=== PATIENT | female | born 1930 | race African-American/Black ===

== ENCOUNTER 2018-02-14 13:18 | Inpatient (IN) | payer MEDICARE, BC ==
[~2018-02-14] VITALS: Ht 165.1 cm; Wt 73.0 kg
[~2018-02-14 13:18] MED LIST: CALCIUM500 M3 PO; COLACE100 MG/10 ORAL; DOXYCYCLINE HY100 M7 PO; GLYCOLAX225 GM PO; Isovue-300 100ml vial INJ PRN; JANUVIA50 MG ORAL; LANTUS5 UNITS SUBQ; LEVEMIR100 UNIT/1 SUBQ; LIPITOR10 MG ORAL; MILK OF MA400 MG/51 ORAL; MIRALAX17 G2 ORAL; NOVOLOG100 UNIT/3 SUBQ; ONE DAILY1 EAC3 ORAL; OYSTER SHELL C1 EA11 PO; SILACE50 MG/5 ML PO; SIMVASTATIN20 MG ORAL; TYLENOL650 MG/20. ORAL; VANCOMYCIN1 GM/2502 IVPB; ZANTAC300 MG ORAL; [UNRECOGNIZED DRUG - CODE] PO; miralax
[2018-02-14 13:28] VITALS: BP 152/59
--- NOTE | 2018-02-14 13:32 | Emergency Room Report ---
History of Present Illness General Chief Complaint: Vomiting Source: Patient, EMS Present Illness HPI Patient is a 87-year-old female who presented after increased abdominal discomfort and vomiting. Patient had been noted to have prior history dementia. Patient was sent in from the facility. She was noted to have the multiple episodes of yellow-green vomiting. The patient was noted to have prior history dementia and history is markedly limited by patient's mental status. History is obtained from EMS. Allergies: Coded Allergies: ESTROGENS (Verified Allergy, Unknown, 11/27/14) Uncoded Allergies: "estrogen" (Allergy, Unknown, 02/20/14) Patient History Limited by: medical condition Past Medical History: see triage record Past Surgical History: unable to obtain Last Menstrual Period: NA Reviewed Nursing Documentation: PMH: Agreed; PSxH: Agreed Nursing Documentation-PMH Past Medical History: No History, Except For Hx Hypertension: Yes Hx Diabetes: Yes Hx Cancer: No Hx Gastrointestinal Problems: Yes - constipation, vomiting Hx Dementia: Yes Hx Alzheimer's Disease: Yes Review of Systems All Other Systems: limited - by mental status Physical Exam Vital Signs Date Time Temp Pulse Resp B/P (MAP) Pulse Ox O2 Delivery O2 Flow Rate FiO2 02/14/18 13:08 98.1 93 18 121/60 98 98.1 General Appearance: obese, Chronically Ill Head: normocephalic Eyes: bilateral eye PERRL ENT: dry mucus membranes Neck: limited range of motion Respiratory: chest non-tender, lungs clear, normal breath sounds, no rhonchi, no respiratory distress Cardiovascular #1: no edema, tachycardia Gastrointestinal: distended Genitourinary: no CVA tenderness Musculoskeletal: decreased range of motion - contracted upper extremity Neurologic: motor weakness, other - tremor, nonverbal Psychiatric: depressed affect Skin: normal inspection, normal color, no rash Medical Decision Making Diagnostic Impression: Primary Impression: Severe sepsis Additional Impressions: Lactic acid acidosis Urinary tract infection Ileus Hepatitis ER Course Patient presented for abdominal pain. Differential diagnoses included bowel obstruction, ischemic bowel, appendicitis, perforated viscus, abdominal aortic aneurysm, inferior myocardial infarction, viral gastroenteritis. Because of complexity of patient's case laboratory testing and imaging studies were ordered.Laboratory studies showed evidence of the patient's laboratory studies sepsis. The patient had evidence of urinary tract infection. Patient started on IV fluids.Dr. Cason was contacted for inpatient management due to complexity of medical condition. Labs Test 02/14/18 13:20 02/14/18 13:40 02/14/18 13:50 White Blood Count 12.8 K/UL (4.8-10.8) Red Blood Count 5.05 M/UL (4.20-5.40) Hemoglobin 12.8 G/DL (12.0-16.0) Hematocrit 42.0 % (37.0-47.0) Mean Corpuscular Volume 83 FL (80-99) Mean Corpuscular Hemoglobin 25.3 PG (27.0-31.0) Mean Corpuscular Hemoglobin Concent 30.4 G/DL (32.0-36.0) Red Cell Distribution Width 12.3 % (11.6-14.8) Platelet Count 220 K/UL (150-450) Mean Platelet Volume 9.1 FL (6.5-10.1) Neutrophils (%) (Auto) % (45.0-75.0) Lymphocytes (%) (Auto) % (20.0-45.0) Monocytes (%) (Auto) % (1.0-10.0) Eosinophils (%) (Auto) % (0.0-3.0) Basophils (%) (Auto) % (0.0-2.0) Differential Total Cells Counted 100 Neutrophils % (Manual) 94 % (45-75) Lymphocytes % (Manual) 3 % (20-45) Monocytes % (Manual) 2 % (1-10) Eosinophils % (Manual) 0 % (0-3) Basophils % (Manual) 0 % (0-2) Band Neutrophils 1 % (0-8) Platelet Estimate Adequate Platelet Morphology Normal Red Blood Cell Morphology Hypochromasia 1+ Prothrombin Time 10.7 SEC (9.30-11.50) Prothromb Time International Ratio 1.0 (0.9-1.1) Activated Partial Thromboplast Time 27 SEC (23-33) Sodium Level 141 MMOL/L (136-145) Potassium Level 3.9 MMOL/L (3.5-5.1) Chloride Level 102 MMOL/L (98-107) Carbon Dioxide Level 30 MMOL/L (21-32) Anion Gap 9 mmol/L (5-15) Blood Urea Nitrogen 21 mg/dL (7-18) Creatinine 1.4 MG/DL (0.55-1.30) Estimat Glomerular Filtration Rate mL/min (>60) Glucose Level 246 MG/DL (74-106) Calcium Level 11.2 MG/DL (8.5-10.1) Total Bilirubin 0.5 MG/DL (0.2-1.0) Aspartate Amino Transf (AST/SGOT) 144 U/L (15-37) Alanine Aminotransferase (ALT/SGPT) 124 U/L (12-78) Alkaline Phosphatase 142 U/L (46-116) Total Creatine Kinase 169 U/L (26-308) Creatine Kinase MB 2.1 NG/ML (0.0-3.6) Creatine Kinase MB Relative Index 1.2 Troponin I 0.001 ng/mL (0.000-0.056) Total Protein 8.2 G/DL (6.4-8.2) Albumin 3.3 G/DL (3.4-5.0) Globulin 4.9 g/dL Albumin/Globulin Ratio 0.7 (1.0-2.7) Lactic Acid Level 2.60 mmol/L (0.4-2.0) Urine Color Pale yellow Urine Appearance Slightly cloudy Urine pH 6 (4.5-8.0) Urine Specific [place] 1.020 (1.005-1.035) Urine Protein 2+ (NEGATIVE) Urine Glucose (UA) Negative (NEGATIVE) Urine Ketones Negative (NEGATIVE) Urine Occult Blood 4+ (NEGATIVE) Urine Nitrite Positive (NEGATIVE) Urine Bilirubin Negative (NEGATIVE) Urine Urobilinogen Normal MG/DL (0.0-1.0) Urine Leukocyte Esterase 3+ (NEGATIVE) Urine RBC 5-10 /HPF (0 - 2) Urine WBC 60-80 /HPF (0 - 2) Urine Squamous Epithelial Cells Occasional /LPF Urine Bacteria Many /HPF (NONE) EKG Diagnostic Results Rate: tachycardiac Rhythm: NSR - 105 ST Segments: no acute changes Chest X-Ray Diagnostic Results Chest X-Ray Diagnostic Results : Chest X-Ray Ordered: Yes # of Views/Limited/Complete: 1 View EP Interpretation: Yes Interpretation: no consolidation, no effusion, no pneumothorax Impression: Other - cardiomegaly Electronically Signed by: Electronically signed by Dr. Jayy Bolanos M.D. Last Vital Signs Date Time Temp Pulse Resp B/P (MAP) Pulse Ox O2 Delivery O2 Flow Rate FiO2 02/14/18 13:08 98.1 93 18 121/60 98 98.1 Status: unchanged Disposition: ADMITTED INPATIENT Condition: Serious Jayy Bolanos MD Feb 14, 2018 13:32
[2018-02-14 13:47] LABS: HEMOGLOBIN 12.8 G/DL (12.0-16.0); MEAN CORPUSCULAR VOLUME 83 FL (80-99); PLATELET COUNT 220 K/UL (150-450); RED BLOOD COUNT 5.05 M/UL (4.20-5.40); RED CELL DISTRIBUTION WIDTH 12.3 % (11.6-14.8); WHITE BLOOD COUNT 12.8 K/UL (4.8-10.8)
[2018-02-14 13:59] LABS: ANION GAP 9 mmol/L (5-15); BLOOD UREA NITROGEN 21 mg/dL (7-18); CALCIUM 11.2 MG/DL (8.5-10.1); CARBON DIOXIDE 30 MMOL/L (21-32); CHLORIDE 102 MMOL/L (98-107); CREATININE 1.4 MG/DL (0.55-1.30); POTASSIUM 3.9 MMOL/L (3.5-5.1); SODIUM 141 MMOL/L (136-145)
[2018-02-14 14:10] LABS: ALANINE AMINOTRANSFERASE 124 U/L (12-78); ALBUMIN 3.3 G/DL (3.4-5.0); ALBUMIN/GLOBULIN RATIO 0.7 (1.0-2.7); ALKALINE PHOSPHATASE 142 U/L (46-116); ASPARTATE AMINO TRANSFERASE 144 U/L (15-37); BILIRUBIN,TOTAL 0.5 MG/DL (0.2-1.0); CKMB 2.1 NG/ML (0.0-3.6); CREATINE KINASE 169 U/L (26-308)
[2018-02-14 14:17] LABS: APPEARANCE,URINE SLIGHTLY CLOUDY; BILIRUBIN, URINE NEGATIVE (NEGATIVE); COLOR,URINE PALE YELLOW; GLUCOSE, URINE (UA) NEGATIVE (NEGATIVE); KETONES,URINE NEGATIVE (NEGATIVE); LEUKOCYTE ESTERASE ,URINE 3+ (NEGATIVE); NITRITE,URINE POSITIVE (NEGATIVE); PH,URINE 6 (4.5-8.0); PROTEIN,URINE 2+ (NEGATIVE); UROBILINOGEN,URINE NORMAL MG/DL (0.0-1.0)
[2018-02-14] MEDS ORDERED: cefTRIAXone 1 GM in NS 55 ML IVPB ONE (14:45)
[2018-02-14 15:51] VITALS: BP 169/84
[2018-02-14] MEDS ORDERED: Acetaminophen 650 MG SUPP RECTAL ONE (16:00)
[2018-02-14 17:12] VITALS: BP 169/41
[2018-02-14] MEDS ORDERED: Nitroglycerin Subl 0.4mg tab SL PRN (17:45)
[2018-02-14] MEDS ORDERED: Albuterol/Ipratropium 3ml neb HHN PRN (17:45)
[2018-02-14] MEDS ORDERED: Miralax 17gm pkt ORAL PRN (17:45)
[2018-02-14 17:50] VITALS: BP 143/79
[2018-02-14] MEDS ORDERED: Vancomycin 1.5 GM/D5W 250ML IVPB ONE (20:00)
[2018-02-14] MEDS: NovoLOG Insulin Flexpen SUBQ SCH (21:16)
[2018-02-14] MEDS: Heparin 5000 units/ml inj SUBQ SCH (21:17)
[2018-02-14] MEDS: Cefepime HCl 2 GM in D5W 110 ML IV SCH (22:27)
[2018-02-15] MEDS ORDERED: Vancomycin 1 GM in D5W 275 ML IV SCH (00:30)
[2018-02-15] MEDS: NovoLOG Insulin Flexpen SUBQ SCH ×4 (05:43→20:44)
[2018-02-15 07:09] LABS: HEMATOCRIT 34.1 % (37.0-47.0); HEMOGLOBIN 10.6 G/DL (12.0-16.0); MEAN CORPUSCULAR VOLUME 82 FL (80-99); PLATELET COUNT 180 K/UL (150-450); RED BLOOD COUNT 4.17 M/UL (4.20-5.40); RED CELL DISTRIBUTION WIDTH 12.4 % (11.6-14.8); WHITE BLOOD COUNT 11.1 K/UL (4.8-10.8)
[2018-02-15 07:31] LABS: ALANINE AMINOTRANSFERASE 85 U/L (12-78); ALBUMIN 2.9 G/DL (3.4-5.0); ALBUMIN/GLOBULIN RATIO 0.7 (1.0-2.7); ALKALINE PHOSPHATASE 103 U/L (46-116); ANION GAP 7 mmol/L (5-15); ASPARTATE AMINO TRANSFERASE 98 U/L (15-37); BILIRUBIN,TOTAL 0.3 MG/DL (0.2-1.0); BLOOD UREA NITROGEN 22 mg/dL (7-18); CALCIUM 10.3 MG/DL (8.5-10.1); CARBON DIOXIDE 28 MMOL/L (21-32); CHLORIDE 104 MMOL/L (98-107); CREATININE 1.3 MG/DL (0.55-1.30); POTASSIUM 3.6 MMOL/L (3.5-5.1); SODIUM 139 MMOL/L (136-145)
[2018-02-15] MEDS: sitaGLIPtin 50mg tab ORAL SCH (08:35)
[2018-02-15] MEDS: Heparin 5000 units/ml inj SUBQ SCH ×2 (08:37→20:44)
--- NOTE | 2018-02-15 09:17 | Diagnostic Imaging Report ---
Clinical Indication: Pain Technique: No oral contrast utilized, per emergency room physician request IV administration nonionic contrast. Venous phase spiral acquisition obtained through the abdomen and pelvis. Multiplanar reconstructions were generated. Total dose length product 809.95 mGycm. CTDIvol(s) 15.91 mGy. Dose reduction achieved using automated exposure control Comparison: 06/06/2014 noncontrast study Findings: The appendix is not definitely identified, but no findings to suggest acute appendicitis are evident. There are a few scattered colonic diverticula. No evidence of diverticulitis. There are a few prominent gas and fluid-filled small bowel loops, but no definite transition point is demonstrated. No free or loculated intraperitoneal air or fluid is evident. There is a tiny fat-containing umbilical hernia. The distal esophagus, stomach, duodenum are unremarkable. The liver demonstrates a very subtle low-attenuation lesion within segment 8, which is also evident previously and has been described on earlier studies, unchanged. Other previously described liver lesions are not clearly evident. Gallbladder, bile ducts are all unremarkable. The pancreas is atrophic. The spleen, adrenals are unremarkable. The right kidney is unremarkable. Left kidney is somewhat lobulated, otherwise unremarkable. No retroperitoneal or mesenteric mass or adenopathy. The uterus is not demonstrated, presumably surgically absent. There is a Soria catheter within the bladder, which is empty. Infiltrate is seen at the right lung base. The bones demonstrate mild scoliotic deformity and degenerative spondylosis changes. There is edema of the bilateral flank subcutaneous fat Impression: Mildly prominent gas and fluid-filled small bowel loops without definite transition point. Most likely on the basis of ileus/enteritis. Early small bowel obstruction not completely excludable but deemed less likely Right basilar infiltrate, most likely pneumonia Mild anasarca Stable, presumably benign, right lobe liver lesion Soria catheter within nondistended bladder Mild scoliosis and degenerative spondylosis incidentally noted This agrees with the preliminary interpretation provided overnight by [facility] teleradiology service. The CT scanner at [facility] is accredited by the [employer] and the scans are performed using protocols designed to limit radiation exposure to as low as reasonably achievable to attain images of sufficient resolution adequate for diagnostic evaluation.
--- NOTE | 2018-02-15 09:23 | Diagnostic Imaging Report ---
Indication: Chest pain Technique: One view of the chest Comparison: 09/02/2015 Findings: Patient's chin obscures the upper mediastinum. There is mild interstitial congestion. Better inspiration currently. The heart size is normal. Impression: Mild interstitial edema
[2018-02-15 12:00] VITALS: BP_SYST 143; BP_SYST 151; BP_DIAS 66; BP_DIAS 79
--- NOTE | 2018-02-15 12:34 | History and Physical ---
History of Present Illness General Date patient seen: Feb 15, 2018 Reason for Hospitalization: Vomiting Present Illness HPI 87 year old female with hx of dementia, DM, residing in an assisted living BIBA with CC of abdominal pain and vomiting. Pt can't provide any history and all information is obtained from the chart. Pt was diagnosed to have UTI with sepsis and admitted to telemetry for further treatment. Currently, pt is somnolent, not responsive, but looks comfortable. Unknown baseline. Allergies: Coded Allergies: ESTROGENS (Verified Allergy, Unknown, 11/27/14) Uncoded Allergies: "estrogen" (Allergy, Unknown, 02/20/14) Medication History Scheduled Calcium Carbonate (Calcium), 500 MG PO BID, (Reported) Docusate Sodium (Silace), 100 MG PO BID, (Reported) Insulin Detemir (Levemir), 16 SUBQ BEDTIME, (Reported) Multivitamin (One Daily), 1 TAB ORAL DAILY, (Reported) Polyethylene Glycol 3350 (Glycolax), 17 GM PO DAILY, (Reported) Polyethylene Glycol 3350* (Miralax*), 17 GM ORAL DAILY, (Reported) Ranitidine Hcl (Zantac), 150 MG ORAL DAILY, (Reported) Sitagliptin (Januvia), 50 MG ORAL DAILY, (Reported) Vancomycin Hcl/D5w (Vancomycin-D5w 1 G/250 Ml), 1 GM IVPB Q24H Scheduled PRN Acetaminophen (Acetaminophen), 650 MG ORAL Q6H PRN for Prn Headache/Temp > 101, (Reported) Magnesium Hydroxide* (Milk Of Magnesia*), 30 ML ORAL DAILY PRN for Constipation, (Reported) Miscellaneous Medications Calcium Carbonate ([id number]), 500 MG PO, (Reported) Insulin Aspart* (Novolog*), 0 SUBQ, (Reported) [miralax], (Reported) Patient History Healthcare decision maker Resuscitation status Full Code Advanced Directive on File No Past Medical/Surgical History Past Medical/Surgical History: (1) Diabetes (2) Renal insufficiency Review of Systems All Other Systems: negative except mentioned in HPI Physical Exam General Appearance: cachetic Lines, tubes and drains: central line HEENT: normocephalic, atraumatic, PERRL Neck: normal alignment Respiratory/Chest: chest wall non-tender, normal breath sounds Cardiovascular/Chest: normal peripheral pulses, normal rate Abdomen: normal bowel sounds, non tender Genitourinary/Rectal: normal genital exam, normal rectal exam Extremities: non-pitting Last 24 Hour Vital Signs Date Time Temp Pulse Resp B/P (MAP) Pulse Ox O2 Delivery O2 Flow Rate FiO2 02/15/18 08:00 84 02/15/18 02:23 68 02/14/18 23:46 77 02/14/18 19:02 94 02/14/18 17:50 100.4 89 18 143/79 100 Room Air 100.4 02/14/18 17:40 100.9 96 21 169/41 100 Room Air 100.9 02/14/18 17:12 100.9 96 21 169/41 100 Room Air 100.9 02/14/18 17:12 100.9 02/14/18 16:31 101.7 02/14/18 15:51 101.7 110 21 169/84 100 Room Air 101.7 02/14/18 13:28 98 22 152/59 91 Room Air 02/14/18 13:08 98.1 93 18 121/60 98 98.1 Intake and Output 02/14/18 02/15/18 19:00 07:00 Intake Total 1055 ml 470 ml Output Total 200 ml Balance 1055 ml 270 ml Intake Oral 0 ml IV Total 1055 ml 470 ml Output Urine Total 200 ml Laboratory Tests Test 02/14/18 13:20 02/14/18 13:40 02/14/18 13:50 02/14/18 18:55 White Blood Count 12.8 K/UL (4.8-10.8) H Red Blood Count 5.05 M/UL (4.20-5.40) Hemoglobin 12.8 G/DL (12.0-16.0) Hematocrit 42.0 % (37.0-47.0) Mean Corpuscular Volume 83 FL (80-99) Mean Corpuscular Hemoglobin 25.3 PG (27.0-31.0) L Mean Corpuscular Hemoglobin Concent 30.4 G/DL (32.0-36.0) L Red Cell Distribution Width 12.3 % (11.6-14.8) Platelet Count 220 K/UL (150-450) Mean Platelet Volume 9.1 FL (6.5-10.1) Neutrophils (%) (Auto) % (45.0-75.0) Lymphocytes (%) (Auto) % (20.0-45.0) Monocytes (%) (Auto) % (1.0-10.0) Eosinophils (%) (Auto) % (0.0-3.0) Basophils (%) (Auto) % (0.0-2.0) Differential Total Cells Counted 100 Neutrophils % (Manual) 94 % (45-75) H Lymphocytes % (Manual) 3 % (20-45) L Monocytes % (Manual) 2 % (1-10) Eosinophils % (Manual) 0 % (0-3) Basophils % (Manual) 0 % (0-2) Band Neutrophils 1 % (0-8) Platelet Estimate Adequate Platelet Morphology Normal Red Blood Cell Morphology Hypochromasia 1+ Prothrombin Time 10.7 SEC (9.30-11.50) Prothromb Time International Ratio 1.0 (0.9-1.1) Activated Partial Thromboplast Time 27 SEC (23-33) Sodium Level 141 MMOL/L (136-145) Potassium Level 3.9 MMOL/L (3.5-5.1) Chloride Level 102 MMOL/L (98-107) Carbon Dioxide Level 30 MMOL/L (21-32) Anion Gap 9 mmol/L (5-15) Blood Urea Nitrogen 21 mg/dL (7-18) H Creatinine 1.4 MG/DL (0.55-1.30) H Estimat Glomerular Filtration Rate mL/min (>60) Glucose Level 246 MG/DL (74-106) H Calcium Level 11.2 MG/DL (8.5-10.1) H Total Bilirubin 0.5 MG/DL (0.2-1.0) Aspartate Amino Transf (AST/SGOT) 144 U/L (15-37) H Alanine Aminotransferase (ALT/SGPT) 124 U/L (12-78) H Alkaline Phosphatase 142 U/L (46-116) H Total Creatine Kinase 169 U/L (26-308) Creatine Kinase MB 2.1 NG/ML (0.0-3.6) Creatine Kinase MB Relative Index 1.2 Troponin I 0.001 ng/mL (0.000-0.056) Total Protein 8.2 G/DL (6.4-8.2) Albumin 3.3 G/DL (3.4-5.0) L Globulin 4.9 g/dL Albumin/Globulin Ratio 0.7 (1.0-2.7) L Lactic Acid Level 2.60 mmol/L (0.4-2.0) H 2.60 mmol/L (0.66-2.22) H Urine Color Pale yellow Urine Appearance Slightly cloudy Urine pH 6 (4.5-8.0) Urine Specific [place] 1.020 (1.005-1.035) Urine Protein 2+ (NEGATIVE) H Urine Glucose (UA) Negative (NEGATIVE) Urine Ketones Negative (NEGATIVE) Urine Occult Blood 4+ (NEGATIVE) H Urine Nitrite Positive (NEGATIVE) H Urine Bilirubin Negative (NEGATIVE) Urine Urobilinogen Normal MG/DL (0.0-1.0) Urine Leukocyte Esterase 3+ (NEGATIVE) H Urine RBC 5-10 /HPF (0 - 2) H Urine WBC 60-80 /HPF (0 - 2) H Urine Squamous Epithelial Cells Occasional /LPF Urine Bacteria Many /HPF (NONE) H Test 02/15/18 06:35 White Blood Count 11.1 K/UL (4.8-10.8) H Red Blood Count 4.17 M/UL (4.20-5.40) L Hemoglobin 10.6 G/DL (12.0-16.0) L Hematocrit 34.1 % (37.0-47.0) L Mean Corpuscular Volume 82 FL (80-99) Mean Corpuscular Hemoglobin 25.5 PG (27.0-31.0) L Mean Corpuscular Hemoglobin Concent 31.2 G/DL (32.0-36.0) L Red Cell Distribution Width 12.4 % (11.6-14.8) Platelet Count 180 K/UL (150-450) Mean Platelet Volume 9.3 FL (6.5-10.1) Neutrophils (%) (Auto) % (45.0-75.0) Lymphocytes (%) (Auto) % (20.0-45.0) Monocytes (%) (Auto) % (1.0-10.0) Eosinophils (%) (Auto) % (0.0-3.0) Basophils (%) (Auto) % (0.0-2.0) Differential Total Cells Counted 100 Neutrophils % (Manual) 84 % (45-75) H Lymphocytes % (Manual) 8 % (20-45) L Monocytes % (Manual) 8 % (1-10) Eosinophils % (Manual) 0 % (0-3) Basophils % (Manual) 0 % (0-2) Band Neutrophils 0 % (0-8) Platelet Estimate Adequate Platelet Morphology Normal Hypochromasia 1+ Sodium Level 139 MMOL/L (136-145) Potassium Level 3.6 MMOL/L (3.5-5.1) Chloride Level 104 MMOL/L (98-107) Carbon Dioxide Level 28 MMOL/L (21-32) Anion Gap 7 mmol/L (5-15) Blood Urea Nitrogen 22 mg/dL (7-18) H Creatinine 1.3 MG/DL (0.55-1.30) Estimat Glomerular Filtration Rate mL/min (>60) Glucose Level 195 MG/DL (74-106) H Calcium Level 10.3 MG/DL (8.5-10.1) H Total Bilirubin 0.3 MG/DL (0.2-1.0) Aspartate Amino Transf (AST/SGOT) 98 U/L (15-37) H Alanine Aminotransferase (ALT/SGPT) 85 U/L (12-78) H Alkaline Phosphatase 103 U/L (46-116) Total Protein 7.3 G/DL (6.4-8.2) Albumin 2.9 G/DL (3.4-5.0) L Globulin 4.4 g/dL Albumin/Globulin Ratio 0.7 (1.0-2.7) L Microbiology Date/Time Source Procedure Growth Status 02/14/18 13:50 Urine,Clean Catch Urine Culture - Preliminary NO GROWTH Resulted Height (Feet): 5 Height (Inches): 6.00 Weight (Pounds): 141 Medications Current Medications Medications (Trade) Dose Ordered Sig/Jus Route PRN Reason Start Time Stop Time Status Last Admin Dose Admin Acetaminophen (Tylenol) 650 mg Q4H PRN ORAL fever 02/14/18 20:30 03/16/18 20:29 Albuterol/ Ipratropium (Albuterol/ Ipratropium) 3 ml Q4H PRN HHN Shortness of Breath 02/14/18 17:45 02/19/18 17:44 Cefepime HCl 2 gm/ Dextrose 110 ml @ 220 mls/hr Q24H IV 02/14/18 22:00 02/21/18 21:59 02/14/18 22:27 Dextrose (Dextrose 50%) 25 ml STAT PRN IV Hypoglycemia 02/14/18 17:45 03/16/18 17:44 Dextrose (Dextrose 50%) 50 ml STAT PRN IV Hypoglycemia 02/14/18 18:15 03/16/18 18:14 Heparin Sodium (Porcine) (Heparin 5000 units/ml) 5,000 units EVERY 12 HOURS SUBQ 02/14/18 21:00 03/16/18 20:59 02/15/18 08:37 Insulin Aspart (NovoLOG) BEFORE MEALS AND HS SUBQ 02/14/18 21:00 03/16/18 20:59 02/15/18 11:08 Iopamidol (Isovue-300 100ml) 100 ml NOW PRN INJ Radiology Procedure 02/14/18 13:15 02/16/18 13:14 Nitroglycerin (Ntg) 0.4 mg Q5M PRN SL Prn Chest Pain 02/14/18 17:45 03/16/18 17:44 Ondansetron HCl (Zofran) 4 mg Q6H PRN IVP Nausea & Vomiting 02/14/18 17:45 03/16/18 17:44 02/15/18 11:09 Polyethylene Glycol (Miralax) 17 gm DAILYPRN PRN ORAL Constipation 02/14/18 17:45 03/16/18 17:44 Sitagliptin Phosphate (Januvia) 50 mg DAILY ORAL 02/15/18 09:00 03/17/18 08:59 02/15/18 08:35 Temazepam (Restoril) 15 mg HSPRN PRN ORAL Insomnia 02/14/18 17:45 02/21/18 17:44 Vancomycin HCl (Vanco rx to dose) 1 ea DAILY PRN MISC PER RX PROTOCOL 02/14/18 18:00 03/16/18 17:59 Vancomycin/Sodium Chloride 250 ml @ 166.667 mls/hr Q24H IVPB 02/15/18 20:00 02/20/18 19:59 Assessment/Plan Problem List: (1) Severe sepsis ICD Codes: A41.9 - Sepsis, unspecified organism; R65.20 - Severe sepsis without septic shock SNOMED: 48952487 (2) Intractable nausea and vomiting ICD Codes: R11.2 - Nausea with vomiting, unspecified SNOMED: 773830574 (3) Altered mental status ICD Codes: R41.82 - Altered mental status, unspecified SNOMED: 415374606 (4) end stage alzheimrers dementia (5) UTI (urinary tract infection) ICD Codes: N39.0 - Urinary tract infection, site not specified SNOMED: 45943540 (6) At high risk for aspiration ICD Codes: Z91.89 - At high risk for aspiration SNOMED: 851644637 (7) Diabetes ICD Codes: E11.9 - Diabetes SNOMED: 60895561 Assessment/Plan momin culture iv abx check electrolytes check urine cultures iv fluids swallow study dvt prophylaxis sliding scale dvt prophylaxis Tiago Cason MD Feb 15, 2018 12:34
--- NOTE | 2018-02-15 12:44 | Consultation ---
History of Present Illness General Date patient seen: Feb 15, 2018 Chief Complaint: Vomiting Present Illness HPI 87-year-old female who presented after increased abdominal discomfort and vomiting. the pt has been trowing up. the pt is nonverbal and confused. the pt has memory impairment and is anxious Allergies: Coded Allergies: ESTROGENS (Verified Allergy, Unknown, 11/27/14) Uncoded Allergies: "estrogen" (Allergy, Unknown, 02/20/14) Medication History Scheduled Calcium Carbonate (Calcium), 500 MG PO BID, (Reported) Docusate Sodium (Silace), 100 MG PO BID, (Reported) Insulin Detemir (Levemir), 16 SUBQ BEDTIME, (Reported) Multivitamin (One Daily), 1 TAB ORAL DAILY, (Reported) Polyethylene Glycol 3350 (Glycolax), 17 GM PO DAILY, (Reported) Polyethylene Glycol 3350* (Miralax*), 17 GM ORAL DAILY, (Reported) Ranitidine Hcl (Zantac), 150 MG ORAL DAILY, (Reported) Sitagliptin (Januvia), 50 MG ORAL DAILY, (Reported) Vancomycin Hcl/D5w (Vancomycin-D5w 1 G/250 Ml), 1 GM IVPB Q24H Scheduled PRN Acetaminophen (Acetaminophen), 650 MG ORAL Q6H PRN for Prn Headache/Temp > 101, (Reported) Magnesium Hydroxide* (Milk Of Magnesia*), 30 ML ORAL DAILY PRN for Constipation, (Reported) Miscellaneous Medications Calcium Carbonate ([id number]), 500 MG PO, (Reported) Insulin Aspart* (Novolog*), 0 SUBQ, (Reported) [miralax], (Reported) Patient History Limited by: medical condition History Provided By: Patient, Medical Record, PMD Healthcare decision maker Resuscitation status Full Code Advanced Directive on File No Past Medical/Surgical History Past Medical/Surgical History: (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 (3) Anemia (4) Lactic acidosis (5) Altered mental status (6) Vomiting (7) Acute bronchitis (8) Hyperlipidemia (9) Leukocytosis (10) Renal insufficiency (11) Sepsis (12) Anemia (13) Hypoxia (14) Vomiting (15) Acute bronchitis (16) Anemia (17) Renal insufficiency (18) Altered mental status (19) Pneumonia (20) Type 1 diabetes, controlled, with cellulitis of toe (21) Sepsis (22) Cellulitis of fifth toe, left (23) Type 2 diabetes, uncontrolled, with cellulitis of toe (24) Podiatry visit, routine (25) Urinary tract infection (26) Ileus (27) Lactic acid acidosis (28) Abdominal pain (29) Heart abnormality (30) Heart block (31) Diabetes (32) Renal insufficiency (33) UTI (urinary tract infection) (34) Altered mental status (35) Severe sepsis (36) At high risk for aspiration (37) end stage alzheimrers dementia (38) Intractable nausea and vomiting Review of Systems Psychiatric: Reports: prior hx, anxiety, depressed feelings, emotional problems Physical Exam General Appearance: no apparent distress, alert, confused Last 24 Hour Vital Signs Date Time Temp Pulse Resp B/P (MAP) Pulse Ox O2 Delivery O2 Flow Rate FiO2 02/15/18 08:00 84 02/15/18 02:23 68 02/14/18 23:46 77 02/14/18 19:02 94 02/14/18 17:50 100.4 89 18 143/79 100 Room Air 100.4 02/14/18 17:40 100.9 96 21 169/41 100 Room Air 100.9 02/14/18 17:12 100.9 96 21 169/41 100 Room Air 100.9 02/14/18 17:12 100.9 02/14/18 16:31 101.7 02/14/18 15:51 101.7 110 21 169/84 100 Room Air 101.7 02/14/18 13:28 98 22 152/59 91 Room Air 02/14/18 13:08 98.1 93 18 121/60 98 98.1 Intake and Output 02/14/18 02/15/18 19:00 07:00 Intake Total 1055 ml 470 ml Output Total 200 ml Balance 1055 ml 270 ml Intake Oral 0 ml IV Total 1055 ml 470 ml Output Urine Total 200 ml Laboratory Tests Test 02/14/18 13:20 02/14/18 13:40 02/14/18 13:50 02/14/18 18:55 White Blood Count 12.8 K/UL (4.8-10.8) H Red Blood Count 5.05 M/UL (4.20-5.40) Hemoglobin 12.8 G/DL (12.0-16.0) Hematocrit 42.0 % (37.0-47.0) Mean Corpuscular Volume 83 FL (80-99) Mean Corpuscular Hemoglobin 25.3 PG (27.0-31.0) L Mean Corpuscular Hemoglobin Concent 30.4 G/DL (32.0-36.0) L Red Cell Distribution Width 12.3 % (11.6-14.8) Platelet Count 220 K/UL (150-450) Mean Platelet Volume 9.1 FL (6.5-10.1) Neutrophils (%) (Auto) % (45.0-75.0) Lymphocytes (%) (Auto) % (20.0-45.0) Monocytes (%) (Auto) % (1.0-10.0) Eosinophils (%) (Auto) % (0.0-3.0) Basophils (%) (Auto) % (0.0-2.0) Differential Total Cells Counted 100 Neutrophils % (Manual) 94 % (45-75) H Lymphocytes % (Manual) 3 % (20-45) L Monocytes % (Manual) 2 % (1-10) Eosinophils % (Manual) 0 % (0-3) Basophils % (Manual) 0 % (0-2) Band Neutrophils 1 % (0-8) Platelet Estimate Adequate Platelet Morphology Normal Red Blood Cell Morphology Hypochromasia 1+ Prothrombin Time 10.7 SEC (9.30-11.50) Prothromb Time International Ratio 1.0 (0.9-1.1) Activated Partial Thromboplast Time 27 SEC (23-33) Sodium Level 141 MMOL/L (136-145) Potassium Level 3.9 MMOL/L (3.5-5.1) Chloride Level 102 MMOL/L (98-107) Carbon Dioxide Level 30 MMOL/L (21-32) Anion Gap 9 mmol/L (5-15) Blood Urea Nitrogen 21 mg/dL (7-18) H Creatinine 1.4 MG/DL (0.55-1.30) H Estimat Glomerular Filtration Rate mL/min (>60) Glucose Level 246 MG/DL (74-106) H Calcium Level 11.2 MG/DL (8.5-10.1) H Total Bilirubin 0.5 MG/DL (0.2-1.0) Aspartate Amino Transf (AST/SGOT) 144 U/L (15-37) H Alanine Aminotransferase (ALT/SGPT) 124 U/L (12-78) H Alkaline Phosphatase 142 U/L (46-116) H Total Creatine Kinase 169 U/L (26-308) Creatine Kinase MB 2.1 NG/ML (0.0-3.6) Creatine Kinase MB Relative Index 1.2 Troponin I 0.001 ng/mL (0.000-0.056) Total Protein 8.2 G/DL (6.4-8.2) Albumin 3.3 G/DL (3.4-5.0) L Globulin 4.9 g/dL Albumin/Globulin Ratio 0.7 (1.0-2.7) L Lactic Acid Level 2.60 mmol/L (0.4-2.0) H 2.60 mmol/L (0.66-2.22) H Urine Color Pale yellow Urine Appearance Slightly cloudy Urine pH 6 (4.5-8.0) Urine Specific [place] 1.020 (1.005-1.035) Urine Protein 2+ (NEGATIVE) H Urine Glucose (UA) Negative (NEGATIVE) Urine Ketones Negative (NEGATIVE) Urine Occult Blood 4+ (NEGATIVE) H Urine Nitrite Positive (NEGATIVE) H Urine Bilirubin Negative (NEGATIVE) Urine Urobilinogen Normal MG/DL (0.0-1.0) Urine Leukocyte Esterase 3+ (NEGATIVE) H Urine RBC 5-10 /HPF (0 - 2) H Urine WBC 60-80 /HPF (0 - 2) H Urine Squamous Epithelial Cells Occasional /LPF Urine Bacteria Many /HPF (NONE) H Test 02/15/18 06:35 White Blood Count 11.1 K/UL (4.8-10.8) H Red Blood Count 4.17 M/UL (4.20-5.40) L Hemoglobin 10.6 G/DL (12.0-16.0) L Hematocrit 34.1 % (37.0-47.0) L Mean Corpuscular Volume 82 FL (80-99) Mean Corpuscular Hemoglobin 25.5 PG (27.0-31.0) L Mean Corpuscular Hemoglobin Concent 31.2 G/DL (32.0-36.0) L Red Cell Distribution Width 12.4 % (11.6-14.8) Platelet Count 180 K/UL (150-450) Mean Platelet Volume 9.3 FL (6.5-10.1) Neutrophils (%) (Auto) % (45.0-75.0) Lymphocytes (%) (Auto) % (20.0-45.0) Monocytes (%) (Auto) % (1.0-10.0) Eosinophils (%) (Auto) % (0.0-3.0) Basophils (%) (Auto) % (0.0-2.0) Differential Total Cells Counted 100 Neutrophils % (Manual) 84 % (45-75) H Lymphocytes % (Manual) 8 % (20-45) L Monocytes % (Manual) 8 % (1-10) Eosinophils % (Manual) 0 % (0-3) Basophils % (Manual) 0 % (0-2) Band Neutrophils 0 % (0-8) Platelet Estimate Adequate Platelet Morphology Normal Hypochromasia 1+ Sodium Level 139 MMOL/L (136-145) Potassium Level 3.6 MMOL/L (3.5-5.1) Chloride Level 104 MMOL/L (98-107) Carbon Dioxide Level 28 MMOL/L (21-32) Anion Gap 7 mmol/L (5-15) Blood Urea Nitrogen 22 mg/dL (7-18) H Creatinine 1.3 MG/DL (0.55-1.30) Estimat Glomerular Filtration Rate mL/min (>60) Glucose Level 195 MG/DL (74-106) H Calcium Level 10.3 MG/DL (8.5-10.1) H Total Bilirubin 0.3 MG/DL (0.2-1.0) Aspartate Amino Transf (AST/SGOT) 98 U/L (15-37) H Alanine Aminotransferase (ALT/SGPT) 85 U/L (12-78) H Alkaline Phosphatase 103 U/L (46-116) Total Protein 7.3 G/DL (6.4-8.2) Albumin 2.9 G/DL (3.4-5.0) L Globulin 4.4 g/dL Albumin/Globulin Ratio 0.7 (1.0-2.7) L Microbiology Date/Time Source Procedure Growth Status 02/14/18 13:50 Urine,Clean Catch Urine Culture - Preliminary NO GROWTH Resulted Height (Feet): 5 Height (Inches): 6.00 Weight (Pounds): 141 Medications Current Medications Medications (Trade) Dose Ordered Sig/Jus Route PRN Reason Start Time Stop Time Status Last Admin Dose Admin Acetaminophen (Tylenol) 650 mg Q4H PRN ORAL fever 02/14/18 20:30 03/16/18 20:29 Albuterol/ Ipratropium (Albuterol/ Ipratropium) 3 ml Q4H PRN HHN Shortness of Breath 02/14/18 17:45 02/19/18 17:44 Cefepime HCl 2 gm/ Dextrose 110 ml @ 220 mls/hr Q24H IV 02/14/18 22:00 02/21/18 21:59 02/14/18 22:27 Dextrose (Dextrose 50%) 25 ml STAT PRN IV Hypoglycemia 02/14/18 17:45 03/16/18 17:44 Dextrose (Dextrose 50%) 50 ml STAT PRN IV Hypoglycemia 02/14/18 18:15 03/16/18 18:14 Heparin Sodium (Porcine) (Heparin 5000 units/ml) 5,000 units EVERY 12 HOURS SUBQ 02/14/18 21:00 03/16/18 20:59 02/15/18 08:37 Insulin Aspart (NovoLOG) BEFORE MEALS AND HS SUBQ 02/14/18 21:00 03/16/18 20:59 02/15/18 11:08 Iopamidol (Isovue-300 100ml) 100 ml NOW PRN INJ Radiology Procedure 02/14/18 13:15 02/16/18 13:14 Nitroglycerin (Ntg) 0.4 mg Q5M PRN SL Prn Chest Pain 02/14/18 17:45 03/16/18 17:44 Ondansetron HCl (Zofran) 4 mg Q6H PRN IVP Nausea & Vomiting 02/14/18 17:45 03/16/18 17:44 02/15/18 11:09 Polyethylene Glycol (Miralax) 17 gm DAILYPRN PRN ORAL Constipation 02/14/18 17:45 03/16/18 17:44 Sitagliptin Phosphate (Januvia) 50 mg DAILY ORAL 02/15/18 09:00 03/17/18 08:59 02/15/18 08:35 Temazepam (Restoril) 15 mg HSPRN PRN ORAL Insomnia 02/14/18 17:45 02/21/18 17:44 Vancomycin HCl (Vanco rx to dose) 1 ea DAILY PRN MISC PER RX PROTOCOL 02/14/18 18:00 03/16/18 17:59 Vancomycin/Sodium Chloride 250 ml @ 166.667 mls/hr Q24H IVPB 02/15/18 20:00 02/20/18 19:59 Assessment/Plan Assessment/Plan encephalopathy dementia -haldol 5mg q 6hr prn Josue Roy M.D. Feb 15, 2018 12:44
--- NOTE | 2018-02-15 14:19 | Consultation ---
History of Present Illness General Date patient seen: Feb 15, 2018 Chief Complaint: Vomiting Present Illness HPI 87 y/o F with hx of HTN, Dm2, constipation, Alzheimer's Disease, assisted living resident presents to ED on 02/14 with increasing abd discomfort and multiple episodes of yelow-green emesis. Febrile up to 101.7, Tm int he alst 24hrs 100.4 WBC up to 12, now downt o 11 LFTs increased Allergies: Coded Allergies: ESTROGENS (Verified Allergy, Unknown, 11/27/14) Uncoded Allergies: "estrogen" (Allergy, Unknown, 02/20/14) Medication History Scheduled Calcium Carbonate (Calcium), 500 MG PO BID, (Reported) Docusate Sodium (Silace), 100 MG PO BID, (Reported) Insulin Detemir (Levemir), 16 SUBQ BEDTIME, (Reported) Multivitamin (One Daily), 1 TAB ORAL DAILY, (Reported) Polyethylene Glycol 3350 (Glycolax), 17 GM PO DAILY, (Reported) Polyethylene Glycol 3350* (Miralax*), 17 GM ORAL DAILY, (Reported) Ranitidine Hcl (Zantac), 150 MG ORAL DAILY, (Reported) Sitagliptin (Januvia), 50 MG ORAL DAILY, (Reported) Vancomycin Hcl/D5w (Vancomycin-D5w 1 G/250 Ml), 1 GM IVPB Q24H Scheduled PRN Acetaminophen (Acetaminophen), 650 MG ORAL Q6H PRN for Prn Headache/Temp > 101, (Reported) Magnesium Hydroxide* (Milk Of Magnesia*), 30 ML ORAL DAILY PRN for Constipation, (Reported) Miscellaneous Medications Calcium Carbonate ([id number]), 500 MG PO, (Reported) Insulin Aspart* (Novolog*), 0 SUBQ, (Reported) [miralax], (Reported) Patient History Healthcare decision maker Resuscitation status Full Code Advanced Directive on File No Patient History Narrative Pmhx: as above Shx: reviewed Fmhx: non contributory Review of Systems ROS Narrative unable to obtain Physical Exam Physical Exam Narrative General Appearance: cachetic Lines, tubes and drains: central line HEENT: normocephalic, atraumatic, PERRL Neck: normal alignment Respiratory/Chest: chest wall non-tender, normal breath sounds Cardiovascular/Chest: normal peripheral pulses, normal rate Abdomen: normal bowel sounds, non tender Genitourinary/Rectal: normal genital exam, normal rectal exam Extremities: non-pitting Last 24 Hour Vital Signs Date Time Temp Pulse Resp B/P (MAP) Pulse Ox O2 Delivery O2 Flow Rate FiO2 02/15/18 08:00 84 02/15/18 02:23 68 02/14/18 23:46 77 02/14/18 19:02 94 02/14/18 17:50 100.4 89 18 143/79 100 Room Air 100.4 02/14/18 17:40 100.9 96 21 169/41 100 Room Air 100.9 02/14/18 17:12 100.9 96 21 169/41 100 Room Air 100.9 02/14/18 17:12 100.9 02/14/18 16:31 101.7 02/14/18 15:51 101.7 110 21 169/84 100 Room Air 101.7 Intake and Output 02/14/18 02/15/18 19:00 07:00 Intake Total 1055 ml 470 ml Output Total 200 ml Balance 1055 ml 270 ml Intake Oral 0 ml IV Total 1055 ml 470 ml Output Urine Total 200 ml Laboratory Tests Test 02/14/18 18:55 02/15/18 06:35 Lactic Acid Level 2.60 mmol/L (0.66-2.22) H White Blood Count 11.1 K/UL (4.8-10.8) H Red Blood Count 4.17 M/UL (4.20-5.40) L Hemoglobin 10.6 G/DL (12.0-16.0) L Hematocrit 34.1 % (37.0-47.0) L Mean Corpuscular Volume 82 FL (80-99) Mean Corpuscular Hemoglobin 25.5 PG (27.0-31.0) L Mean Corpuscular Hemoglobin Concent 31.2 G/DL (32.0-36.0) L Red Cell Distribution Width 12.4 % (11.6-14.8) Platelet Count 180 K/UL (150-450) Mean Platelet Volume 9.3 FL (6.5-10.1) Neutrophils (%) (Auto) % (45.0-75.0) Lymphocytes (%) (Auto) % (20.0-45.0) Monocytes (%) (Auto) % (1.0-10.0) Eosinophils (%) (Auto) % (0.0-3.0) Basophils (%) (Auto) % (0.0-2.0) Differential Total Cells Counted 100 Neutrophils % (Manual) 84 % (45-75) H Lymphocytes % (Manual) 8 % (20-45) L Monocytes % (Manual) 8 % (1-10) Eosinophils % (Manual) 0 % (0-3) Basophils % (Manual) 0 % (0-2) Band Neutrophils 0 % (0-8) Platelet Estimate Adequate Platelet Morphology Normal Hypochromasia 1+ Sodium Level 139 MMOL/L (136-145) Potassium Level 3.6 MMOL/L (3.5-5.1) Chloride Level 104 MMOL/L (98-107) Carbon Dioxide Level 28 MMOL/L (21-32) Anion Gap 7 mmol/L (5-15) Blood Urea Nitrogen 22 mg/dL (7-18) H Creatinine 1.3 MG/DL (0.55-1.30) Estimat Glomerular Filtration Rate mL/min (>60) Glucose Level 195 MG/DL (74-106) H Calcium Level 10.3 MG/DL (8.5-10.1) H Total Bilirubin 0.3 MG/DL (0.2-1.0) Aspartate Amino Transf (AST/SGOT) 98 U/L (15-37) H Alanine Aminotransferase (ALT/SGPT) 85 U/L (12-78) H Alkaline Phosphatase 103 U/L (46-116) Total Protein 7.3 G/DL (6.4-8.2) Albumin 2.9 G/DL (3.4-5.0) L Globulin 4.4 g/dL Albumin/Globulin Ratio 0.7 (1.0-2.7) L Height (Feet): 5 Height (Inches): 6.00 Weight (Pounds): 141 Medications Current Medications Medications (Trade) Dose Ordered Sig/Jus Route PRN Reason Start Time Stop Time Status Last Admin Dose Admin Acetaminophen (Tylenol) 650 mg Q4H PRN ORAL fever 02/14/18 20:30 03/16/18 20:29 Albuterol/ Ipratropium (Albuterol/ Ipratropium) 3 ml Q4H PRN HHN Shortness of Breath 02/14/18 17:45 02/19/18 17:44 Cefepime HCl 2 gm/ Dextrose 110 ml @ 220 mls/hr Q24H IV 02/14/18 22:00 02/21/18 21:59 02/14/18 22:27 Dextrose (Dextrose 50%) 25 ml STAT PRN IV Hypoglycemia 02/14/18 17:45 03/16/18 17:44 Dextrose (Dextrose 50%) 50 ml STAT PRN IV Hypoglycemia 02/14/18 18:15 03/16/18 18:14 Heparin Sodium (Porcine) (Heparin 5000 units/ml) 5,000 units EVERY 12 HOURS SUBQ 02/14/18 21:00 03/16/18 20:59 02/15/18 08:37 Insulin Aspart (NovoLOG) BEFORE MEALS AND HS SUBQ 02/14/18 21:00 03/16/18 20:59 02/15/18 11:08 Iopamidol (Isovue-300 100ml) 100 ml NOW PRN INJ Radiology Procedure 02/14/18 13:15 02/16/18 13:14 Nitroglycerin (Ntg) 0.4 mg Q5M PRN SL Prn Chest Pain 02/14/18 17:45 03/16/18 17:44 Ondansetron HCl (Zofran) 4 mg Q6H PRN IVP Nausea & Vomiting 02/14/18 17:45 03/16/18 17:44 02/15/18 11:09 Polyethylene Glycol (Miralax) 17 gm DAILYPRN PRN ORAL Constipation 02/14/18 17:45 03/16/18 17:44 Sitagliptin Phosphate (Januvia) 50 mg DAILY ORAL 02/15/18 09:00 03/17/18 08:59 02/15/18 08:35 Temazepam (Restoril) 15 mg HSPRN PRN ORAL Insomnia 02/14/18 17:45 02/21/18 17:44 Vancomycin HCl (Vanco rx to dose) 1 ea DAILY PRN MISC PER RX PROTOCOL 02/14/18 18:00 03/16/18 17:59 Vancomycin/Sodium Chloride 250 ml @ 166.667 mls/hr Q24H IVPB 02/15/18 20:00 02/20/18 19:59 Assessment/Plan Assessment/Plan Abx: IV Vanco 02/14- Cefepime 02/14- Assessment: Sepsis- r/o Gram negative bacteremia from Ileus/enteritis/?early SBO, possible aspiration pneumonia vs pneumonitis; r/o UTI -CT abd/p: Mildly prominent gas and fluid-filled small bowel loops without definite transition point. Most likely on the basis of ileus/enteritis. Early small bowel obstruction not completely excludable but deemed less likely. Right basilar infiltrate, most likely pneumonia. Mild anasarca. Stable, presumably benign, right lobe liver lesion. Soria catheter within nondistended bladder. Mild scoliosis and degenerative spondylosis incidentally noted. -CXR: Mild interstitial edema -u/a wbc 60-80, nit +, leuk +3; Ucx NTD -Bcx p -sp cx p Fever/Leukocytosis Lactic acidosis Elevated LFTs, improving FARIBA, improving HTN Dm2 constipation Alzheimer's Disease assisted living resident Plan: -Continue empiric Cefepime and IV Vancomycin #2 and add Flagyl for anaerobic coverage -low threshold to switch Cefepime to Meropenem if worsening fevers, leukocytosis and/or HD unstable -f/u cx -Influenza sc -CDiff if diarrhea -Monitor CBC/CMP, temperatures -Aspiration precautions Thank you for this consultation. Will continue to follow along with you. Discussed with Brianna Payne M.D. Feb 15, 2018 14:19
[2018-02-15] MEDS: metroNIDAZOLE 500mg tab ORAL SCH ×2 (14:34→22:22)
[2018-02-15 16:00] VITALS: BP 150/89
--- NOTE | 2018-02-15 18:14 | Consultation ---
History of Present Illness General Date patient seen: Feb 15, 2018 Time patient seen: 17:25 Chief Complaint: Vomiting Present Illness HPI 87 y/o F with hx of HTN, Dm2, constipation, Alzheimer's Disease, assisted living resident presents to ED on 02/14 with increasing abd discomfort and multiple episodes of yelow-green emesis. CT concerning for pnemonia and UTI and ileus early bowel obstruction. Currently no distress. NO chest pain. Allergies: Coded Allergies: ESTROGENS (Verified Allergy, Unknown, 11/27/14) Uncoded Allergies: "estrogen" (Allergy, Unknown, 02/20/14) Medication History Scheduled Calcium Carbonate (Calcium), 500 MG PO BID, (Reported) Docusate Sodium (Silace), 100 MG PO BID, (Reported) Insulin Detemir (Levemir), 16 SUBQ BEDTIME, (Reported) Multivitamin (One Daily), 1 TAB ORAL DAILY, (Reported) Polyethylene Glycol 3350 (Glycolax), 17 GM PO DAILY, (Reported) Polyethylene Glycol 3350* (Miralax*), 17 GM ORAL DAILY, (Reported) Ranitidine Hcl (Zantac), 150 MG ORAL DAILY, (Reported) Sitagliptin (Januvia), 50 MG ORAL DAILY, (Reported) Vancomycin Hcl/D5w (Vancomycin-D5w 1 G/250 Ml), 1 GM IVPB Q24H Scheduled PRN Acetaminophen (Acetaminophen), 650 MG ORAL Q6H PRN for Prn Headache/Temp > 101, (Reported) Magnesium Hydroxide* (Milk Of Magnesia*), 30 ML ORAL DAILY PRN for Constipation, (Reported) Miscellaneous Medications Calcium Carbonate ([id number]), 500 MG PO, (Reported) Insulin Aspart* (Novolog*), 0 SUBQ, (Reported) [miralax], (Reported) Patient History Healthcare decision maker Resuscitation status Full Code Advanced Directive on File No Review of Systems Constitutional: Reports: no symptoms Eye: Reports: no symptoms ENT: Reports: no symptoms Respiratory: Reports: no symptoms Cardiovascular: Reports: no symptoms Gastrointestinal: Reports: abdominal pain, nausea, vomiting Genitourinary: Reports: no symptoms Musculoskeletal: Reports: no symptoms Skin: Reports: no symptoms Psychiatric: Reports: no symptoms Neurological: Reports: no symptoms Hematologic/Lymphatic: Reports: no symptoms Physical Exam General Appearance: no apparent distress Lines, tubes and drains: peripheral HEENT: normocephalic Neck: non-tender Respiratory/Chest: chest wall non-tender, lungs clear Cardiovascular/Chest: normal peripheral pulses, normal rate Abdomen: normal bowel sounds Extremities: normal range of motion Skin Exam: normal pigmentation 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 Last 24 Hour Vital Signs Date Time Temp Pulse Resp B/P (MAP) Pulse Ox O2 Delivery O2 Flow Rate FiO2 02/15/18 16:00 99.1 86 150/89 94 Room Air 99.1 02/15/18 16:00 86 02/15/18 16:00 99.1 86 20 150/89 93 99.1 02/15/18 12:00 99.3 78 20 151/66 95 99.3 02/15/18 12:00 85 02/15/18 12:00 99.3 78 18 143/79 100 Room Air 99.3 02/15/18 08:00 84 02/15/18 02:23 68 02/14/18 23:46 77 02/14/18 19:02 94 Intake and Output 02/14/18 02/15/18 19:00 07:00 Intake Total 1055 ml 470 ml Output Total 200 ml Balance 1055 ml 270 ml Intake Oral 0 ml IV Total 1055 ml 470 ml Output Urine Total 200 ml Laboratory Tests Test 02/14/18 18:55 02/15/18 06:35 Lactic Acid Level 2.60 mmol/L (0.66-2.22) H White Blood Count 11.1 K/UL (4.8-10.8) H Red Blood Count 4.17 M/UL (4.20-5.40) L Hemoglobin 10.6 G/DL (12.0-16.0) L Hematocrit 34.1 % (37.0-47.0) L Mean Corpuscular Volume 82 FL (80-99) Mean Corpuscular Hemoglobin 25.5 PG (27.0-31.0) L Mean Corpuscular Hemoglobin Concent 31.2 G/DL (32.0-36.0) L Red Cell Distribution Width 12.4 % (11.6-14.8) Platelet Count 180 K/UL (150-450) Mean Platelet Volume 9.3 FL (6.5-10.1) Neutrophils (%) (Auto) % (45.0-75.0) Lymphocytes (%) (Auto) % (20.0-45.0) Monocytes (%) (Auto) % (1.0-10.0) Eosinophils (%) (Auto) % (0.0-3.0) Basophils (%) (Auto) % (0.0-2.0) Differential Total Cells Counted 100 Neutrophils % (Manual) 84 % (45-75) H Lymphocytes % (Manual) 8 % (20-45) L Monocytes % (Manual) 8 % (1-10) Eosinophils % (Manual) 0 % (0-3) Basophils % (Manual) 0 % (0-2) Band Neutrophils 0 % (0-8) Platelet Estimate Adequate Platelet Morphology Normal Hypochromasia 1+ Sodium Level 139 MMOL/L (136-145) Potassium Level 3.6 MMOL/L (3.5-5.1) Chloride Level 104 MMOL/L (98-107) Carbon Dioxide Level 28 MMOL/L (21-32) Anion Gap 7 mmol/L (5-15) Blood Urea Nitrogen 22 mg/dL (7-18) H Creatinine 1.3 MG/DL (0.55-1.30) Estimat Glomerular Filtration Rate mL/min (>60) Glucose Level 195 MG/DL (74-106) H Calcium Level 10.3 MG/DL (8.5-10.1) H Total Bilirubin 0.3 MG/DL (0.2-1.0) Aspartate Amino Transf (AST/SGOT) 98 U/L (15-37) H Alanine Aminotransferase (ALT/SGPT) 85 U/L (12-78) H Alkaline Phosphatase 103 U/L (46-116) Total Protein 7.3 G/DL (6.4-8.2) Albumin 2.9 G/DL (3.4-5.0) L Globulin 4.4 g/dL Albumin/Globulin Ratio 0.7 (1.0-2.7) L Microbiology Date/Time Source Procedure Growth Status 02/15/18 14:30 Nasopharynx Influenza Types A,B Antigen (SWATI) - Final Complete Height (Feet): 5 Height (Inches): 6.00 Weight (Pounds): 141 Medications Current Medications Medications (Trade) Dose Ordered Sig/Jus Route PRN Reason Start Time Stop Time Status Last Admin Dose Admin Acetaminophen (Tylenol) 650 mg Q4H PRN ORAL fever 02/14/18 20:30 03/16/18 20:29 Albuterol/ Ipratropium (Albuterol/ Ipratropium) 3 ml Q4H PRN HHN Shortness of Breath 02/14/18 17:45 02/19/18 17:44 Cefepime HCl 2 gm/ Dextrose 110 ml @ 220 mls/hr Q24H IV 02/14/18 22:00 02/21/18 21:59 02/14/18 22:27 Dextrose (Dextrose 50%) 25 ml STAT PRN IV Hypoglycemia 02/14/18 17:45 03/16/18 17:44 Dextrose (Dextrose 50%) 50 ml STAT PRN IV Hypoglycemia 02/14/18 18:15 03/16/18 18:14 Heparin Sodium (Porcine) (Heparin 5000 units/ml) 5,000 units EVERY 12 HOURS SUBQ 02/14/18 21:00 03/16/18 20:59 02/15/18 08:37 Insulin Aspart (NovoLOG) BEFORE MEALS AND HS SUBQ 02/14/18 21:00 03/16/18 20:59 02/15/18 16:07 Iopamidol (Isovue-300 100ml) 100 ml NOW PRN INJ Radiology Procedure 02/14/18 13:15 02/16/18 13:14 Metronidazole (Flagyl) 500 mg Q8HR ORAL 02/15/18 14:15 02/22/18 14:14 02/15/18 14:34 Nitroglycerin (Ntg) 0.4 mg Q5M PRN SL Prn Chest Pain 02/14/18 17:45 03/16/18 17:44 Ondansetron HCl (Zofran) 4 mg Q6H PRN IVP Nausea & Vomiting 02/14/18 17:45 03/16/18 17:44 02/15/18 11:09 Polyethylene Glycol (Miralax) 17 gm DAILYPRN PRN ORAL Constipation 02/14/18 17:45 03/16/18 17:44 Sitagliptin Phosphate (Januvia) 50 mg DAILY ORAL 02/15/18 09:00 03/17/18 08:59 02/15/18 08:35 Temazepam (Restoril) 15 mg HSPRN PRN ORAL Insomnia 02/14/18 17:45 02/21/18 17:44 Vancomycin HCl (Vanco rx to dose) 1 ea DAILY PRN MISC PER RX PROTOCOL 02/14/18 18:00 03/16/18 17:59 Vancomycin/Sodium Chloride 250 ml @ 166.667 mls/hr Q24H IVPB 02/15/18 20:00 02/20/18 19:59 Assessment/Plan Status: stable Assessment/Plan IV abx for UTI and PNA Physical therapy Aspirin Statin No indication for cath or ischemia evaluation at this time NPO for possible early ileus IV fluids Swallow evaluation Zofran prn N/V Ant Gu M.D. Feb 15, 2018 18:14
[2018-02-15 20:00] VITALS: BP 167/96
[2018-02-15] MEDS ORDERED: D5NS 1,000 ML IV ONE (20:00)
[2018-02-15] MEDS ORDERED: Vancomycin 750mg/NS 250ml IVPB SCH (20:00)
[2018-02-15] MEDS: Cefepime HCl 2 GM in D5W 110 ML IV SCH (22:22)
--- NOTE | 2018-02-15 23:54 | Consultation ---
History of Present Illness General Chief Complaint: Vomiting Present Illness Allergies: Coded Allergies: ESTROGENS (Verified Allergy, Unknown, 11/27/14) Uncoded Allergies: "estrogen" (Allergy, Unknown, 02/20/14) Medication History Scheduled Calcium Carbonate (Calcium), 500 MG PO BID, (Reported) Docusate Sodium (Silace), 100 MG PO BID, (Reported) Insulin Detemir (Levemir), 16 SUBQ BEDTIME, (Reported) Multivitamin (One Daily), 1 TAB ORAL DAILY, (Reported) Polyethylene Glycol 3350 (Glycolax), 17 GM PO DAILY, (Reported) Polyethylene Glycol 3350* (Miralax*), 17 GM ORAL DAILY, (Reported) Ranitidine Hcl (Zantac), 150 MG ORAL DAILY, (Reported) Sitagliptin (Januvia), 50 MG ORAL DAILY, (Reported) Vancomycin Hcl/D5w (Vancomycin-D5w 1 G/250 Ml), 1 GM IVPB Q24H Scheduled PRN Acetaminophen (Acetaminophen), 650 MG ORAL Q6H PRN for Prn Headache/Temp > 101, (Reported) Magnesium Hydroxide* (Milk Of Magnesia*), 30 ML ORAL DAILY PRN for Constipation, (Reported) Miscellaneous Medications Calcium Carbonate ([id number]), 500 MG PO, (Reported) Insulin Aspart* (Novolog*), 0 SUBQ, (Reported) [miralax], (Reported) Patient History Healthcare decision maker Resuscitation status Full Code Advanced Directive on File No Physical Exam Last 24 Hour Vital Signs Date Time Temp Pulse Resp B/P (MAP) Pulse Ox O2 Delivery O2 Flow Rate FiO2 02/15/18 19:54 86 02/15/18 16:00 99.1 86 150/89 94 Room Air 99.1 02/15/18 16:00 86 02/15/18 16:00 99.1 86 20 150/89 93 99.1 02/15/18 12:00 99.3 78 20 151/66 95 99.3 02/15/18 12:00 85 02/15/18 12:00 99.3 78 18 143/79 100 Room Air 99.3 02/15/18 08:00 84 02/15/18 02:23 68 Intake and Output 02/14/18 02/15/18 19:00 07:00 Intake Total 1055 ml 470 ml Output Total 200 ml Balance 1055 ml 270 ml Intake Oral 0 ml IV Total 1055 ml 470 ml Output Urine Total 200 ml Laboratory Tests Test 02/15/18 06:35 White Blood Count 11.1 K/UL (4.8-10.8) H Red Blood Count 4.17 M/UL (4.20-5.40) L Hemoglobin 10.6 G/DL (12.0-16.0) L Hematocrit 34.1 % (37.0-47.0) L Mean Corpuscular Volume 82 FL (80-99) Mean Corpuscular Hemoglobin 25.5 PG (27.0-31.0) L Mean Corpuscular Hemoglobin Concent 31.2 G/DL (32.0-36.0) L Red Cell Distribution Width 12.4 % (11.6-14.8) Platelet Count 180 K/UL (150-450) Mean Platelet Volume 9.3 FL (6.5-10.1) Neutrophils (%) (Auto) % (45.0-75.0) Lymphocytes (%) (Auto) % (20.0-45.0) Monocytes (%) (Auto) % (1.0-10.0) Eosinophils (%) (Auto) % (0.0-3.0) Basophils (%) (Auto) % (0.0-2.0) Differential Total Cells Counted 100 Neutrophils % (Manual) 84 % (45-75) H Lymphocytes % (Manual) 8 % (20-45) L Monocytes % (Manual) 8 % (1-10) Eosinophils % (Manual) 0 % (0-3) Basophils % (Manual) 0 % (0-2) Band Neutrophils 0 % (0-8) Platelet Estimate Adequate Platelet Morphology Normal Hypochromasia 1+ Sodium Level 139 MMOL/L (136-145) Potassium Level 3.6 MMOL/L (3.5-5.1) Chloride Level 104 MMOL/L (98-107) Carbon Dioxide Level 28 MMOL/L (21-32) Anion Gap 7 mmol/L (5-15) Blood Urea Nitrogen 22 mg/dL (7-18) H Creatinine 1.3 MG/DL (0.55-1.30) Estimat Glomerular Filtration Rate mL/min (>60) Glucose Level 195 MG/DL (74-106) H Calcium Level 10.3 MG/DL (8.5-10.1) H Total Bilirubin 0.3 MG/DL (0.2-1.0) Aspartate Amino Transf (AST/SGOT) 98 U/L (15-37) H Alanine Aminotransferase (ALT/SGPT) 85 U/L (12-78) H Alkaline Phosphatase 103 U/L (46-116) Total Protein 7.3 G/DL (6.4-8.2) Albumin 2.9 G/DL (3.4-5.0) L Globulin 4.4 g/dL Albumin/Globulin Ratio 0.7 (1.0-2.7) L Microbiology Date/Time Source Procedure Growth Status 02/15/18 14:30 Nasopharynx Influenza Types A,B Antigen (SWATI) - Final Complete Height (Feet): 5 Height (Inches): 6.00 Weight (Pounds): 141 Medications Current Medications Medications (Trade) Dose Ordered Sig/Jus Route PRN Reason Start Time Stop Time Status Last Admin Dose Admin Acetaminophen (Tylenol) 650 mg Q4H PRN ORAL fever 02/14/18 20:30 03/16/18 20:29 Albuterol/ Ipratropium (Albuterol/ Ipratropium) 3 ml Q4H PRN HHN Shortness of Breath 02/14/18 17:45 02/19/18 17:44 Cefepime HCl 2 gm/ Dextrose 110 ml @ 220 mls/hr Q24H IV 02/14/18 22:00 02/21/18 21:59 02/15/18 22:22 Dextrose (Dextrose 50%) 25 ml STAT PRN IV Hypoglycemia 02/14/18 17:45 03/16/18 17:44 Dextrose (Dextrose 50%) 50 ml STAT PRN IV Hypoglycemia 02/14/18 18:15 03/16/18 18:14 Dextrose/Sodium Chloride 1,000 ml @ 100 mls/hr Q10H ONCE IV 02/15/18 20:00 02/16/18 05:59 02/15/18 19:38 Heparin Sodium (Porcine) (Heparin 5000 units/ml) 5,000 units EVERY 12 HOURS SUBQ 02/14/18 21:00 03/16/18 20:59 02/15/18 20:44 Insulin Aspart (NovoLOG) BEFORE MEALS AND HS SUBQ 02/14/18 21:00 03/16/18 20:59 02/15/18 20:44 Iopamidol (Isovue-300 100ml) 100 ml NOW PRN INJ Radiology Procedure 02/14/18 13:15 02/16/18 13:14 Metronidazole (Flagyl) 500 mg Q8HR ORAL 02/15/18 14:15 02/22/18 14:14 02/15/18 22:22 Nitroglycerin (Ntg) 0.4 mg Q5M PRN SL Prn Chest Pain 02/14/18 17:45 03/16/18 17:44 Ondansetron HCl (Zofran) 4 mg Q6H PRN IVP Nausea & Vomiting 02/14/18 17:45 03/16/18 17:44 02/15/18 11:09 Polyethylene Glycol (Miralax) 17 gm DAILYPRN PRN ORAL Constipation 02/14/18 17:45 03/16/18 17:44 Sitagliptin Phosphate (Januvia) 50 mg DAILY ORAL 02/15/18 09:00 03/17/18 08:59 02/15/18 08:35 Temazepam (Restoril) 15 mg HSPRN PRN ORAL Insomnia 02/14/18 17:45 02/21/18 17:44 Vancomycin HCl (Vanco rx to dose) 1 ea DAILY PRN MISC PER RX PROTOCOL 02/14/18 18:00 03/16/18 17:59 Vancomycin/Sodium Chloride 250 ml @ 166.667 mls/hr Q24H IVPB 02/15/18 20:00 02/20/18 19:59 02/15/18 19:37 Josue Roy M.D. Feb 15, 2018 23:54
[2018-02-16] VITALS: BP 153/63
[2018-02-16] MEDS ORDERED: Haloperidol Lactate 5 MG in D5W 55 ML IVPB PRN (00:15)
[2018-02-16 04:00] VITALS: BP 135/83
[2018-02-16] MEDS: metroNIDAZOLE 500mg tab ORAL SCH ×3 (05:53→21:53)
[2018-02-16] MEDS: NovoLOG Insulin Flexpen SUBQ SCH ×4 (06:00→21:54)
[2018-02-16 07:39] LABS: AMYLASE 28 U/L (25-115)
[2018-02-16 08:00] VITALS: BP 130/56
[2018-02-16] MEDS: sitaGLIPtin 50mg tab ORAL SCH (09:09)
[2018-02-16] MEDS: Heparin 5000 units/ml inj SUBQ SCH (09:13)
--- NOTE | 2018-02-16 11:59 | Infectious Diseases Prog Note ---
Assessment/Plan Assessment/Plan Abx: IV Vanco 02/14- Cefepime 02/14- Assessment: Sepsis- r/o Gram negative bacteremia from Ileus/enteritis/?early SBO, possible aspiration pneumonia vs pneumonitis; r/o UTI -CT abd/p: Mildly prominent gas and fluid-filled small bowel loops without definite transition point. Most likely on the basis of ileus/enteritis. Early small bowel obstruction not completely excludable but deemed less likely. Right basilar infiltrate, most likely pneumonia. Mild anasarca. Stable, presumably benign, right lobe liver lesion. Soria catheter within nondistended bladder. Mild scoliosis and degenerative spondylosis incidentally noted. -CXR: Mild interstitial edema -02/14 u/a wbc 60-80, nit +, leuk +3; Ucx NTD; repeat 02/15 UCx NTD -02/14 Bcx NTD -sp cx GNR -amylase, lipase normal -influenza sc neg Fever/Leukocytosis; improving Lactic acidosis Elevated LFTs, improving FARIBA, improving HTN Dm2 constipation Alzheimer's Disease assisted living resident Plan: -D/c empiric IV Vancomycin #3 as no MRSA isolation -Continue empiric Cefepime #3 and Flagyl #2 pending cultures -low threshold to switch Cefepime and flagyl to Meropenem if worsening fevers , leukocytosis and/or HD unstable -f/u cx -CDiff if diarrhea -Monitor CBC/CMP, temperatures -Aspiration precautions Thank you for this consultation. Will continue to follow along with you. Discussed with RN. Subjective Allergies: Coded Allergies: ESTROGENS (Verified Allergy, Unknown, 11/27/14) Uncoded Allergies: "estrogen" (Allergy, Unknown, 02/20/14) Subjective afebriel in 24hrs no labs today\\ Bcx NTD at Objective Vital Signs Last 24 Hour Vital Signs Date Time Temp Pulse Resp B/P (MAP) Pulse Ox O2 Delivery O2 Flow Rate FiO2 02/16/18 08:00 88 02/16/18 08:00 98.1 95 18 130/56 95 98.1 02/16/18 07:35 92 18 Room Air 21 02/16/18 04:00 97.9 94 18 135/83 98 97.9 02/16/18 03:34 94 02/16/18 00:00 98.1 94 18 153/63 99 98.1 02/15/18 23:34 93 02/15/18 20:00 98.1 90 19 167/96 94 98.1 02/15/18 19:54 86 02/15/18 16:00 99.1 86 150/89 94 Room Air 99.1 02/15/18 16:00 86 02/15/18 16:00 99.1 86 20 150/89 93 99.1 02/15/18 12:00 99.3 78 20 151/66 95 99.3 02/15/18 12:00 85 02/15/18 12:00 99.3 78 18 143/79 100 Room Air 99.3 Height (Feet): 5 Height (Inches): 6.00 Weight (Pounds): 141 Objective General Appearance: cachetic Lines, tubes and drains: central line HEENT: normocephalic, atraumatic, PERRL Neck: normal alignment Respiratory/Chest: chest wall non-tender, normal breath sounds Cardiovascular/Chest: normal peripheral pulses, normal rate Abdomen: normal bowel sounds, non tender Genitourinary/Rectal: normal genital exam, normal rectal exam Extremities: non-pitting Microbiology Date/Time Source Procedure Growth Status 02/14/18 13:40 Blood Blood Culture - Preliminary NO GROWTH AFTER 24 HOURS Resulted 02/14/18 13:30 Blood Blood Culture - Preliminary NO GROWTH AFTER 24 HOURS Resulted 02/15/18 14:30 Nasopharynx Influenza Types A,B Antigen (SWATI) - Final Complete 02/15/18 04:00 Sputum Induced Gram Stain - Final Resulted 02/15/18 04:00 Sputum Culture - Preliminary Gram Negative Bacillus 1 Usual Respiratory Jemima Resulted 02/14/18 14:00 Nasal Nares Left MRSA Culture - Final Staphylococcus Aureus - Mrsa Complete 02/15/18 14:30 Indwelling Cath Urine Culture - Preliminary NO GROWTH Resulted 02/14/18 13:50 Urine,Clean Catch Urine Culture - Preliminary NO GROWTH AFTER 24 HOURS Resulted 02/14/18 14:00 Rectum VRE Culture - Final NO VANCOMYCIN RESISTANT ENTEROCOCCUS ... Complete Laboratory Tests Test 02/16/18 06:15 Amylase Level 28 U/L (25-115) Lipase 46 U/L (73-393) L Hepatitis A IgM Antibody Pending Hepatitis B Surface Antigen Pending Hepatitis B Core IgM Antibody Pending Hepatitis C Antibody Pending Current Medications Medications (Trade) Dose Ordered Sig/Jus Route PRN Reason Start Time Stop Time Status Last Admin Dose Admin Acetaminophen (Tylenol) 650 mg Q4H PRN ORAL fever 02/14/18 20:30 03/16/18 20:29 Albuterol/ Ipratropium (Albuterol/ Ipratropium) 3 ml Q4H PRN HHN Shortness of Breath 02/14/18 17:45 02/19/18 17:44 Cefepime HCl 2 gm/ Dextrose 110 ml @ 220 mls/hr Q24H IV 02/14/18 22:00 02/21/18 21:59 02/15/18 22:22 Dextrose (Dextrose 50%) 25 ml STAT PRN IV Hypoglycemia 02/14/18 17:45 03/16/18 17:44 Dextrose (Dextrose 50%) 50 ml STAT PRN IV Hypoglycemia 02/14/18 18:15 03/16/18 18:14 Haloperidol Lactate 5 mg/ Dextrose 56 ml @ 224 mls/hr EVERY 6 HOURS PRN IVPB agitation 02/16/18 00:15 03/18/18 00:14 Insulin Aspart (NovoLOG) BEFORE MEALS AND HS SUBQ 02/14/18 21:00 03/16/18 20:59 02/16/18 06:00 Iopamidol (Isovue-300 100ml) 100 ml NOW PRN INJ Radiology Procedure 02/14/18 13:15 02/16/18 13:14 Metronidazole (Flagyl) 500 mg Q8HR ORAL 02/15/18 14:15 02/22/18 14:14 02/16/18 05:53 Nitroglycerin (Ntg) 0.4 mg Q5M PRN SL Prn Chest Pain 02/14/18 17:45 03/16/18 17:44 Ondansetron HCl (Zofran) 4 mg Q6H PRN IVP Nausea & Vomiting 02/14/18 17:45 03/16/18 17:44 02/15/18 11:09 Polyethylene Glycol (Miralax) 17 gm DAILYPRN PRN ORAL Constipation 02/14/18 17:45 03/16/18 17:44 Sitagliptin Phosphate (Januvia) 50 mg DAILY ORAL 02/15/18 09:00 03/17/18 08:59 02/16/18 09:09 Temazepam (Restoril) 15 mg HSPRN PRN ORAL Insomnia 02/14/18 17:45 02/21/18 17:44 Vancomycin HCl (Vanco rx to dose) 1 ea DAILY PRN MISC PER RX PROTOCOL 02/14/18 18:00 03/16/18 17:59 Vancomycin/Sodium Chloride 250 ml @ 166.667 mls/hr Q24H IVPB 02/15/18 20:00 02/20/18 19:59 02/15/18 19:37 Brianna Root M.D. Feb 16, 2018 11:59
[2018-02-16 12:00] VITALS: BP 148/61
--- NOTE | 2018-02-16 12:47 | Pulmonology Progress Note ---
Assessment/Plan Problems: (1) Hematemesis (2) Severe sepsis (3) Intractable nausea and vomiting (4) Altered mental status (5) end stage alzheimrers dementia (6) UTI (urinary tract infection) (7) At high risk for aspiration (8) Diabetes Assessment/Plan npo GI evaluation hold heparin check h/h continue abx check cultures Subjective ROS Limited/Unobtainable: Yes Interval Events: one episode of vomiting blood last night Allergies: Coded Allergies: ESTROGENS (Verified Allergy, Unknown, 11/27/14) Uncoded Allergies: "estrogen" (Allergy, Unknown, 02/20/14) Objective Last 24 Hour Vital Signs Date Time Temp Pulse Resp B/P (MAP) Pulse Ox O2 Delivery O2 Flow Rate FiO2 02/16/18 08:00 88 02/16/18 08:00 98.1 95 18 130/56 95 98.1 02/16/18 07:35 92 18 Room Air 21 02/16/18 04:00 97.9 94 18 135/83 98 97.9 02/16/18 03:34 94 02/16/18 00:00 98.1 94 18 153/63 99 98.1 02/15/18 23:34 93 02/15/18 20:00 98.1 90 19 167/96 94 98.1 02/15/18 19:54 86 02/15/18 16:00 99.1 86 150/89 94 Room Air 99.1 02/15/18 16:00 86 02/15/18 16:00 99.1 86 20 150/89 93 99.1 Intake and Output 02/15/18 02/16/18 19:00 07:00 Intake Total 300 ml 953.894 ml Output Total 500 ml 600 ml Balance -200 ml 353.894 ml Intake Oral 300 ml IV Total 953.894 ml Output Urine Total 500 ml 600 ml General Appearance: WD/WN, cachetic HEENT: normocephalic, atraumatic Respiratory/Chest: chest wall non-tender, lungs clear, normal breath sounds Breasts: no masses Cardiovascular: normal rate Abdomen: normal bowel sounds, soft, non tender Skin: no rash Microbiology Date/Time Source Procedure Growth Status 02/14/18 13:40 Blood Blood Culture - Preliminary NO GROWTH AFTER 24 HOURS Resulted 02/14/18 13:30 Blood Blood Culture - Preliminary NO GROWTH AFTER 24 HOURS Resulted 02/15/18 14:30 Nasopharynx Influenza Types A,B Antigen (SWATI) - Final Complete 02/15/18 04:00 Sputum Induced Gram Stain - Final Resulted 02/15/18 04:00 Sputum Culture - Preliminary Gram Negative Bacillus 1 Usual Respiratory Jemima Resulted 02/14/18 14:00 Nasal Nares Left MRSA Culture - Final Staphylococcus Aureus - Mrsa Complete 02/15/18 14:30 Indwelling Cath Urine Culture - Preliminary NO GROWTH Resulted 02/14/18 13:50 Urine,Clean Catch Urine Culture - Preliminary NO GROWTH AFTER 24 HOURS Resulted 02/14/18 14:00 Rectum VRE Culture - Final NO VANCOMYCIN RESISTANT ENTEROCOCCUS ... Complete Laboratory Tests 02/16/18 06:15: Amylase Level 28, Lipase 46L, Hepatitis A IgM Antibody [Pending], Hepatitis B Surface Antigen [Pending], Hepatitis B Core IgM Antibody [Pending], Hepatitis C Antibody [Pending] Current Medications Medications (Trade) Dose Ordered Sig/Jus Route PRN Reason Start Time Stop Time Status Last Admin Dose Admin Acetaminophen (Tylenol) 650 mg Q4H PRN ORAL fever 02/14/18 20:30 03/16/18 20:29 Albuterol/ Ipratropium (Albuterol/ Ipratropium) 3 ml Q4H PRN HHN Shortness of Breath 02/14/18 17:45 02/19/18 17:44 Cefepime HCl 2 gm/ Dextrose 110 ml @ 220 mls/hr Q24H IV 02/14/18 22:00 02/21/18 21:59 02/15/18 22:22 Dextrose (Dextrose 50%) 25 ml STAT PRN IV Hypoglycemia 02/14/18 17:45 03/16/18 17:44 Dextrose (Dextrose 50%) 50 ml STAT PRN IV Hypoglycemia 02/14/18 18:15 03/16/18 18:14 Haloperidol Lactate 5 mg/ Dextrose 56 ml @ 224 mls/hr EVERY 6 HOURS PRN IVPB agitation 02/16/18 00:15 03/18/18 00:14 Insulin Aspart (NovoLOG) BEFORE MEALS AND HS SUBQ 02/14/18 21:00 03/16/18 20:59 02/16/18 12:16 Iopamidol (Isovue-300 100ml) 100 ml NOW PRN INJ Radiology Procedure 02/14/18 13:15 02/16/18 13:14 Metronidazole (Flagyl) 500 mg Q8HR ORAL 02/15/18 14:15 02/22/18 14:14 02/16/18 05:53 Nitroglycerin (Ntg) 0.4 mg Q5M PRN SL Prn Chest Pain 02/14/18 17:45 03/16/18 17:44 Ondansetron HCl (Zofran) 4 mg Q6H PRN IVP Nausea & Vomiting 02/14/18 17:45 03/16/18 17:44 02/15/18 11:09 Polyethylene Glycol (Miralax) 17 gm DAILYPRN PRN ORAL Constipation 02/14/18 17:45 03/16/18 17:44 Sitagliptin Phosphate (Januvia) 50 mg DAILY ORAL 02/15/18 09:00 03/17/18 08:59 02/16/18 09:09 Temazepam (Restoril) 15 mg HSPRN PRN ORAL Insomnia 02/14/18 17:45 02/21/18 17:44 Tiago Cason MD Feb 16, 2018 12:47
--- NOTE | 2018-02-16 13:11 | GI Initial Consult Note ---
History of Present Illness General Date patient seen: Feb 16, 2018 Time patient seen: 16:43 Reason for Hospitalization: Vomiting Referring physician: DONOVAN KYLE Reason for Consultation: VOMITING Present Illness HPI Patient is a 87-year-old female who presented after increased abdominal discomfort and vomiting. Patient had been noted to have prior history dementia. Patient was sent in from the facility. She was noted to have the multiple episodes of yellow-green vomiting. The patient was noted to have prior history dementia and history is markedly limited by patient's mental status. History is obtained from EMS. GI consulted for coffee ground emesis. ROS limited, hx of dementia. Pt seen, awake with no noted active s/sx of N/V/D. Per RN report, the patient had an episode of coffee ground emesis. After reviewing the imaging studies, CT showed there were mildly prominent gas and fluid-filled small bowel loops without definite transition point. Most likely on the basis of ileus/enteritis with possible early SBO. A card puncher image was ordered to show no previous change after 2 days. She presents today anemia and transaminitis. There are no recorded documentation of BM since admission. Unknown history of endoscopy / colonoscopy. Home Meds Active Scripts Vancomycin Hcl/D5w (VANCOMYCIN-D5W 1 G/250 ML) 1 Gm/250 Ml Plast..bag, 1 GM IVPB Q24H, #9 BAG Prov:Tonja Gonzales D[employer] 10/15/15 Reported Medications Calcium Carbonate ([id number]) 500 Mg Tablet, 500 MG PO, TAB 11/27/14 Insulin Detemir (LEVEMIR) 100 Unit/1 Ml Vial, 16 SUBQ BEDTIME, VIAL 05/04/14 Polyethylene Glycol 3350* (MIRALAX*) 17 Gm Powd.pack, 17 GM ORAL DAILY, PACKET 05/04/14 [miralax] No Conflict Check 02/20/14 Calcium Carbonate (CALCIUM) 500 Mg Tab.chew, 500 MG PO BID, TAB 12/27/13 Docusate Sodium (SILACE) 50 Mg/5 Ml Liquid, 100 MG PO BID, ML 12/27/13 Ranitidine Hcl (ZANTAC) 300 Mg Tablet, 150 MG ORAL DAILY, TAB 0 Refills 12/27/13 Polyethylene Glycol 3350 (Glycolax) 225 Gm Powder, 17 GM PO DAILY, GM 12/27/13 Multivitamin (ONE DAILY) 1 Each Tablet, 1 TAB ORAL DAILY, #30 TAB 0 Refills 12/27/13 Magnesium Hydroxide* (MILK OF MAGNESIA*) 400 Mg/5 Ml Oral.susp, 30 ML ORAL DAILY PRN for Constipation, ML 12/27/13 Acetaminophen (Acetaminophen) 650 Mg/20.3 Ml Soln, 650 MG ORAL Q6H PRN for Prn Headache/Temp > 101, ML 0 Refills 12/27/13 Insulin Aspart* (NOVOLOG*) 100 Unit/1 Ml Insuln.pen, 0 SUBQ, #1 EA 0 Refills 12/16/13 Sitagliptin (Januvia) 50 Mg Tab, 50 MG ORAL DAILY, TAB 12/16/13 Med list reviewed/reconciled: Yes Allergies: Coded Allergies: ESTROGENS (Verified Allergy, Unknown, 11/27/14) Uncoded Allergies: "estrogen" (Allergy, Unknown, 02/20/14) Patient History Limited by: medical condition History Provided By: Medical Record PMH Narrative Limited by: medical condition Past Medical History: see triage record Past Surgical History: unable to obtain Last Menstrual Period: NA Reviewed Nursing Documentation: PMH: Agreed; PSxH: Agreed Nursing Documentation-PMH Past Medical History: No History, Except For Hx Hypertension: Yes Hx Diabetes: Yes Hx Cancer: No Hx Gastrointestinal Problems: Yes - constipation, vomiting Hx Dementia: Yes Hx Alzheimer's Disease: Yes Review of Systems All Other Systems: limited Physical Exam Vital Signs Date Time Temp Pulse Resp B/P (MAP) Pulse Ox O2 Delivery O2 Flow Rate FiO2 02/14/18 13:08 98.1 93 18 121/60 98 98.1 02/14/18 13:28 Room Air 02/16/18 07:35 21 Sp02 EP Interpretation: reviewed, normal Labs Laboratory Tests Test 02/16/18 06:15 Amylase Level 28 U/L (25-115) Lipase 46 U/L (73-393) L Hepatitis A IgM Antibody Pending Hepatitis B Surface Antigen Pending Hepatitis B Core IgM Antibody Pending Hepatitis C Antibody Pending General Appearance: no apparent distress, alert Head: normocephalic EENT: PERRL/EOMI, normal ENT inspection Neck: supple Respiratory: normal breath sounds, no respiratory distress Cardiovascular: normal rate Gastrointestinal: normal inspection, non tender, soft, normal bowel sounds, non -distended Rectal: deferred Genitourinary: no CVA tenderness Musculoskeletal: normal inspection, back normal Neurologic: alert Skin: normal inspection, normal color, no rash, warm/dry, palpation normal, well hydrated Lymphatic: normal inspection, no adenopathy Current Medications Current Medications Medications (Trade) Dose Ordered Sig/Jus Route PRN Reason Start Time Stop Time Status Last Admin Dose Admin Acetaminophen (Tylenol) 650 mg Q4H PRN ORAL fever 02/14/18 20:30 03/16/18 20:29 Albuterol/ Ipratropium (Albuterol/ Ipratropium) 3 ml Q4H PRN HHN Shortness of Breath 02/14/18 17:45 02/19/18 17:44 Cefepime HCl 2 gm/ Dextrose 110 ml @ 220 mls/hr Q24H IV 02/14/18 22:00 02/21/18 21:59 02/15/18 22:22 Dextrose (Dextrose 50%) 25 ml STAT PRN IV Hypoglycemia 02/14/18 17:45 03/16/18 17:44 Dextrose (Dextrose 50%) 50 ml STAT PRN IV Hypoglycemia 02/14/18 18:15 03/16/18 18:14 Haloperidol Lactate 5 mg/ Dextrose 56 ml @ 224 mls/hr EVERY 6 HOURS PRN IVPB agitation 02/16/18 00:15 03/18/18 00:14 Insulin Aspart (NovoLOG) BEFORE MEALS AND HS SUBQ 02/14/18 21:00 03/16/18 20:59 02/16/18 12:16 Iopamidol (Isovue-300 100ml) 100 ml NOW PRN INJ Radiology Procedure 02/14/18 13:15 02/16/18 13:14 Metronidazole (Flagyl) 500 mg Q8HR ORAL 02/15/18 14:15 02/22/18 14:14 02/16/18 05:53 Nitroglycerin (Ntg) 0.4 mg Q5M PRN SL Prn Chest Pain 02/14/18 17:45 03/16/18 17:44 Ondansetron HCl (Zofran) 4 mg Q6H PRN IVP Nausea & Vomiting 02/14/18 17:45 03/16/18 17:44 02/15/18 11:09 Polyethylene Glycol (Miralax) 17 gm DAILYPRN PRN ORAL Constipation 02/14/18 17:45 7/3/18 17:44 Sitagliptin Phosphate (Januvia) 50 mg DAILY ORAL 02/15/18 09:00 03/17/18 08:59 02/16/18 09:09 Temazepam (Restoril) 15 mg HSPRN PRN ORAL Insomnia 02/14/18 17:45 02/21/18 17:44 GI: Plan Problems: (1) Coffee ground emesis (2) SBO (small bowel obstruction) (3) Ileus (4) Anemia (5) Altered mental status (6) Vomiting Plan CT reviewed possible ileus vs SBO FTT reports of coffee grounds no BM since admission card puncher image reviewed >> no change in dilated small bowel loops since previous CT 2 days ago. EGD scheduled for tomorrow. - maintain NPO + IVFs - hold all blood thinners tonight ordered small bowel follow through r/o SBO hold video swallow serial imaging prn anemia work up OB stool r/o GI bleed monitor H&H, prn transfusions bowel regime ppi BID fu labs Discussed with Dr. Montoya. Thank you for this patient referral, we will follow. The patient was seen and examined at bedside and all new and available data was reviewed in the patients chart. I agree with the above findings, impression and plan. (Patient seen earlier today. Signature stamp does not reflect patient encounter time.). - MD Gudelia Souza,[facility] Feb 16, 2018 13:11
--- NOTE | 2018-02-16 14:24 | General Progress Note ---
Assessment/Plan Assessment/Plan Dementia with behavioral disturbance The pt lacks capacity The pt is non compliance The pt public guardian should be contacted Subjective Date patient seen: Feb 16, 2018 Neurologic/Psychiatric: Reports: anxiety, depressed, emotional problems Allergies: Coded Allergies: ESTROGENS (Verified Allergy, Unknown, 11/27/14) Uncoded Allergies: "estrogen" (Allergy, Unknown, 02/20/14) Objective Last 24 Hour Vital Signs Date Time Temp Pulse Resp B/P (MAP) Pulse Ox O2 Delivery O2 Flow Rate FiO2 02/16/18 12:00 90 02/16/18 12:00 98.9 91 18 148/61 100 Room Air 98.9 02/16/18 08:00 88 02/16/18 08:00 98.1 95 18 130/56 95 98.1 02/16/18 07:35 92 18 Room Air 21 02/16/18 04:00 97.9 94 18 135/83 98 97.9 02/16/18 03:34 94 02/16/18 00:00 98.1 94 18 153/63 99 98.1 02/15/18 23:34 93 02/15/18 20:00 98.1 90 19 167/96 94 98.1 02/15/18 19:54 86 02/15/18 16:00 99.1 86 150/89 94 Room Air 99.1 02/15/18 16:00 86 02/15/18 16:00 99.1 86 20 150/89 93 99.1 Intake and Output 02/15/18 02/16/18 19:00 07:00 Intake Total 300 ml 953.894 ml Output Total 500 ml 600 ml Balance -200 ml 353.894 ml Intake Oral 300 ml IV Total 953.894 ml Output Urine Total 500 ml 600 ml Laboratory Tests 02/16/18 06:15: Amylase Level 28, Lipase 46L, Hepatitis A IgM Antibody [Pending], Hepatitis B Surface Antigen [Pending], Hepatitis B Core IgM Antibody [Pending], Hepatitis C Antibody [Pending] Height (Feet): 5 Height (Inches): 6.00 Weight (Pounds): 141 General Appearance: WD/WN, no apparent distress, alert, confused Josue Roy M.D. Feb 16, 2018 14:24
[2018-02-16] MEDS ORDERED: NS 500ML ONE (14:48)
--- NOTE | 2018-02-16 14:55 | Diagnostic Imaging Report ---
Indication: Abdominal pain Technique: Supine view of the abdomen Comparison: Cash Controller image from CT scan dated 02/14/2018 Findings: Dilated mid abdominal small bowel loops are again demonstrated, degree of distention grossly similar to that seen on the previous study. No unusual masses or calcifications. A Soria catheter is noted. There are degenerative changes of the lumbosacral spine Impression: Distended midabdominal small bowel loops, appearing similar to the study of 02/14/2018. As discussed on that exam, findings could represent ileus/enteritis or distal small bowel obstruction. Consider follow-up radiographs and/or small bowel contrast study for further evaluation as clinically indicated
[2018-02-16 16:00] VITALS: BP 150/72
--- NOTE | 2018-02-16 17:43 | Cardiology Progress Note ---
Assessment/Plan Assessment/Plan IV abx for UTI and PNA Physical therapy Aspirin Statin No indication for cath or ischemia evaluation at this time NPO for possible early ileus IV fluids Swallow evaluation Zofran prn N/V EGD tomorrow IV fluids Subjective Cardiovascular: Reports: no symptoms Respiratory: Reports: no symptoms Genitourinary: Reports: no symptoms Subjective No acute events Plan for EGD in AM Poor PO intake Objective Last 24 Hour Vital Signs Date Time Temp Pulse Resp B/P (MAP) Pulse Ox O2 Delivery O2 Flow Rate FiO2 02/16/18 16:00 98.3 85 18 150/72 100 Room Air 98.3 02/16/18 12:00 90 02/16/18 12:00 98.9 91 18 148/61 100 Room Air 98.9 02/16/18 08:00 88 02/16/18 08:00 98.1 95 18 130/56 95 98.1 02/16/18 07:35 92 18 Room Air 21 02/16/18 04:00 97.9 94 18 135/83 98 97.9 02/16/18 03:34 94 02/16/18 00:00 98.1 94 18 153/63 99 98.1 02/15/18 23:34 93 02/15/18 20:00 98.1 90 19 167/96 94 98.1 02/15/18 19:54 86 General Appearance: no apparent distress EENT: PERRL/EOMI Neck: non-tender Rhythm: NSR Cardiovascular: normal peripheral pulses Respiratory/Chest: lungs clear Abdomen: hypoactive bowel sounds, tender Extremities: normal range of motion 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 normal Intake and Output 02/15/18 02/16/18 19:00 07:00 Intake Total 300 ml 953.894 ml Output Total 500 ml 600 ml Balance -200 ml 353.894 ml Intake Oral 300 ml IV Total 953.894 ml Output Urine Total 500 ml 600 ml Laboratory Tests Test 02/16/18 06:15 Amylase Level 28 U/L (25-115) Lipase 46 U/L (73-393) L Hepatitis A IgM Antibody Pending Hepatitis B Surface Antigen Pending Hepatitis B Core IgM Antibody Pending Hepatitis C Antibody Pending Microbiology Date/Time Source Procedure Growth Status 02/14/18 13:40 Blood Blood Culture - Preliminary NO GROWTH AFTER 24 HOURS Resulted 02/14/18 13:30 Blood Blood Culture - Preliminary NO GROWTH AFTER 24 HOURS Resulted 02/15/18 14:30 Nasopharynx Influenza Types A,B Antigen (SWATI) - Final Complete 02/15/18 04:00 Sputum Induced Gram Stain - Final Resulted 02/15/18 04:00 Sputum Culture - Preliminary Gram Negative Bacillus 1 Usual Respiratory Jemima Resulted 02/14/18 14:00 Nasal Nares Left MRSA Culture - Final Staphylococcus Aureus - Mrsa Complete 02/15/18 14:30 Indwelling Cath Urine Culture - Preliminary NO GROWTH Resulted 02/14/18 13:50 Urine,Clean Catch Urine Culture - Preliminary NO GROWTH AFTER 24 HOURS Resulted 02/14/18 14:00 Rectum VRE Culture - Final NO VANCOMYCIN RESISTANT ENTEROCOCCUS ... Complete Ant Gu M.D. Feb 16, 2018 17:43
[2018-02-16] MEDS: Metoprolol Tartrate 10 MG in D5W 55 ML IVPB SCH (18:45)
[2018-02-16 20:00] VITALS: BP 128/83
[2018-02-16] MEDS: Cefepime HCl 2 GM in D5W 110 ML IV SCH (21:46)
[2018-02-17] VITALS: BP 118/70
[2018-02-17] MEDS: Metoprolol Tartrate 10 MG in D5W 55 ML IVPB SCH ×5 (00:04→23:57)
[2018-02-17 04:00] VITALS: BP 182/78
[2018-02-17] MEDS: NovoLOG Insulin Flexpen SUBQ SCH ×4 (05:37→20:41)
[2018-02-17] MEDS: metroNIDAZOLE 500mg tab ORAL SCH ×3 (05:37→21:26)
--- NOTE | 2018-02-17 06:55 | Anethesia Preoperative Eval ---
Anesthesia Pre-op PMH/ROS General Date of Evaluation: Feb 17, 2018 Time of Evaluation: 06:52 Anesthesiologist: corry ASA Score: ASA 4 Mallampati Score Class I : Soft palate, uvula, fauces, pillars visible Class II: Soft palate, uvula, fauces visible Class III: Soft palate, base of uvula visible Class IV: Only hard plate visible Mallampati Classification: Class II Surgeon: ankush Diagnosis: anemia Surgical Procedure: egd Family History: no anesthesia problems Allergies: Coded Allergies: ESTROGENS (Verified Allergy, Unknown, 11/27/14) Uncoded Allergies: "estrogen" (Allergy, Unknown, 02/20/14) Medications: see eMAR Past Medical History Cardiovascular: Reports: HTN, arrhythmia - possibly irritable foci. short run of V-Tach reported by nursing staff Pulmonary: Reports: other - bronchitis Gastrointestinal/Genitourinary: Reports: GERD, other - renal insufficiency, abdominal pain, sbo, hepatitis Neurologic/Psychiatric: Reports: dementia, other - alzheimer's disease Endocrine: Reports: DM Hematology/Immune: Reports: anemia, other - sepsis Anesthesia Pre-op Phys. Exam Physician Exam Last Vital Signs Date Time Temp Pulse Resp B/P (MAP) Pulse Ox O2 Delivery O2 Flow Rate FiO2 02/17/18 05:36 74 132/72 02/17/18 04:00 97.7 20 99 Room Air 97.7 02/16/18 19:50 21 Airway Exam Mallampati Score: Class II Anesthesia Pre-op A/P Risk Assessment & Plan Assessment: asa4 Plan: optimize patient's clinical status prior to proceeding with monitored anesthesia care Status Change Before Surgery: Yes - nursing staff reports short (5 secs) run of V-Tach. potassium drawn today@08:28 reveals a level of 2.5mmol/L. Hgb/Hct may reflect hemoconcentration. overnight vomiting. Pre-Antibiotics Drug: Albina Ojeda MD Feb 17, 2018 06:55
[2018-02-17 08:00] VITALS: BP 159/75
[2018-02-17 08:43] LABS: HEMATOCRIT 41.4 % (37.0-47.0); HEMOGLOBIN 12.7 G/DL (12.0-16.0); MEAN CORPUSCULAR VOLUME 81 FL (80-99); PLATELET COUNT 232 K/UL (150-450); RED BLOOD COUNT 5.09 M/UL (4.20-5.40); RED CELL DISTRIBUTION WIDTH 12.2 % (11.6-14.8); WHITE BLOOD COUNT 12.9 K/UL (4.8-10.8)
[2018-02-17 08:51] LABS: INR 0.9 (0.9-1.1)
[2018-02-17] MEDS: sitaGLIPtin 50mg tab ORAL SCH (09:00)
[2018-02-17 09:02] LABS: % IRON SATURATION 22 % (15-50); IRON 46 ug/dL (50-175); TOTAL IRON BINDING CAPACITY 209 ug/dL (250-450)
[2018-02-17 09:06] LABS: ALANINE AMINOTRANSFERASE 62 U/L (12-78); ALBUMIN 3.2 G/DL (3.4-5.0); ALBUMIN/GLOBULIN RATIO 0.6 (1.0-2.7); ALKALINE PHOSPHATASE 106 U/L (46-116); ANION GAP 9 mmol/L (5-15); ASPARTATE AMINO TRANSFERASE 64 U/L (15-37); BILIRUBIN,TOTAL 0.3 MG/DL (0.2-1.0); BLOOD UREA NITROGEN 13 mg/dL (7-18); CALCIUM 10.3 MG/DL (8.5-10.1); CARBON DIOXIDE 30 MMOL/L (21-32); CHLORIDE 101 MMOL/L (98-107); SODIUM 140 MMOL/L (136-145)
[2018-02-17 09:16] LABS: POTASSIUM 2.5 MMOL/L (3.5-5.1)
[2018-02-17 09:18] LABS: PHOSPHORUS 1.9 MG/DL (2.5-4.9)
--- NOTE | 2018-02-17 10:22 | GI Progress Note ---
Assessment/Plan Problems: (1) Altered mental status ICD Codes: R41.82 - Altered mental status, unspecified SNOMED: 957016550 (2) At high risk for aspiration ICD Codes: Z91.89 - At high risk for aspiration SNOMED: 524003214 (3) Anemia ICD Codes: D64.9 - Anemia SNOMED: 107626971 (4) Ileus ICD Codes: K56.7 - Ileus, unspecified SNOMED: 180580439 (5) SBO (small bowel obstruction) ICD Codes: K56.609 - Unspecified intestinal obstruction, unspecified as to partial versus complete obstruction SNOMED: 821526923 (6) Coffee ground emesis ICD Codes: K92.0 - Hematemesis SNOMED: 94010225, 529671696 Status: unchanged Status Narrative Discussed with Dr. Montoya. 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 hep panel negative EGD cancelled given hypokalemia, may need PEG. insert NGT for small bowel follow through r/o SBO hold video swallow, RD consult for NGTFs after SBFT serial imaging prn electrolyte correction OB stool r/o GI bleed monitor H&H, prn transfusions bowel regime ppi BID fu labs The patient was seen and examined at bedside and all new and available data was reviewed in the patients chart. I agree with the above findings, impression and plan. (Patient seen earlier today. Signature stamp does not reflect patient encounter time.). - Jesse Montoya MD Subjective Subjective limited Objective Last 24 Hour Vital Signs Date Time Temp Pulse Resp B/P (MAP) Pulse Ox O2 Delivery O2 Flow Rate FiO2 02/17/18 08:11 79 20 Room Air 21 02/17/18 08:00 97.8 64 18 159/75 98 Room Air 97.8 02/17/18 08:00 68 02/17/18 05:36 74 132/72 02/17/18 04:00 97.7 66 20 182/78 99 Room Air 97.7 02/17/18 03:46 68 02/17/18 00:04 65 118/70 02/17/18 00:00 97.9 65 20 118/70 97 Room Air 97.9 02/16/18 23:45 70 02/16/18 20:00 98.4 78 20 128/83 100 Room Air 98.4 02/16/18 20:00 63 02/16/18 19:50 83 20 Room Air 21 02/16/18 18:45 91 148/61 02/16/18 16:00 98.3 85 18 150/72 100 Room Air 98.3 02/16/18 16:00 75 02/16/18 12:00 90 02/16/18 12:00 98.9 91 18 148/61 100 Room Air 98.9 Intake and Output 02/16/18 02/17/18 19:00 07:00 Intake Total 480 ml Output Total 600 ml 1500 ml Balance -600 ml -1020 ml IV Total 480 ml Output Urine Total 600 ml 1500 ml Laboratory Tests Test 02/17/18 08:28 White Blood Count 12.9 K/UL (4.8-10.8) H Red Blood Count 5.09 M/UL (4.20-5.40) Hemoglobin 12.7 G/DL (12.0-16.0) Hematocrit 41.4 % (37.0-47.0) Mean Corpuscular Volume 81 FL (80-99) Mean Corpuscular Hemoglobin 24.9 PG (27.0-31.0) L Mean Corpuscular Hemoglobin Concent 30.6 G/DL (32.0-36.0) L Red Cell Distribution Width 12.2 % (11.6-14.8) Platelet Count 232 K/UL (150-450) Mean Platelet Volume 8.7 FL (6.5-10.1) Neutrophils (%) (Auto) % (45.0-75.0) Lymphocytes (%) (Auto) % (20.0-45.0) Monocytes (%) (Auto) % (1.0-10.0) Eosinophils (%) (Auto) % (0.0-3.0) Basophils (%) (Auto) % (0.0-2.0) Differential Total Cells Counted 100 Neutrophils % (Manual) 89 % (45-75) H Lymphocytes % (Manual) 7 % (20-45) L Monocytes % (Manual) 1 % (1-10) Eosinophils % (Manual) 0 % (0-3) Basophils % (Manual) 0 % (0-2) Band Neutrophils 3 % (0-8) Platelet Estimate Adequate Platelet Morphology Normal Red Blood Cell Morphology Normal Reticulocyte Count Pending Prothrombin Time 9.9 SEC (9.30-11.50) Prothromb Time International Ratio 0.9 (0.9-1.1) Activated Partial Thromboplast Time 21 SEC (23-33) L Sodium Level 140 MMOL/L (136-145) Potassium Level 2.5 MMOL/L (3.5-5.1) *L Chloride Level 101 MMOL/L (98-107) Carbon Dioxide Level 30 MMOL/L (21-32) Anion Gap 9 mmol/L (5-15) Blood Urea Nitrogen 13 mg/dL (7-18) Creatinine 1.0 MG/DL (0.55-1.30) Estimat Glomerular Filtration Rate mL/min (>60) Glucose Level 263 MG/DL (74-106) H Lactic Acid Level 1.40 mmol/L (0.4-2.0) Calcium Level 10.3 MG/DL (8.5-10.1) H Phosphorus Level 1.9 MG/DL (2.5-4.9) L Magnesium Level 1.9 MG/DL (1.8-2.4) Iron Level 46 ug/dL (50-175) L Total Iron Binding Capacity 209 ug/dL (250-450) L Percent Iron Saturation 22 % (15-50) Unsaturated Iron Binding 163 ug/dL (112-346) Ferritin 248 NG/ML (8-388) Total Bilirubin 0.3 MG/DL (0.2-1.0) Aspartate Amino Transf (AST/SGOT) 64 U/L (15-37) H Alanine Aminotransferase (ALT/SGPT) 62 U/L (12-78) Alkaline Phosphatase 106 U/L (46-116) Total Protein 8.3 G/DL (6.4-8.2) H Albumin 3.2 G/DL (3.4-5.0) L Globulin 5.1 g/dL Albumin/Globulin Ratio 0.6 (1.0-2.7) L Vitamin B12 Level 713 PG/ML (193-986) Folate 47.4 NG/ML (8.6-58.9) Thyroid Stimulating Hormone (TSH) 0.642 uiU/mL (0.358-3.740) Free Thyroxine 1.43 NG/DL (0.76-1.46) Height (Feet): 5 Height (Inches): 5.00 Weight (Pounds): 164 General Appearance: WD/WN, no apparent distress, alert Cardiovascular: normal rate Respiratory/Chest: normal breath sounds, no respiratory distress Abdominal Exam: normal bowel sounds, non tender, soft Extremities: non-tender Mi Galeas NP Feb 17, 2018 10:22
[2018-02-17] MEDS: D5 1/2NS w/KCl 20mEq 1,000 ML IV SCH ×2 (10:57→23:56)
--- NOTE | 2018-02-17 11:51 | Pulmonology Progress Note ---
Assessment/Plan Problems: (1) Hematemesis (2) Severe sepsis (3) Intractable nausea and vomiting (4) Altered mental status (5) end stage alzheimrers dementia (6) UTI (urinary tract infection) (7) At high risk for aspiration (8) Diabetes Assessment/Plan npo GI evaluation NGtube hold heparin check h/h continue abx check cultures Subjective ROS Limited/Unobtainable: Yes Allergies: Coded Allergies: ESTROGENS (Verified Allergy, Unknown, 11/27/14) Uncoded Allergies: "estrogen" (Allergy, Unknown, 02/20/14) Objective Last 24 Hour Vital Signs Date Time Temp Pulse Resp B/P (MAP) Pulse Ox O2 Delivery O2 Flow Rate FiO2 02/17/18 08:11 79 20 Room Air 21 02/17/18 08:00 97.8 64 18 159/75 98 Room Air 97.8 02/17/18 08:00 68 02/17/18 05:36 74 132/72 02/17/18 04:00 97.7 66 20 182/78 99 Room Air 97.7 02/17/18 03:46 68 02/17/18 00:04 65 118/70 02/17/18 00:00 97.9 65 20 118/70 97 Room Air 97.9 02/16/18 23:45 70 02/16/18 20:00 98.4 78 20 128/83 100 Room Air 98.4 02/16/18 20:00 63 02/16/18 19:50 83 20 Room Air 21 02/16/18 18:45 91 148/61 02/16/18 16:00 98.3 85 18 150/72 100 Room Air 98.3 02/16/18 16:00 75 02/16/18 12:00 90 02/16/18 12:00 98.9 91 18 148/61 100 Room Air 98.9 Intake and Output 02/16/18 02/17/18 19:00 07:00 Intake Total 480 ml Output Total 600 ml 1500 ml Balance -600 ml -1020 ml IV Total 480 ml Output Urine Total 600 ml 1500 ml General Appearance: WD/WN HEENT: normocephalic Respiratory/Chest: chest wall non-tender, lungs clear Breasts: no masses Cardiovascular: normal peripheral pulses Abdomen: normal bowel sounds, soft, non tender Skin: no rash Microbiology Date/Time Source Procedure Growth Status 02/14/18 13:40 Blood Blood Culture - Preliminary NO GROWTH AFTER 48 HOURS Resulted 02/14/18 13:30 Blood Blood Culture - Preliminary NO GROWTH AFTER 48 HOURS Resulted 02/15/18 14:30 Nasopharynx Influenza Types A,B Antigen (SWATI) - Final Complete 02/15/18 04:00 Sputum Induced Gram Stain - Final Complete 02/15/18 04:00 Sputum Culture - Final Klebsiella Pneumoniae Usual Respiratory Jemima Complete 02/14/18 14:00 Nasal Nares Left MRSA Culture - Final Staphylococcus Aureus - Mrsa Complete 02/15/18 14:30 Indwelling Cath Urine Culture - Preliminary NO GROWTH AFTER 24 HOURS Resulted 02/14/18 13:50 Urine,Clean Catch Urine Culture - Final NO GROWTH AFTER 48 HOURS Complete 02/14/18 14:00 Rectum VRE Culture - Final NO VANCOMYCIN RESISTANT ENTEROCOCCUS ... Complete Laboratory Tests 02/17/18 08:28: White Blood Count 12.9H, Red Blood Count 5.09, Hemoglobin 12.7, Hematocrit 41.4 , Mean Corpuscular Volume 81, Mean Corpuscular Hemoglobin 24.9L, Mean Corpuscular Hemoglobin Concent 30.6L, Red Cell Distribution Width 12.2, Platelet Count 232, Mean Platelet Volume 8.7, Neutrophils (%) (Auto) , Lymphocytes (%) (Auto) , Monocytes (%) (Auto) , Eosinophils (%) (Auto) , Basophils (%) (Auto) , Differential Total Cells Counted 100, Neutrophils % ( Manual) 89H, Lymphocytes % (Manual) 7L, Monocytes % (Manual) 1, Eosinophils % ( Manual) 0, Basophils % (Manual) 0, Band Neutrophils 3, Platelet Estimate Adequate, Platelet Morphology Normal, Red Blood Cell Morphology Normal, Reticulocyte Count 1.7, Prothrombin Time 9.9, Prothromb Time International Ratio 0.9, Activated Partial Thromboplast Time 21L, Sodium Level 140, Potassium Level 2.5*L, Chloride Level 101, Carbon Dioxide Level 30, Anion Gap 9, Blood Urea Nitrogen 13, Creatinine 1.0, Estimat Glomerular Filtration Rate , Glucose Level 263H, Lactic Acid Level 1.40, Calcium Level 10.3H, Phosphorus Level 1.9L, Magnesium Level 1.9, Iron Level 46L, Total Iron Binding Capacity 209L, Percent Iron Saturation 22, Unsaturated Iron Binding 163, Ferritin 248, Total Bilirubin 0.3, Aspartate Amino Transf (AST/SGOT) 64H, Alanine Aminotransferase (ALT/SGPT) 62, Alkaline Phosphatase 106, Total Protein 8.3H, Albumin 3.2L, Globulin 5.1, Albumin/Globulin Ratio 0.6L, Vitamin B12 Level 713, Folate 47.4, Thyroid Stimulating Hormone (TSH) 0.642, Free Thyroxine 1.43 Current Medications Medications (Trade) Dose Ordered Sig/Jus Route PRN Reason Start Time Stop Time Status Last Admin Dose Admin Acetaminophen (Tylenol) 650 mg Q4H PRN ORAL fever 02/14/18 20:30 03/16/18 20:29 Albuterol/ Ipratropium (Albuterol/ Ipratropium) 3 ml Q4H PRN HHN Shortness of Breath 02/14/18 17:45 02/19/18 17:44 Cefepime HCl 2 gm/ Dextrose 110 ml @ 220 mls/hr Q24H IV 02/14/18 22:00 02/21/18 21:59 02/16/18 21:46 Dextrose (Dextrose 50%) 25 ml STAT PRN IV Hypoglycemia 02/14/18 17:45 03/16/18 17:44 Dextrose (Dextrose 50%) 50 ml STAT PRN IV Hypoglycemia 02/14/18 18:15 03/16/18 18:14 Dextrose/ Electrolytes 1,000 ml @ 75 mls/hr [id number] IV 02/17/18 11:30 03/19/18 11:29 02/17/18 10:57 Haloperidol Lactate 5 mg/ Dextrose 56 ml @ 224 mls/hr EVERY 6 HOURS PRN IVPB agitation 02/16/18 00:15 03/18/18 00:14 Insulin Aspart (NovoLOG) BEFORE MEALS AND HS SUBQ 02/14/18 21:00 03/16/18 20:59 02/17/18 05:37 Metoprolol Tartrate 10 mg/ Dextrose 65 ml @ 130 mls/hr Q6HR IVPB 02/16/18 18:00 03/18/18 17:59 02/17/18 05:36 Metronidazole (Flagyl) 500 mg Q8HR ORAL 02/15/18 14:15 02/22/18 14:14 02/16/18 21:53 Nitroglycerin (Ntg) 0.4 mg Q5M PRN SL Prn Chest Pain 02/14/18 17:45 03/16/18 17:44 Ondansetron HCl (Zofran) 4 mg Q6H PRN IVP Nausea & Vomiting 02/14/18 17:45 03/16/18 17:44 02/15/18 11:09 Polyethylene Glycol (Miralax) 17 gm DAILYPRN PRN ORAL Constipation 02/14/18 17:45 03/16/18 17:44 Sitagliptin Phosphate (Januvia) 50 mg DAILY ORAL 02/15/18 09:00 03/17/18 08:59 02/16/18 09:09 Temazepam (Restoril) 15 mg HSPRN PRN ORAL Insomnia 02/14/18 17:45 02/21/18 17:44 Tiago Cason MD Feb 17, 2018 11:51
[2018-02-17 12:00] VITALS: BP 144/76
--- NOTE | 2018-02-17 12:21 | Infectious Diseases Prog Note ---
Assessment/Plan Assessment/Plan Assessment: Sepsis, improving- r/o Gram negative bacteremia from Ileus/enteritis/?early SBO , possible aspiration pneumonia vs pneumonitis -CT abd/p: Mildly prominent gas and fluid-filled small bowel loops without definite transition point. Most likely on the basis of ileus/enteritis. Early small bowel obstruction not completely excludable but deemed less likely. Right basilar infiltrate, most likely pneumonia. Mild anasarca. Stable, presumably benign, right lobe liver lesion. Soria catheter within nondistended bladder. Mild scoliosis and degenerative spondylosis incidentally noted. -CXR: Mild interstitial edema -02/14 u/a wbc 60-80, nit +, leuk +3; Ucx Neg; repeat 02/15 UCx NTD -02/14 Bcx NTD -sp cx K. pna (I Zosyn, R amp, otherwise S) -amylase, lipase normal -influenza sc neg Fever/Leukocytosis; improving Lactic acidosis Elevated LFTs, resolving FARIBA, improving HTN Dm2 constipation Alzheimer's Disease assisted living resident Plan: -Continue empiric Cefepime #4 and Flagyl #3 pending cultures -low threshold to switch Cefepime and flagyl to Meropenem if worsening fevers , leukocytosis and/or HD unstable -02/16 SP IV Vancomycin #3 -f/u cx -CDiff if diarrhea -Monitor CBC/CMP, temperatures -Aspiration precautions -Small bowel follow through per GI -GI f/u Thank you for this consultation. Will continue to follow along with you. Discussed with RN. Subjective Allergies: Coded Allergies: ESTROGENS (Verified Allergy, Unknown, 11/27/14) Uncoded Allergies: "estrogen" (Allergy, Unknown, 02/20/14) Subjective afebriel in 48hrs WBC ~12 Bcx NTD at RA Objective Vital Signs Last 24 Hour Vital Signs Date Time Temp Pulse Resp B/P (MAP) Pulse Ox O2 Delivery O2 Flow Rate FiO2 02/17/18 12:06 67 148/78 02/17/18 08:11 79 20 Room Air 21 02/17/18 08:00 97.8 64 18 159/75 98 Room Air 97.8 02/17/18 08:00 68 02/17/18 05:36 74 132/72 02/17/18 04:00 97.7 66 20 182/78 99 Room Air 97.7 02/17/18 03:46 68 6/6/18 00:04 65 118/70 02/17/18 00:00 97.9 65 20 118/70 97 Room Air 97.9 02/16/18 23:45 70 02/16/18 20:00 98.4 78 20 128/83 100 Room Air 98.4 02/16/18 20:00 63 02/16/18 19:50 83 20 Room Air 21 02/16/18 18:45 91 148/61 02/16/18 16:00 98.3 85 18 150/72 100 Room Air 98.3 02/16/18 16:00 75 Height (Feet): 5 Height (Inches): 5.00 Weight (Pounds): 164 Objective General Appearance: cachetic Lines, tubes and drains: central line HEENT: normocephalic, atraumatic, PERRL Neck: normal alignment Respiratory/Chest: chest wall non-tender, normal breath sounds Cardiovascular/Chest: normal peripheral pulses, normal rate Abdomen: normal bowel sounds, non tender Genitourinary/Rectal: normal genital exam, normal rectal exam Extremities: non-pitting Microbiology Date/Time Source Procedure Growth Status 02/14/18 13:40 Blood Blood Culture - Preliminary NO GROWTH AFTER 48 HOURS Resulted 02/14/18 13:30 Blood Blood Culture - Preliminary NO GROWTH AFTER 48 HOURS Resulted 02/15/18 14:30 Nasopharynx Influenza Types A,B Antigen (SWATI) - Final Complete 02/15/18 04:00 Sputum Induced Gram Stain - Final Complete 02/15/18 04:00 Sputum Culture - Final Klebsiella Pneumoniae Usual Respiratory Jemima Complete 02/14/18 14:00 Nasal Nares Left MRSA Culture - Final Staphylococcus Aureus - Mrsa Complete 02/15/18 14:30 Indwelling Cath Urine Culture - Preliminary NO GROWTH AFTER 24 HOURS Resulted 02/14/18 13:50 Urine,Clean Catch Urine Culture - Final NO GROWTH AFTER 48 HOURS Complete 02/14/18 14:00 Rectum VRE Culture - Final NO VANCOMYCIN RESISTANT ENTEROCOCCUS ... Complete Laboratory Tests Test 02/17/18 08:28 White Blood Count 12.9 K/UL (4.8-10.8) H Red Blood Count 5.09 M/UL (4.20-5.40) Hemoglobin 12.7 G/DL (12.0-16.0) Hematocrit 41.4 % (37.0-47.0) Mean Corpuscular Volume 81 FL (80-99) Mean Corpuscular Hemoglobin 24.9 PG (27.0-31.0) L Mean Corpuscular Hemoglobin Concent 30.6 G/DL (32.0-36.0) L Red Cell Distribution Width 12.2 % (11.6-14.8) Platelet Count 232 K/UL (150-450) Mean Platelet Volume 8.7 FL (6.5-10.1) Neutrophils (%) (Auto) % (45.0-75.0) Lymphocytes (%) (Auto) % (20.0-45.0) Monocytes (%) (Auto) % (1.0-10.0) Eosinophils (%) (Auto) % (0.0-3.0) Basophils (%) (Auto) % (0.0-2.0) Differential Total Cells Counted 100 Neutrophils % (Manual) 89 % (45-75) H Lymphocytes % (Manual) 7 % (20-45) L Monocytes % (Manual) 1 % (1-10) Eosinophils % (Manual) 0 % (0-3) Basophils % (Manual) 0 % (0-2) Band Neutrophils 3 % (0-8) Platelet Estimate Adequate Platelet Morphology Normal Red Blood Cell Morphology Normal Reticulocyte Count 1.7 % (0.0-2.0) Prothrombin Time 9.9 SEC (9.30-11.50) Prothromb Time International Ratio 0.9 (0.9-1.1) Activated Partial Thromboplast Time 21 SEC (23-33) L Sodium Level 140 MMOL/L (136-145) Potassium Level 2.5 MMOL/L (3.5-5.1) *L Chloride Level 101 MMOL/L (98-107) Carbon Dioxide Level 30 MMOL/L (21-32) Anion Gap 9 mmol/L (5-15) Blood Urea Nitrogen 13 mg/dL (7-18) Creatinine 1.0 MG/DL (0.55-1.30) Estimat Glomerular Filtration Rate mL/min (>60) Glucose Level 263 MG/DL (74-106) H Lactic Acid Level 1.40 mmol/L (0.4-2.0) Calcium Level 10.3 MG/DL (8.5-10.1) H Phosphorus Level 1.9 MG/DL (2.5-4.9) L Magnesium Level 1.9 MG/DL (1.8-2.4) Iron Level 46 ug/dL (50-175) L Total Iron Binding Capacity 209 ug/dL (250-450) L Percent Iron Saturation 22 % (15-50) Unsaturated Iron Binding 163 ug/dL (112-346) Ferritin 248 NG/ML (8-388) Total Bilirubin 0.3 MG/DL (0.2-1.0) Aspartate Amino Transf (AST/SGOT) 64 U/L (15-37) H Alanine Aminotransferase (ALT/SGPT) 62 U/L (12-78) Alkaline Phosphatase 106 U/L (46-116) Total Protein 8.3 G/DL (6.4-8.2) H Albumin 3.2 G/DL (3.4-5.0) L Globulin 5.1 g/dL Albumin/Globulin Ratio 0.6 (1.0-2.7) L Vitamin B12 Level 713 PG/ML (193-986) Folate 47.4 NG/ML (8.6-58.9) Thyroid Stimulating Hormone (TSH) 0.642 uiU/mL (0.358-3.740) Free Thyroxine 1.43 NG/DL (0.76-1.46) Current Medications Medications (Trade) Dose Ordered Sig/Jus Route PRN Reason Start Time Stop Time Status Last Admin Dose Admin Acetaminophen (Tylenol) 650 mg Q4H PRN ORAL fever 02/14/18 20:30 03/16/18 20:29 Albuterol/ Ipratropium (Albuterol/ Ipratropium) 3 ml Q4H PRN HHN Shortness of Breath 02/14/18 17:45 02/19/18 17:44 Cefepime HCl 2 gm/ Dextrose 110 ml @ 220 mls/hr Q24H IV 02/14/18 22:00 02/21/18 21:59 02/16/18 21:46 Dextrose (Dextrose 50%) 25 ml STAT PRN IV Hypoglycemia 02/14/18 17:45 03/16/18 17:44 Dextrose (Dextrose 50%) 50 ml STAT PRN IV Hypoglycemia 02/14/18 18:15 03/16/18 18:14 Dextrose/ Electrolytes 1,000 ml @ 75 mls/hr [id number] IV 02/17/18 11:30 03/19/18 11:29 02/17/18 10:57 Haloperidol Lactate 5 mg/ Dextrose 56 ml @ 224 mls/hr EVERY 6 HOURS PRN IVPB agitation 02/16/18 00:15 03/18/18 00:14 Insulin Aspart (NovoLOG) BEFORE MEALS AND HS SUBQ 02/14/18 21:00 03/16/18 20:59 02/17/18 12:07 Metoprolol Tartrate 10 mg/ Dextrose 65 ml @ 130 mls/hr Q6HR IVPB 02/16/18 18:00 03/18/18 17:59 02/17/18 12:06 Metronidazole (Flagyl) 500 mg Q8HR ORAL 02/15/18 14:15 02/22/18 14:14 02/16/18 21:53 Nitroglycerin (Ntg) 0.4 mg Q5M PRN SL Prn Chest Pain 02/14/18 17:45 03/16/18 17:44 Ondansetron HCl (Zofran) 4 mg Q6H PRN IVP Nausea & Vomiting 02/14/18 17:45 03/16/18 17:44 02/15/18 11:09 Polyethylene Glycol (Miralax) 17 gm DAILYPRN PRN ORAL Constipation 02/14/18 17:45 03/16/18 17:44 Sitagliptin Phosphate (Januvia) 50 mg DAILY ORAL 02/15/18 09:00 03/17/18 08:59 02/16/18 09:09 Temazepam (Restoril) 15 mg HSPRN PRN ORAL Insomnia 02/14/18 17:45 02/21/18 17:44 Brianna Root M.D. Feb 17, 2018 12:21
--- NOTE | 2018-02-17 12:39 | Cardiology Progress Note ---
Assessment/Plan Status: stable Assessment/Plan IV abx for UTI and PNA Physical therapy Aspirin Statin No indication for cath or ischemia evaluation at this time NPO for possible early ileus IV fluids Swallow evaluation Zofran prn N/V IV fluids PEG tube EGD cancelled given hypokalemia Subjective Cardiovascular: Reports: no symptoms Respiratory: Reports: no symptoms Gastrointestinal/Abdominal: Reports: no symptoms Genitourinary: Reports: no symptoms Subjective No acute events Poor PO intake Plan for PEG tube Objective Last 24 Hour Vital Signs Date Time Temp Pulse Resp B/P (MAP) Pulse Ox O2 Delivery O2 Flow Rate FiO2 02/17/18 12:06 67 148/78 02/17/18 08:11 79 20 Room Air 21 02/17/18 08:00 97.8 64 18 159/75 98 Room Air 97.8 02/17/18 08:00 68 02/17/18 05:36 74 132/72 02/17/18 04:00 97.7 66 20 182/78 99 Room Air 97.7 02/17/18 03:46 68 02/17/18 00:04 65 118/70 02/17/18 00:00 97.9 65 20 118/70 97 Room Air 97.9 02/16/18 23:45 70 02/16/18 20:00 98.4 78 20 128/83 100 Room Air 98.4 02/16/18 20:00 63 02/16/18 19:50 83 20 Room Air 21 02/16/18 18:45 91 148/61 02/16/18 16:00 98.3 85 18 150/72 100 Room Air 98.3 02/16/18 16:00 75 General Appearance: no apparent distress EENT: PERRL/EOMI Neck: non-tender Rhythm: NSR Cardiovascular: normal peripheral pulses Respiratory/Chest: chest wall non-tender Abdomen: normal bowel sounds Extremities: normal range of motion 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 Intake and Output 02/16/18 02/17/18 19:00 07:00 Intake Total 480 ml Output Total 600 ml 1500 ml Balance -600 ml -1020 ml IV Total 480 ml Output Urine Total 600 ml 1500 ml Laboratory Tests Test 02/17/18 08:28 White Blood Count 12.9 K/UL (4.8-10.8) H Red Blood Count 5.09 M/UL (4.20-5.40) Hemoglobin 12.7 G/DL (12.0-16.0) Hematocrit 41.4 % (37.0-47.0) Mean Corpuscular Volume 81 FL (80-99) Mean Corpuscular Hemoglobin 24.9 PG (27.0-31.0) L Mean Corpuscular Hemoglobin Concent 30.6 G/DL (32.0-36.0) L Red Cell Distribution Width 12.2 % (11.6-14.8) Platelet Count 232 K/UL (150-450) Mean Platelet Volume 8.7 FL (6.5-10.1) Neutrophils (%) (Auto) % (45.0-75.0) Lymphocytes (%) (Auto) % (20.0-45.0) Monocytes (%) (Auto) % (1.0-10.0) Eosinophils (%) (Auto) % (0.0-3.0) Basophils (%) (Auto) % (0.0-2.0) Differential Total Cells Counted 100 Neutrophils % (Manual) 89 % (45-75) H Lymphocytes % (Manual) 7 % (20-45) L Monocytes % (Manual) 1 % (1-10) Eosinophils % (Manual) 0 % (0-3) Basophils % (Manual) 0 % (0-2) Band Neutrophils 3 % (0-8) Platelet Estimate Adequate Platelet Morphology Normal Red Blood Cell Morphology Normal Reticulocyte Count 1.7 % (0.0-2.0) Prothrombin Time 9.9 SEC (9.30-11.50) Prothromb Time International Ratio 0.9 (0.9-1.1) Activated Partial Thromboplast Time 21 SEC (23-33) L Sodium Level 140 MMOL/L (136-145) Potassium Level 2.5 MMOL/L (3.5-5.1) *L Chloride Level 101 MMOL/L (98-107) Carbon Dioxide Level 30 MMOL/L (21-32) Anion Gap 9 mmol/L (5-15) Blood Urea Nitrogen 13 mg/dL (7-18) Creatinine 1.0 MG/DL (0.55-1.30) Estimat Glomerular Filtration Rate mL/min (>60) Glucose Level 263 MG/DL (74-106) H Lactic Acid Level 1.40 mmol/L (0.4-2.0) Calcium Level 10.3 MG/DL (8.5-10.1) H Phosphorus Level 1.9 MG/DL (2.5-4.9) L Magnesium Level 1.9 MG/DL (1.8-2.4) Iron Level 46 ug/dL (50-175) L Total Iron Binding Capacity 209 ug/dL (250-450) L Percent Iron Saturation 22 % (15-50) Unsaturated Iron Binding 163 ug/dL (112-346) Ferritin 248 NG/ML (8-388) Total Bilirubin 0.3 MG/DL (0.2-1.0) Aspartate Amino Transf (AST/SGOT) 64 U/L (15-37) H Alanine Aminotransferase (ALT/SGPT) 62 U/L (12-78) Alkaline Phosphatase 106 U/L (46-116) Total Protein 8.3 G/DL (6.4-8.2) H Albumin 3.2 G/DL (3.4-5.0) L Globulin 5.1 g/dL Albumin/Globulin Ratio 0.6 (1.0-2.7) L Vitamin B12 Level 713 PG/ML (193-986) Folate 47.4 NG/ML (8.6-58.9) Thyroid Stimulating Hormone (TSH) 0.642 uiU/mL (0.358-3.740) Free Thyroxine 1.43 NG/DL (0.76-1.46) Microbiology Date/Time Source Procedure Growth Status 02/14/18 13:40 Blood Blood Culture - Preliminary NO GROWTH AFTER 48 HOURS Resulted 02/14/18 13:30 Blood Blood Culture - Preliminary NO GROWTH AFTER 48 HOURS Resulted 02/15/18 14:30 Nasopharynx Influenza Types A,B Antigen (SWATI) - Final Complete 02/15/18 04:00 Sputum Induced Gram Stain - Final Complete 02/15/18 04:00 Sputum Culture - Final Klebsiella Pneumoniae Usual Respiratory Jemima Complete 02/14/18 14:00 Nasal Nares Left MRSA Culture - Final Staphylococcus Aureus - Mrsa Complete 02/15/18 14:30 Indwelling Cath Urine Culture - Preliminary NO GROWTH AFTER 24 HOURS Resulted 02/14/18 13:50 Urine,Clean Catch Urine Culture - Final NO GROWTH AFTER 48 HOURS Complete 02/14/18 14:00 Rectum VRE Culture - Final NO VANCOMYCIN RESISTANT ENTEROCOCCUS ... Complete Ant Gu M.D. Feb 17, 2018 12:39
--- NOTE | 2018-02-17 12:43 | General Progress Note ---
Assessment/Plan Assessment/Plan Dementia with behavioral disturbance The pt lacks capacity The pt is non compliance The pt public guardian should be contacted the pts pg needs to be contacted prior to gt Subjective Date patient seen: Feb 17, 2018 Neurologic/Psychiatric: Reports: anxiety, emotional problems Allergies: Coded Allergies: ESTROGENS (Verified Allergy, Unknown, 11/27/14) Uncoded Allergies: "estrogen" (Allergy, Unknown, 02/20/14) Subjective the pt is confuse and unable to answer any questions. Objective Last 24 Hour Vital Signs Date Time Temp Pulse Resp B/P (MAP) Pulse Ox O2 Delivery O2 Flow Rate FiO2 02/17/18 12:06 67 148/78 02/17/18 08:11 79 20 Room Air 21 02/17/18 08:00 97.8 64 18 159/75 98 Room Air 97.8 02/17/18 08:00 68 02/17/18 05:36 74 132/72 02/17/18 04:00 97.7 66 20 182/78 99 Room Air 97.7 02/17/18 03:46 68 02/17/18 00:04 65 118/70 02/17/18 00:00 97.9 65 20 118/70 97 Room Air 97.9 02/16/18 23:45 70 02/16/18 20:00 98.4 78 20 128/83 100 Room Air 98.4 02/16/18 20:00 63 02/16/18 19:50 83 20 Room Air 21 02/16/18 18:45 91 148/61 02/16/18 16:00 98.3 85 18 150/72 100 Room Air 98.3 02/16/18 16:00 75 Intake and Output 02/16/18 02/17/18 19:00 07:00 Intake Total 480 ml Output Total 600 ml 1500 ml Balance -600 ml -1020 ml IV Total 480 ml Output Urine Total 600 ml 1500 ml Laboratory Tests 02/17/18 08:28: White Blood Count 12.9H, Red Blood Count 5.09, Hemoglobin 12.7, Hematocrit 41.4 , Mean Corpuscular Volume 81, Mean Corpuscular Hemoglobin 24.9L, Mean Corpuscular Hemoglobin Concent 30.6L, Red Cell Distribution Width 12.2, Platelet Count 232, Mean Platelet Volume 8.7, Neutrophils (%) (Auto) , Lymphocytes (%) (Auto) , Monocytes (%) (Auto) , Eosinophils (%) (Auto) , Basophils (%) (Auto) , Differential Total Cells Counted 100, Neutrophils % ( Manual) 89H, Lymphocytes % (Manual) 7L, Monocytes % (Manual) 1, Eosinophils % ( Manual) 0, Basophils % (Manual) 0, Band Neutrophils 3, Platelet Estimate Adequate, Platelet Morphology Normal, Red Blood Cell Morphology Normal, Reticulocyte Count 1.7, Prothrombin Time 9.9, Prothromb Time International Ratio 0.9, Activated Partial Thromboplast Time 21L, Sodium Level 140, Potassium Level 2.5*L, Chloride Level 101, Carbon Dioxide Level 30, Anion Gap 9, Blood Urea Nitrogen 13, Creatinine 1.0, Estimat Glomerular Filtration Rate , Glucose Level 263H, Lactic Acid Level 1.40, Calcium Level 10.3H, Phosphorus Level 1.9L, Magnesium Level 1.9, Iron Level 46L, Total Iron Binding Capacity 209L, Percent Iron Saturation 22, Unsaturated Iron Binding 163, Ferritin 248, Total Bilirubin 0.3, Aspartate Amino Transf (AST/SGOT) 64H, Alanine Aminotransferase (ALT/SGPT) 62, Alkaline Phosphatase 106, Total Protein 8.3H, Albumin 3.2L, Globulin 5.1, Albumin/Globulin Ratio 0.6L, Vitamin B12 Level 713, Folate 47.4, Thyroid Stimulating Hormone (TSH) 0.642, Free Thyroxine 1.43 Height (Feet): 5 Height (Inches): 5.00 Weight (Pounds): 164 General Appearance: no apparent distress, lethargic, confused Josue Roy M.D. Feb 17, 2018 12:43
--- NOTE | 2018-02-17 14:10 | Diagnostic Imaging Report ---
Indication: Post nasogastric tube placement fluid Technique: Supine view of the upper abdomen Comparison: 02/16/2018 Findings: Initial image demonstrates nasogastric tube making a hairpin loop in the distal esophagus. A subsequent image was obtained, however, and it shows the nasogastric tube coiled in the gastric fundus in good position. Again demonstrated is gaseous distention of left upper quadrant and right upper quadrant small bowel loops Impression: Satisfactory position, on final image, nasogastric tube. Other stable findings as described Findings discussed by phone with patient's nurse at the time of interpretation
[2018-02-17 14:30] LABS: ANION GAP 11 mmol/L (5-15); BLOOD UREA NITROGEN 14 mg/dL (7-18); CALCIUM 10.1 MG/DL (8.5-10.1); CARBON DIOXIDE 28 MMOL/L (21-32); CHLORIDE 100 MMOL/L (98-107); CREATININE 1.1 MG/DL (0.55-1.30); SODIUM 139 MMOL/L (136-145)
[2018-02-17 14:39] LABS: POTASSIUM 2.6 MMOL/L (3.5-5.1)
[2018-02-17] MEDS ORDERED: Gastrograffin 30ml ORAL ONE (15:00)
[2018-02-17 16:00] VITALS: BP 110/86
[2018-02-17 20:00] VITALS: BP 188/70
[2018-02-17] MEDS: Cefepime HCl 2 GM in D5W 110 ML IV SCH (21:28)
[2018-02-18] VITALS: BP 177/76
[2018-02-18 04:00] VITALS: BP 183/88
[2018-02-18] MEDS: metroNIDAZOLE 500mg tab ORAL SCH (05:36)
[2018-02-18] MEDS: Metoprolol Tartrate 10 MG in D5W 55 ML IVPB SCH (05:36)
[2018-02-18] MEDS: NovoLOG Insulin Flexpen SUBQ SCH ×4 (06:29→22:58)
[2018-02-18 07:00] LABS: BASOPHILS % (AUTO) 0.6 % (0.0-2.0); EOSINOPHILS % (AUTO) 0.2 % (0.0-3.0); HEMATOCRIT 41.2 % (37.0-47.0); HEMOGLOBIN 13.7 G/DL (12.0-16.0); LYMPHOCYTES % (AUTO) 10.3 % (20.0-45.0); MEAN CORPUSCULAR VOLUME 81 FL (80-99); MONOCYTES % (AUTO) 6.5 % (1.0-10.0); NEUTROPHILS % (AUTO) 82.6 % (45.0-75.0); PLATELET COUNT 235 K/UL (150-450); RED BLOOD COUNT 5.09 M/UL (4.20-5.40); WHITE BLOOD COUNT 13.2 K/UL (4.8-10.8)
[2018-02-18 07:03] LABS: ANION GAP 8 mmol/L (5-15); BLOOD UREA NITROGEN 14 mg/dL (7-18); CALCIUM 9.8 MG/DL (8.5-10.1); CARBON DIOXIDE 29 MMOL/L (21-32); CHLORIDE 99 MMOL/L (98-107); POTASSIUM 3.3 MMOL/L (3.5-5.1); SODIUM 136 MMOL/L (136-145)
[2018-02-18 08:00] VITALS: BP 158/86
[2018-02-18] MEDS: sitaGLIPtin 50mg tab ORAL SCH (08:08)
[2018-02-18] MEDS ORDERED: Fleet's Enema 133ml RECTAL ONE (09:15)
--- NOTE | 2018-02-18 10:34 | Cardiology Progress Note ---
Assessment/Plan Status: stable Assessment/Plan IV abx for UTI and PNA Physical therapy Aspirin Statin No indication for cath or ischemia evaluation at this time IV fluids PEG tube - will need consent from guardian Replace potassium Control blood pressure through NGT Subjective Cardiovascular: Reports: no symptoms Respiratory: Reports: no symptoms Gastrointestinal/Abdominal: Reports: no symptoms Genitourinary: Reports: no symptoms Subjective No acute events Poor PO intake, NGT in place, K low for two days Objective Last 24 Hour Vital Signs Date Time Temp Pulse Resp B/P (MAP) Pulse Ox O2 Delivery O2 Flow Rate FiO2 02/18/18 08:00 61 02/18/18 08:00 97.1 73 20 158/86 98 Room Air 97.1 02/18/18 05:36 65 183/88 02/18/18 04:00 65 02/18/18 04:00 97.5 70 20 183/88 99 Room Air 97.5 02/18/18 00:00 97.2 65 20 177/76 100 Room Air 97.2 02/18/18 00:00 68 02/17/18 23:57 70 188/70 02/17/18 22:03 70 16 Room Air 21 02/17/18 20:00 59 02/17/18 20:00 98.0 61 18 188/70 98 Room Air 98.0 02/17/18 17:21 65 110/72 02/17/18 16:00 63 02/17/18 16:00 98.0 64 18 110/86 98 Room Air 98.0 02/17/18 12:06 67 148/78 02/17/18 12:00 64 02/17/18 12:00 97.5 65 18 144/76 97 Room Air 97.5 General Appearance: no apparent distress EENT: PERRL/EOMI Neck: non-tender Rhythm: NSR Cardiovascular: normal peripheral pulses Respiratory/Chest: chest wall non-tender Abdomen: normal bowel sounds Extremities: normal range of motion 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 Intake and Output 02/17/18 02/18/18 19:00 07:00 Intake Total 260 ml 690 ml Output Total 500 ml 650 ml Balance -240 ml 40 ml IV Total 260 ml 690 ml Output Urine Total 500 ml 650 ml Laboratory Tests Test 02/17/18 14:02 02/18/18 05:30 Sodium Level 139 MMOL/L (136-145) 136 MMOL/L (136-145) Potassium Level 2.6 MMOL/L (3.5-5.1) *L 3.3 MMOL/L (3.5-5.1) L Chloride Level 100 MMOL/L (98-107) 99 MMOL/L (98-107) Carbon Dioxide Level 28 MMOL/L (21-32) 29 MMOL/L (21-32) Anion Gap 11 mmol/L (5-15) 8 mmol/L (5-15) Blood Urea Nitrogen 14 mg/dL (7-18) 14 mg/dL (7-18) Creatinine 1.1 MG/DL (0.55-1.30) 1.0 MG/DL (0.55-1.30) Estimat Glomerular Filtration Rate mL/min (>60) mL/min (>60) Glucose Level 292 MG/DL (74-106) H 306 MG/DL (74-106) H Calcium Level 10.1 MG/DL (8.5-10.1) 9.8 MG/DL (8.5-10.1) White Blood Count 13.2 K/UL (4.8-10.8) H Red Blood Count 5.09 M/UL (4.20-5.40) Hemoglobin 13.7 G/DL (12.0-16.0) Hematocrit 41.2 % (37.0-47.0) Mean Corpuscular Volume 81 FL (80-99) Mean Corpuscular Hemoglobin 27.0 PG (27.0-31.0) Mean Corpuscular Hemoglobin Concent 33.4 G/DL (32.0-36.0) Red Cell Distribution Width 12.0 % (11.6-14.8) Platelet Count 235 K/UL (150-450) Mean Platelet Volume 9.0 FL (6.5-10.1) Neutrophils (%) (Auto) 82.6 % (45.0-75.0) H Lymphocytes (%) (Auto) 10.3 % (20.0-45.0) L Monocytes (%) (Auto) 6.5 % (1.0-10.0) Eosinophils (%) (Auto) 0.2 % (0.0-3.0) Basophils (%) (Auto) 0.6 % (0.0-2.0) Microbiology Date/Time Source Procedure Growth Status 02/15/18 14:30 Nasopharynx Influenza Types A,B Antigen (SWATI) - Final Complete 02/15/18 14:30 Indwelling Cath Urine Culture - Final NO GROWTH AFTER 48 HOURS Complete Ant Gu M.D. Feb 18, 2018 10:34
--- NOTE | 2018-02-18 10:50 | Diagnostic Imaging Report ---
Indication: Cough Technique: One view of the chest Comparison: 02/14/2018 Findings: Interim placement of nasogastric tube, coiled in gastric fundus. The lungs and pleural spaces are clear. The heart size is normal. Previously demonstrated interstitial congestive changes are no longer evident Impression: No acute process Satisfactory nasogastric intubation
--- NOTE | 2018-02-18 11:14 | Pulmonology Progress Note ---
Assessment/Plan Problems: (1) Hematemesis (2) Severe sepsis (3) Intractable nausea and vomiting (4) Altered mental status (5) end stage alzheimrers dementia (6) UTI (urinary tract infection) (7) At high risk for aspiration (8) Diabetes Assessment/Plan still npo GI evaluation, possibly will need a PEG NGtube hold heparin check h/h continue abx check cultures Subjective ROS Limited/Unobtainable: No Constitutional: Reports: no symptoms HEENT: Repors: no symptoms Respiratory: Reports: no symptoms Allergies: Coded Allergies: ESTROGENS (Verified Allergy, Unknown, 11/27/14) Uncoded Allergies: "estrogen" (Allergy, Unknown, 02/20/14) Objective Last 24 Hour Vital Signs Date Time Temp Pulse Resp B/P (MAP) Pulse Ox O2 Delivery O2 Flow Rate FiO2 02/18/18 08:00 61 02/18/18 08:00 97.1 73 20 158/86 98 Room Air 97.1 02/18/18 05:36 65 183/88 02/18/18 04:00 65 02/18/18 04:00 97.5 70 20 183/88 99 Room Air 97.5 02/18/18 00:00 97.2 65 20 177/76 100 Room Air 97.2 02/18/18 00:00 68 02/17/18 23:57 70 188/70 02/17/18 22:03 70 16 Room Air 21 02/17/18 20:00 59 02/17/18 20:00 98.0 61 18 188/70 98 Room Air 98.0 02/17/18 17:21 65 110/72 02/17/18 16:00 63 02/17/18 16:00 98.0 64 18 110/86 98 Room Air 98.0 02/17/18 12:06 67 148/78 02/17/18 12:00 64 02/17/18 12:00 97.5 65 18 144/76 97 Room Air 97.5 Intake and Output 02/17/18 02/18/18 19:00 07:00 Intake Total 260 ml 690 ml Output Total 500 ml 650 ml Balance -240 ml 40 ml IV Total 260 ml 690 ml Output Urine Total 500 ml 650 ml General Appearance: WD/WN HEENT: normocephalic, atraumatic Abdomen: normal bowel sounds, soft, non tender Genitourinary: normal external genitalia Extremities: no cyanosis 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 Lymphatic: no neck adenopathy Microbiology Date/Time Source Procedure Growth Status 02/15/18 14:30 Nasopharynx Influenza Types A,B Antigen (SWATI) - Final Complete 02/15/18 14:30 Indwelling Cath Urine Culture - Final NO GROWTH AFTER 48 HOURS Complete Laboratory Tests 02/17/18 14:02: Sodium Level 139, Potassium Level 2.6*L, Chloride Level 100, Carbon Dioxide Level 28, Anion Gap 11, Blood Urea Nitrogen 14, Creatinine 1.1, Estimat Glomerular Filtration Rate , Glucose Level 292H, Calcium Level 10.1 02/18/18 05:30: Sodium Level 136, Potassium Level 3.3L, Chloride Level 99, Carbon Dioxide Level 29, Anion Gap 8, Blood Urea Nitrogen 14, Creatinine 1.0, Estimat Glomerular Filtration Rate , Glucose Level 306H, Calcium Level 9.8, White Blood Count 13.2H , Red Blood Count 5.09, Hemoglobin 13.7, Hematocrit 41.2, Mean Corpuscular Volume 81, Mean Corpuscular Hemoglobin 27.0, Mean Corpuscular Hemoglobin Concent 33.4, Red Cell Distribution Width 12.0, Platelet Count 235, Mean Platelet Volume 9.0, Neutrophils (%) (Auto) 82.6H, Lymphocytes (%) (Auto) 10.3L , Monocytes (%) (Auto) 6.5, Eosinophils (%) (Auto) 0.2, Basophils (%) (Auto) 0.6 Current Medications Medications (Trade) Dose Ordered Sig/Jus Route PRN Reason Start Time Stop Time Status Last Admin Dose Admin Acetaminophen (Tylenol) 650 mg Q4H PRN ORAL fever 02/14/18 20:30 03/16/18 20:29 Albuterol/ Ipratropium (Albuterol/ Ipratropium) 3 ml Q4H PRN HHN Shortness of Breath 02/14/18 17:45 02/19/18 17:44 Cefepime HCl 2 gm/ Dextrose 110 ml @ 220 mls/hr Q24H IV 02/14/18 22:00 02/21/18 21:59 02/17/18 21:28 Dextrose (Dextrose 50%) 25 ml STAT PRN IV Hypoglycemia 02/14/18 17:45 03/16/18 17:44 Dextrose (Dextrose 50%) 50 ml STAT PRN IV Hypoglycemia 02/14/18 18:15 03/16/18 18:14 Dextrose/ Electrolytes 1,000 ml @ 75 mls/hr [id number] IV 02/17/18 11:30 03/19/18 11:29 02/17/18 23:56 Haloperidol Lactate 5 mg/ Dextrose 56 ml @ 224 mls/hr EVERY 6 HOURS PRN IVPB agitation 02/16/18 00:15 03/18/18 00:14 Hydralazine HCl (Apresoline) 10 mg Q8H IV 02/18/18 10:45 03/20/18 10:44 Insulin Aspart (NovoLOG) BEFORE MEALS AND HS SUBQ 02/14/18 21:00 03/16/18 20:59 02/18/18 06:29 Metoprolol Tartrate 10 mg/ Dextrose 120 ml @ 240 mls/hr Q6HR IVPB 02/18/18 18:00 03/18/18 17:59 Metronidazole (Flagyl) 500 mg Q8HR ORAL 02/15/18 14:15 02/22/18 14:14 02/18/18 05:36 Nitroglycerin (Ntg) 0.4 mg Q5M PRN SL Prn Chest Pain 02/14/18 17:45 03/16/18 17:44 Ondansetron HCl (Zofran) 4 mg Q6H PRN IVP Nausea & Vomiting 02/14/18 17:45 03/16/18 17:44 02/15/18 11:09 Polyethylene Glycol (Miralax) 17 gm DAILYPRN PRN ORAL Constipation 02/14/18 17:45 03/16/18 17:44 Sitagliptin Phosphate (Januvia) 50 mg DAILY ORAL 02/15/18 09:00 03/17/18 08:59 02/18/18 08:08 Temazepam (Restoril) 15 mg HSPRN PRN ORAL Insomnia 02/14/18 17:45 02/21/18 17:44 Tiago Cason MD Feb 18, 2018 11:14
--- NOTE | 2018-02-18 11:24 | General Progress Note ---
Assessment/Plan Assessment/Plan Dementia with behavioral disturbance The pt lacks capacity The pt is non compliance The pt public guardian should be contacted the pts pg needs to be contacted prior to gt Subjective Date patient seen: Feb 18, 2018 Neurologic/Psychiatric: Reports: anxiety, depressed, emotional problems Allergies: Coded Allergies: ESTROGENS (Verified Allergy, Unknown, 11/27/14) Uncoded Allergies: "estrogen" (Allergy, Unknown, 02/20/14) Subjective the pt is confuse and unable to answer any questions. Objective Last 24 Hour Vital Signs Date Time Temp Pulse Resp B/P (MAP) Pulse Ox O2 Delivery O2 Flow Rate FiO2 02/18/18 08:00 61 02/18/18 08:00 97.1 73 20 158/86 98 Room Air 97.1 02/18/18 05:36 65 183/88 02/18/18 04:00 65 02/18/18 04:00 97.5 70 20 183/88 99 Room Air 97.5 02/18/18 00:00 97.2 65 20 177/76 100 Room Air 97.2 02/18/18 00:00 68 02/17/18 23:57 70 188/70 02/17/18 22:03 70 16 Room Air 21 02/17/18 20:00 59 02/17/18 20:00 98.0 61 18 188/70 98 Room Air 98.0 02/17/18 17:21 65 110/72 02/17/18 16:00 63 02/17/18 16:00 98.0 64 18 110/86 98 Room Air 98.0 02/17/18 12:06 67 148/78 02/17/18 12:00 64 02/17/18 12:00 97.5 65 18 144/76 97 Room Air 97.5 Intake and Output 02/17/18 02/18/18 19:00 07:00 Intake Total 260 ml 690 ml Output Total 500 ml 650 ml Balance -240 ml 40 ml IV Total 260 ml 690 ml Output Urine Total 500 ml 650 ml Laboratory Tests 02/17/18 14:02: Sodium Level 139, Potassium Level 2.6*L, Chloride Level 100, Carbon Dioxide Level 28, Anion Gap 11, Blood Urea Nitrogen 14, Creatinine 1.1, Estimat Glomerular Filtration Rate , Glucose Level 292H, Calcium Level 10.1 02/18/18 05:30: Sodium Level 136, Potassium Level 3.3L, Chloride Level 99, Carbon Dioxide Level 29, Anion Gap 8, Blood Urea Nitrogen 14, Creatinine 1.0, Estimat Glomerular Filtration Rate , Glucose Level 306H, Calcium Level 9.8, White Blood Count 13.2H , Red Blood Count 5.09, Hemoglobin 13.7, Hematocrit 41.2, Mean Corpuscular Volume 81, Mean Corpuscular Hemoglobin 27.0, Mean Corpuscular Hemoglobin Concent 33.4, Red Cell Distribution Width 12.0, Platelet Count 235, Mean Platelet Volume 9.0, Neutrophils (%) (Auto) 82.6H, Lymphocytes (%) (Auto) 10.3L , Monocytes (%) (Auto) 6.5, Eosinophils (%) (Auto) 0.2, Basophils (%) (Auto) 0.6 Height (Feet): 5 Height (Inches): 5.00 Weight (Pounds): 164 Josue Roy M.D. Feb 18, 2018 11:24
--- NOTE | 2018-02-18 11:25 | GI Progress Note ---
Assessment/Plan Problems: (1) Altered mental status ICD Codes: R41.82 - Altered mental status, unspecified SNOMED: 981964861 (2) At high risk for aspiration ICD Codes: Z91.89 - At high risk for aspiration SNOMED: 195953143 (3) Anemia ICD Codes: D64.9 - Anemia SNOMED: 089441572 (4) Ileus ICD Codes: K56.7 - Ileus, unspecified SNOMED: 494437474 (5) SBO (small bowel obstruction) ICD Codes: K56.609 - Unspecified intestinal obstruction, unspecified as to partial versus complete obstruction SNOMED: 369439153 (6) Coffee ground emesis ICD Codes: K92.0 - Hematemesis SNOMED: 97471359, 664929717 Status: unchanged Status Narrative Discussed with Dr. Montoya. 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 hep panel negative EGD cancelled given hypokalemia, may need PEG given FTT. NGT for small bowel follow through r/o SBO >> being done today hold video swallow, RD consult for NGTFs after SBFT serial imaging prn electrolyte correction OB stool r/o GI bleed >> no BM since admission monitor H&H, prn transfusions bowel regime ppi BID fu labs The patient was seen and examined at bedside and all new and available data was reviewed in the patients chart. I agree with the above findings, impression and plan. (Patient seen earlier today. Signature stamp does not reflect patient encounter time.). - Jesse Montoya MD Subjective Subjective limited Objective Last 24 Hour Vital Signs Date Time Temp Pulse Resp B/P (MAP) Pulse Ox O2 Delivery O2 Flow Rate FiO2 02/18/18 08:00 61 02/18/18 08:00 97.1 73 20 158/86 98 Room Air 97.1 02/18/18 05:36 65 183/88 02/18/18 04:00 65 02/18/18 04:00 97.5 70 20 183/88 99 Room Air 97.5 02/18/18 00:00 97.2 65 20 177/76 100 Room Air 97.2 02/18/18 00:00 68 02/17/18 23:57 70 188/70 02/17/18 22:03 70 16 Room Air 21 02/17/18 20:00 59 02/17/18 20:00 98.0 61 18 188/70 98 Room Air 98.0 02/17/18 17:21 65 110/72 02/17/18 16:00 63 02/17/18 16:00 98.0 64 18 110/86 98 Room Air 98.0 02/17/18 12:06 67 148/78 02/17/18 12:00 64 02/17/18 12:00 97.5 65 18 144/76 97 Room Air 97.5 Intake and Output 02/17/18 02/18/18 19:00 07:00 Intake Total 260 ml 690 ml Output Total 500 ml 650 ml Balance -240 ml 40 ml IV Total 260 ml 690 ml Output Urine Total 500 ml 650 ml Laboratory Tests Test 02/17/18 14:02 02/18/18 05:30 Sodium Level 139 MMOL/L (136-145) 136 MMOL/L (136-145) Potassium Level 2.6 MMOL/L (3.5-5.1) *L 3.3 MMOL/L (3.5-5.1) L Chloride Level 100 MMOL/L (98-107) 99 MMOL/L (98-107) Carbon Dioxide Level 28 MMOL/L (21-32) 29 MMOL/L (21-32) Anion Gap 11 mmol/L (5-15) 8 mmol/L (5-15) Blood Urea Nitrogen 14 mg/dL (7-18) 14 mg/dL (7-18) Creatinine 1.1 MG/DL (0.55-1.30) 1.0 MG/DL (0.55-1.30) Estimat Glomerular Filtration Rate mL/min (>60) mL/min (>60) Glucose Level 292 MG/DL (74-106) H 306 MG/DL (74-106) H Calcium Level 10.1 MG/DL (8.5-10.1) 9.8 MG/DL (8.5-10.1) White Blood Count 13.2 K/UL (4.8-10.8) H Red Blood Count 5.09 M/UL (4.20-5.40) Hemoglobin 13.7 G/DL (12.0-16.0) Hematocrit 41.2 % (37.0-47.0) Mean Corpuscular Volume 81 FL (80-99) Mean Corpuscular Hemoglobin 27.0 PG (27.0-31.0) Mean Corpuscular Hemoglobin Concent 33.4 G/DL (32.0-36.0) Red Cell Distribution Width 12.0 % (11.6-14.8) Platelet Count 235 K/UL (150-450) Mean Platelet Volume 9.0 FL (6.5-10.1) Neutrophils (%) (Auto) 82.6 % (45.0-75.0) H Lymphocytes (%) (Auto) 10.3 % (20.0-45.0) L Monocytes (%) (Auto) 6.5 % (1.0-10.0) Eosinophils (%) (Auto) 0.2 % (0.0-3.0) Basophils (%) (Auto) 0.6 % (0.0-2.0) Height (Feet): 5 Height (Inches): 5.00 Weight (Pounds): 164 General Appearance: WD/WN, no apparent distress, alert Cardiovascular: normal rate Respiratory/Chest: normal breath sounds, no respiratory distress Abdominal Exam: normal bowel sounds, non tender, soft Extremities: non-tender iM Galeas NP Feb 18, 2018 11:25
--- NOTE | 2018-02-18 12:17 | Infectious Diseases Prog Note ---
Assessment/Plan Assessment/Plan Assessment: Sepsis, improving- r/o Gram negative bacteremia from Ileus/enteritis/?early SBO , possible aspiration pneumonitis ( no infiltrates on CXR) -CT abd/p: Mildly prominent gas and fluid-filled small bowel loops without definite transition point. Most likely on the basis of ileus/enteritis. Early small bowel obstruction not completely excludable but deemed less likely. Right basilar infiltrate, most likely pneumonia. Mild anasarca. Stable, presumably benign, right lobe liver lesion. Soria catheter within nondistended bladder. Mild scoliosis and degenerative spondylosis incidentally noted. -CXR: Mild interstitial edema; Repeat CXR 02/18: no acute findings -02/14 u/a wbc 60-80, nit +, leuk +3; Ucx Neg; repeat 02/15 UCx NTD -02/14 Bcx NTD -sp cx K. 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 -amylase, lipase normal -influenza sc neg Fever/Leukocytosis; fever resolved, leukocytosis persistent Lactic acidosis; resolved Elevated LFTs, resolving FARIBA, improving HTN Dm2 constipation Alzheimer's Disease assisted living resident Plan: -Swittch Cefepime #5 and Flagyl #4 to Meropenem as a trial given ongoing/ slightly worsened leukocytosis and ongoing ileus vs SBO -02/16 SP IV Vancomycin #3 -f/u cx -Monitor CBC/CMP, temperatures -Aspiration precautions -Small bowel follow through per GI -GI f/u -Sx eval Thank you for this consultation. Will continue to follow along with you. Discussed with RN. Subjective Allergies: Coded Allergies: ESTROGENS (Verified Allergy, Unknown, 11/27/14) Uncoded Allergies: "estrogen" (Allergy, Unknown, 02/20/14) Subjective afebriel in 72hrs WBC up to 13 repeat CXR no acute findings still no BM for small bowel through today Bcx NTD at RA Objective Vital Signs Last 24 Hour Vital Signs Date Time Temp Pulse Resp B/P (MAP) Pulse Ox O2 Delivery O2 Flow Rate FiO2 02/18/18 08:00 61 02/18/18 08:00 97.1 73 20 158/86 98 Room Air 97.1 02/18/18 05:36 65 183/88 02/18/18 04:00 65 02/18/18 04:00 97.5 70 20 183/88 99 Room Air 97.5 02/18/18 00:00 97.2 65 20 177/76 100 Room Air 97.2 02/18/18 00:00 68 02/17/18 23:57 70 188/70 02/17/18 22:03 70 16 Room Air 21 02/17/18 20:00 59 02/17/18 20:00 98.0 61 18 188/70 98 Room Air 98.0 02/17/18 17:21 65 110/72 02/17/18 16:00 63 02/17/18 16:00 98.0 64 18 110/86 98 Room Air 98.0 Height (Feet): 5 Height (Inches): 5.00 Weight (Pounds): 164 Objective General Appearance: cachetic Lines, tubes and drains: central line HEENT: normocephalic, atraumatic, PERRL Neck: normal alignment Respiratory/Chest: chest wall non-tender, normal breath sounds Cardiovascular/Chest: normal peripheral pulses, normal rate Abdomen: normal bowel sounds, non tender Genitourinary/Rectal: normal genital exam, normal rectal exam Extremities: non-pitting Microbiology Date/Time Source Procedure Growth Status 02/15/18 14:30 Nasopharynx Influenza Types A,B Antigen (SWATI) - Final Complete 02/15/18 14:30 Indwelling Cath Urine Culture - Final NO GROWTH AFTER 48 HOURS Complete Laboratory Tests Test 02/17/18 14:02 02/18/18 05:30 Sodium Level 139 MMOL/L (136-145) 136 MMOL/L (136-145) Potassium Level 2.6 MMOL/L (3.5-5.1) *L 3.3 MMOL/L (3.5-5.1) L Chloride Level 100 MMOL/L (98-107) 99 MMOL/L (98-107) Carbon Dioxide Level 28 MMOL/L (21-32) 29 MMOL/L (21-32) Anion Gap 11 mmol/L (5-15) 8 mmol/L (5-15) Blood Urea Nitrogen 14 mg/dL (7-18) 14 mg/dL (7-18) Creatinine 1.1 MG/DL (0.55-1.30) 1.0 MG/DL (0.55-1.30) Estimat Glomerular Filtration Rate mL/min (>60) mL/min (>60) Glucose Level 292 MG/DL (74-106) H 306 MG/DL (74-106) H Calcium Level 10.1 MG/DL (8.5-10.1) 9.8 MG/DL (8.5-10.1) White Blood Count 13.2 K/UL (4.8-10.8) H Red Blood Count 5.09 M/UL (4.20-5.40) Hemoglobin 13.7 G/DL (12.0-16.0) Hematocrit 41.2 % (37.0-47.0) Mean Corpuscular Volume 81 FL (80-99) Mean Corpuscular Hemoglobin 27.0 PG (27.0-31.0) Mean Corpuscular Hemoglobin Concent 33.4 G/DL (32.0-36.0) Red Cell Distribution Width 12.0 % (11.6-14.8) Platelet Count 235 K/UL (150-450) Mean Platelet Volume 9.0 FL (6.5-10.1) Neutrophils (%) (Auto) 82.6 % (45.0-75.0) H Lymphocytes (%) (Auto) 10.3 % (20.0-45.0) L Monocytes (%) (Auto) 6.5 % (1.0-10.0) Eosinophils (%) (Auto) 0.2 % (0.0-3.0) Basophils (%) (Auto) 0.6 % (0.0-2.0) Current Medications Medications (Trade) Dose Ordered Sig/Jus Route PRN Reason Start Time Stop Time Status Last Admin Dose Admin Acetaminophen (Tylenol) 650 mg Q4H PRN ORAL fever 02/14/18 20:30 03/16/18 20:29 Albuterol/ Ipratropium (Albuterol/ Ipratropium) 3 ml Q4H PRN HHN Shortness of Breath 02/14/18 17:45 02/19/18 17:44 Cefepime HCl 2 gm/ Dextrose 110 ml @ 220 mls/hr Q24H IV 02/14/18 22:00 02/21/18 21:59 02/17/18 21:28 Dextrose (Dextrose 50%) 25 ml STAT PRN IV Hypoglycemia 02/14/18 17:45 03/16/18 17:44 Dextrose (Dextrose 50%) 50 ml STAT PRN IV Hypoglycemia 02/14/18 18:15 03/16/18 18:14 Dextrose/ Electrolytes 1,000 ml @ 75 mls/hr [id number] IV 02/17/18 11:30 03/19/18 11:29 02/17/18 23:56 Haloperidol Lactate 5 mg/ Dextrose 56 ml @ 224 mls/hr EVERY 6 HOURS PRN IVPB agitation 02/16/18 00:15 03/18/18 00:14 Hydralazine HCl (Apresoline) 10 mg Q8H IV 02/18/18 10:45 03/20/18 10:44 Insulin Aspart (NovoLOG) BEFORE MEALS AND HS SUBQ 02/14/18 21:00 03/16/18 20:59 02/18/18 06:29 Metoprolol Tartrate 10 mg/ Dextrose 120 ml @ 240 mls/hr Q6HR IVPB 02/18/18 18:00 03/18/18 17:59 Metronidazole (Flagyl) 500 mg Q8HR ORAL 02/15/18 14:15 02/22/18 14:14 02/18/18 05:36 Nitroglycerin (Ntg) 0.4 mg Q5M PRN SL Prn Chest Pain 02/14/18 17:45 03/16/18 17:44 Ondansetron HCl (Zofran) 4 mg Q6H PRN IVP Nausea & Vomiting 02/14/18 17:45 03/16/18 17:44 02/15/18 11:09 Polyethylene Glycol (Miralax) 17 gm DAILYPRN PRN ORAL Constipation 02/14/18 17:45 03/16/18 17:44 Sitagliptin Phosphate (Januvia) 50 mg DAILY ORAL 02/15/18 09:00 03/17/18 08:59 02/18/18 08:08 Temazepam (Restoril) 15 mg HSPRN PRN ORAL Insomnia 02/14/18 17:45 02/21/18 17:44 Brianna Root M.D. Feb 18, 2018 12:17
[2018-02-18] MEDS: D5 1/2NS w/KCl 20mEq 1,000 ML IV SCH (14:13)
[2018-02-18] MEDS: Meropenem 1 GM in NS 55 ML IVPB SCH ×2 (14:13→20:51)
--- NOTE | 2018-02-18 15:01 | Consultation ---
History of Present Illness General Date patient seen: Feb 18, 2018 Chief Complaint: Vomiting Referring physician: DONOVAN KYLE Reason for Consultation: VOMITING Present Illness HPI 87 year old female with multiple medical comorbidities currently in assisted living presented to ED with worsening nausea and emesis. as per report, she began to develop yellow/green emesis over the past few days. in ED had CT scan which demonstrated dilated small bowel loops with possible sbo. NG tube placed and bilious output noted. attempted diet and with emesis. KUB unchanged over a few days. upper GI study currently in process. surgery called to evaluate for possible SBO. patient see, chart reviewed, patient examined. Allergies: Coded Allergies: ESTROGENS (Verified Allergy, Unknown, 11/27/14) Uncoded Allergies: "estrogen" (Allergy, Unknown, 02/20/14) Medication History Scheduled Calcium Carbonate (Calcium), 500 MG PO BID, (Reported) Docusate Sodium (Silace), 100 MG PO BID, (Reported) Insulin Detemir (Levemir), 16 SUBQ BEDTIME, (Reported) Multivitamin (One Daily), 1 TAB ORAL DAILY, (Reported) Polyethylene Glycol 3350 (Glycolax), 17 GM PO DAILY, (Reported) Polyethylene Glycol 3350* (Miralax*), 17 GM ORAL DAILY, (Reported) Ranitidine Hcl (Zantac), 150 MG ORAL DAILY, (Reported) Sitagliptin (Januvia), 50 MG ORAL DAILY, (Reported) Vancomycin Hcl/D5w (Vancomycin-D5w 1 G/250 Ml), 1 GM IVPB Q24H Scheduled PRN Acetaminophen (Acetaminophen), 650 MG ORAL Q6H PRN for Prn Headache/Temp > 101, (Reported) Magnesium Hydroxide* (Milk Of Magnesia*), 30 ML ORAL DAILY PRN for Constipation, (Reported) Miscellaneous Medications Calcium Carbonate ([id number]), 500 MG PO, (Reported) Insulin Aspart* (Novolog*), 0 SUBQ, (Reported) [miralax], (Reported) Patient History Limited by: medical condition History Provided By: Medical Record, PMD Healthcare decision maker Resuscitation status Full Code Advanced Directive on File No Past Medical/Surgical History Past Medical/Surgical History: (1) Urinary tract infection (2) Ileus (3) Lactic acid acidosis (4) Diabetes (5) Renal insufficiency (6) UTI (urinary tract infection) (7) Altered mental status (8) Severe sepsis (9) At high risk for aspiration (10) end stage alzheimrers dementia (11) Intractable nausea and vomiting (12) Lactic acidosis (13) Anemia (14) Anemia (15) Anemia (16) Heart block (17) Hepatitis (18) Hyperlipidemia (19) Leukocytosis (20) Renal insufficiency (21) Renal insufficiency (22) Acute bronchitis (23) Acute bronchitis (24) Hypoxia (25) Sepsis (26) Sepsis (27) Altered mental status (28) Altered mental status (29) Abdominal pain (30) Pneumonia (31) Vomiting (32) Vomiting (33) Heart abnormality (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 (35) Podiatry visit, routine (36) Cellulitis of fifth toe, left (37) Type 1 diabetes, controlled, with cellulitis of toe (38) Type 2 diabetes, uncontrolled, with cellulitis of toe (39) Hematemesis (40) SBO (small bowel obstruction) (41) Coffee ground emesis Review of Systems ROS Narrative cannot obtain given patients current medical condition Physical Exam General Appearance: mild distress HEENT: atraumatic Neck: normal inspection Respiratory/Chest: lungs clear, normal breath sounds, no respiratory distress, no accessory muscle use Cardiovascular/Chest: tachycardia Abdomen: soft, distended, other - soft, disteded, cannot assess tenderness, mild guarding. Extremities: no cyanosis Neurologic: unresponsiveness Last 24 Hour Vital Signs Date Time Temp Pulse Resp B/P (MAP) Pulse Ox O2 Delivery O2 Flow Rate FiO2 02/18/18 08:00 61 02/18/18 08:00 97.1 73 20 158/86 98 Room Air 97.1 02/18/18 05:36 65 183/88 02/18/18 04:00 65 02/18/18 04:00 97.5 70 20 183/88 99 Room Air 97.5 02/18/18 00:00 97.2 65 20 177/76 100 Room Air 97.2 02/18/18 00:00 68 02/17/18 23:57 70 188/70 02/17/18 22:03 70 16 Room Air 21 02/17/18 20:00 59 02/17/18 20:00 98.0 61 18 188/70 98 Room Air 98.0 02/17/18 17:21 65 110/72 6/6/18 16:00 63 02/17/18 16:00 98.0 64 18 110/86 98 Room Air 98.0 Intake and Output 02/17/18 02/18/18 19:00 07:00 Intake Total 260 ml 690 ml Output Total 500 ml 650 ml Balance -240 ml 40 ml IV Total 260 ml 690 ml Output Urine Total 500 ml 650 ml Laboratory Tests Test 02/18/18 05:30 White Blood Count 13.2 K/UL (4.8-10.8) H Red Blood Count 5.09 M/UL (4.20-5.40) Hemoglobin 13.7 G/DL (12.0-16.0) Hematocrit 41.2 % (37.0-47.0) Mean Corpuscular Volume 81 FL (80-99) Mean Corpuscular Hemoglobin 27.0 PG (27.0-31.0) Mean Corpuscular Hemoglobin Concent 33.4 G/DL (32.0-36.0) Red Cell Distribution Width 12.0 % (11.6-14.8) Platelet Count 235 K/UL (150-450) Mean Platelet Volume 9.0 FL (6.5-10.1) Neutrophils (%) (Auto) 82.6 % (45.0-75.0) H Lymphocytes (%) (Auto) 10.3 % (20.0-45.0) L Monocytes (%) (Auto) 6.5 % (1.0-10.0) Eosinophils (%) (Auto) 0.2 % (0.0-3.0) Basophils (%) (Auto) 0.6 % (0.0-2.0) Sodium Level 136 MMOL/L (136-145) Potassium Level 3.3 MMOL/L (3.5-5.1) L Chloride Level 99 MMOL/L (98-107) Carbon Dioxide Level 29 MMOL/L (21-32) Anion Gap 8 mmol/L (5-15) Blood Urea Nitrogen 14 mg/dL (7-18) Creatinine 1.0 MG/DL (0.55-1.30) Estimat Glomerular Filtration Rate mL/min (>60) Glucose Level 306 MG/DL (74-106) H Calcium Level 9.8 MG/DL (8.5-10.1) Height (Feet): 5 Height (Inches): 5.00 Weight (Pounds): 164 Medications Current Medications Medications (Trade) Dose Ordered Sig/Jus Route PRN Reason Start Time Stop Time Status Last Admin Dose Admin Acetaminophen (Tylenol) 650 mg Q4H PRN ORAL fever 02/14/18 20:30 03/16/18 20:29 Albuterol/ Ipratropium (Albuterol/ Ipratropium) 3 ml Q4H PRN HHN Shortness of Breath 02/14/18 17:45 02/19/18 17:44 Dextrose (Dextrose 50%) 25 ml STAT PRN IV Hypoglycemia 02/14/18 17:45 03/16/18 17:44 Dextrose (Dextrose 50%) 50 ml STAT PRN IV Hypoglycemia 02/14/18 18:15 03/16/18 18:14 Dextrose/ Electrolytes 1,000 ml @ 75 mls/hr [id number] IV 02/17/18 11:30 03/19/18 11:29 02/18/18 14:13 Haloperidol Lactate 5 mg/ Dextrose 56 ml @ 224 mls/hr EVERY 6 HOURS PRN IVPB agitation 02/16/18 00:15 03/18/18 00:14 Hydralazine HCl (Apresoline) 10 mg Q8H IV 02/18/18 10:45 03/20/18 10:44 Insulin Aspart (NovoLOG) BEFORE MEALS AND HS SUBQ 02/14/18 21:00 03/16/18 20:59 02/18/18 06:29 Meropenem 1 gm/ Sodium Chloride 55 ml @ 110 mls/hr Q12HR IVPB 02/18/18 12:30 02/23/18 12:29 02/18/18 14:13 Metoprolol Tartrate 10 mg/ Dextrose 120 ml @ 240 mls/hr Q6HR IVPB 02/18/18 18:00 03/18/18 17:59 Nitroglycerin (Ntg) 0.4 mg Q5M PRN SL Prn Chest Pain 02/14/18 17:45 03/16/18 17:44 Ondansetron HCl (Zofran) 4 mg Q6H PRN IVP Nausea & Vomiting 02/14/18 17:45 03/16/18 17:44 02/15/18 11:09 Polyethylene Glycol (Miralax) 17 gm DAILYPRN PRN ORAL Constipation 02/14/18 17:45 03/16/18 17:44 Sitagliptin Phosphate (Januvia) 50 mg DAILY ORAL 02/15/18 09:00 03/17/18 08:59 02/18/18 08:08 Temazepam (Restoril) 15 mg HSPRN PRN ORAL Insomnia 02/14/18 17:45 02/21/18 17:44 Assessment/Plan Problem List: (1) SBO (small bowel obstruction) Assessment & Plan: 87F with possible SBO. exam limited given medical condition. abd soft but distended. CT reviewed and noted some distended fluid filled bowel loops and some non distended loop but no definitive transition point. CT somewhat obscured by motion artifact. will await results of upper small bowel follow through. NPO IV fluids NG tube thank you for this consultation. will follow with recs. ICD Codes: K56.609 - Unspecified intestinal obstruction, unspecified as to partial versus complete obstruction SNOMED: [id number] Status: unchanged Miguel Freeman Feb 18, 2018 15:01
[2018-02-18 16:00] VITALS: BP 158/79
--- NOTE | 2018-02-18 17:13 | Anethesia Preoperative Eval ---
Anesthesia Pre-op PMH/ROS General Date of Evaluation: Feb 18, 2018 Time of Evaluation: 17:51 Anesthesiologist: Myrna ASA Score: ASA 4 Mallampati Score Class I : Soft palate, uvula, fauces, pillars visible Class II: Soft palate, uvula, fauces visible Class III: Soft palate, base of uvula visible Class IV: Only hard plate visible Mallampati Classification: Class III Surgeon: Pete Diagnosis: Bowel Obstruction Surgical Procedure: Exploratiory Laparotomy Anesthesia History: none Family History: no anesthesia problems Allergies: Coded Allergies: ESTROGENS (Verified Allergy, Unknown, 11/27/14) Uncoded Allergies: "estrogen" (Allergy, Unknown, 02/20/14) Medications: see eMAR Past Medical History Cardiovascular: Reports: HTN Pulmonary: Reports: other - Bronchitis, Pneumonia Gastrointestinal/Genitourinary: Reports: CRI, other - Bowel Obstruction Neurologic/Psychiatric: Reports: dementia - Alzheimers Endocrine: Reports: DM Hematology/Immune: Reports: anemia, other - Hepatitis Musculoskeletal/Integumentary: Reports: edema PSxH Narrative: PEDRO Anesthesia Pre-op Phys. Exam Physician Exam Last Vital Signs Date Time Temp Pulse Resp B/P (MAP) Pulse Ox O2 Delivery O2 Flow Rate FiO2 02/18/18 08:00 61 02/18/18 08:00 97.1 20 158/86 98 Room Air 97.1 02/17/18 22:03 21 Constitutional: NAD Neurologic: CN 2-12 intact Cardiovascular: RRR Respiratory: CTA Gastrointestinal: S/NT/ND Airway Exam Mallampati Score: Class III MO: limited ROM: limited Teeth: missing, intact Anesthesia Pre-op A/P Labs Hematology Test 02/18/18 05:30 White Blood Count 13.2 K/UL (4.8-10.8) H Red Blood Count 5.09 M/UL (4.20-5.40) Hemoglobin 13.7 G/DL (12.0-16.0) Hematocrit 41.2 % (37.0-47.0) Mean Corpuscular Volume 81 FL (80-99) Mean Corpuscular Hemoglobin 27.0 PG (27.0-31.0) Mean Corpuscular Hemoglobin Concent 33.4 G/DL (32.0-36.0) Red Cell Distribution Width 12.0 % (11.6-14.8) Platelet Count 235 K/UL (150-450) Mean Platelet Volume 9.0 FL (6.5-10.1) Neutrophils (%) (Auto) 82.6 % (45.0-75.0) H Lymphocytes (%) (Auto) 10.3 % (20.0-45.0) L Monocytes (%) (Auto) 6.5 % (1.0-10.0) Eosinophils (%) (Auto) 0.2 % (0.0-3.0) Basophils (%) (Auto) 0.6 % (0.0-2.0) Chemistry Test 02/18/18 05:30 Sodium Level 136 MMOL/L (136-145) Potassium Level 3.3 MMOL/L (3.5-5.1) L Chloride Level 99 MMOL/L (98-107) Carbon Dioxide Level 29 MMOL/L (21-32) Anion Gap 8 mmol/L (5-15) Blood Urea Nitrogen 14 mg/dL (7-18) Creatinine 1.0 MG/DL (0.55-1.30) Estimat Glomerular Filtration Rate mL/min (>60) Glucose Level 306 MG/DL (74-106) H Calcium Level 9.8 MG/DL (8.5-10.1) Risk Assessment & Plan Assessment: ASA 4 Plan: GA Status Change Before Surgery: No Pre-Antibiotics Drug: Mikey Jackson MD Feb 18, 2018 17:13
[2018-02-18] MEDS: D5W IVPB SCH (17:29)
[2018-02-18] MEDS: METOPROLOL TARTRATE IVPB SCH (17:29)
[2018-02-18 20:00] VITALS: BP 118/60
[2018-02-19] VITALS (19 sets, daily range): BP systolic 50–134; BP diastolic 25–111
[2018-02-19] MEDS: METOPROLOL TARTRATE IVPB SCH ×2 (02:29→05:55)
[2018-02-19] MEDS: D5W IVPB SCH ×2 (02:29→05:55)
[2018-02-19] MEDS: D5 1/2NS w/KCl 20mEq 1,000 ML IV SCH ×2 (02:30→21:28)
[2018-02-19] MEDS: NovoLOG Insulin Flexpen SUBQ SCH ×4 (05:59→21:17)
[2018-02-19 07:44] LABS: ANION GAP 12 mmol/L (5-15); BLOOD UREA NITROGEN 23 mg/dL (7-18); CALCIUM 10.5 MG/DL (8.5-10.1); CARBON DIOXIDE 28 MMOL/L (21-32); CHLORIDE 98 MMOL/L (98-107); CREATININE 1.9 MG/DL (0.55-1.30); PHOSPHORUS 1.9 MG/DL (2.5-4.9); SODIUM 138 MMOL/L (136-145)
[2018-02-19 07:47] LABS: HEMATOCRIT 42.6 % (37.0-47.0); HEMOGLOBIN 14.1 G/DL (12.0-16.0); MEAN CORPUSCULAR VOLUME 80 FL (80-99); PLATELET COUNT 245 K/UL (150-450); RED BLOOD COUNT 5.35 M/UL (4.20-5.40); RED CELL DISTRIBUTION WIDTH 11.7 % (11.6-14.8)
[2018-02-19 07:53] LABS: POTASSIUM 2.5 MMOL/L (3.5-5.1)
[2018-02-19 08:16] LABS: WHITE BLOOD COUNT 23.7 K/UL (4.8-10.8)
--- NOTE | 2018-02-19 09:30 | Infectious Diseases Prog Note ---
Assessment/Plan Assessment/Plan Assessment: Sepsis, ongoing- likely from SBO possibly due to adhesions -Small bowel w/ gastroffin: Subsequent small bowel study indicates that the prominent upper abdominal small bowel loops are proximal jejunal loops, and there is a transition point identifiable retrospect centrally in the mid abdomen distal to which loops are nondilated. There is a slight swirling of the vessels in this area, indicating this could be an internal hernia, although the presence of an incisional scar on the CT and the appearance on the small bowel study indicates that it is more likely due to adhesions. -CT abd/p: Mildly prominent gas and fluid-filled small bowel loops without definite transition point. Most likely on the basis of ileus/enteritis. Early small bowel obstruction not completely excludable but deemed less likely. Right basilar infiltrate, most likely pneumonia. Mild anasarca. Stable, presumably benign, right lobe liver lesion. Soria catheter within nondistended bladder. Mild scoliosis and degenerative spondylosis incidentally noted. -CXR: Mild interstitial edema; Repeat CXR 02/18: no acute findings -02/14 u/a wbc 60-80, nit +, leuk +3; Ucx Neg; repeat 02/15 UCx NTD -02/14 Bcx NTD -sp cx K. 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 -amylase, lipase normal -influenza sc neg Fever/Leukocytosis; fever resolved, leukocytosis worsening Lactic acidosis; resolved Elevated LFTs, resolving FARIBA, improving HTN Dm2 constipation Alzheimer's Disease assisted living resident Plan: -Continue Meropenem #2 (abx d#6) and add IV Vanco and Micafungin for enterococcal and ernst coverage in the setting of worsening leukocytosis and SBO. -02/18 SP Cefepime #5, Flagyl #4 -02/16 SP IV Vancomycin #3 -Bcx x2 -f/u cx -Monitor CBC/CMP, temperatures -Aspiration precautions -Small bowel follow through per GI -GI f/u -Sx eval- possible surgical intervention Thank you for this consultation. Will continue to follow along with you. Discussed with RN. Subjective Allergies: Coded Allergies: ESTROGENS (Verified Allergy, Unknown, 11/27/14) Uncoded Allergies: "estrogen" (Allergy, Unknown, 02/20/14) Subjective afebriel leukocytosis worsening GI series +SBO Objective Vital Signs Last 24 Hour Vital Signs Date Time Temp Pulse Resp B/P (MAP) Pulse Ox O2 Delivery O2 Flow Rate FiO2 02/19/18 08:22 72 16 Room Air 21 02/19/18 08:00 98.4 94 18 83/57 97 Room Air 98.4 02/19/18 05:55 85 134/62 02/19/18 04:00 98.6 84 21 115/61 98 Room Air 98.6 02/19/18 04:00 78 02/19/18 02:29 85 134/62 02/19/18 02:19 134/62 02/19/18 00:00 98.1 85 20 134/62 98 Room Air 98.1 02/18/18 20:39 158/86 02/18/18 20:00 98.2 73 20 118/60 98 Room Air 98.2 02/18/18 20:00 70 02/18/18 17:29 77 158/86 02/18/18 16:26 77 20 Room Air 21 02/18/18 16:00 98.2 76 18 158/79 96 Room Air 98.2 02/18/18 16:00 74 02/18/18 12:00 66 Height (Feet): 5 Height (Inches): 5.00 Weight (Pounds): 164 Objective General Appearance: cachetic Lines, tubes and drains: central line HEENT: normocephalic, atraumatic, PERRL Neck: normal alignment Respiratory/Chest: chest wall non-tender, normal breath sounds Cardiovascular/Chest: normal peripheral pulses, normal rate Abdomen: normal bowel sounds, non tender Genitourinary/Rectal: normal genital exam, normal rectal exam Extremities: non-pitting Laboratory Tests Test 02/18/18 18:09 02/19/18 06:50 Stool Occult Blood Pending White Blood Count 23.7 K/UL (4.8-10.8) #*H Red Blood Count 5.35 M/UL (4.20-5.40) Hemoglobin 14.1 G/DL (12.0-16.0) Hematocrit 42.6 % (37.0-47.0) Mean Corpuscular Volume 80 FL (80-99) Mean Corpuscular Hemoglobin 26.4 PG (27.0-31.0) L Mean Corpuscular Hemoglobin Concent 33.2 G/DL (32.0-36.0) Red Cell Distribution Width 11.7 % (11.6-14.8) Platelet Count 245 K/UL (150-450) Mean Platelet Volume 9.1 FL (6.5-10.1) Neutrophils (%) (Auto) % (45.0-75.0) Lymphocytes (%) (Auto) % (20.0-45.0) Monocytes (%) (Auto) % (1.0-10.0) Eosinophils (%) (Auto) % (0.0-3.0) Basophils (%) (Auto) % (0.0-2.0) Differential Total Cells Counted 100 Neutrophils % (Manual) 87 % (45-75) H Lymphocytes % (Manual) 3 % (20-45) L Monocytes % (Manual) 7 % (1-10) Eosinophils % (Manual) 0 % (0-3) Basophils % (Manual) 0 % (0-2) Band Neutrophils 3 % (0-8) Platelet Estimate Adequate Platelet Morphology Normal Red Blood Cell Morphology Normal Sodium Level 138 MMOL/L (136-145) Potassium Level 2.5 MMOL/L (3.5-5.1) *L Chloride Level 98 MMOL/L (98-107) Carbon Dioxide Level 28 MMOL/L (21-32) Anion Gap 12 mmol/L (5-15) Blood Urea Nitrogen 23 mg/dL (7-18) H Creatinine 1.9 MG/DL (0.55-1.30) #H Estimat Glomerular Filtration Rate mL/min (>60) Glucose Level 338 MG/DL (74-106) H Calcium Level 10.5 MG/DL (8.5-10.1) H Phosphorus Level 1.9 MG/DL (2.5-4.9) L Magnesium Level 1.7 MG/DL (1.8-2.4) L Current Medications Medications (Trade) Dose Ordered Sig/Jus Route PRN Reason Start Time Stop Time Status Last Admin Dose Admin Acetaminophen (Tylenol) 650 mg Q4H PRN ORAL fever 02/14/18 20:30 03/16/18 20:29 Albuterol/ Ipratropium (Albuterol/ Ipratropium) 3 ml Q4H PRN HHN Shortness of Breath 02/14/18 17:45 02/19/18 17:44 Dextrose (Dextrose 50%) 25 ml STAT PRN IV Hypoglycemia 02/14/18 17:45 03/16/18 17:44 Dextrose (Dextrose 50%) 50 ml STAT PRN IV Hypoglycemia 02/14/18 18:15 03/16/18 18:14 Dextrose/ Electrolytes 1,000 ml @ 75 mls/hr [id number] IV 02/17/18 11:30 03/19/18 11:29 02/19/18 02:30 Haloperidol Lactate 5 mg/ Dextrose 56 ml @ 224 mls/hr EVERY 6 HOURS PRN IVPB agitation 02/16/18 00:15 03/18/18 00:14 Hydralazine HCl (Apresoline) 10 mg EVERY 8 HOURS PRN IV For High Blood Pressure 02/19/18 08:45 03/21/18 08:44 Insulin Aspart (NovoLOG) BEFORE MEALS AND HS SUBQ 02/14/18 21:00 03/16/18 20:59 02/19/18 05:59 Meropenem 1 gm/ Sodium Chloride 55 ml @ 110 mls/hr Q12HR IVPB 02/18/18 12:30 02/23/18 12:29 02/18/18 20:51 Nitroglycerin (Ntg) 0.4 mg Q5M PRN SL Prn Chest Pain 02/14/18 17:45 03/16/18 17:44 Ondansetron HCl (Zofran) 4 mg Q6H PRN IVP Nausea & Vomiting 02/14/18 17:45 03/16/18 17:44 02/15/18 11:09 Polyethylene Glycol (Miralax) 17 gm DAILYPRN PRN ORAL Constipation 02/14/18 17:45 03/16/18 17:44 Potassium Chloride 100 ml @ 50 mls/hr ONCE ONCE IVPB 02/19/18 09:00 02/19/18 10:59 Potassium Chloride 100 ml @ 50 mls/hr ONCE ONCE IVPB 02/19/18 11:00 02/19/18 12:59 Sitagliptin Phosphate (Januvia) 50 mg DAILY ORAL 02/15/18 09:00 03/17/18 08:59 02/18/18 08:08 Temazepam (Restoril) 15 mg HSPRN PRN ORAL Insomnia 02/14/18 17:45 02/21/18 17:44 Brianna Root M.D. Feb 19, 2018 09:30
[2018-02-19] MEDS: sitaGLIPtin 50mg tab ORAL SCH (09:31)
[2018-02-19] MEDS: Meropenem 1 GM in NS 55 ML IVPB SCH ×2 (09:31→20:37)
[2018-02-19] MEDS ORDERED: NS 500ML ONE (09:46)
[2018-02-19] MEDS ORDERED: Tubing IV Secondary IV ONE (09:46)
--- NOTE | 2018-02-19 09:54 | Pre-Procedure Note/Attestation ---
Pre-Procedure Note/Attestation Complete Prior to Procedure Planned Procedure: not applicable Procedure Narrative: diagnostic laparoscopy, possible exploratory laparotomy, possible bowel resection Indications for Procedure Pre-Operative Diagnosis: small bowel obstruction Attestation I attest that I discussed the nature of the procedure; its benefits; risks and complications; and alternatives (and the risks and benefits of such alternatives ), prior to the procedure, with the patient (or the patient's legal hostess party sales representative). I attest that, if there was a reasonable possibility of needing a blood transfusion, the patient (or the patient's legal hostess party sales representative) was given the [facility] standardized written summary, pursuant to the [place] Blood Safety Act ([place] [facility] and Safety Code # 1645, as amended). I attest that I re-evaluated the patient just prior to the surgery and that there has been no change in the patient's H&P, except as documented below: Miguel Freeman Feb 19, 2018 09:54
[2018-02-19] MEDS ORDERED: Micafungin 100 MG in NS 110 ML IVPB SCH (10:30)
--- NOTE | 2018-02-19 10:38 | GI Progress Note ---
Assessment/Plan Problems: (1) Altered mental status ICD Codes: R41.82 - Altered mental status, unspecified SNOMED: 790644663 (2) At high risk for aspiration ICD Codes: Z91.89 - At high risk for aspiration SNOMED: 211373300 (3) Anemia ICD Codes: D64.9 - Anemia SNOMED: 052427695 (4) Ileus ICD Codes: K56.7 - Ileus, unspecified SNOMED: 270378067 (5) SBO (small bowel obstruction) ICD Codes: K56.609 - Unspecified intestinal obstruction, unspecified as to partial versus complete obstruction SNOMED: 109661959 (6) Coffee ground emesis ICD Codes: K92.0 - Hematemesis SNOMED: 13921291, 341077944 Status: unchanged Status Narrative Discussed with Dr. Montoya. Assessment/Plan CT reviewed possible ileus vs SBO FTT reports of coffee grounds no BM since admission medical practice manager image reviewed >> no change in dilated small bowel loops since previous CT 2 days ago. hep panel negative plan for surgery today, fu surgical recs will need TPN if surgery proceeds serial imaging prn electrolyte correction OB stool r/o GI bleed >> no BM since admission monitor H&H, prn transfusions bowel regime ppi BID fu labs The patient was seen and examined at bedside and all new and available data was reviewed in the patients chart. I agree with the above findings, impression and plan. (Patient seen earlier today. Signature stamp does not reflect patient encounter time.). - Jesse Montoya MD Subjective Subjective limited Objective Last 24 Hour Vital Signs Date Time Temp Pulse Resp B/P (MAP) Pulse Ox O2 Delivery O2 Flow Rate FiO2 02/19/18 08:22 72 16 Room Air 21 02/19/18 08:00 98.4 94 18 83/57 97 Room Air 98.4 02/19/18 08:00 94 02/19/18 05:55 85 134/62 02/19/18 04:00 98.6 84 21 115/61 98 Room Air 98.6 02/19/18 04:00 78 02/19/18 02:29 85 134/62 02/19/18 02:19 134/62 02/19/18 00:00 98.1 85 20 134/62 98 Room Air 98.1 02/18/18 20:39 158/86 02/18/18 20:00 98.2 73 20 118/60 98 Room Air 98.2 02/18/18 20:00 70 02/18/18 17:29 77 158/86 02/18/18 16:26 77 20 Room Air 21 02/18/18 16:00 98.2 76 18 158/79 96 Room Air 98.2 02/18/18 16:00 74 02/18/18 12:00 66 Intake and Output 02/18/18 02/19/18 19:00 07:00 Intake Total 75 ml 897 ml Output Total 200 ml 250 ml Balance -125 ml 647 ml IV Total 75 ml 897 ml Output Urine Total 200 ml 250 ml Laboratory Tests Test 02/18/18 18:09 02/19/18 06:50 Stool Occult Blood Pending White Blood Count 23.7 K/UL (4.8-10.8) #*H Red Blood Count 5.35 M/UL (4.20-5.40) Hemoglobin 14.1 G/DL (12.0-16.0) Hematocrit 42.6 % (37.0-47.0) Mean Corpuscular Volume 80 FL (80-99) Mean Corpuscular Hemoglobin 26.4 PG (27.0-31.0) L Mean Corpuscular Hemoglobin Concent 33.2 G/DL (32.0-36.0) Red Cell Distribution Width 11.7 % (11.6-14.8) Platelet Count 245 K/UL (150-450) Mean Platelet Volume 9.1 FL (6.5-10.1) Neutrophils (%) (Auto) % (45.0-75.0) Lymphocytes (%) (Auto) % (20.0-45.0) Monocytes (%) (Auto) % (1.0-10.0) Eosinophils (%) (Auto) % (0.0-3.0) Basophils (%) (Auto) % (0.0-2.0) Differential Total Cells Counted 100 Neutrophils % (Manual) 87 % (45-75) H Lymphocytes % (Manual) 3 % (20-45) L Monocytes % (Manual) 7 % (1-10) Eosinophils % (Manual) 0 % (0-3) Basophils % (Manual) 0 % (0-2) Band Neutrophils 3 % (0-8) Platelet Estimate Adequate Platelet Morphology Normal Red Blood Cell Morphology Normal Sodium Level 138 MMOL/L (136-145) Potassium Level 2.5 MMOL/L (3.5-5.1) *L Chloride Level 98 MMOL/L (98-107) Carbon Dioxide Level 28 MMOL/L (21-32) Anion Gap 12 mmol/L (5-15) Blood Urea Nitrogen 23 mg/dL (7-18) H Creatinine 1.9 MG/DL (0.55-1.30) #H Estimat Glomerular Filtration Rate mL/min (>60) Glucose Level 338 MG/DL (74-106) H Calcium Level 10.5 MG/DL (8.5-10.1) H Phosphorus Level 1.9 MG/DL (2.5-4.9) L Magnesium Level 1.7 MG/DL (1.8-2.4) L Height (Feet): 5 Height (Inches): 5.00 Weight (Pounds): 164 General Appearance: WD/WN, no apparent distress, alert Cardiovascular: normal rate Respiratory/Chest: normal breath sounds, no respiratory distress Abdominal Exam: non tender, soft Extremities: non-tender Mi Galeas NP Feb 19, 2018 10:38
--- NOTE | 2018-02-19 10:49 | General Progress Note ---
Assessment/Plan Status: stable Assessment/Plan Dementia with behavioral disturbance The pt lacks capacity The pt is non compliance The pt public guardian should be contacted the pts pg needs to be contacted prior to gt Subjective Date patient seen: Feb 19, 2018 Neurologic/Psychiatric: Reports: anxiety, depressed, emotional problems Allergies: Coded Allergies: ESTROGENS (Verified Allergy, Unknown, 11/27/14) Uncoded Allergies: "estrogen" (Allergy, Unknown, 02/20/14) Subjective the pt is confuse less agitated Objective Last 24 Hour Vital Signs Date Time Temp Pulse Resp B/P (MAP) Pulse Ox O2 Delivery O2 Flow Rate FiO2 02/19/18 08:22 72 16 Room Air 21 02/19/18 08:00 98.4 94 18 83/57 97 Room Air 98.4 02/19/18 08:00 94 02/19/18 05:55 85 134/62 02/19/18 04:00 98.6 84 21 115/61 98 Room Air 98.6 02/19/18 04:00 78 02/19/18 02:29 85 134/62 02/19/18 02:19 134/62 02/19/18 00:00 98.1 85 20 134/62 98 Room Air 98.1 02/18/18 20:39 158/86 02/18/18 20:00 98.2 73 20 118/60 98 Room Air 98.2 02/18/18 20:00 70 02/18/18 17:29 77 158/86 02/18/18 16:26 77 20 Room Air 21 02/18/18 16:00 98.2 76 18 158/79 96 Room Air 98.2 02/18/18 16:00 74 02/18/18 12:00 66 Intake and Output 02/18/18 02/19/18 19:00 07:00 Intake Total 75 ml 897 ml Output Total 200 ml 250 ml Balance -125 ml 647 ml IV Total 75 ml 897 ml Output Urine Total 200 ml 250 ml Laboratory Tests 02/18/18 18:09: Stool Occult Blood [Pending] 02/19/18 06:50: White Blood Count 23.7#*H, Red Blood Count 5.35, Hemoglobin 14.1, Hematocrit 42.6, Mean Corpuscular Volume 80, Mean Corpuscular Hemoglobin 26.4L, Mean Corpuscular Hemoglobin Concent 33.2, Red Cell Distribution Width 11.7, Platelet Count 245, Mean Platelet Volume 9.1, Neutrophils (%) (Auto) , Lymphocytes (%) ( Auto) , Monocytes (%) (Auto) , Eosinophils (%) (Auto) , Basophils (%) (Auto) , Differential Total Cells Counted 100, Neutrophils % (Manual) 87H, Lymphocytes % (Manual) 3L, Monocytes % (Manual) 7, Eosinophils % (Manual) 0, Basophils % ( Manual) 0, Band Neutrophils 3, Platelet Estimate Adequate, Platelet Morphology Normal, Red Blood Cell Morphology Normal, Sodium Level 138, Potassium Level 2.5* L, Chloride Level 98, Carbon Dioxide Level 28, Anion Gap 12, Blood Urea Nitrogen 23H, Creatinine 1.9#H, Estimat Glomerular Filtration Rate , Glucose Level 338H, Calcium Level 10.5H, Phosphorus Level 1.9L, Magnesium Level 1.7L Height (Feet): 5 Height (Inches): 5.00 Weight (Pounds): 164 General Appearance: WD/WN, no apparent distress, alert, confused Neurologic: alert, disoriented, depressed affect Josue Roy M.D. Feb 19, 2018 10:49
[2018-02-19] MEDS ORDERED: Vancomycin 1250mg/D5W 250ml IVPB SCH (12:00)
[2018-02-19] MEDS ORDERED: Bacitracin 50000 Units Vial ONE (12:15)
[2018-02-19] MEDS ORDERED: EPINEPHrine 1mg/1ml Amp ONE (12:15)
[2018-02-19] MEDS ORDERED: Bupivacaine 0.25% Inj 30ml INJ ONE ×2 (12:15→12:36)
[2018-02-19] MEDS ORDERED: NeoSporin Gu Irrig 1ml Amp IRRIG ONE (12:16)
[2018-02-19] MEDS ORDERED: Propofol 200mg/20ml IV ONE (13:00)
[2018-02-19] MEDS ORDERED: LR 1000ml ONE (13:00)
[2018-02-19] MEDS ORDERED: Zemuron 50mg/5ml Inj IV ONE (13:00)
[2018-02-19] MEDS ORDERED: NS Irrig 1000ml ONE (13:00)
[2018-02-19] MEDS ORDERED: Lidocaine 1% MPF 10mg/ml 5ml ONE (13:11)
--- NOTE | 2018-02-19 13:29 | Pulmonology Progress Note ---
Assessment/Plan Problems: (1) SBO (small bowel obstruction) (2) Coffee ground emesis (3) Hematemesis (4) Severe sepsis (5) Intractable nausea and vomiting (6) Altered mental status (7) end stage alzheimrers dementia (8) UTI (urinary tract infection) (9) At high risk for aspiration (10) Diabetes Assessment/Plan still npo laparotomy today NGtube hold heparin check h/h continue abx check cultures Subjective ROS Limited/Unobtainable: Yes Constitutional: Reports: no symptoms HEENT: Repors: no symptoms Allergies: Coded Allergies: ESTROGENS (Verified Allergy, Unknown, 11/27/14) Uncoded Allergies: "estrogen" (Allergy, Unknown, 02/20/14) Objective Last 24 Hour Vital Signs Date Time Temp Pulse Resp B/P (MAP) Pulse Ox O2 Delivery O2 Flow Rate FiO2 02/19/18 11:34 98.2 87 18 133/52 97 Room Air 98.2 02/19/18 08:22 72 16 Room Air 21 02/19/18 08:00 98.4 94 18 83/57 97 Room Air 98.4 02/19/18 08:00 94 02/19/18 05:55 85 134/62 02/19/18 04:00 98.6 84 21 115/61 98 Room Air 98.6 02/19/18 04:00 78 02/19/18 02:29 85 134/62 02/19/18 02:19 134/62 02/19/18 00:00 98.1 85 20 134/62 98 Room Air 98.1 02/18/18 20:39 158/86 02/18/18 20:00 98.2 73 20 118/60 98 Room Air 98.2 02/18/18 20:00 70 02/18/18 17:29 77 158/86 02/18/18 16:26 77 20 Room Air 21 02/18/18 16:00 98.2 76 18 158/79 96 Room Air 98.2 02/18/18 16:00 74 Intake and Output 02/18/18 02/19/18 19:00 07:00 Intake Total 75 ml 897 ml Output Total 200 ml 250 ml Balance -125 ml 647 ml IV Total 75 ml 897 ml Output Urine Total 200 ml 250 ml General Appearance: WD/WN HEENT: normocephalic, atraumatic Respiratory/Chest: chest wall non-tender, lungs clear Cardiovascular: normal peripheral pulses Abdomen: no scars Extremities: no cyanosis Skin: no rash Laboratory Tests 02/18/18 18:09: Stool Occult Blood Negative 02/19/18 06:50: White Blood Count 23.7#*H, Red Blood Count 5.35, Hemoglobin 14.1, Hematocrit 42.6, Mean Corpuscular Volume 80, Mean Corpuscular Hemoglobin 26.4L, Mean Corpuscular Hemoglobin Concent 33.2, Red Cell Distribution Width 11.7, Platelet Count 245, Mean Platelet Volume 9.1, Neutrophils (%) (Auto) , Lymphocytes (%) ( Auto) , Monocytes (%) (Auto) , Eosinophils (%) (Auto) , Basophils (%) (Auto) , Differential Total Cells Counted 100, Neutrophils % (Manual) 87H, Lymphocytes % (Manual) 3L, Monocytes % (Manual) 7, Eosinophils % (Manual) 0, Basophils % ( Manual) 0, Band Neutrophils 3, Platelet Estimate Adequate, Platelet Morphology Normal, Red Blood Cell Morphology Normal, Sodium Level 138, Potassium Level 2.5* L, Chloride Level 98, Carbon Dioxide Level 28, Anion Gap 12, Blood Urea Nitrogen 23H, Creatinine 1.9#H, Estimat Glomerular Filtration Rate , Glucose Level 338H, Calcium Level 10.5H, Phosphorus Level 1.9L, Magnesium Level 1.7L Current Medications Medications (Trade) Dose Ordered Sig/Jus Route PRN Reason Start Time Stop Time Status Last Admin Dose Admin Acetaminophen (Tylenol) 650 mg Q4H PRN ORAL fever 02/14/18 20:30 03/16/18 20:29 Albuterol/ Ipratropium (Albuterol/ Ipratropium) 3 ml Q4H PRN HHN Shortness of Breath 02/14/18 17:45 02/19/18 17:44 Dextrose (Dextrose 50%) 25 ml STAT PRN IV Hypoglycemia 02/14/18 17:45 03/16/18 17:44 Dextrose (Dextrose 50%) 50 ml STAT PRN IV Hypoglycemia 02/14/18 18:15 03/16/18 18:14 Dextrose/ Electrolytes 1,000 ml @ 75 mls/hr [id number] IV 02/17/18 11:30 03/19/18 11:29 02/19/18 02:30 Haloperidol Lactate 5 mg/ Dextrose 56 ml @ 224 mls/hr EVERY 6 HOURS PRN IVPB agitation 02/16/18 00:15 03/18/18 00:14 Hydralazine HCl (Apresoline) 10 mg EVERY 8 HOURS PRN IV For High Blood Pressure 02/19/18 08:45 03/21/18 08:44 Insulin Aspart (NovoLOG) BEFORE MEALS AND HS SUBQ 02/14/18 21:00 03/16/18 20:59 02/19/18 11:19 Meropenem 1 gm/ Sodium Chloride 55 ml @ 110 mls/hr Q12HR IVPB 02/18/18 12:30 02/23/18 12:29 02/19/18 09:31 Micafungin Sodium 100 mg/Sodium Chloride 110 ml @ 110 mls/hr Q24H IVPB 02/19/18 10:30 02/26/18 23:59 02/19/18 10:34 Nitroglycerin (Ntg) 0.4 mg Q5M PRN SL Prn Chest Pain 02/14/18 17:45 03/16/18 17:44 Ondansetron HCl (Zofran) 4 mg Q6H PRN IVP Nausea & Vomiting 02/14/18 17:45 03/16/18 17:44 02/15/18 11:09 Polyethylene Glycol (Miralax) 17 gm DAILYPRN PRN ORAL Constipation 02/14/18 17:45 03/16/18 17:44 Sitagliptin Phosphate (Januvia) 50 mg DAILY ORAL 02/15/18 09:00 03/17/18 08:59 02/19/18 09:31 Temazepam (Restoril) 15 mg HSPRN PRN ORAL Insomnia 02/14/18 17:45 02/21/18 17:44 Vancomycin HCl (Vanco rx to dose) 1 ea DAILY PRN MISC Per rx protocol 02/19/18 09:30 03/21/18 09:29 Vancomycin HCl/ Dextrose 250 ml @ 166.667 mls/hr ONCE@1200 IVPB 02/19/18 12:00 02/19/18 23:59 02/19/18 11:46 Tiago Cason MD Feb 19, 2018 13:29
[2018-02-19] MEDS ORDERED: Phenylephrine 10mg/ml Vial ONE (13:50)
--- NOTE | 2018-02-19 14:16 | Cardiology Progress Note ---
Assessment/Plan Assessment/Plan IV abx for UTI and PNA Physical therapy Aspirin Statin No indication for cath or ischemia evaluation at this time IV fluids TPN Plan for laparotomy - cleared to proceed Subjective Cardiovascular: Reports: no symptoms Respiratory: Reports: no symptoms Gastrointestinal/Abdominal: Reports: abdomen distended Genitourinary: Reports: no symptoms Subjective No acute events Poor PO intake, NGT in place, Plan for laparotomy for dilated bowel Objective Last 24 Hour Vital Signs Date Time Temp Pulse Resp B/P (MAP) Pulse Ox O2 Delivery O2 Flow Rate FiO2 02/19/18 12:00 88 02/19/18 11:34 98.2 87 18 133/52 97 Room Air 98.2 02/19/18 08:22 72 16 Room Air 21 02/19/18 08:00 98.4 94 18 83/57 97 Room Air 98.4 02/19/18 08:00 94 02/19/18 05:55 85 134/62 02/19/18 04:00 98.6 84 21 115/61 98 Room Air 98.6 02/19/18 04:00 78 02/19/18 02:29 85 134/62 02/19/18 02:19 134/62 02/19/18 00:00 98.1 85 20 134/62 98 Room Air 98.1 02/18/18 20:39 158/86 02/18/18 20:00 98.2 73 20 118/60 98 Room Air 98.2 02/18/18 20:00 70 02/18/18 17:29 77 158/86 02/18/18 16:26 77 20 Room Air 21 02/18/18 16:00 98.2 76 18 158/79 96 Room Air 98.2 02/18/18 16:00 74 General Appearance: no apparent distress EENT: PERRL/EOMI Neck: non-tender Rhythm: NSR Cardiovascular: normal peripheral pulses Respiratory/Chest: chest wall non-tender Abdomen: hypoactive bowel sounds, distended Extremities: normal range of motion 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6-14.8) Platelet Count 245 K/UL (150-450) Mean Platelet Volume 9.1 FL (6.5-10.1) Neutrophils (%) (Auto) % (45.0-75.0) Lymphocytes (%) (Auto) % (20.0-45.0) Monocytes (%) (Auto) % (1.0-10.0) Eosinophils (%) (Auto) % (0.0-3.0) Basophils (%) (Auto) % (0.0-2.0) Differential Total Cells Counted 100 Neutrophils % (Manual) 87 % (45-75) H Lymphocytes % (Manual) 3 % (20-45) L Monocytes % (Manual) 7 % (1-10) Eosinophils % (Manual) 0 % (0-3) Basophils % (Manual) 0 % (0-2) Band Neutrophils 3 % (0-8) Platelet Estimate Adequate Platelet Morphology Normal Red Blood Cell Morphology Normal Sodium Level 138 MMOL/L (136-145) Potassium Level 2.5 MMOL/L (3.5-5.1) *L Chloride Level 98 MMOL/L (98-107) Carbon Dioxide Level 28 MMOL/L (21-32) Anion Gap 12 mmol/L (5-15) Blood Urea Nitrogen 23 mg/dL (7-18) H Creatinine 1.9 MG/DL (0.55-1.30) #H Estimat Glomerular Filtration Rate mL/min (>60) Glucose Level 338 MG/DL (74-106) H Calcium Level 10.5 MG/DL (8.5-10.1) H Phosphorus Level 1.9 MG/DL (2.5-4.9) L Magnesium Level 1.7 MG/DL (1.8-2.4) L Ant Gu M.D. Feb 19, 2018 14:16
--- NOTE | 2018-02-19 14:24 | Immediate Post-Op Evaluation ---
Immediate Post-Op Evalulation Immediate Post-Op Evalulation Procedure: Exploratory Laparotomy, Resection of Bowel Date of Evaluation: Feb 19, 2018 Time of Evaluation: 16:10 IV Fluids: 1000 LR Blood Products: 0 Estimated Blood Loss: 75 Urinary Output: 0 Blood Pressure Systolic: 125 Blood Pressure Diastolic: 53 Pulse Rate: 88 Respiratory Rate: 12 - VENT O2 Sat by Pulse Oximetry: 100 Temperature (Fahrenheit): 98.1 Pain Score (1-10): 0 Nausea: No Vomiting: No Complications 0 Patient Status: no response, patent, ventilated, none Hydration Status: adequate Dru grams Ancef IV Given Within 1 Hr of Incision: Yes Time Given: 13:16 Mikey Norris MD Feb 19, 2018 14:24
--- NOTE | 2018-02-19 14:25 | 48 Hour Post Anesthesia Eval ---
Post Anesthesia Evaluation Procedure: Exploratory Laparotomy, Resection of Bowel Date of Evaluation: Feb 19, 2018 Time of Evaluation: 18:34 Blood Pressure Systolic: 101 0: 54 Pulse Rate: 89 Respiratory Rate: 15 - Vent Temperature (Fahrenheit): 98.2 O2 Sat by Pulse Oximetry: 100 Airway: patent Nausea: No Vomiting: No Pain Intensity: 0 Hydration Status: adequate Cardiopulmonary Status: Stable Mental Status/LOC: patient returned to baseline Follow-up Care/Observations: 0 Post-Anesthesia Complications: 0 Follow-up care needed: N/A Mikey Norris MD Feb 19, 2018 14:25
--- NOTE | 2018-02-19 15:10 | Diagnostic Imaging Report ---
Indication: Small bowel obstruction. Abdominal pain COMPARISON: CT abdomen pelvis 02/14/2018 FINDINGS: Small bowel series was performed utilizing water-soluble contrast material. Serial films were obtained. Multiple images show moderately dilated small bowel. The 22 hour film still shows contrast within distal small bowel on the right side of abdomen. There is no contrast within the colon demonstrated. Continued imaging was intended but the patient went to surgery, presumably on the basis of the findings up to this point. IMPRESSION: Findings consistent with high-grade small bowel obstruction.
--- NOTE | 2018-02-19 16:17 | Brief Operative Note ---
Immediate Post Operative Note Operative Note Pre-op Diagnosis: small bowel obstruction Procedure: diagnostic laparoscopy converted to exploratory laparotomy with small bowel resection, repair of enterotomy, lysis of adhesions, and washout. Post-op Diagnosis: internal hernia, small bowel tumor, dense adhesions Surgeon: barby Anesthesiologist: juan Anesthesia: general Specimen: yes - small bowel tumor Complications: none Condition: stable Fluids: see records Estimated Blood Loss: minimal Drains: none Implant(s) used?: No Miguel Freeman Feb 19, 2018 16:17
--- NOTE | 2018-02-19 17:20 | General Progress Note ---
Progress Note Progress Note left subclavian central venous catheter identified to be in the left internal jugular vein. was unable to rewire and redirect catheter into SVC. catheter removed and new left femoral central venous line inserted. please see operative dictation for details. Miguel Freeman Feb 19, 2018 17:20
[2018-02-19] MEDS ORDERED: 1/2NS w/KCl 20mEq 1000ml 1,000 ML IV SCH (19:30)
[2018-02-19] MEDS ORDERED: Dyna-Hex 2% Top Sol 2oz TOPIC SCH (20:00)
[2018-02-19] MEDS ORDERED: D5 1/2NS w/KCl 20mEq 1,000 ML IV SCH (20:00)
[2018-02-19] MEDS ORDERED: Nitroglycerin Subl 0.4mg tab SL PRN (20:05)
[2018-02-19] MEDS: Dyna-Hex 2% Top Sol 2oz TOPIC SCH (20:28)
[2018-02-19] MEDS ORDERED: Miralax 17gm pkt ORAL PRN (20:30)
[2018-02-19] MEDS ORDERED: Haloperidol Lactate 5 MG in D5W 55 ML IVPB PRN (20:30)
[2018-02-19] MEDS ORDERED: Haloperidol Lactate 5 MG in D5W 110 ML IVPB PRN (21:00)
[2018-02-20] VITALS (41 sets, daily range): BP systolic 88–170; BP diastolic 31–92
--- NOTE | 2018-02-20 03:00 | Operative Note - Dictated ---
DATE OF OPERATION: 02/19/2018 PREOPERATIVE DIAGNOSIS: Small bowel obstruction. POSTOPERATIVE DIAGNOSES: 1. Small bowel obstruction secondary to internal hernia and adhesions 2. Dense interloop and abdominal wall adhesions. 3. Small bowel tumor. OPERATION PERFORMED: 1. Diagnostic laparoscopy converted to mini exploratory laparotomy. 2. Small bowel resection. 3. Repair of enterotomy. 4. Extensive lysis of adhesions. 5. Abdominal washout. 6. Left subclavian central venous catheter insertion and removal. 7. Left femoral central venous catheter insertion. ATTENDING SURGEON: Miguel Freeman M.D. MEDIA SUPERVISOR: None. ANESTHESIOLOGIST: Mikey Norris M.D. ANESTHESIA: General TOLL REPAIRER CENTRAL OFFICE. ESTIMATED BLOOD LOSS: 50 mL. IV FLUIDS: Please see anesthesia records. SPECIMEN: Small bowel tumor. COMPLICATIONS: None. CONDITION: Unstable on pressors. DRAINS: None. INDICATIONS FOR PROCEDURE: This is an 87-year-old female, who presented to the [facility] with increased abdominal discomfort and vomiting. After initial workup, she was identified to have a high-grade small bowel obstruction as noted on the small bowel with Gastrografin study performed on 02/18/2018. Given above findings, surgery was indicated and recommended. Risks, benefits, and alternatives were discussed with the patient's next of kin, Brittni Diallo, who consented to surgery. Also discussed with state department as her estate has conservator. OPERATIVE NOTE: The patient was taken to the operating room and placed on the operating table in the supine position with left arm tucked. All bony prominences were well padded. The patient had a Soria and NG tube prior to entering the operating room. Preoperative time-out was taken identifying the patient, procedure, operative staff, and surgical staff. General anesthesia was induced. The patient was intubated. The abdomen was clipped, prepped, and draped in the standard surgical fashion. An infraumbilical incision was made using a fresh #11 scalpel, carried down to the fascia, which was elevated and incised. Entry into the abdomen was obtained using the open Anju technique without complication. A Anju trocar was inserted under direct visualization and the abdomen insufflated to 12 to 15 mmHg. The laparoscope was inserted and the abdomen was inspected. There were some collapsed small bowel loops and then some dilated small bowel loops initially identified on entering the abdomen. In the right upper quadrant, there was a fair amount of adhesive disease. In the midline and around the epigastric region, there were omental adhesions to the anterior abdominal wall, which looked to be inflammatory in nature. There were also omental adhesions to the small bowel in the right upper quadrant that looked inflammatory in nature as well. Above the liver, there were adhesions throughout the abdominal wall and the liver on both right and left lobe. A secondary trocar was placed in the right mid lateral abdomen under direct visualization without complication. Laparoscopic mohit were then used to perform a significant amount of lysis of adhesions of all the midline and the right upper quadrant adhesions. Once a fair amount was dissected free, a second trocar was placed in the left lateral mid quadrant and graspers were used to assist with remainder of lysis of adhesions. Multiple adhesions between the anterior abdominal wall and omentum were taken down. Better visualization of abdomen was noted identifying the stomach to be otherwise normal. Liver adhesions to the anterior abdominal wall, right and left lobe and omental adhesions to the small bowel mainly in the right upper quadrant and distended, dilated bowel loops. They were fluid filled as well as completely compressed bowel loops that were pink and viable without necrosis directly being identified. Laparoscopic bowel graspers were used to run the bowel and what was identified was an internal hernia in the right upper quadrant caused by omental adhesions to the small bowel was seen. Once the internal hernia was reduced, the bowel was identified and a lead point was to be identified. a small bowel tumor was noted abutting the anti-mesenteric portion of the proximal small bowel just distal to the ligament. Secondary to that, there was a small area of edema/abnormality a couple of centimeters distal to this right at the mesentery, which after little manipulation was identified to be an enterotomy. At this time, the graspers were placed on the enterotomy and the small bowel tumor. Decision was made given the small resection was necessary to convert to a mini laparotomy in the midline at the location of the tumor and enterotomy in the proximal small bowel. The secondary trocars and umbilical trocar were removed. A midline incision was made using a fresh #10 scalpel and carried down to the fascia, which was incised entering the abdomen without complication. The area of the small bowel tumor was identified and noted to be 10 to 15 cm distal to the ligament of Treitz. The area of the small enterotomy was noted to be a few centimeters distal to this as well. The small enterotomy was repaired primarily in a two-layer fashion with a 3-0 Vicryl interrupted sutures followed by 3-0 silk interrupted Lambert sutures. Following this, attention was turned to the small bowel tumor for resection. A proximal and distal end of the resection were identified. A small mirza made in mesentery and linear COLTON stapler used to divide the small bowel proximally and distally. The mesentery of small bowel was then divided using multiple 0 silk ties. Once the specimen was removed, it was sent to pathology for review. Following this, an end-to-end primary anastomosis was performed by making an enterotomy of the proximal and distal portion of the remaining small bowel. A linear stapler was inserted and fired. Hemostasis was achieved and checked. Following this, the enterotomy was then closed in a two-layer fashion beginning with a 3-0 Vicryl running suture followed by 3-0 silk Lembert interrupted sutures. Good viability was identified and patency was noted. Following this, the remainder of the small bowel was run and in the mid jejunal area where there was a dense amount of adhesions between small bowel loops and the omentum as well. This was the area where the internal hernia was noted. The omentum was dissected free from the small bowel and retracted into the left upper quadrant. Following this, the interloop small adhesions were lysed. This area looked like there was significant amount of dense inflammatory tissues. Unsure if this was a desmoplastic reaction to the small bowel tumor or potentially if the small enterotomy was a border perforation causing adhesive disease. From history, the patient did have a virgin abdomen and no prior surgery was noted in the records and no prior abdominal incisions were noted on evaluation. Following extensive lysis of interloop adhesions, the small bowel was otherwise normal. Upon releasing the internal hernia, the bowel contents were noted to be easily flowing through without further obstruction from the ileocecal valve to the terminal ilium. The portions of the cecum, ascending colon, transverse colon, descending colon, and sigmoid that could be visualized were otherwise normal. The abdomen was then washed out with copious amounts of warm normal saline. After abdomen was copiously irrigated, decision made to begin the conclusion of our procedure. The umbilical port site was closed using a [id number] #0 Vicryl suture. The midline incision was then closed using a #0 looped PDS running suture. Following this, the wounds were irrigated and skin incisions closed using surgical cierra. Dressings were applied. During the procedure, anesthesia was noted to require fluid resuscitation and pressors, given patient's septic state. A left subclavian central venous catheter was inserted prior to patient's transfer to intensive care unit for resuscitation and continued medic antibiotics and pressors as necessary. Left subclavian central venous catheter insertion was completed using the standard Seldinger technique by using a finder needle to obtain the left subclavian vein. Once left subclavian vein was cannulated, good venous flow was identified. A guidewire was placed through the needle and the needle was removed. Small skin incision was made and the dilator used to dilate the tract. Following this, the triple-lumen catheter was inserted without complication. The wire was discarded. All ports flushed and aspirated without complications. The catheter was sutured in place and dressings were applied. At this time, the patient was then left intubated and taken directly to the intensive care unit for the remainder of her postoperative resuscitation. In the intensive care unit, a chest x-ray was obtained, which identified the left subclavian central venous catheter entering into the left internal jugular rather than superior vena cava. A single attempt was made to redirect the catheter using a guidewire was unsuccessful and therefore the left subclavian central venous catheter was removed and a new left femoral central venous catheter was placed using standard Seldinger technique as well. The left groin was prepped and draped in the standard surgical fashion. A finder needle was used to cannulate the left femoral vein. Good venous flow was identified. Guidewire was placed without complication. The needle was removed and a small incision was made around the guidewire. The tract was dilated using dilators. Following this, the central venous catheter was inserted without complication and the guidewire removed. All ports were then aspirated and flushed without complication. The catheter was sutured into place using the provided silk suture. Dressings were applied. The patient tolerated surgery and line placement well. Miguel Freeman M.D. DR: RAJAN JOB#: [id number] CC: JUVENAL
[2018-02-20 05:38] LABS: HEMATOCRIT 36.5 % (37.0-47.0); HEMOGLOBIN 12.5 G/DL (12.0-16.0); MEAN CORPUSCULAR VOLUME 80 FL (80-99); PLATELET COUNT 207 K/UL (150-450); RED BLOOD COUNT 4.55 M/UL (4.20-5.40); WHITE BLOOD COUNT 16.1 K/UL (4.8-10.8)
[2018-02-20 05:55] LABS: PHOSPHORUS 2.8 MG/DL (2.5-4.9)
[2018-02-20] MEDS: D5 1/2NS w/KCl 20mEq 1,000 ML IV SCH (06:06)
[2018-02-20] MEDS: NovoLOG Insulin Flexpen SUBQ SCH ×4 (06:07→21:57)
[2018-02-20 06:16] LABS: ALANINE AMINOTRANSFERASE 33 U/L (12-78); ALBUMIN 2.3 G/DL (3.4-5.0); ALBUMIN/GLOBULIN RATIO 0.6 (1.0-2.7); ALKALINE PHOSPHATASE 77 U/L (46-116); ANION GAP 10 mmol/L (5-15); ASPARTATE AMINO TRANSFERASE 51 U/L (15-37); BILIRUBIN,TOTAL 0.6 MG/DL (0.2-1.0); BLOOD UREA NITROGEN 32 mg/dL (7-18); CALCIUM 9.1 MG/DL (8.5-10.1); CARBON DIOXIDE 25 MMOL/L (21-32); CHLORIDE 97 MMOL/L (98-107); CREATININE 2.6 MG/DL (0.55-1.30); POTASSIUM 4.1 MMOL/L (3.5-5.1); SODIUM 132 MMOL/L (136-145)
--- NOTE | 2018-02-20 07:20 | Pulmonolgy Critical Care Note ---
Critical Care - Asmt/Plan Assessment/Plan: ASSESSMENT Severe sepsis ( secondary to small bowel obstruction) septic shock Acute respiratory failure requiring intubation Acute encephalopathy ( due to sepsis) on chronic end-stage Alzheimer dementia Acute renal failure, probably ATN due to unstable hemodynamics Pneumonia with Klebsiella Small bowel obstruction s/p 02/19 laparoscopy converted to exploratory laparotomy with small bowel resection, repair of enterotomy, extensive lysis of adhesions, and abdominal washout. Hematemesis Electrolyte imbalance Anemia Dementia with behavioral disturbances Diabetes mellitus Hypertension Aspiration risk Severe protein calorie malnutrition e/lyte imbalance PLAN OF CARE ICU s/p 02/19 surgery Levophed gtt, titrate to keep SBP > 90, wean as tolerated, when h/d stable NPO IVF Antibiotics, ID follows blood culture, urine , influenza screen test all negative sputum culture + Klebsiella severe sepsis secondary to small bowel obstruction along with pneumonia pain management a/emetic prn GI and surgery follow vent support pulmonary toilet daily CXR and ABG wean when ready worsening renal failure, possibly due to septic shock acute renal failure likely due to dehydration and septic shock , possible ATN due to unstable hemodynamics renal US nephro evla IV hydration replace Mg monitor renal parameters, lytes, avoid nephrotoxic PPI hepatitis panel negative Monitor H&H transfuse as needed with goal to keep hemoglobin above 7 anemia w/up c/w anemia of chronic disease BS not controlled, add Levemir and SSI prn, check HgbA1c provably due to sepsis dietary eval psychiatrist follow patient had end-stage dementia with behavioral disturbances per psychiatrist patient lacks capacity to make an informed decision regarding consent for surgery/procedure , need consent from legal guardian prior to surgery; conservative treatment was attempted NG tube bowel regimen instituted no BM since admission, no change in serial imaging abd X ray 02/18 high grade SBO case discussed and evaluated by supervising physician Critical Care - Objective Last 24 Hour Vital Signs Date Time Temp Pulse Resp B/P (MAP) Pulse Ox O2 Delivery O2 Flow Rate FiO2 02/20/18 06:30 104 16 116/54 100 Mechanical Ventilator 30 02/20/18 06:00 117/59 02/20/18 06:00 103 16 117/59 100 Mechanical Ventilator 30 02/20/18 05:30 102 16 118/66 100 Mechanical Ventilator 30 02/20/18 05:08 101 18 30 02/20/18 05:00 101 16 128/59 100 Mechanical Ventilator 30 6/9/18 05:00 128/59 6/9/18 04:30 104 15 125/66 100 Mechanical Ventilator 30 6/9/18 04:26 95/56 6/9/18 04:00 98.8 103 15 144/56 100 Mechanical Ventilator 30 98.8 6/9/18 04:00 144/56 6/9/18 03:34 106 16 30 6/9/18 03:30 107 19 147/55 100 Mechanical Ventilator 30 69/18 03:06 107 6/9/18 03:00 106 16 101/41 100 Mechanical Ventilator 30 6/9/18 03:00 101/41 6//18 02:30 105 15 108/51 100 Mechanical Ventilator 30 6/9/18 02:00 105/51 618 02:00 104 16 105/51 100 Mechanical Ventilator 30 6/18 01:30 104 16 116/31 100 Mechanical Ventilator 30 6/9/18 01:18 103 14 30 69/18 01:00 88/72 69/18 01:00 100 15 88/72 100 Mechanical Ventilator 30 618 00:30 103 16 123/56 100 Mechanical Ventilator 30 69/18 00:12 104 6/9/18 00:00 98.6 102 17 124/63 100 Mechanical Ventilator 30 98.6 6/9/18 00:00 124/63 6//18 23:30 102 18 97/58 99 Mechanical Ventilator 30 618 23:00 104 14 30 6/8/18 23:00 101 19 74/59 100 Mechanical Ventilator 30 6818 23:00 74/59 6/8/18 22:30 99 19 109/51 100 Mechanical Ventilator 30 68/18 22:00 109/51 6//18 22:00 97 21 109/51 100 Mechanical Ventilator 30 6/8/18 21:30 95 20 104/58 100 Mechanical Ventilator 30 6/8/18 21:00 105/77 6/18 21:00 95 20 105/77 100 Mechanical Ventilator 30 6/8/18 20:57 104 20 30 6/8/18 20:38 113/50 6/8/18 20:30 95 21 113/50 100 Mechanical Ventilator 30 6/8/18 20:00 112/43 6/8/18 20:00 97.6 94 18 112/43 100 Mechanical Ventilator 30 97.6 02/19/18 19:30 95 20 107/49 98 Mechanical Ventilator 30 02/19/18 19:07 94 02/19/18 19:00 97 19 130/111 98 Mechanical Ventilator 30 02/19/18 19:00 106/44 02/19/18 18:50 120/51 02/19/18 18:49 88/60 02/19/18 18:41 104 20 30 02/19/18 18:00 93 17 124/68 98 Room Air 02/19/18 18:00 124/68 02/19/18 17:30 90 16 122/49 97 Room Air 02/19/18 17:09 92 14 70 02/19/18 17:00 88 15 50/25 97 Room Air 02/19/18 17:00 65/37 02/19/18 16:30 92 13 111/46 100 Room Air 02/19/18 16:01 83 12 70 02/19/18 16:00 91 02/19/18 16:00 71/40 02/19/18 16:00 91 02/19/18 16:00 97.5 91 18 109/48 97 Room Air 97.5 02/19/18 15:58 208.8 89 15 100 02/19/18 15:56 208.6 88 12 100 02/19/18 12:00 88 02/19/18 11:34 98.2 87 18 133/52 97 Room Air 98.2 02/19/18 08:22 72 16 Room Air 21 02/19/18 08:00 98.4 94 18 83/57 97 Room Air 98.4 02/19/18 08:00 94 Status: sedated, other - intubated Condition: critical HEENT: atraumatic, other - OP with ET in place, intact Lungs: clear Heart: HR/BP unstable, other - L femoral CL intact Abdomen: absent bowel sounds, other - abd dressing C/D/I Extremities: no C/C/E Accucheck: 446 Critical Care - Subjective ROS Limited/Unobtainable: Yes Interval Events: afebrile, leukocytosis trending down s/p surgery 02/19 intubated, on pressors worsening renal failure Condition: critical IV Access: central - L femoral, EKG Rhythm: Sinus Tachycardia FI02: 30 Vent Support Breath Rate: 12 Vent Support Mode: AC Vent Tidal Volume: 500 Sputum Amount: Scant PEEP: 5.0 PIP: 21 Fluids: NS at 150 Drips: Levophed gtt 4 mcg/min I&O: Intake and Output 02/19/18 02/20/18 19:00 07:00 Intake Total 775.83 ml 1558.75 ml Output Total 5 ml 70 ml Balance 770.83 ml 1488.75 ml IV Total 775.83 ml 1558.75 ml Output Urine Total 5 ml 70 ml ET-Tube: 8.0 ET Position: 23 Tonja Gonzales NP Feb 20, 2018 07:20
[2018-02-20] MEDS: Meropenem 1 GM in NS 55 ML IVPB SCH ×2 (08:45→21:54)
[2018-02-20] MEDS ORDERED: sitaGLIPtin 50mg tab ORAL SCH (09:00)
[2018-02-20 09:11] LABS: CREATINE KINASE 259 U/L (26-308)
[2018-02-20] MEDS: Micafungin 100 MG in NS 110 ML IVPB SCH (10:40)
--- NOTE | 2018-02-20 10:40 | General Progress Note ---
Assessment/Plan Problem List: (1) SBO (small bowel obstruction) ICD Codes: K56.609 - Unspecified intestinal obstruction, unspecified as to partial versus complete obstruction SNOMED: 036010646 (2) Abdominal pain ICD Codes: R10.9 - Unspecified abdominal pain SNOMED: 70147966 (3) Altered mental status ICD Codes: R41.82 - Altered mental status, unspecified SNOMED: 317316710 (4) Coffee ground emesis ICD Codes: K92.0 - Hematemesis SNOMED: 22464324, 225412795 Assessment/Plan post small bowel surg npo NGT IVF pain control add ppi may need TPN will fu Subjective ROS Limited/Unobtainable: No Allergies: Coded Allergies: ESTROGENS (Verified Allergy, Unknown, 11/27/14) Uncoded Allergies: "estrogen" (Allergy, Unknown, 02/20/14) Objective Last 24 Hour Vital Signs Date Time Temp Pulse Resp B/P (MAP) Pulse Ox O2 Delivery O2 Flow Rate FiO2 02/20/18 10:00 102 16 112/62 100 Mechanical Ventilator 30 02/20/18 09:45 97 16 97/57 100 Mechanical Ventilator 30 02/20/18 09:30 97 16 129/61 100 Mechanical Ventilator 30 02/20/18 09:15 107 16 124/60 100 Mechanical Ventilator 30 02/20/18 09:00 100 16 132/55 100 Mechanical Ventilator 30 02/20/18 08:45 101 16 112/60 100 Mechanical Ventilator 30 02/20/18 08:30 101 16 136/56 100 Mechanical Ventilator 30 02/20/18 08:15 101 16 109/55 100 Mechanical Ventilator 30 02/20/18 08:00 106 02/20/18 08:00 98.9 107 16 126/86 100 Mechanical Ventilator 30 98.9 02/20/18 07:45 106 16 113/60 100 Mechanical Ventilator 30 02/20/18 07:30 107 16 124/60 100 Mechanical Ventilator 30 02/20/18 07:00 107 16 124/60 100 Mechanical Ventilator 30 02/20/18 07:00 124/60 02/20/18 06:38 110 15 30 02/20/18 06:30 104 16 116/54 100 Mechanical Ventilator 30 02/20/18 06:00 117/59 02/20/18 06:00 103 16 117/59 100 Mechanical Ventilator 30 6/9/18 05:30 102 16 118/66 100 Mechanical Ventilator 30 6/9/18 05:08 101 18 30 6/9/18 05:00 101 16 128/59 100 Mechanical Ventilator 30 618 05:00 128/59 6/9/18 04:30 104 15 125/66 100 Mechanical Ventilator 30 6/18 04:26 95/56 6/9/18 04:00 98.8 103 15 144/56 100 Mechanical Ventilator 30 98.8 6918 04:00 144/56 618 03:34 106 16 30 618 03:30 107 19 147/55 100 Mechanical Ventilator 30 618 03:06 107 6/9 03:00 106 16 101/41 100 Mechanical Ventilator 30 02/20/18 03:00 101/41 618 02:30 105 15 108/51 100 Mechanical Ventilator 30 02/20/18 02:00 105/51 618 02:00 104 16 105/51 100 Mechanical Ventilator 30 18 01:30 104 16 116/31 100 Mechanical Ventilator 30 618 01:18 103 14 30 6/18 01:00 88/72 6/9/18 01:00 100 15 88/72 100 Mechanical Ventilator 30 18 00:30 103 16 123/56 100 Mechanical Ventilator 30 18 00:12 104 6/918 00:00 98.6 102 17 124/63 100 Mechanical Ventilator 30 98.6 69/18 00:00 124/63 618 23:30 102 18 97/58 99 Mechanical Ventilator 30 618 23:00 104 14 30 6/18 23:00 101 19 74/59 100 Mechanical Ventilator 30 6/18 23:00 74/59 6//18 22:30 99 19 109/51 100 Mechanical Ventilator 30 618 22:00 109/51 618 22:00 97 21 109/51 100 Mechanical Ventilator 30 618 21:30 95 20 104/58 100 Mechanical Ventilator 30 68/18 21:00 105/77 6/18 21:00 95 20 105/77 100 Mechanical Ventilator 30 618 20:57 104 20 30 6/8/18 20:38 113/50 02/19/18 20:30 95 21 113/50 100 Mechanical Ventilator 30 02/19/18 20:00 112/43 02/19/18 20:00 97.6 94 18 112/43 100 Mechanical Ventilator 30 97.6 02/19/18 19:30 95 20 107/49 98 Mechanical Ventilator 30 02/19/18 19:07 94 02/19/18 19:00 97 19 130/111 98 Mechanical Ventilator 30 02/19/18 19:00 106/44 02/19/18 18:50 120/51 02/19/18 18:49 88/60 02/19/18 18:41 104 20 30 02/19/18 18:00 93 17 124/68 98 Room Air 02/19/18 18:00 124/68 02/19/18 17:30 90 16 122/49 97 Room Air 02/19/18 17:09 92 14 70 02/19/18 17:00 88 15 50/25 97 Room Air 02/19/18 17:00 65/37 02/19/18 16:30 92 13 111/46 100 Room Air 02/19/18 16:01 83 12 70 02/19/18 16:00 91 02/19/18 16:00 71/40 02/19/18 16:00 91 02/19/18 16:00 97.5 91 18 109/48 97 Room Air 97.5 02/19/18 15:58 208.8 89 15 100 02/19/18 15:56 208.6 88 12 100 02/19/18 12:00 88 02/19/18 11:34 98.2 87 18 133/52 97 Room Air 98.2 Intake and Output 02/19/18 02/20/18 19:00 07:00 Intake Total 775.83 ml 1558.75 ml Output Total 5 ml 75 ml Balance 770.83 ml 1483.75 ml IV Total 775.83 ml 1558.75 ml Output Urine Total 5 ml 75 ml Laboratory Tests 02/20/18 05:00: White Blood Count 16.1H, Red Blood Count 4.55, Hemoglobin 12.5, Hematocrit 36.5L , Mean Corpuscular Volume 80, Mean Corpuscular Hemoglobin 27.4, Mean Corpuscular Hemoglobin Concent 34.2, Red Cell Distribution Width 12.0, Platelet Count 207, Mean Platelet Volume 10.2H, Neutrophils (%) (Auto) , Lymphocytes (%) (Auto) , Monocytes (%) (Auto) , Eosinophils (%) (Auto) , Basophils (%) (Auto) , Differential Total Cells Counted 100, Neutrophils % (Manual) 82H, Lymphocytes % (Manual) 5L, Monocytes % (Manual) 6, Eosinophils % (Manual) , Basophils % ( Manual) , Band Neutrophils 7, Platelet Estimate Adequate, Platelet Morphology Normal, Sodium Level 132L, Potassium Level 4.1#, Chloride Level 97L, Carbon Dioxide Level 25, Anion Gap 10, Blood Urea Nitrogen 32H, Creatinine 2.6H, Estimat Glomerular Filtration Rate , Glucose Level 475#H, Uric Acid 3.4, Calcium Level 9.1, Phosphorus Level 2.8, Magnesium Level 1.5L, Total Bilirubin 0.6, Aspartate Amino Transf (AST/SGOT) 51H, Alanine Aminotransferase (ALT/SGPT) 33, Alkaline Phosphatase 77, Total Creatine Kinase 259, C-Reactive Protein, Quantitative 19.1H, Total Protein 6.0L, Albumin 2.3L, Globulin 3.7, Albumin/ Globulin Ratio 0.6L, Random Vancomycin Level 20.0 Height (Feet): 5 Height (Inches): 5.00 Weight (Pounds): 164 General Appearance: lethargic EENT: normal ENT inspection Neck: supple Cardiovascular: normal rate Respiratory/Chest: decreased breath sounds, other - post surgical Abdomen: absent bowel sounds Extremities: non-tender Jesse Montoya MD Feb 20, 2018 10:40
[2018-02-20] MEDS ORDERED: NS 500ML ONE (10:48)
[2018-02-20] MEDS ORDERED: D5 1/2NS w/KCl 20mEq 1,000 ML IV SCH ×2 (11:30)
[2018-02-20] MEDS ORDERED: Vancomycin 1250mg/D5W 250ml 250 ML IVPB SCH (12:00)
[2018-02-20] MEDS: Levemir Flexpen SUBQ SCH (12:08)
--- NOTE | 2018-02-20 12:42 | Cardiology Progress Note ---
Assessment/Plan Assessment/Plan /p 02/19 laparoscopy converted to exploratory laparotomy with small bowel resection, repair of enterotomy, extensive lysis of adhesions, and abdominal washout. Wean vent as tolerated, pulmonary toilet, nebs, sunctioning Tachycardia secondary to post surgical inflammation/fluid shifts Continue antibiotics TPN Fluids Zofran DVT ppx Wean pressors as tolerated Subjective Cardiovascular: Reports: no symptoms Respiratory: Reports: no symptoms Gastrointestinal/Abdominal: Reports: no symptoms Genitourinary: Reports: no symptoms Subjective s/p 02/19 laparoscopy converted to exploratory laparotomy with small bowel resection, repair of enterotomy, extensive lysis of adhesions, and abdominal washout. Vitals stable, patient stable on vent Objective Last 24 Hour Vital Signs Date Time Temp Pulse Resp B/P (MAP) Pulse Ox O2 Delivery O2 Flow Rate FiO2 02/20/18 10:56 103 16 30 02/20/18 10:00 102 16 112/62 100 Mechanical Ventilator 30 02/20/18 09:45 97 16 97/57 100 Mechanical Ventilator 30 02/20/18 09:30 97 16 129/61 100 Mechanical Ventilator 30 02/20/18 09:15 107 16 124/60 100 Mechanical Ventilator 30 02/20/18 09:00 100 16 132/55 100 Mechanical Ventilator 30 02/20/18 08:45 101 16 112/60 100 Mechanical Ventilator 30 02/20/18 08:43 105 16 30 02/20/18 08:30 101 16 136/56 100 Mechanical Ventilator 30 02/20/18 08:15 101 16 109/55 100 Mechanical Ventilator 30 02/20/18 08:00 106 02/20/18 08:00 98.9 107 16 126/86 100 Mechanical Ventilator 30 98.9 02/20/18 07:45 106 16 113/60 100 Mechanical Ventilator 30 02/20/18 07:30 107 16 124/60 100 Mechanical Ventilator 30 02/20/18 07:00 107 16 124/60 100 Mechanical Ventilator 30 02/20/18 07:00 124/60 02/20/18 06:38 110 15 30 02/20/18 06:30 104 16 116/54 100 Mechanical Ventilator 30 02/20/18 06:00 117/59 02/20/18 06:00 103 16 117/59 100 Mechanical Ventilator 30 02/20/18 05:30 102 16 118/66 100 Mechanical Ventilator 30 6/9/18 05:08 101 18 30 6/9/18 05:00 101 16 128/59 100 Mechanical Ventilator 30 6/9/18 05:00 128/59 6/9/18 04:30 104 15 125/66 100 Mechanical Ventilator 30 6/9/18 04:26 95/56 6/9/18 04:00 98.8 103 15 144/56 100 Mechanical Ventilator 30 98.8 6/9/18 04:00 144/56 6/18 03:34 106 16 30 69/18 03:30 107 19 147/55 100 Mechanical Ventilator 30 6/18 03:06 107 6/918 03:00 106 16 101/41 100 Mechanical Ventilator 30 6/18 03:00 101/41 618 02:30 105 15 108/51 100 Mechanical Ventilator 30 618 02:00 105/51 618 02:00 104 16 105/51 100 Mechanical Ventilator 30 618 01:30 104 16 116/31 100 Mechanical Ventilator 30 618 01:18 103 14 30 618 01:00 88/72 6/9/18 01:00 100 15 88/72 100 Mechanical Ventilator 30 618 00:30 103 16 123/56 100 Mechanical Ventilator 30 618 00:12 104 6/9/18 00:00 98.6 102 17 124/63 100 Mechanical Ventilator 30 98.6 69/18 00:00 124/63 618 23:30 102 18 97/58 99 Mechanical Ventilator 30 18 23:00 104 14 30 6//18 23:00 101 19 74/59 100 Mechanical Ventilator 30 68/18 23:00 74/59 6//18 22:30 99 19 109/51 100 Mechanical Ventilator 30 6/18 22:00 109/51 618 22:00 97 21 109/51 100 Mechanical Ventilator 30 618 21:30 95 20 104/58 100 Mechanical Ventilator 30 68/18 21:00 105/77 6//18 21:00 95 20 105/77 100 Mechanical Ventilator 30 6/8/18 20:57 104 20 30 6/8/18 20:38 113/50 6//18 20:30 95 21 113/50 100 Mechanical Ventilator 30 6/8/18 20:00 112/43 02/19/18 20:00 97.6 94 18 112/43 100 Mechanical Ventilator 30 97.6 02/19/18 19:30 95 20 107/49 98 Mechanical Ventilator 30 02/19/18 19:07 94 02/19/18 19:00 97 19 130/111 98 Mechanical Ventilator 30 02/19/18 19:00 106/44 02/19/18 18:50 120/51 02/19/18 18:49 88/60 02/19/18 18:41 104 20 30 02/19/18 18:00 93 17 124/68 98 Room Air 02/19/18 18:00 124/68 02/19/18 17:30 90 16 122/49 97 Room Air 02/19/18 17:09 92 14 70 02/19/18 17:00 88 15 50/25 97 Room Air 02/19/18 17:00 65/37 02/19/18 16:30 92 13 111/46 100 Room Air 02/19/18 16:01 83 12 70 02/19/18 16:00 91 02/19/18 16:00 71/40 02/19/18 16:00 91 02/19/18 16:00 97.5 91 18 109/48 97 Room Air 97.5 02/19/18 15:58 208.8 89 15 100 02/19/18 15:56 208.6 88 12 100 EENT: PERRL/EOMI Neck: non-tender Rhythm: SB Cardiovascular: normal peripheral pulses Respiratory/Chest: chest wall non-tender Abdomen: soft, hypoactive bowel sounds Extremities: normal range of motion 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 normal Intake and Output 02/19/18 02/20/18 19:00 07:00 Intake Total 775.83 ml 1558.75 ml Output Total 5 ml 75 ml Balance 770.83 ml 1483.75 ml IV Total 775.83 ml 1558.75 ml Output Urine Total 5 ml 75 ml Laboratory Tests Test 02/20/18 05:00 White Blood Count 16.1 K/UL (4.8-10.8) H Red Blood Count 4.55 M/UL (4.20-5.40) Hemoglobin 12.5 G/DL (12.0-16.0) Hematocrit 36.5 % (37.0-47.0) L Mean Corpuscular Volume 80 FL (80-99) Mean Corpuscular Hemoglobin 27.4 PG (27.0-31.0) Mean Corpuscular Hemoglobin Concent 34.2 G/DL (32.0-36.0) Red Cell Distribution Width 12.0 % (11.6-14.8) Platelet Count 207 K/UL (150-450) Mean Platelet Volume 10.2 FL (6.5-10.1) H Neutrophils (%) (Auto) % (45.0-75.0) Lymphocytes (%) (Auto) % (20.0-45.0) Monocytes (%) (Auto) % (1.0-10.0) Eosinophils (%) (Auto) % (0.0-3.0) Basophils (%) (Auto) % (0.0-2.0) Differential Total Cells Counted 100 Neutrophils % (Manual) 82 % (45-75) H Lymphocytes % (Manual) 5 % (20-45) L Monocytes % (Manual) 6 % (1-10) Eosinophils % (Manual) % (0-3) Basophils % (Manual) % (0-2) Band Neutrophils 7 % (0-8) Platelet Estimate Adequate Platelet Morphology Normal Sodium Level 132 MMOL/L (136-145) L Potassium Level 4.1 MMOL/L (3.5-5.1) # Chloride Level 97 MMOL/L (98-107) L Carbon Dioxide Level 25 MMOL/L (21-32) Anion Gap 10 mmol/L (5-15) Blood Urea Nitrogen 32 mg/dL (7-18) H Creatinine 2.6 MG/DL (0.55-1.30) H Estimat Glomerular Filtration Rate mL/min (>60) Glucose Level 475 MG/DL (74-106) #H Uric Acid 3.4 MG/DL (2.6-7.2) Calcium Level 9.1 MG/DL (8.5-10.1) Phosphorus Level 2.8 MG/DL (2.5-4.9) Magnesium Level 1.5 MG/DL (1.8-2.4) L Total Bilirubin 0.6 MG/DL (0.2-1.0) Aspartate Amino Transf (AST/SGOT) 51 U/L (15-37) H Alanine Aminotransferase (ALT/SGPT) 33 U/L (12-78) Alkaline Phosphatase 77 U/L (46-116) Total Creatine Kinase 259 U/L (26-308) C-Reactive Protein, Quantitative 19.1 mg/dL (0.00-0.90) H Total Protein 6.0 G/DL (6.4-8.2) L Albumin 2.3 G/DL (3.4-5.0) L Globulin 3.7 g/dL Albumin/Globulin Ratio 0.6 (1.0-2.7) L Random Vancomycin Level 20.0 ug/mL Ant Gu M.D. Feb 20, 2018 12:42
[2018-02-20] MEDS ORDERED: LR 1000ml 1,000 ML IV SCH ×3 (13:00→22:45)
--- NOTE | 2018-02-20 13:00 | General Progress Note ---
Progress Note Progress Note Surgery: no acute events. off pressors this AM. minimal urine output. leukocytosis improved. Cr elevated. abd soft, non distended, incision c/d/i. NG tube with bilious output. on vent. POD #1 s/p lap with exploration. 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 hernia reduced and tumor with small bowel resected. primary anastomosis. unstable post op but slowly improving. prognosis still guarded in elderly female given intraoperative findings. -NPO -IV fluids; give fluid bolus now -NG tube to low intermittent suction -crawley -trend labs -ABX -keep intubated for now. not ready for extubation. Miguel Freeman Feb 20, 2018 13:00
--- NOTE | 2018-02-20 15:34 | Diagnostic Imaging Report ---
EXAM: US Retroperitoneal Limited, Renal CLINICAL HISTORY: Increased renal function tests TECHNIQUE: Real-time ultrasound of the retroperitoneum (limited) with image documentation. COMPARISON: No relevant prior studies available. FINDINGS: Limitations: Exam degraded by body habitus, altered positioning due to contractures, and bandages overlying the mid abdomen and pelvis. Right kidney: Right kidney measures 10.0 x 6.1 x 4.7 cm. No stones. No hydronephrosis. Left kidney: The left kidney measures 10.6 x 4.8 x 4.8 cm. No stones. No hydronephrosis. Bladder: The bladder is not visualized due to shadowing from overlying skin dressings. Other findings: . IMPRESSION: No acute findings.
[2018-02-20] MEDS ORDERED: Tubing IV Secondary IV ONE (16:21)
--- NOTE | 2018-02-20 16:40 | Consultation ---
Consult Note Consult Note asked to eval post op Patient in ICU intubated Oliguric Surgery: 1. Small bowel obstruction secondary to internal hernia and adhesions 2. Dense interloop and abdominal wall adhesions. 3. Small bowel tumor. admitted 6 days ago . Assessment/Plan Severe sepsis ( secondary to small bowel obstruction) septic shock Acute respiratory failure requiring intubation Acute encephalopathy ( due to sepsis) on chronic end-stage Alzheimer dementia Acute renal failure, probably ATN due to unstable hemodynamics Pneumonia with Klebsiella Small bowel obstruction s/p 02/19 laparoscopy converted to exploratory laparotomy with small bowel resection, repair of enterotomy, extensive lysis of adhesions, and abdominal washout. Hematemesis Electrolyte imbalance Anemia Diabetes mellitus h/o Hypertension Aspiration risk Severe protein calorie malnutrition Post Op care- Monitor renal parameters, Urine output, Avoid Nephrotoxics Keep BP above 100 syst Keep BS in check ROSA REED Feb 20, 2018 16:40
[2018-02-20] MEDS: Dyna-Hex 2% Top Sol 2oz TOPIC SCH (20:09)
[2018-02-20 20:38] LABS: ANION GAP 9 mmol/L (5-15); BLOOD UREA NITROGEN 33 mg/dL (7-18); CALCIUM 9.5 MG/DL (8.5-10.1); CARBON DIOXIDE 26 MMOL/L (21-32); CHLORIDE 103 MMOL/L (98-107); CREATININE 2.6 MG/DL (0.55-1.30); POTASSIUM 3.1 MMOL/L (3.5-5.1); SODIUM 138 MMOL/L (136-145)
[2018-02-20] MEDS: Pantoprazole Inj IVP SCH (21:54)
[2018-02-20] MEDS: LR 1000ml 1,000 ML IV SCH ×2 (23:21→23:25)
[2018-02-21] VITALS (24 sets, daily range): BP systolic 90–179; BP diastolic 41–89
--- NOTE | 2018-02-21 02:00 | Consultation ---
DATE OF CONSULTATION: 02/20/2018 HEMATOLOGY/ONCOLOGY CONSULTATION CONSULTING PHYSICIAN: Karan Carrero M.D. REFERRING PHYSICIAN: Tiago Cason M.D. REASON FOR CONSULTATION: Evaluation of leukocytosis. IDENTIFYING DATA: Dear Dr. Yoav M.D. The patient is a pleasant 87-year-old female with past medical history, which is significant for multiple comorbidities, at this time presents with nausea, vomiting, history of heart block, worsening nausea, vomiting, emesis, yellowish green emesis. She was in the ER and a CT scan demonstrated dilated small bowel loops, possible SBO. NG tube is in place KUB unchanged for the past several days, upper GI study completed. Surgery was called to evaluate for possible SBO. The patient was seen and reviewed. Medications reviewed as well. The patient is seen by surgeon. placed by Dr. Freeman yesterday. Tolerated procedure well. Seen by Dr. Freeman. Notes reviewed. to follow. The patient noted to be with leukocytosis. Therefore, Hematology Service consulted for further evaluation and treatment. PAST MEDICAL HISTORY: As above. MEDICATIONS: Calcium acetate, Colace, insulin, multivitamin, polyethylene glycol, . ALLERGIES: . SOCIAL HISTORY: . REVIEW OF SYSTEMS: Unable to obtain due to mental status. PHYSICAL EXAMINATION: VITAL SIGNS: Reviewed. GENERAL: No distress. LUNGS: Decreased breath sounds. CARDIOVASCULAR: Tachycardic. ABDOMEN: Soft, nontender, and nondistended. EXTREMITIES: No cyanosis, swelling, or edema noted. LABORATORY AND DIAGNOSTIC DATA: WBC of 16.1, hemoglobin 12.5, hematocrit 37, and platelet 207,000. INR 0.9 and PTT of 21. Blood sugar elevated at 279. ASSESSMENT AND RECOMMENDATIONS: 1. Leukocytosis, likely secondary to recent surgery. Closely monitor for improvement. Anemia workup reviewed from before. 2. Acute kidney injury. Creatinine currently 2.6. Closely monitor potentially secondary to acute tubular necrosis secondary to hypovolemia. 3. Severe sepsis secondary to small bowel obstruction. 4. Hypertension, systolic blood pressure goal less than 140. 5. Status post laparoscopic converted to an exploratory laparotomy with small bowel removal, repair of enterotomy, extensive lysis of adhesions. 6. Diabetes mellitus, type 1. 7. Acute encephalopathy due to Alzheimer disease. I appreciate consultation. Karan Carrero M.D. DR: YFN JOB#: [id number] CC:
[2018-02-21] MEDS: NovoLOG Insulin Flexpen SUBQ SCH ×4 (06:22→21:30)
[2018-02-21 07:22] LABS: ALANINE AMINOTRANSFERASE 25 U/L (12-78); ALBUMIN 2.1 G/DL (3.4-5.0); ALBUMIN/GLOBULIN RATIO 0.6 (1.0-2.7); ALKALINE PHOSPHATASE 78 U/L (46-116); ANION GAP 11 mmol/L (5-15); ASPARTATE AMINO TRANSFERASE 66 U/L (15-37); BILIRUBIN,TOTAL 0.7 MG/DL (0.2-1.0); BLOOD UREA NITROGEN 31 mg/dL (7-18); CALCIUM 9.3 MG/DL (8.5-10.1); CARBON DIOXIDE 25 MMOL/L (21-32); CHLORIDE 104 MMOL/L (98-107); CREATININE 2.6 MG/DL (0.55-1.30); POTASSIUM 3.5 MMOL/L (3.5-5.1); SODIUM 140 MMOL/L (136-145)
--- NOTE | 2018-02-21 07:39 | Pulmonolgy Critical Care Note ---
Critical Care - Asmt/Plan Assessment/Plan: ASSESSMENT Severe sepsis ( secondary to small bowel obstruction) septic shock Acute respiratory failure requiring intubation Acute encephalopathy ( due to sepsis) on chronic end-stage Alzheimer dementia Acute renal failure, probably ATN due to unstable hemodynamics Pneumonia with Klebsiella Small bowel obstruction s/p 02/19 laparoscopy converted to exploratory laparotomy with small bowel resection, repair of enterotomy, extensive lysis of adhesions, and abdominal washout. elevated troponin hematemesis Electrolyte imbalance Anemia Dementia with behavioral disturbances Diabetes mellitus Hypertension Aspiration risk Severe protein calorie malnutrition PLAN OF CARE ICU s/p 02/19 surgery off Levophed gtt, closely monitor BP, IVF, decrease rate to 125 NPO NGT Antibiotics, ID follows blood culture, urine , influenza screen test all negative sputum culture + Klebsiella severe sepsis secondary to small bowel obstruction along with pneumonia single dose of elevated troponin, no acute ischemic changes on tele cardio follows ; will get another troponin pain management a/emetic prn GI and surgery follow may need TPN vent support pulmonary toilet daily CXR and ABG ABG stable this am started on weaning protocol as tolerated renal failure, possibly due to septic shock acute renal failure likely due to dehydration and septic shock , possible ATN due to unstable hemodynamics renal US no acute findings nephro eval appreciated, nephro follows creat at plateau-2.6, no further worsening IV hydration monitor renal parameters, lytes, avoid nephrotoxic ; lytes replacement as per nephro PPI hepatitis panel negative Monitor H&H transfuse as needed with goal to keep hemoglobin above 7 anemia w/up c/w anemia of chronic disease BS not controlled, added Levemir and SSI prn, [id number], at goal; hyperglycemia provably due to sepsis dietary eval psychiatrist follows patient had end-stage dementia with behavioral disturbances per psychiatrist patient lacks capacity to make an informed decision regarding consent for surgery/procedure , need consent from legal guardian prior to surgery; conservative treatment was attempted NG tube bowel regimen instituted no BM since admission, no change in serial imaging abd X ray 02/18 high grade SBO case discussed and evaluated by supervising physician Critical Care - Objective Last 24 Hour Vital Signs Date Time Temp Pulse Resp B/P (MAP) Pulse Ox O2 Delivery O2 Flow Rate FiO2 02/21/18 07:00 101 19 179/63 100 Mechanical Ventilator 30 02/21/18 06:00 105 19 151/78 100 Mechanical Ventilator 30 02/21/18 05:29 105 16 30 02/21/18 05:00 90 19 114/85 100 Mechanical Ventilator 30 02/21/18 04:00 98.2 97 19 160/59 100 Mechanical Ventilator 30 98.2 02/21/18 04:00 101 02/21/18 03:00 97 19 140/54 100 Mechanical Ventilator 30 02/21/18 02:41 89 17 30 02/21/18 02:00 96 19 144/54 100 Mechanical Ventilator 30 02/21/18 01:00 95 17 150/65 100 Mechanical Ventilator 30 02/21/18 00:50 95 20 30 02/21/18 00:00 98.9 96 16 155/52 100 Mechanical Ventilator 30 98.9 02/21/18 00:00 97 02/20/18 23:05 94 16 30 02/20/18 23:00 96 18 139/86 100 Mechanical Ventilator 30 02/20/18 22:00 96 17 151/58 100 Mechanical Ventilator 30 02/20/18 21:00 93 13 132/54 100 Mechanical Ventilator 30 02/20/18 20:42 99 15 30 02/20/18 20:20 135/55 02/20/18 20:00 99.2 99 14 147/56 100 Mechanical Ventilator 30 99.2 02/20/18 20:00 97 02/20/18 19:13 97 14 30 02/20/18 19:00 99 16 134/64 100 Mechanical Ventilator 30 02/20/18 18:00 100 16 156/72 100 Mechanical Ventilator 30 02/20/18 18:00 101 16 156/72 100 Mechanical Ventilator 30 02/20/18 17:00 101 16 156/72 100 Mechanical Ventilator 30 02/20/18 16:50 103 16 30 02/20/18 16:00 98.0 105 17 151/62 100 Mechanical Ventilator 30 98.0 02/20/18 16:00 104 02/20/18 15:00 104 16 130/58 98 Mechanical Ventilator 30 02/20/18 14:49 100 14 30 02/20/18 14:00 103 16 149/92 100 Mechanical Ventilator 30 02/20/18 13:00 102 14 170/46 100 Mechanical Ventilator 30 02/20/18 12:42 100 16 30 02/20/18 12:00 98.2 91 17 155/56 100 Mechanical Ventilator 30 98.2 02/20/18 12:00 111 02/20/18 11:30 107 14 112/62 100 Mechanical Ventilator 30 02/20/18 11:00 98 18 119/57 100 Mechanical Ventilator 30 02/20/18 10:56 103 16 30 02/20/18 10:30 98 16 134/50 100 Mechanical Ventilator 30 02/20/18 10:00 102 16 124/52 100 Mechanical Ventilator 30 02/20/18 10:00 102 16 112/62 100 Mechanical Ventilator 30 02/20/18 09:45 97 16 97/57 100 Mechanical Ventilator 30 02/20/18 09:30 129/61 02/20/18 09:30 97 16 129/61 100 Mechanical Ventilator 30 02/20/18 09:15 107 16 124/60 100 Mechanical Ventilator 30 02/20/18 09:00 100 16 132/55 100 Mechanical Ventilator 30 02/20/18 09:00 132/55 02/20/18 08:45 101 16 112/60 100 Mechanical Ventilator 30 02/20/18 08:43 105 16 30 02/20/18 08:30 101 16 136/56 100 Mechanical Ventilator 30 02/20/18 08:15 101 16 109/55 100 Mechanical Ventilator 30 02/20/18 08:00 106 02/20/18 08:00 135/56 02/20/18 08:00 98.9 107 16 126/86 100 Mechanical Ventilator 30 98.9 02/20/18 07:45 106 16 113/60 100 Mechanical Ventilator 30 Objective: Status: intubated on vent AC Condition: critical HEENT: atraumatic, OP with ET in place, intact Lungs: clear Heart: HR/BP stable, L femoral CL intact Abdomen: absent bowel sounds, abd dressing C/D/I Extremities: no C/C/E Accucheck: 138 Critical Care - Subjective ROS Limited/Unobtainable: Yes Interval Events: off pressors, BP stabilized leukocytosis trending down , afebrile ABG stable on current settings creat at plateau-2.6 no further worsening minimally elevated [id number] this am Condition: critical IV Access: central - L femoral intact EKG Rhythm: Sinus Rhythm FI02: 30 Vent Support Breath Rate: 12 Vent Support Mode: AC Vent Tidal Volume: 500 Sputum Amount: Scant PEEP: 5.0 PIP: 22 Fluids: NS at 150 I&O: Intake and Output 02/20/18 02/21/18 19:00 07:00 Intake Total 2987.5 ml 1650 ml Output Total 705 ml 720 ml Balance 2282.5 ml 930 ml IV Total 2987.5 ml 1650 ml Output Urine Total 105 ml 470 ml Gastric Drainage Total 600 ml Emesis 250 ml CXR: 02/21 New endotracheal tube terminates approximately 4 cm above the jose m. Patchy ill-defined groundglass and reticular opacities in the lung bases bilaterally, right greater than left, suggesting subsegmental atelectasis +/- pneumonitis. ET-Tube: 8.0 ET Position: 23 Tonja Gonzales NP Feb 21, 2018 07:39
[2018-02-21 08:19] LABS: HEMATOCRIT 29.3 % (37.0-47.0); HEMOGLOBIN 10.3 G/DL (12.0-16.0); MEAN CORPUSCULAR VOLUME 79 FL (80-99); PLATELET COUNT 152 K/UL (150-450); RED BLOOD COUNT 3.69 M/UL (4.20-5.40)
[2018-02-21 08:27] LABS: CREATINE KINASE 308 U/L (26-308); GAMMA GLUTAMYL TRANSPEPTIDASE 31 U/L (5-85); PHOSPHORUS 1.9 MG/DL (2.5-4.9)
[2018-02-21] MEDS ORDERED: Pantoprazole Inj IVP SCH (09:00)
--- NOTE | 2018-02-21 09:01 | Diagnostic Imaging Report ---
PORTABLE AP UPRIGHT CXR: HISTORY: 87-year-old female with SOB. COMPARISON: Portable CXR 02/18/2018; abdomen and pelvis CT with intravenous contrast 02/14/2018. FINDINGS: Image is limited by technique, external artifacts, and patient's head/face partially obscuring the lung apices. Allowing for this, there is patchy groundglass and reticular opacities in the lung bases bilaterally, right slightly greater than left. The lungs are otherwise grossly clear. Heart size is normal. No abnormal mediastinal widening. No obvious pneumothorax or effusion. New endotracheal tube terminates approximately 4 cm above the jose m. NG tube loops in the gastric fundus and terminates in the mid/distal gastric body. Small amount of contrast is noted within the gastric fundus. IMPRESSION: 1. Limited image. 2. New endotracheal tube terminates approximately 4 cm above the jose m. 3. Patchy ill-defined groundglass and reticular opacities in the lung bases bilaterally, right greater than left, suggesting subsegmental atelectasis +/- pneumonitis.
--- NOTE | 2018-02-21 09:22 | General Progress Note ---
Assessment/Plan Problem List: (1) SBO (small bowel obstruction) ICD Codes: K56.609 - Unspecified intestinal obstruction, unspecified as to partial versus complete obstruction SNOMED: 799244482 (2) Abdominal pain ICD Codes: R10.9 - Unspecified abdominal pain SNOMED: 33592267 (3) Altered mental status ICD Codes: R41.82 - Altered mental status, unspecified SNOMED: 631639614 (4) Coffee ground emesis ICD Codes: K92.0 - Hematemesis SNOMED: 00986381, 381277987 Assessment/Plan post small bowel surg npo NGT IVF pain control add ppi may need TPN will fu Subjective ROS Limited/Unobtainable: No Allergies: Coded Allergies: ESTROGENS (Verified Allergy, Unknown, 11/27/14) Uncoded Allergies: "estrogen" (Allergy, Unknown, 02/20/14) Objective Last 24 Hour Vital Signs Date Time Temp Pulse Resp B/P (MAP) Pulse Ox O2 Delivery O2 Flow Rate FiO2 02/21/18 08:20 98 13 30 02/21/18 08:20 30 02/21/18 08:19 100 02/21/18 08:00 100 02/21/18 08:00 30 02/21/18 08:00 98.6 97 13 142/53 100 Mechanical Ventilator 30 98.6 02/21/18 07:00 101 19 179/63 100 Mechanical Ventilator 30 02/21/18 06:50 104 14 30 02/21/18 06:00 105 19 151/78 100 Mechanical Ventilator 30 02/21/18 05:29 105 16 30 02/21/18 05:00 90 19 114/85 100 Mechanical Ventilator 30 02/21/18 04:00 98.2 97 19 160/59 100 Mechanical Ventilator 30 98.2 02/21/18 04:00 101 02/21/18 03:00 97 19 140/54 100 Mechanical Ventilator 30 02/21/18 02:41 89 17 30 02/21/18 02:00 96 19 144/54 100 Mechanical Ventilator 30 02/21/18 01:00 95 17 150/65 100 Mechanical Ventilator 30 02/21/18 00:50 95 20 30 02/21/18 00:00 98.9 96 16 155/52 100 Mechanical Ventilator 30 98.9 02/21/18 00:00 97 6/9/18 23:05 94 16 30 6/18 23:00 96 18 139/86 100 Mechanical Ventilator 30 618 22:00 96 17 151/58 100 Mechanical Ventilator 30 18 21:00 93 13 132/54 100 Mechanical Ventilator 30 618 20:42 99 15 30 6//18 20:20 135/55 618 20:00 99.2 99 14 147/56 100 Mechanical Ventilator 30 99.2 18 20:00 97 18 19:13 97 14 30 6/18 19:00 99 16 134/64 100 Mechanical Ventilator 30 618 18:00 100 16 156/72 100 Mechanical Ventilator 30 18 18:00 101 16 156/72 100 Mechanical Ventilator 30 02/20/18 17:00 101 16 156/72 100 Mechanical Ventilator 30 02/20/18 16:50 103 16 30 02/20/18 16:00 98.0 105 17 151/62 100 Mechanical Ventilator 30 98.0 02/20/18 16:00 30 02/20/18 16:00 104 02/20/18 15:00 104 16 130/58 98 Mechanical Ventilator 30 02/20/18 14:49 100 14 30 18 14:00 103 16 149/92 100 Mechanical Ventilator 30 02/20/18 13:00 102 14 170/46 100 Mechanical Ventilator 30 02/20/18 12:42 100 16 30 02/20/18 12:00 98.2 91 17 155/56 100 Mechanical Ventilator 30 98.2 02/20/18 12:00 30 02/20/18 12:00 111 02/20/18 11:30 107 14 112/62 100 Mechanical Ventilator 30 18 11:00 98 18 119/57 100 Mechanical Ventilator 30 18 10:56 103 16 30 6/18 10:30 98 16 134/50 100 Mechanical Ventilator 30 18 10:00 102 16 124/52 100 Mechanical Ventilator 30 18 10:00 102 16 112/62 100 Mechanical Ventilator 30 18 09:45 97 16 97/57 100 Mechanical Ventilator 30 18 09:30 129/61 18 09:30 97 16 129/61 100 Mechanical Ventilator 30 Intake and Output 02/20/18 02/21/18 19:00 07:00 Intake Total 2987.5 ml 1650 ml Output Total 705 ml 720 ml Balance 2282.5 ml 930 ml IV Total 2987.5 ml 1650 ml Output Urine Total 105 ml 470 ml Gastric Drainage Total 600 ml Emesis 250 ml Laboratory Tests 02/20/18 12:23: Arterial Blood pH 7.554*H, Arterial Blood Partial Pressure CO2 26.7L, Arterial Blood Partial Pressure O2 138.6H, Arterial Blood HCO3 23.0, Arterial Blood Oxygen Saturation 98.9H, Arterial Blood Base Excess 1.7, Travis Test Positive 02/20/18 19:40: Sodium Level 138, Potassium Level 3.1L, Chloride Level 103, Carbon Dioxide Level 26, Anion Gap 9, Blood Urea Nitrogen 33H, Creatinine 2.6H, Estimat Glomerular Filtration Rate , Glucose Level 186#H, Calcium Level 9.5, C-Reactive Protein, Quantitative 26.6H 02/20/18 23:05: Urine Random Sodium < 20L 02/21/18 05:30: Sodium Level 140, Potassium Level 3.5, Chloride Level 104, Carbon Dioxide Level 25, Anion Gap 11, Blood Urea Nitrogen 31H, Creatinine 2.6H, Estimat Glomerular Filtration Rate , Glucose Level 161H, Calcium Level 9.3, White Blood Count 17.0H , Red Blood Count 3.69L, Hemoglobin 10.3L, Hematocrit 29.3L, Mean Corpuscular Volume 79L, Mean Corpuscular Hemoglobin 27.7, Mean Corpuscular Hemoglobin Concent 35.0, Red Cell Distribution Width 12.0, Platelet Count 152, Mean Platelet Volume 9.5, Neutrophils (%) (Auto) , Lymphocytes (%) (Auto) , Monocytes (%) (Auto) , Eosinophils (%) (Auto) , Basophils (%) (Auto) , Neutrophils % (Manual) [Pending], Lymphocytes % (Manual) [Pending], Platelet Estimate [Pending], Platelet Morphology [Pending], Urine Eosinophils None seen, Hemoglobin A1c 6.8H, Uric Acid 4.9, Phosphorus Level 1.9L, Magnesium Level 1.7L , Total Bilirubin 0.7, Gamma Glutamyl Transpeptidase 31, Aspartate Amino Transf (AST/SGOT) 66H, Alanine Aminotransferase (ALT/SGPT) 25, Alkaline Phosphatase 78 , Total Creatine Kinase 308, Troponin I 0.078H, Pro-B-Type Natriuretic Peptide 1560H, Total Protein 5.7L, Albumin 2.1L, Globulin 3.6, Albumin/Globulin Ratio 0.6L, Random Vancomycin Level 14.2 02/21/18 07:41: Arterial Blood pH 7.560*H, Arterial Blood Partial Pressure CO2 29.2L, Arterial Blood Partial Pressure O2 141.5H, Arterial Blood HCO3 25.7, Arterial Blood Oxygen Saturation 98.7H, Arterial Blood Base Excess 4.0, Travis Test Positive Height (Feet): 5 Height (Inches): 5.00 Weight (Pounds): 164 General Appearance: lethargic EENT: normal ENT inspection Neck: supple Cardiovascular: normal rate Respiratory/Chest: decreased breath sounds Abdomen: other - post surgical Extremities: non-tender Jesse Montoya MD Feb 21, 2018 09:22
[2018-02-21] MEDS: Pantoprazole Inj IVP SCH ×2 (09:31→21:28)
[2018-02-21] MEDS: Meropenem 1 GM in NS 55 ML IVPB SCH ×2 (09:31→20:40)
[2018-02-21] MEDS: LR 1000ml 1,000 ML IV SCH (09:36)
[2018-02-21] MEDS ORDERED: Albuterol/Ipratropium 3ml neb HHN PRN (09:45)
--- NOTE | 2018-02-21 09:56 | General Progress Note ---
Assessment/Plan Status: unchanged Assessment/Plan #. Leukocytosis, likely secondary to recent surgery. --> Closely monitor for improvement. On abx as per ID --> Current wbc is better, closely monitor #. Anemia of chronic disease --> reviewed anemia panel, does not need further workup unless hgb less than 10 #. Acute kidney injury. Creatinine currently 2.6. --> Closely monitor potentially secondary to acute tubular necrosis secondary to hypovolemia. #. Severe sepsis secondary to small bowel obstruction. #. Hypertension --> systolic blood pressure goal less than 140. #. Status post laparoscopic converted to an exploratory laparotomy with small bowel removal, repair of enterotomy, extensive lysis of adhesions. #. Diabetes mellitus, type 1. #. Acute encephalopathy due to Alzheimer disease. Subjective Date patient seen: Feb 21, 2018 Allergies: Coded Allergies: ESTROGENS (Verified Allergy, Unknown, 11/27/14) Uncoded Allergies: "estrogen" (Allergy, Unknown, 02/20/14) All Systems: reviewed and negative except above Subjective Pt in ICU. No overnight events reported. No signs of acute medical distress. Off of [facility] ventilator Objective Last 24 Hour Vital Signs Date Time Temp Pulse Resp B/P (MAP) Pulse Ox O2 Delivery O2 Flow Rate FiO2 02/21/18 08:30 87 12 30 02/21/18 08:20 98 13 30 02/21/18 08:20 30 02/21/18 08:19 100 02/21/18 08:00 100 02/21/18 08:00 30 02/21/18 08:00 98.6 97 13 142/53 100 Mechanical Ventilator 30 98.6 02/21/18 07:00 101 19 179/63 100 Mechanical Ventilator 30 02/21/18 06:50 104 14 30 02/21/18 06:00 105 19 151/78 100 Mechanical Ventilator 30 02/21/18 05:29 105 16 30 02/21/18 05:00 90 19 114/85 100 Mechanical Ventilator 30 02/21/18 04:00 98.2 97 19 160/59 100 Mechanical Ventilator 30 98.2 02/21/18 04:00 101 02/21/18 03:00 97 19 140/54 100 Mechanical Ventilator 30 02/21/18 02:41 89 17 30 02/21/18 02:00 96 19 144/54 100 Mechanical Ventilator 30 02/21/18 01:00 95 17 150/65 100 Mechanical Ventilator 30 02/21/18 00:50 95 20 30 618 00:00 98.9 96 16 155/52 100 Mechanical Ventilator 30 98.9 02/21/18 00:00 97 6/06/01 23:05 94 16 30 618 23:00 96 18 139/86 100 Mechanical Ventilator 30 6 22:00 96 17 151/58 100 Mechanical Ventilator 30 02/20/18 21:00 93 13 132/54 100 Mechanical Ventilator 30 6 20:42 99 15 30 6 20:20 135/55 6 20:00 99.2 99 14 147/56 100 Mechanical Ventilator 30 99.2 02/20/18 20:00 97 02/20/18 19:13 97 14 30 02/20/18 19:00 99 16 134/64 100 Mechanical Ventilator 30 02/20/18 18:00 100 16 156/72 100 Mechanical Ventilator 30 02/20/18 18:00 101 16 156/72 100 Mechanical Ventilator 30 02/20/18 17:00 101 16 156/72 100 Mechanical Ventilator 30 02/20/18 16:50 103 16 30 02/20/18 16:00 98.0 105 17 151/62 100 Mechanical Ventilator 30 98.0 02/20/18 16:00 30 02/20/18 16:00 104 02/20/18 15:00 104 16 130/58 98 Mechanical Ventilator 30 02/20/18 14:49 100 14 30 02/20/18 14:00 103 16 149/92 100 Mechanical Ventilator 30 02/20/18 13:00 102 14 170/46 100 Mechanical Ventilator 30 02/20/18 12:42 100 16 30 6 12:00 98.2 91 17 155/56 100 Mechanical Ventilator 30 98.2 02/20/18 12:00 30 02/20/18 12:00 111 02/20/18 11:30 107 14 112/62 100 Mechanical Ventilator 30 02/20/18 11:00 98 18 119/57 100 Mechanical Ventilator 30 618 10:56 103 16 30 6/18 10:30 98 16 134/50 100 Mechanical Ventilator 30 618 10:00 102 16 124/52 100 Mechanical Ventilator 30 618 10:00 102 16 112/62 100 Mechanical Ventilator 30 Intake and Output 02/20/18 02/21/18 19:00 07:00 Intake Total 2987.5 ml 1650 ml Output Total 705 ml 720 ml Balance 2282.5 ml 930 ml IV Total 2987.5 ml 1650 ml Output Urine Total 105 ml 470 ml Gastric Drainage Total 600 ml Emesis 250 ml Laboratory Tests 02/20/18 12:23: Arterial Blood pH 7.554*H, Arterial Blood Partial Pressure CO2 26.7L, Arterial Blood Partial Pressure O2 138.6H, Arterial Blood HCO3 23.0, Arterial Blood Oxygen Saturation 98.9H, Arterial Blood Base Excess 1.7, Travis Test Positive 02/20/18 19:40: Sodium Level 138, Potassium Level 3.1L, Chloride Level 103, Carbon Dioxide Level 26, Anion Gap 9, Blood Urea Nitrogen 33H, Creatinine 2.6H, Estimat Glomerular Filtration Rate , Glucose Level 186#H, Calcium Level 9.5, C-Reactive Protein, Quantitative 26.6H 02/20/18 23:05: Urine Random Sodium < 20L 02/21/18 05:30: Sodium Level 140, Potassium Level 3.5, Chloride Level 104, Carbon Dioxide Level 25, Anion Gap 11, Blood Urea Nitrogen 31H, Creatinine 2.6H, Estimat Glomerular Filtration Rate , Glucose Level 161H, Calcium Level 9.3, White Blood Count 17.0H , Red Blood Count 3.69L, Hemoglobin 10.3L, Hematocrit 29.3L, Mean Corpuscular Volume 79L, Mean Corpuscular Hemoglobin 27.7, Mean Corpuscular Hemoglobin Concent 35.0, Red Cell Distribution Width 12.0, Platelet Count 152, Mean Platelet Volume 9.5, Neutrophils (%) (Auto) , Lymphocytes (%) (Auto) , Monocytes (%) (Auto) , Eosinophils (%) (Auto) , Basophils (%) (Auto) , Neutrophils % (Manual) [Pending], Lymphocytes % (Manual) [Pending], Platelet Estimate [Pending], Platelet Morphology [Pending], Urine Eosinophils None seen, Hemoglobin A1c 6.8H, Uric Acid 4.9, Phosphorus Level 1.9L, Magnesium Level 1.7L , Total Bilirubin 0.7, Gamma Glutamyl Transpeptidase 31, Aspartate Amino Transf (AST/SGOT) 66H, Alanine Aminotransferase (ALT/SGPT) 25, Alkaline Phosphatase 78 , Total Creatine Kinase 308, Troponin I 0.078H, Pro-B-Type Natriuretic Peptide 1560H, Total Protein 5.7L, Albumin 2.1L, Globulin 3.6, Albumin/Globulin Ratio 0.6L, Random Vancomycin Level 14.2 02/21/18 07:41: Arterial Blood pH 7.560*H, Arterial Blood Partial Pressure CO2 29.2L, Arterial Blood Partial Pressure O2 141.5H, Arterial Blood HCO3 25.7, Arterial Blood Oxygen Saturation 98.7H, Arterial Blood Base Excess 4.0, Travis Test Positive Height (Feet): 5 Height (Inches): 5.00 Weight (Pounds): 164 General Appearance: WD/WN, no apparent distress, confused EENT: PERRL/EOMI Neck: limited range of motion Cardiovascular: normal peripheral pulses Respiratory/Chest: normal breath sounds Abdomen: non tender Karan Carrero MD Feb 21, 2018 09:56
--- NOTE | 2018-02-21 10:10 | Nephrology Progress Note ---
Assessment/Plan Problem List: (1) Acute renal failure Assessment Severe sepsis ( secondary to small bowel obstruction) septic shock Acute respiratory failure requiring intubation Acute encephalopathy ( due to sepsis) on chronic end-stage Alzheimer dementia Acute renal failure, probably ATN due to unstable hemodynamics Urine out put improving Pneumonia with Klebsiella Small bowel obstruction s/p 02/19 laparoscopy converted to exploratory laparotomy with small bowel resection, repair of enterotomy, extensive lysis of adhesions, and abdominal washout. Hematemesis Electrolyte imbalance Anemia Diabetes mellitus h/o Hypertension Aspiration risk Severe protein calorie malnutrition Plan Mag and Phos supplement Post Op care- Monitor renal parameters, Urine output, Avoid Nephrotoxics Keep BP above 100 syst Keep BS in check Subjective ROS Limited/Unobtainable: Yes Objective Objective Last 24 Hour Vital Signs Date Time Temp Pulse Resp B/P (MAP) Pulse Ox O2 Delivery O2 Flow Rate FiO2 02/21/18 09:00 93 19 157/75 100 Mechanical Ventilator 30 02/21/18 08:30 87 12 30 02/21/18 08:20 98 13 30 02/21/18 08:20 30 02/21/18 08:19 100 02/21/18 08:00 100 02/21/18 08:00 30 02/21/18 08:00 98.6 97 13 142/53 100 Mechanical Ventilator 30 98.6 02/21/18 07:00 101 19 179/63 100 Mechanical Ventilator 30 02/21/18 06:50 104 14 30 02/21/18 06:00 105 19 151/78 100 Mechanical Ventilator 30 02/21/18 05:29 105 16 30 02/21/18 05:00 90 19 114/85 100 Mechanical Ventilator 30 02/21/18 04:00 98.2 97 19 160/59 100 Mechanical Ventilator 30 98.2 02/21/18 04:00 101 02/21/18 03:00 97 19 140/54 100 Mechanical Ventilator 30 02/21/18 02:41 89 17 30 02/21/18 02:00 96 19 144/54 100 Mechanical Ventilator 30 02/21/18 01:00 95 17 150/65 100 Mechanical Ventilator 30 02/21/18 00:50 95 20 30 02/21/18 00:00 98.9 96 16 155/52 100 Mechanical Ventilator 30 98.9 02/21/18 00:00 97 02/20/18 23:05 94 16 30 02/20/18 23:00 96 18 139/86 100 Mechanical Ventilator 30 02/20/18 22:00 96 17 151/58 100 Mechanical Ventilator 30 02/20/18 21:00 93 13 132/54 100 Mechanical Ventilator 30 02/20/18 20:42 99 15 30 02/20/18 20:20 135/55 02/20/18 20:00 99.2 99 14 147/56 100 Mechanical Ventilator 30 99.2 02/20/18 20:00 97 02/20/18 19:13 97 14 30 02/20/18 19:00 99 16 134/64 100 Mechanical Ventilator 30 02/20/18 18:00 100 16 156/72 100 Mechanical Ventilator 30 02/20/18 18:00 101 16 156/72 100 Mechanical Ventilator 30 02/20/18 17:00 101 16 156/72 100 Mechanical Ventilator 30 02/20/18 16:50 103 16 30 02/20/18 16:00 98.0 105 17 151/62 100 Mechanical Ventilator 30 98.0 02/20/18 16:00 30 02/20/18 16:00 104 02/20/18 15:00 104 16 130/58 98 Mechanical Ventilator 30 02/20/18 14:49 100 14 30 02/20/18 14:00 103 16 149/92 100 Mechanical Ventilator 30 02/20/18 13:00 102 14 170/46 100 Mechanical Ventilator 30 02/20/18 12:42 100 16 30 02/20/18 12:00 98.2 91 17 155/56 100 Mechanical Ventilator 30 98.2 02/20/18 12:00 30 02/20/18 12:00 111 02/20/18 11:30 107 14 112/62 100 Mechanical Ventilator 30 02/20/18 11:00 98 18 119/57 100 Mechanical Ventilator 30 02/20/18 10:56 103 16 30 02/20/18 10:30 98 16 134/50 100 Mechanical Ventilator 30 Intake and Output 02/20/18 02/21/18 19:00 07:00 Intake Total 2987.5 ml 1650 ml Output Total 705 ml 720 ml Balance 2282.5 ml 930 ml IV Total 2987.5 ml 1650 ml Output Urine Total 105 ml 470 ml Gastric Drainage Total 600 ml Emesis 250 ml Laboratory Tests 02/20/18 12:23: Arterial Blood pH 7.554*H, Arterial Blood Partial Pressure CO2 26.7L, Arterial Blood Partial Pressure O2 138.6H, Arterial Blood HCO3 23.0, Arterial Blood Oxygen Saturation 98.9H, Arterial Blood Base Excess 1.7, Travis Test Positive 02/20/18 19:40: Sodium Level 138, Potassium Level 3.1L, Chloride Level 103, Carbon Dioxide Level 26, Anion Gap 9, Blood Urea Nitrogen 33H, Creatinine 2.6H, Estimat Glomerular Filtration Rate , Glucose Level 186#H, Calcium Level 9.5, C-Reactive Protein, Quantitative 26.6H 02/20/18 23:05: Urine Random Sodium < 20L 02/21/18 05:30: Sodium Level 140, Potassium Level 3.5, Chloride Level 104, Carbon Dioxide Level 25, Anion Gap 11, Blood Urea Nitrogen 31H, Creatinine 2.6H, Estimat Glomerular Filtration Rate , Glucose Level 161H, Calcium Level 9.3, White Blood Count 17.0H , Red Blood Count 3.69L, Hemoglobin 10.3L, Hematocrit 29.3L, Mean Corpuscular Volume 79L, Mean Corpuscular Hemoglobin 27.7, Mean Corpuscular Hemoglobin Concent 35.0, Red Cell Distribution Width 12.0, Platelet Count 152, Mean Platelet Volume 9.5, Neutrophils (%) (Auto) , Lymphocytes (%) (Auto) , Monocytes (%) (Auto) , Eosinophils (%) (Auto) , Basophils (%) (Auto) , Neutrophils % (Manual) [Pending], Lymphocytes % (Manual) [Pending], Platelet Estimate [Pending], Platelet Morphology [Pending], Urine Eosinophils None seen, Hemoglobin A1c 6.8H, Uric Acid 4.9, Phosphorus Level 1.9L, Magnesium Level 1.7L , Total Bilirubin 0.7, Gamma Glutamyl Transpeptidase 31, Aspartate Amino Transf (AST/SGOT) 66H, Alanine Aminotransferase (ALT/SGPT) 25, Alkaline Phosphatase 78 , Total Creatine Kinase 308, Troponin I 0.078H, Pro-B-Type Natriuretic Peptide 1560H, Total Protein 5.7L, Albumin 2.1L, Globulin 3.6, Albumin/Globulin Ratio 0.6L, Random Vancomycin Level 14.2 02/21/18 07:41: Arterial Blood pH 7.560*H, Arterial Blood Partial Pressure CO2 29.2L, Arterial Blood Partial Pressure O2 141.5H, Arterial Blood HCO3 25.7, Arterial Blood Oxygen Saturation 98.7H, Arterial Blood Base Excess 4.0, Travis Test Positive Height (Feet): 5 Height (Inches): 5.00 Weight (Pounds): 164 General Appearance: no apparent distress EENT: other - on vent Cardiovascular: tachycardia Respiratory/Chest: decreased breath sounds Abdomen: distended ROSA REED Feb 21, 2018 10:10
[2018-02-21] MEDS ORDERED: Potassium Phosphate 15 MM in NS 275 ML IV ONE (10:30)
--- NOTE | 2018-02-21 10:56 | Cardiology Progress Note ---
Assessment/Plan Status: stable, progressing Assessment/Plan /p 02/19 laparoscopy converted to exploratory laparotomy with small bowel resection, repair of enterotomy, extensive lysis of adhesions, and abdominal washout. Wean vent as tolerated, pulmonary toilet, nebs, suctioning Tachycardia secondary to post surgical inflammation/fluid shifts Continue antibiotics TPN Fluids Zofran DVT ppx Wean pressors as tolerated Supportive care Subjective Subjective s/p 02/19 laparoscopy converted to exploratory laparotomy with small bowel resection, repair of enterotomy, extensive lysis of adhesions, and abdominal washout. Vitals stable, patient stable on vent Objective Last 24 Hour Vital Signs Date Time Temp Pulse Resp B/P (MAP) Pulse Ox O2 Delivery O2 Flow Rate FiO2 02/21/18 10:38 96 15 30 02/21/18 10:00 103 19 166/51 100 Mechanical Ventilator 30 02/21/18 09:00 93 19 157/75 100 Mechanical Ventilator 30 02/21/18 08:30 87 12 30 02/21/18 08:20 98 13 30 02/21/18 08:20 30 02/21/18 08:19 100 02/21/18 08:00 100 02/21/18 08:00 30 02/21/18 08:00 98.6 97 13 142/53 100 Mechanical Ventilator 30 98.6 02/21/18 07:00 101 19 179/63 100 Mechanical Ventilator 30 02/21/18 06:50 104 14 30 02/21/18 06:00 105 19 151/78 100 Mechanical Ventilator 30 02/21/18 05:29 105 16 30 02/21/18 05:00 90 19 114/85 100 Mechanical Ventilator 30 02/21/18 04:00 98.2 97 19 160/59 100 Mechanical Ventilator 30 98.2 02/21/18 04:00 101 02/21/18 03:00 97 19 140/54 100 Mechanical Ventilator 30 02/21/18 02:41 89 17 30 02/21/18 02:00 96 19 144/54 100 Mechanical Ventilator 30 02/21/18 01:00 95 17 150/65 100 Mechanical Ventilator 30 02/21/18 00:50 95 20 30 02/21/18 00:00 98.9 96 16 155/52 100 Mechanical Ventilator 30 98.9 02/21/18 00:00 97 02/20/18 23:05 94 16 30 02/20/18 23:00 96 18 139/86 100 Mechanical Ventilator 30 02/20/18 22:00 96 17 151/58 100 Mechanical Ventilator 30 02/20/18 21:00 93 13 132/54 100 Mechanical Ventilator 30 02/20/18 20:42 99 15 30 02/20/18 20:20 135/55 02/20/18 20:00 99.2 99 14 147/56 100 Mechanical Ventilator 30 99.2 02/20/18 20:00 97 02/20/18 19:13 97 14 30 02/20/18 19:00 99 16 134/64 100 Mechanical Ventilator 30 02/20/18 18:00 100 16 156/72 100 Mechanical Ventilator 30 02/20/18 18:00 101 16 156/72 100 Mechanical Ventilator 30 02/20/18 17:00 101 16 156/72 100 Mechanical Ventilator 30 02/20/18 16:50 103 16 30 02/20/18 16:00 98.0 105 17 151/62 100 Mechanical Ventilator 30 98.0 02/20/18 16:00 30 02/20/18 16:00 104 02/20/18 15:00 104 16 130/58 98 Mechanical Ventilator 30 02/20/18 14:49 100 14 30 02/20/18 14:00 103 16 149/92 100 Mechanical Ventilator 30 02/20/18 13:00 102 14 170/46 100 Mechanical Ventilator 30 02/20/18 12:42 100 16 30 02/20/18 12:00 98.2 91 17 155/56 100 Mechanical Ventilator 30 98.2 02/20/18 12:00 30 02/20/18 12:00 111 02/20/18 11:30 107 14 112/62 100 Mechanical Ventilator 30 02/20/18 11:00 98 18 119/57 100 Mechanical Ventilator 30 02/20/18 10:56 103 16 30 General Appearance: no apparent distress, on vent EENT: PERRL/EOMI Neck: non-tender Rhythm: NSR Cardiovascular: normal peripheral pulses Respiratory/Chest: chest wall non-tender Abdomen: decreased bowel sounds Extremities: non-tender Neurologic: no motor/sensory deficits Intake and Output 02/20/18 02/21/18 19:00 07:00 Intake Total 2987.5 ml 1650 ml Output Total 705 ml 720 ml Balance 2282.5 ml 930 ml IV Total 2987.5 ml 1650 ml Output Urine Total 105 ml 470 ml Gastric Drainage Total 600 ml Emesis 250 ml Laboratory Tests Test 02/20/18 12:23 02/20/18 19:40 02/20/18 23:05 02/21/18 05:30 Arterial Blood pH 7.554 (7.350-7.450) Arterial Blood Partial Pressure CO2 26.7 mmHg (35.0-45.0) L Arterial Blood Partial Pressure O2 138.6 mmHg (75.0-100.0) H Arterial Blood HCO3 23.0 mmol/L (22.0-26.0) Arterial Blood Oxygen Saturation 98.9 % (92.0-98.0) H Arterial Blood Base Excess 1.7 Travis Test Positive Sodium Level 138 MMOL/L (136-145) 140 MMOL/L (136-145) Potassium Level 3.1 MMOL/L (3.5-5.1) L 3.5 MMOL/L (3.5-5.1) Chloride Level 103 MMOL/L (98-107) 104 MMOL/L (98-107) Carbon Dioxide Level 26 MMOL/L (21-32) 25 MMOL/L (21-32) Anion Gap 9 mmol/L (5-15) 11 mmol/L (5-15) Blood Urea Nitrogen 33 mg/dL (7-18) H 31 mg/dL (7-18) H Creatinine 2.6 MG/DL (0.55-1.30) H 2.6 MG/DL (0.55-1.30) H Estimat Glomerular Filtration Rate mL/min (>60) mL/min (>60) Glucose Level 186 MG/DL (74-106) #H 161 MG/DL (74-106) H Calcium Level 9.5 MG/DL (8.5-10.1) 9.3 MG/DL (8.5-10.1) C-Reactive Protein, Quantitative 26.6 mg/dL (0.00-0.90) H Urine Random Sodium < 20 mmol/L (20-110) L White Blood Count 17.0 K/UL (4.8-10.8) H Red Blood Count 3.69 M/UL (4.20-5.40) L Hemoglobin 10.3 G/DL (12.0-16.0) L Hematocrit 29.3 % (37.0-47.0) L Mean Corpuscular Volume 79 FL (80-99) L Mean Corpuscular Hemoglobin 27.7 PG (27.0-31.0) Mean Corpuscular Hemoglobin Concent 35.0 G/DL (32.0-36.0) Red Cell Distribution Width 12.0 % (11.6-14.8) Platelet Count 152 K/UL (150-450) Mean Platelet Volume 9.5 FL (6.5-10.1) Neutrophils (%) (Auto) % (45.0-75.0) Lymphocytes (%) (Auto) % (20.0-45.0) Monocytes (%) (Auto) % (1.0-10.0) Eosinophils (%) (Auto) % (0.0-3.0) Basophils (%) (Auto) % (0.0-2.0) Differential Total Cells Counted 100 Neutrophils % (Manual) 95 % (45-75) H Lymphocytes % (Manual) 3 % (20-45) L Monocytes % (Manual) 2 % (1-10) Eosinophils % (Manual) 0 % (0-3) Basophils % (Manual) 0 % (0-2) Band Neutrophils 0 % (0-8) Platelet Estimate Adequate Platelet Morphology Normal Hypochromasia 1+ Urine Eosinophils None seen Hemoglobin A1c 6.8 % (4.3-6.0) H Uric Acid 4.9 MG/DL (2.6-7.2) Phosphorus Level 1.9 MG/DL (2.5-4.9) L Magnesium Level 1.7 MG/DL (1.8-2.4) L Total Bilirubin 0.7 MG/DL (0.2-1.0) Gamma Glutamyl Transpeptidase 31 U/L (5-85) Aspartate Amino Transf (AST/SGOT) 66 U/L (15-37) H Alanine Aminotransferase (ALT/SGPT) 25 U/L (12-78) Alkaline Phosphatase 78 U/L (46-116) Total Creatine Kinase 308 U/L (26-308) Troponin I 0.078 ng/mL (0.000-0.056) Pro-B-Type Natriuretic Peptide 1560 pg/mL (0-125) H Total Protein 5.7 G/DL (6.4-8.2) L Albumin 2.1 G/DL (3.4-5.0) L Globulin 3.6 g/dL Albumin/Globulin Ratio 0.6 (1.0-2.7) L Random Vancomycin Level 14.2 ug/mL Test 02/21/18 07:41 Arterial Blood pH 7.560 (7.350-7.450) Arterial Blood Partial Pressure CO2 29.2 mmHg (35.0-45.0) L Arterial Blood Partial Pressure O2 141.5 mmHg (75.0-100.0) H Arterial Blood HCO3 25.7 mmol/L (22.0-26.0) Arterial Blood Oxygen Saturation 98.7 % (92.0-98.0) H Arterial Blood Base Excess 4.0 Travis Test Positive Microbiology Date/Time Source Procedure Growth Status 02/19/18 11:10 Blood Blood Culture - Preliminary NO GROWTH AFTER 24 HOURS Resulted 02/19/18 11:00 Blood Blood Culture - Preliminary NO GROWTH AFTER 24 HOURS Resulted Ant Gu M.D. Feb 21, 2018 10:56
[2018-02-21] MEDS ORDERED: Vancomycin 1250mg/D5W 250ml IVPB SCH (11:00)
[2018-02-21] MEDS: Micafungin 100 MG in NS 110 ML IVPB SCH (11:18)
[2018-02-21] MEDS: Levemir Flexpen SUBQ SCH (12:00)
--- NOTE | 2018-02-21 12:24 | Infectious Diseases Prog Note ---
Assessment/Plan Assessment/Plan Assessment: Sepsis, ongoing- likely from SBO possibly due to adhesions 02/19 SP lap with exploration. 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 hernia reduced and tumor with small bowel resected. primary anastomosis. -Small bowel w/ gastroffin: Subsequent small bowel study indicates that the prominent upper abdominal small bowel loops are proximal jejunal loops, and there is a transition point identifiable retrospect centrally in the mid abdomen distal to which loops are nondilated. There is a slight swirling of the vessels in this area, indicating this could be an internal hernia, although the presence of an incisional scar on the CT and the appearance on the small bowel study indicates that it is more likely due to adhesions. -CT abd/p: Mildly prominent gas and fluid-filled small bowel loops without definite transition point. Most likely on the basis of ileus/enteritis. Early small bowel obstruction not completely excludable but deemed less likely. Right basilar infiltrate, most likely pneumonia. Mild anasarca. Stable, presumably benign, right lobe liver lesion. Soria catheter within nondistended bladder. Mild scoliosis and degenerative spondylosis incidentally noted. - 02/21 CXR: Patchy ill-defined groundglass and reticular opacities in the lung bases bilaterally, right greater than left, suggesting subsegmental atelectasis +/- pneumonit -02/14 u/a wbc 60-80, nit +, leuk +3; Ucx Neg; repeat 02/15 UCx NTD -02/14 Bcx NTD -sp cx K. 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 -amylase, lipase normal -influenza sc neg Fever, SP Leukocytosis; persists Lactic acidosis; resolved Elevated LFTs, resolving 02/19 VDRF FARIBA, worsen HTN Dm2 constipation Alzheimer's Disease assisted living resident Plan: -Continue Meropenem # 4 (abx d# 8 ) and IV Vanco and Micafungin d# 3 (for enterococcal and ernst coverage in the setting of worsening leukocytosis and SBO.) may DC IV Vanco soon or change to dapto if Cr increases further -02/18 SP Cefepime #5, Flagyl #4 -02/16 SP IV Vancomycin #3 -Bcx x2 -f/u cx -Monitor CBC/CMP, temperatures -Aspiration precautions -Small bowel follow through per GI -GI f/u -Sx eval- Subjective Constitutional: Denies: no symptoms, fever, chills, fatigue, anorexia, drenching sweats, other Allergies: Coded Allergies: ESTROGENS (Verified Allergy, Unknown, 11/27/14) Uncoded Allergies: "estrogen" (Allergy, Unknown, 02/20/14) Subjective POD D# 2 Objective Vital Signs Last 24 Hour Vital Signs Date Time Temp Pulse Resp B/P (MAP) Pulse Ox O2 Delivery O2 Flow Rate FiO2 02/21/18 11:15 25 02/21/18 11:00 96 19 166/49 100 Mechanical Ventilator 30 02/21/18 10:38 96 15 30 02/21/18 10:00 103 19 166/51 100 Mechanical Ventilator 30 02/21/18 09:00 93 19 157/75 100 Mechanical Ventilator 30 02/21/18 08:30 87 12 30 02/21/18 08:20 98 13 30 02/21/18 08:20 30 02/21/18 08:19 100 02/21/18 08:00 100 02/21/18 08:00 30 02/21/18 08:00 98.6 97 13 142/53 100 Mechanical Ventilator 30 98.6 02/21/18 07:00 101 19 179/63 100 Mechanical Ventilator 30 02/21/18 06:50 104 14 30 02/21/18 06:00 105 19 151/78 100 Mechanical Ventilator 30 02/21/18 05:29 105 16 30 02/21/18 05:00 90 19 114/85 100 Mechanical Ventilator 30 02/21/18 04:00 98.2 97 19 160/59 100 Mechanical Ventilator 30 98.2 02/21/18 04:00 101 02/21/18 03:00 97 19 140/54 100 Mechanical Ventilator 30 02/21/18 02:41 89 17 30 02/21/18 02:00 96 19 144/54 100 Mechanical Ventilator 30 02/21/18 01:00 95 17 150/65 100 Mechanical Ventilator 30 02/21/18 00:50 95 20 30 02/21/18 00:00 98.9 96 16 155/52 100 Mechanical Ventilator 30 98.9 02/21/18 00:00 97 02/20/18 23:05 94 16 30 02/20/18 23:00 96 18 139/86 100 Mechanical Ventilator 30 02/20/18 22:00 96 17 151/58 100 Mechanical Ventilator 30 02/20/18 21:00 93 13 132/54 100 Mechanical Ventilator 30 02/20/18 20:42 99 15 30 02/20/18 20:20 135/55 02/20/18 20:00 99.2 99 14 147/56 100 Mechanical Ventilator 30 99.2 02/20/18 20:00 97 02/20/18 19:13 97 14 30 02/20/18 19:00 99 16 134/64 100 Mechanical Ventilator 30 02/20/18 18:00 100 16 156/72 100 Mechanical Ventilator 30 02/20/18 18:00 101 16 156/72 100 Mechanical Ventilator 30 02/20/18 17:00 101 16 156/72 100 Mechanical Ventilator 30 02/20/18 16:50 103 16 30 02/20/18 16:00 98.0 105 17 151/62 100 Mechanical Ventilator 30 98.0 02/20/18 16:00 30 02/20/18 16:00 104 02/20/18 15:00 104 16 130/58 98 Mechanical Ventilator 30 02/20/18 14:49 100 14 30 02/20/18 14:00 103 16 149/92 100 Mechanical Ventilator 30 02/20/18 13:00 102 14 170/46 100 Mechanical Ventilator 30 02/20/18 12:42 100 16 30 Height (Feet): 5 Height (Inches): 5.00 Weight (Pounds): 164 HEENT: anicteric Respiratory/Chest: no respiratory distress Cardiovascular: regular rhythm Abdomen: no organomegaly Microbiology Date/Time Source Procedure Growth Status 02/19/18 11:10 Blood Blood Culture - Preliminary NO GROWTH AFTER 24 HOURS Resulted 02/19/18 11:00 Blood Blood Culture - Preliminary NO GROWTH AFTER 24 HOURS Resulted Laboratory Tests Test 02/20/18 12:23 02/20/18 19:40 02/20/18 23:05 02/21/18 05:30 Arterial Blood pH 7.554 (7.350-7.450) Arterial Blood Partial Pressure CO2 26.7 mmHg (35.0-45.0) L Arterial Blood Partial Pressure O2 138.6 mmHg (75.0-100.0) H Arterial Blood HCO3 23.0 mmol/L (22.0-26.0) Arterial Blood Oxygen Saturation 98.9 % (92.0-98.0) H Arterial Blood Base Excess 1.7 Travis Test Positive Sodium Level 138 MMOL/L (136-145) 140 MMOL/L (136-145) Potassium Level 3.1 MMOL/L (3.5-5.1) L 3.5 MMOL/L (3.5-5.1) Chloride Level 103 MMOL/L (98-107) 104 MMOL/L (98-107) Carbon Dioxide Level 26 MMOL/L (21-32) 25 MMOL/L (21-32) Anion Gap 9 mmol/L (5-15) 11 mmol/L (5-15) Blood Urea Nitrogen 33 mg/dL (7-18) H 31 mg/dL (7-18) H Creatinine 2.6 MG/DL (0.55-1.30) H 2.6 MG/DL (0.55-1.30) H Estimat Glomerular Filtration Rate mL/min (>60) mL/min (>60) Glucose Level 186 MG/DL (74-106) #H 161 MG/DL (74-106) H Calcium Level 9.5 MG/DL (8.5-10.1) 9.3 MG/DL (8.5-10.1) C-Reactive Protein, Quantitative 26.6 mg/dL (0.00-0.90) H Urine Random Sodium < 20 mmol/L (20-110) L White Blood Count 17.0 K/UL (4.8-10.8) H Red Blood Count 3.69 M/UL (4.20-5.40) L Hemoglobin 10.3 G/DL (12.0-16.0) L Hematocrit 29.3 % (37.0-47.0) L Mean Corpuscular Volume 79 FL (80-99) L Mean Corpuscular Hemoglobin 27.7 PG (27.0-31.0) Mean Corpuscular Hemoglobin Concent 35.0 G/DL (32.0-36.0) Red Cell Distribution Width 12.0 % (11.6-14.8) Platelet Count 152 K/UL (150-450) Mean Platelet Volume 9.5 FL (6.5-10.1) Neutrophils (%) (Auto) % (45.0-75.0) Lymphocytes (%) (Auto) % (20.0-45.0) Monocytes (%) (Auto) % (1.0-10.0) Eosinophils (%) (Auto) % (0.0-3.0) Basophils (%) (Auto) % (0.0-2.0) Differential Total Cells Counted 100 Neutrophils % (Manual) 95 % (45-75) H Lymphocytes % (Manual) 3 % (20-45) L Monocytes % (Manual) 2 % (1-10) Eosinophils % (Manual) 0 % (0-3) Basophils % (Manual) 0 % (0-2) Band Neutrophils 0 % (0-8) Platelet Estimate Adequate Platelet Morphology Normal Hypochromasia 1+ Urine Eosinophils None seen Hemoglobin A1c 6.8 % (4.3-6.0) H Uric Acid 4.9 MG/DL (2.6-7.2) Phosphorus Level 1.9 MG/DL (2.5-4.9) L Magnesium Level 1.7 MG/DL (1.8-2.4) L Total Bilirubin 0.7 MG/DL (0.2-1.0) Gamma Glutamyl Transpeptidase 31 U/L (5-85) Aspartate Amino Transf (AST/SGOT) 66 U/L (15-37) H Alanine Aminotransferase (ALT/SGPT) 25 U/L (12-78) Alkaline Phosphatase 78 U/L (46-116) Total Creatine Kinase 308 U/L (26-308) Troponin I 0.078 ng/mL (0.000-0.056) Pro-B-Type Natriuretic Peptide 1560 pg/mL (0-125) H Total Protein 5.7 G/DL (6.4-8.2) L Albumin 2.1 G/DL (3.4-5.0) L Globulin 3.6 g/dL Albumin/Globulin Ratio 0.6 (1.0-2.7) L Random Vancomycin Level 14.2 ug/mL Test 02/21/18 07:41 02/21/18 10:37 02/21/18 12:03 Arterial Blood pH 7.560 (7.350-7.450) 7.550 (7.350-7.450) 7.500 (7.350-7.450) Arterial Blood Partial Pressure CO2 29.2 mmHg (35.0-45.0) L 29.6 mmHg (35.0-45.0) L 31.1 mmHg (35.0-45.0) L Arterial Blood Partial Pressure O2 141.5 mmHg (75.0-100.0) H 128.5 mmHg (75.0-100.0) H 75.9 mmHg (75.0-100.0) Arterial Blood HCO3 25.7 mmol/L (22.0-26.0) 25.7 mmol/L (22.0-26.0) 24.0 mmol/L (22.0-26.0) Arterial Blood Oxygen Saturation 98.7 % (92.0-98.0) H 98.5 % (92.0-98.0) H 94.6 % (92.0-98.0) Arterial Blood Base Excess 4.0 3.8 1.3 Travis Test Positive Positive Positive Current Medications Medications (Trade) Dose Ordered Sig/Jus Route PRN Reason Start Time Stop Time Status Last Admin Dose Admin Albuterol/ Ipratropium (Albuterol/ Ipratropium) 3 ml Q4H PRN HHN sob 02/21/18 09:45 02/26/18 09:44 Chlorhexidine Gluconate (Kim-Hex 2%) 1 applic DAILY@2000 TOPIC 02/19/18 20:30 03/21/18 20:29 02/20/18 20:09 Dextrose (Dextrose 50%) 25 ml STAT PRN IV Hypoglycemia 02/19/18 20:30 03/21/18 20:29 Dextrose (Dextrose 50%) 50 ml STAT PRN IV Hypoglycemia 02/19/18 20:30 03/21/18 20:29 Haloperidol Lactate 5 mg/ Dextrose 111 ml @ 444 mls/hr Q6H PRN IVPB agitation 02/19/18 21:00 03/21/18 20:29 Hydralazine HCl (Apresoline) 10 mg Q8H PRN IV For High Blood Pressure 02/19/18 20:30 03/21/18 20:29 Insulin Aspart (NovoLOG) BEFORE MEALS AND HS SUBQ 02/19/18 21:00 03/16/18 20:59 02/21/18 06:22 Insulin Detemir (Levemir) 7 units Q24H SUBQ 02/20/18 12:00 03/22/18 11:59 02/20/18 12:08 Meropenem 1 gm/ Sodium Chloride 55 ml @ 110 mls/hr Q12HR IVPB 02/19/18 21:00 02/23/18 12:29 02/21/18 09:31 Micafungin Sodium 100 mg/Sodium Chloride 110 ml @ 110 mls/hr Q24H IVPB 02/20/18 10:30 02/26/18 23:59 02/21/18 11:18 Nitroglycerin (Ntg) 0.4 mg Q5M PRN SL Prn Chest Pain 02/19/18 20:05 03/16/18 17:44 Norepinephrine Bitartrate 4 mg/ Dextrose 250 ml @ 0 mls/hr Q24H IV 02/19/18 20:20 03/21/18 20:19 02/20/18 04:26 Ondansetron HCl (Zofran) 4 mg Q6H PRN IVP Nausea & Vomiting 02/19/18 20:30 03/16/18 20:29 02/20/18 11:35 Pantoprazole (Protonix) 40 mg Q12HR IVP 02/20/18 21:00 03/23/18 08:59 02/21/18 09:31 Polyethylene Glycol (Miralax) 17 gm DAILYPRN PRN ORAL Constipation 02/19/18 20:30 03/21/18 20:29 Potassium Phosphate 15 mm/ Sodium Chloride 280 ml @ 46.667 mls/ hr ONCE ONCE IV 02/21/18 10:30 02/21/18 16:29 02/21/18 11:18 Sodium Chloride 1,000 ml @ 125 mls/hr Q8H IV 02/22/18 07:15 03/22/18 07:14 02/21/18 10:22 Vancomycin HCl (Vanco rx to dose) 1 ea DAILY PRN MISC Per rx protocol 02/20/18 09:00 03/21/18 09:29 Jose Landry MD Feb 21, 2018 12:24
--- NOTE | 2018-02-21 13:39 | General Progress Note ---
Progress Note Progress Note Surgery: off pressors. urine output improving. tolerating spont trail on vent. ng tube with bilious output abd soft, non distended, wound c/d/i. leukocytosis 17k. possible pneumonia. -wean vent. not ready for extubation -crawley. -iv fluids -iv abx -ng tube prognosis guarded but slowly improving. Miguel Freeman Feb 21, 2018 13:39
[2018-02-21] MEDS ORDERED: Tubing IV Secondary IV ONE (17:13)
[2018-02-21] MEDS: Dyna-Hex 2% Top Sol 2oz TOPIC SCH (19:43)
[2018-02-22] VITALS (26 sets, daily range): BP systolic 82–154; BP diastolic 31–86
[2018-02-22 05:55] LABS: HEMATOCRIT 28.2 % (37.0-47.0); HEMOGLOBIN 9.1 G/DL (12.0-16.0); MEAN CORPUSCULAR VOLUME 81 FL (80-99); PLATELET COUNT 131 K/UL (150-450); RED BLOOD COUNT 3.48 M/UL (4.20-5.40); RED CELL DISTRIBUTION WIDTH 12.5 % (11.6-14.8); WHITE BLOOD COUNT 15.4 K/UL (4.8-10.8)
[2018-02-22] MEDS: NovoLOG Insulin Flexpen SUBQ SCH ×4 (06:05→21:13)
[2018-02-22 06:44] LABS: ANION GAP 10 mmol/L (5-15); BLOOD UREA NITROGEN 22 mg/dL (7-18); CARBON DIOXIDE 25 MMOL/L (21-32); CHLORIDE 106 MMOL/L (98-107); CREATININE 1.9 MG/DL (0.55-1.30); POTASSIUM 3.1 MMOL/L (3.5-5.1); SODIUM 141 MMOL/L (136-145)
[2018-02-22] MEDS: Pantoprazole Inj IVP SCH ×2 (08:31→21:12)
[2018-02-22] MEDS: Meropenem 1 GM in NS 55 ML IVPB SCH ×2 (08:31→21:12)
--- NOTE | 2018-02-22 09:19 | Infectious Diseases Prog Note ---
Assessment/Plan Assessment/Plan Sepsis, improving- likely from SBO possibly due to adhesions -shock after surgery; now off pressors 02/19 SP lap with exploration. 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 hernia reduced and tumor with small bowel resected. primary anastomosis. -Small bowel w/ gastroffin: Subsequent small bowel study indicates that the prominent upper abdominal small bowel loops are proximal jejunal loops, and there is a transition point identifiable retrospect centrally in the mid abdomen distal to which loops are nondilated. There is a slight swirling of the vessels in this area, indicating this could be an internal hernia, although the presence of an incisional scar on the CT and the appearance on the small bowel study indicates that it is more likely due to adhesions. -CT abd/p: Mildly prominent gas and fluid-filled small bowel loops without definite transition point. Most likely on the basis of ileus/enteritis. Early small bowel obstruction not completely excludable but deemed less likely. Right basilar infiltrate, most likely pneumonia. Mild anasarca. Stable, presumably benign, right lobe liver lesion. Soria catheter within nondistended bladder. Mild scoliosis and degenerative spondylosis incidentally noted. - 02/21 CXR: Patchy ill-defined groundglass and reticular opacities in the lung bases bilaterally, right greater than left, suggesting subsegmental atelectasis +/- pneumonit -02/14 u/a wbc 60-80, nit +, leuk +3; Ucx Neg; repeat 02/15 UCx NTD -02/14 Bcx NTD -sp cx K. 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 -amylase, lipase normal -influenza sc neg Fever, SP Leukocytosis; improving Lactic acidosis; resolved Elevated LFTs, resolving 02/19 VDRF FARIBA, worsen HTN Dm2 constipation Alzheimer's Disease assisted living resident Plan: -Continue Meropenem # 5 (abx d# 9 ) and IV Vanco and Micafungin d# 4 (for enterococcal and ernst coverage in the setting of worsening leukocytosis and SBO.); will continue for 5- 7 day post-op and based on clinical improvement may DC IV Vanco soon or change to dapto if Cr increases further -02/18 SP Cefepime #5, Flagyl #4 -02/16 SP IV Vancomycin #3 -f/u cx -Monitor CBC/CMP, temperatures -Aspiration precautions -GI, Sx f/u -wound, ETT care Subjective Allergies: Coded Allergies: ESTROGENS (Verified Allergy, Unknown, 11/27/14) Uncoded Allergies: "estrogen" (Allergy, Unknown, 02/20/14) Subjective on ICU off pressors now Bcx NTD leukocytosis improving afebrile Objective Vital Signs Last 24 Hour Vital Signs Date Time Temp Pulse Resp B/P (MAP) Pulse Ox O2 Delivery O2 Flow Rate FiO2 02/22/18 08:25 25 02/22/18 08:00 98.9 106 16 123/46 100 Mechanical Ventilator 25 98.9 02/22/18 07:29 97 13 25 02/22/18 07:00 101 16 144/37 100 Mechanical Ventilator 25 02/22/18 06:00 101 16 144/37 100 Mechanical Ventilator 30 02/22/18 05:24 122 21 25 02/22/18 05:00 100 16 153/71 100 Mechanical Ventilator 30 02/22/18 04:00 107 02/22/18 04:00 99.1 107 16 126/86 100 Mechanical Ventilator 30 99.1 02/22/18 03:00 95 16 154/46 100 Mechanical Ventilator 30 02/22/18 02:55 107 25 25 02/22/18 02:00 91 16 115/38 100 Mechanical Ventilator 30 02/22/18 01:00 96 16 120/82 100 Mechanical Ventilator 30 02/22/18 00:57 121 20 25 02/22/18 00:00 98.6 88 13 106/41 100 Mechanical Ventilator 30 98.6 02/22/18 00:00 89 02/21/18 23:00 88 13 90/73 100 Mechanical Ventilator 30 02/21/18 22:50 91 12 25 02/21/18 22:00 92 12 105/41 100 Mechanical Ventilator 30 02/21/18 21:12 111 24 25 02/21/18 21:00 106 14 117/53 100 Mechanical Ventilator 30 02/21/18 20:20 163/48 02/21/18 20:00 99.0 106 18 163/48 100 Mechanical Ventilator 30 99.0 02/21/18 20:00 115 02/21/18 19:00 105 17 155/69 100 Mechanical Ventilator 30 02/21/18 18:56 114 17 25 02/21/18 18:00 111 17 158/65 100 Mechanical Ventilator 30 02/21/18 17:00 114 18 162/75 100 Mechanical Ventilator 30 02/21/18 16:45 115 25 25 02/21/18 16:00 115 02/21/18 16:00 104 18 133/73 100 Mechanical Ventilator 30 02/21/18 15:01 106 24 25 02/21/18 15:00 111 18 133/73 100 Mechanical Ventilator 30 02/21/18 14:00 110 18 133/73 100 Mechanical Ventilator 30 02/21/18 13:22 106 17 25 02/21/18 13:00 111 18 146/77 100 Mechanical Ventilator 30 02/21/18 12:00 103 02/21/18 12:00 98.9 107 18 157/89 100 Mechanical Ventilator 30 98.9 02/21/18 11:15 25 02/21/18 11:00 96 19 166/49 100 Mechanical Ventilator 30 02/21/18 10:38 96 15 30 02/21/18 10:00 103 19 166/51 100 Mechanical Ventilator 30 Height (Feet): 5 Height (Inches): 5.00 Weight (Pounds): 164 Objective General Appearance: cachetic Lines, tubes and drains: central line HEENT: normocephalic, atraumatic, PERRL Neck: normal alignment Respiratory/Chest: chest wall non-tender, normal breath sounds Cardiovascular/Chest: normal peripheral pulses, normal rate Abdomen: normal bowel sounds, non tender Genitourinary/Rectal: normal genital exam, normal rectal exam Extremities: non-pitting Microbiology Date/Time Source Procedure Growth Status 02/19/18 11:10 Blood Blood Culture - Preliminary NO GROWTH AFTER 48 HOURS Resulted 02/19/18 11:00 Blood Blood Culture - Preliminary NO GROWTH AFTER 48 HOURS Resulted Laboratory Tests Test 02/21/18 10:37 02/21/18 12:03 02/22/18 05:00 Arterial Blood pH 7.550 (7.350-7.450) 7.500 (7.350-7.450) Arterial Blood Partial Pressure CO2 29.6 mmHg (35.0-45.0) L 31.1 mmHg (35.0-45.0) L Arterial Blood Partial Pressure O2 128.5 mmHg (75.0-100.0) H 75.9 mmHg (75.0-100.0) Arterial Blood HCO3 25.7 mmol/L (22.0-26.0) 24.0 mmol/L (22.0-26.0) Arterial Blood Oxygen Saturation 98.5 % (92.0-98.0) H 94.6 % (92.0-98.0) Arterial Blood Base Excess 3.8 1.3 Travis Test Positive Positive White Blood Count 15.4 K/UL (4.8-10.8) H Red Blood Count 3.48 M/UL (4.20-5.40) L Hemoglobin 9.1 G/DL (12.0-16.0) L Hematocrit 28.2 % (37.0-47.0) L Mean Corpuscular Volume 81 FL (80-99) Mean Corpuscular Hemoglobin 26.1 PG (27.0-31.0) L Mean Corpuscular Hemoglobin Concent 32.3 G/DL (32.0-36.0) Red Cell Distribution Width 12.5 % (11.6-14.8) Platelet Count 131 K/UL (150-450) L Mean Platelet Volume 8.2 FL (6.5-10.1) Neutrophils (%) (Auto) % (45.0-75.0) Lymphocytes (%) (Auto) % (20.0-45.0) Monocytes (%) (Auto) % (1.0-10.0) Eosinophils (%) (Auto) % (0.0-3.0) Basophils (%) (Auto) % (0.0-2.0) Differential Total Cells Counted 100 Neutrophils % (Manual) 87 % (45-75) H Lymphocytes % (Manual) 8 % (20-45) L Monocytes % (Manual) 4 % (1-10) Eosinophils % (Manual) 1 % (0-3) Basophils % (Manual) 0 % (0-2) Band Neutrophils 0 % (0-8) Platelet Estimate Decreased L Platelet Morphology Normal Hypochromasia 1+ Microcytosis 1+ Schistocytes 1+ Urine Eosinophils None seen Sodium Level 141 MMOL/L (136-145) Potassium Level 3.1 MMOL/L (3.5-5.1) L Chloride Level 106 MMOL/L (98-107) Carbon Dioxide Level 25 MMOL/L (21-32) Anion Gap 10 mmol/L (5-15) Blood Urea Nitrogen 22 mg/dL (7-18) H Creatinine 1.9 MG/DL (0.55-1.30) H Estimat Glomerular Filtration Rate mL/min (>60) Glucose Level 143 MG/DL (74-106) H Calcium Level 9.0 MG/DL (8.5-10.1) Troponin I 0.082 ng/mL (0.000-0.056) Current Medications Medications (Trade) Dose Ordered Sig/Jus Route PRN Reason Start Time Stop Time Status Last Admin Dose Admin Albuterol/ Ipratropium (Albuterol/ Ipratropium) 3 ml Q4H PRN HHN sob 02/21/18 09:45 02/26/18 09:44 Chlorhexidine Gluconate (Kim-Hex 2%) 1 applic DAILY@2000 TOPIC 02/19/18 20:30 03/21/18 20:29 02/21/18 19:43 Dextrose (Dextrose 50%) 25 ml STAT PRN IV Hypoglycemia 02/19/18 20:30 03/21/18 20:29 Dextrose (Dextrose 50%) 50 ml STAT PRN IV Hypoglycemia 02/19/18 20:30 03/21/18 20:29 Haloperidol Lactate 5 mg/ Dextrose 111 ml @ 444 mls/hr Q6H PRN IVPB agitation 02/19/18 21:00 03/21/18 20:29 02/21/18 20:40 Hydralazine HCl (Apresoline) 10 mg Q8H PRN IV For High Blood Pressure 02/19/18 20:30 03/21/18 20:29 Insulin Aspart (NovoLOG) BEFORE MEALS AND HS SUBQ 02/19/18 21:00 03/16/18 20:59 02/22/18 06:05 Insulin Detemir (Levemir) 7 units Q24H SUBQ 02/20/18 12:00 03/22/18 11:59 02/20/18 12:08 Meropenem 1 gm/ Sodium Chloride 55 ml @ 110 mls/hr Q12HR IVPB 02/19/18 21:00 02/23/18 12:29 02/22/18 08:31 Micafungin Sodium 100 mg/Sodium Chloride 110 ml @ 110 mls/hr Q24H IVPB 02/20/18 10:30 02/26/18 23:59 02/21/18 11:18 Nitroglycerin (Ntg) 0.4 mg Q5M PRN SL Prn Chest Pain 02/19/18 20:05 03/16/18 17:44 Norepinephrine Bitartrate 4 mg/ Dextrose 250 ml @ 0 mls/hr Q24H IV 02/19/18 20:20 03/21/18 20:19 02/20/18 04:26 Ondansetron HCl (Zofran) 4 mg Q6H PRN IVP Nausea & Vomiting 02/19/18 20:30 03/16/18 20:29 02/20/18 11:35 Pantoprazole (Protonix) 40 mg Q12HR IVP 02/20/18 21:00 03/23/18 08:59 02/22/18 08:31 Polyethylene Glycol (Miralax) 17 gm DAILYPRN PRN ORAL Constipation 02/19/18 20:30 03/21/18 20:29 Potassium Chloride 100 ml @ 100 mls/hr Q1HR IVPB 02/22/18 09:00 02/22/18 10:59 UNV Sodium Chloride 1,000 ml @ 125 mls/hr Q8H IV 02/22/18 07:15 03/22/18 07:14 02/22/18 02:34 Vancomycin HCl (Vanco rx to dose) 1 ea DAILY PRN MISC Per rx protocol 02/20/18 09:00 03/21/18 09:29 Brianna Root M.D. Feb 22, 2018 09:19
[2018-02-22] MEDS: Micafungin 100 MG in NS 110 ML IVPB SCH (09:42)
--- NOTE | 2018-02-22 10:16 | Diagnostic Imaging Report ---
Indication: Dyspnea Technique: One view of the chest Comparison: and 2017 Findings: The lungs and pleural spaces are clear. Better aeration currently, with resolution of previously demonstrated basilar atelectatic changes. Stable satisfactory positions of endotracheal and nasogastric tubes. Degenerative changes of both shoulders noted Impression: No acute pulmonary process Stable satisfactory tube and line positions, as described
--- NOTE | 2018-02-22 10:26 | Pulmonolgy Critical Care Note ---
Critical Care - Asmt/Plan Problems: (1) Ileus (2) S/P laparotomy (3) SBO (small bowel obstruction) (4) Acute renal failure (5) end stage alzheimrers dementia (6) Diabetes Respiratory: monitor respiratory rate, adjust FIO2, CXR, other - wean and extubate Cardiac: continue to monitor HR/BP Renal: F/U I&O, keep IV fluid Infectious Disease: check cultures Gastrointestinal: continue feedings/current rate Endocrine: monitor blood sugar Hematologic: monitor H/H Neurologic: PRN Ativan Affect: PRN ativan Disposition: keep in ICU Notes Reviewed: patcher helper, cardio Discussed with: nurses, consultants Critical Care - Objective Last 24 Hour Vital Signs Date Time Temp Pulse Resp B/P (MAP) Pulse Ox O2 Delivery O2 Flow Rate FiO2 02/22/18 09:29 104 18 25 02/22/18 08:25 25 02/22/18 08:00 98.9 106 16 123/46 100 Mechanical Ventilator 25 98.9 02/22/18 07:29 97 13 25 02/22/18 07:00 101 16 144/37 100 Mechanical Ventilator 25 02/22/18 06:00 101 16 144/37 100 Mechanical Ventilator 30 02/22/18 05:24 122 21 25 02/22/18 05:00 100 16 153/71 100 Mechanical Ventilator 30 02/22/18 04:00 107 02/22/18 04:00 99.1 107 16 126/86 100 Mechanical Ventilator 30 99.1 02/22/18 03:00 95 16 154/46 100 Mechanical Ventilator 30 02/22/18 02:55 107 25 25 02/22/18 02:00 91 16 115/38 100 Mechanical Ventilator 30 02/22/18 01:00 96 16 120/82 100 Mechanical Ventilator 30 02/22/18 00:57 121 20 25 02/22/18 00:00 98.6 88 13 106/41 100 Mechanical Ventilator 30 98.6 02/22/18 00:00 89 02/21/18 23:00 88 13 90/73 100 Mechanical Ventilator 30 02/21/18 22:50 91 12 25 02/21/18 22:00 92 12 105/41 100 Mechanical Ventilator 30 02/21/18 21:12 111 24 25 02/21/18 21:00 106 14 117/53 100 Mechanical Ventilator 30 02/21/18 20:20 163/48 02/21/18 20:00 99.0 106 18 163/48 100 Mechanical Ventilator 30 99.0 02/21/18 20:00 115 02/21/18 19:00 105 17 155/69 100 Mechanical Ventilator 30 02/21/18 18:56 114 17 25 02/21/18 18:00 111 17 158/65 100 Mechanical Ventilator 30 02/21/18 17:00 114 18 162/75 100 Mechanical Ventilator 30 02/21/18 16:45 115 25 25 02/21/18 16:00 115 02/21/18 16:00 104 18 133/73 100 Mechanical Ventilator 30 02/21/18 15:01 106 24 25 02/21/18 15:00 111 18 133/73 100 Mechanical Ventilator 30 02/21/18 14:00 110 18 133/73 100 Mechanical Ventilator 30 02/21/18 13:22 106 17 25 02/21/18 13:00 111 18 146/77 100 Mechanical Ventilator 30 02/21/18 12:00 103 02/21/18 12:00 98.9 107 18 157/89 100 Mechanical Ventilator 30 98.9 02/21/18 11:15 25 02/21/18 11:00 96 19 166/49 100 Mechanical Ventilator 30 02/21/18 10:38 96 15 30 Status: awake Condition: critical Neck: full ROM Lungs: clear Heart: HR/BP stable Abdomen: soft, non-tender Extremities: no C/C/E Micro: Microbiology Date/Time Source Procedure Growth Status 02/19/18 11:10 Blood Blood Culture - Preliminary NO GROWTH AFTER 48 HOURS Resulted 02/19/18 11:00 Blood Blood Culture - Preliminary NO GROWTH AFTER 48 HOURS Resulted Accucheck: 127 Critical Care - Subjective ROS Limited/Unobtainable: Yes ICU Day: 3 Intubation Day: 3 Condition: critical EKG Rhythm: Sinus Rhythm FI02: 25 Vent Support Breath Rate: 12 Vent Support Mode: CPAP Vent Tidal Volume: 500 Sputum Amount: Moderate PEEP: 5.0 PIP: 23 Fluids: NS 100 cc/hour I&O: Intake and Output 02/21/18 02/22/18 19:00 07:00 Intake Total 1753.336 ml 1375 ml Output Total 2180 ml 4830 ml Balance -426.664 ml -3455 ml IV Total 1753.336 ml 1375 ml Output Urine Total 1280 ml 1080 ml Stool Total 0 ml Gastric Drainage Total 150 ml Other 900 ml 3600 ml CXR: clear ET-Tube: 8.0 ET Position: 23 Labs: Laboratory Tests Test 02/21/18 10:37 02/21/18 12:03 02/22/18 05:00 02/22/18 10:13 Arterial Blood pH 7.550 (7.350-7.450) 7.500 (7.350-7.450) Pending Arterial Blood Partial Pressure CO2 29.6 mmHg (35.0-45.0) L 31.1 mmHg (35.0-45.0) L Pending Arterial Blood Partial Pressure O2 128.5 mmHg (75.0-100.0) H 75.9 mmHg (75.0-100.0) Pending Arterial Blood HCO3 25.7 mmol/L (22.0-26.0) 24.0 mmol/L (22.0-26.0) Pending Arterial Blood Oxygen Saturation 98.5 % (92.0-98.0) H 94.6 % (92.0-98.0) Pending Arterial Blood Base Excess 3.8 1.3 Pending Travis Test Positive Positive Pending White Blood Count 15.4 K/UL (4.8-10.8) H Red Blood Count 3.48 M/UL (4.20-5.40) L Hemoglobin 9.1 G/DL (12.0-16.0) L Hematocrit 28.2 % (37.0-47.0) L Mean Corpuscular Volume 81 FL (80-99) Mean Corpuscular Hemoglobin 26.1 PG (27.0-31.0) L Mean Corpuscular Hemoglobin Concent 32.3 G/DL (32.0-36.0) Red Cell Distribution Width 12.5 % (11.6-14.8) Platelet Count 131 K/UL (150-450) L Mean Platelet Volume 8.2 FL (6.5-10.1) Neutrophils (%) (Auto) % (45.0-75.0) Lymphocytes (%) (Auto) % (20.0-45.0) Monocytes (%) (Auto) % (1.0-10.0) Eosinophils (%) (Auto) % (0.0-3.0) Basophils (%) (Auto) % (0.0-2.0) Differential Total Cells Counted 100 Neutrophils % (Manual) 87 % (45-75) H Lymphocytes % (Manual) 8 % (20-45) L Monocytes % (Manual) 4 % (1-10) Eosinophils % (Manual) 1 % (0-3) Basophils % (Manual) 0 % (0-2) Band Neutrophils 0 % (0-8) Platelet Estimate Decreased L Platelet Morphology Normal Hypochromasia 1+ Microcytosis 1+ Schistocytes 1+ Urine Eosinophils None seen Sodium Level 141 MMOL/L (136-145) Potassium Level 3.1 MMOL/L (3.5-5.1) L Chloride Level 106 MMOL/L (98-107) Carbon Dioxide Level 25 MMOL/L (21-32) Anion Gap 10 mmol/L (5-15) Blood Urea Nitrogen 22 mg/dL (7-18) H Creatinine 1.9 MG/DL (0.55-1.30) H Estimat Glomerular Filtration Rate mL/min (>60) Glucose Level 143 MG/DL (74-106) H Calcium Level 9.0 MG/DL (8.5-10.1) Troponin I 0.082 ng/mL (0.000-0.056) Tiago Cason MD Feb 22, 2018 10:26
--- NOTE | 2018-02-22 11:11 | GI Progress Note ---
Assessment/Plan Problems: (1) Altered mental status ICD Codes: R41.82 - Altered mental status, unspecified SNOMED: 796507395 (2) At high risk for aspiration ICD Codes: Z91.89 - At high risk for aspiration SNOMED: 776113161 (3) Anemia ICD Codes: D64.9 - Anemia SNOMED: 657454773 (4) Ileus ICD Codes: K56.7 - Ileus, unspecified SNOMED: 187550248 (5) SBO (small bowel obstruction) ICD Codes: K56.609 - Unspecified intestinal obstruction, unspecified as to partial versus complete obstruction SNOMED: 292255794 (6) Coffee ground emesis ICD Codes: K92.0 - Hematemesis SNOMED: 70128424, 527405610 Status: progressing, unchanged Status Narrative Discussed with Dr. Montoya. Assessment/Plan hep panel negative s/p SB surgery NPO + IVFs NGT diet per surgery serial imaging prn electrolyte correction ppi BID fu labs The patient was seen and examined at bedside and all new and available data was reviewed in the patients chart. I agree with the above findings, impression and plan. (Patient seen earlier today. Signature stamp does not reflect patient encounter time.). - Jesse Montoya MD Subjective Subjective limited Objective Last 24 Hour Vital Signs Date Time Temp Pulse Resp B/P (MAP) Pulse Ox O2 Delivery O2 Flow Rate FiO2 02/22/18 09:29 104 18 25 02/22/18 08:25 25 02/22/18 08:00 98.9 106 16 123/46 100 Mechanical Ventilator 25 98.9 02/22/18 07:29 97 13 25 02/22/18 07:00 101 16 144/37 100 Mechanical Ventilator 25 02/22/18 06:00 101 16 144/37 100 Mechanical Ventilator 30 02/22/18 05:24 122 21 25 02/22/18 05:00 100 16 153/71 100 Mechanical Ventilator 30 02/22/18 04:00 107 02/22/18 04:00 99.1 107 16 126/86 100 Mechanical Ventilator 30 99.1 02/22/18 03:00 95 16 154/46 100 Mechanical Ventilator 30 02/22/18 02:55 107 25 25 02/22/18 02:00 91 16 115/38 100 Mechanical Ventilator 30 02/22/18 01:00 96 16 120/82 100 Mechanical Ventilator 30 02/22/18 00:57 121 20 25 02/22/18 00:00 98.6 88 13 106/41 100 Mechanical Ventilator 30 98.6 02/22/18 00:00 89 02/21/18 23:00 88 13 90/73 100 Mechanical Ventilator 30 02/21/18 22:50 91 12 25 02/21/18 22:00 92 12 105/41 100 Mechanical Ventilator 30 02/21/18 21:12 111 24 25 02/21/18 21:00 106 14 117/53 100 Mechanical Ventilator 30 02/21/18 20:20 163/48 02/21/18 20:00 99.0 106 18 163/48 100 Mechanical Ventilator 30 99.0 02/21/18 20:00 115 02/21/18 19:00 105 17 155/69 100 Mechanical Ventilator 30 02/21/18 18:56 114 17 25 02/21/18 18:00 111 17 158/65 100 Mechanical Ventilator 30 02/21/18 17:00 114 18 162/75 100 Mechanical Ventilator 30 02/21/18 16:45 115 25 25 02/21/18 16:00 115 02/21/18 16:00 104 18 133/73 100 Mechanical Ventilator 30 02/21/18 15:01 106 24 25 02/21/18 15:00 111 18 133/73 100 Mechanical Ventilator 30 02/21/18 14:00 110 18 133/73 100 Mechanical Ventilator 30 02/21/18 13:22 106 17 25 02/21/18 13:00 111 18 146/77 100 Mechanical Ventilator 30 02/21/18 12:00 103 02/21/18 12:00 98.9 107 18 157/89 100 Mechanical Ventilator 30 98.9 02/21/18 11:15 25 Intake and Output 02/21/18 02/22/18 19:00 07:00 Intake Total 1753.336 ml 1375 ml Output Total 2180 ml 4830 ml Balance -426.664 ml -3455 ml IV Total 1753.336 ml 1375 ml Output Urine Total 1280 ml 1080 ml Stool Total 0 ml Gastric Drainage Total 150 ml Other 900 ml 3600 ml Laboratory Tests Test 02/21/18 12:03 02/22/18 05:00 02/22/18 10:13 Arterial Blood pH 7.500 (7.350-7.450) 7.490 (7.350-7.450) Arterial Blood Partial Pressure CO2 31.1 mmHg (35.0-45.0) L 33.6 mmHg (35.0-45.0) L Arterial Blood Partial Pressure O2 75.9 mmHg (75.0-100.0) 80.4 mmHg (75.0-100.0) Arterial Blood HCO3 24.0 mmol/L (22.0-26.0) 25.5 mmol/L (22.0-26.0) Arterial Blood Oxygen Saturation 94.6 % (92.0-98.0) 95.7 % (92.0-98.0) Arterial Blood Base Excess 1.3 2.4 Travis Test Positive Positive White Blood Count 15.4 K/UL (4.8-10.8) H Red Blood Count 3.48 M/UL (4.20-5.40) L Hemoglobin 9.1 G/DL (12.0-16.0) L Hematocrit 28.2 % (37.0-47.0) L Mean Corpuscular Volume 81 FL (80-99) Mean Corpuscular Hemoglobin 26.1 PG (27.0-31.0) L Mean Corpuscular Hemoglobin Concent 32.3 G/DL (32.0-36.0) Red Cell Distribution Width 12.5 % (11.6-14.8) Platelet Count 131 K/UL (150-450) L Mean Platelet Volume 8.2 FL (6.5-10.1) Neutrophils (%) (Auto) % (45.0-75.0) Lymphocytes (%) (Auto) % (20.0-45.0) Monocytes (%) (Auto) % (1.0-10.0) Eosinophils (%) (Auto) % (0.0-3.0) Basophils (%) (Auto) % (0.0-2.0) Differential Total Cells Counted 100 Neutrophils % (Manual) 87 % (45-75) H Lymphocytes % (Manual) 8 % (20-45) L Monocytes % (Manual) 4 % (1-10) Eosinophils % (Manual) 1 % (0-3) Basophils % (Manual) 0 % (0-2) Band Neutrophils 0 % (0-8) Platelet Estimate Decreased L Platelet Morphology Normal Hypochromasia 1+ Microcytosis 1+ Schistocytes 1+ Urine Eosinophils None seen Sodium Level 141 MMOL/L (136-145) Potassium Level 3.1 MMOL/L (3.5-5.1) L Chloride Level 106 MMOL/L (98-107) Carbon Dioxide Level 25 MMOL/L (21-32) Anion Gap 10 mmol/L (5-15) Blood Urea Nitrogen 22 mg/dL (7-18) H Creatinine 1.9 MG/DL (0.55-1.30) H Estimat Glomerular Filtration Rate mL/min (>60) Glucose Level 143 MG/DL (74-106) H Calcium Level 9.0 MG/DL (8.5-10.1) Troponin I 0.082 ng/mL (0.000-0.056) Height (Feet): 5 Height (Inches): 5.00 Weight (Pounds): 164 General Appearance: WD/WN, no apparent distress, alert Cardiovascular: normal rate Respiratory/Chest: normal breath sounds, no respiratory distress Abdominal Exam: normal bowel sounds, non tender, soft, GT site - c/d/i Extremities: normal range of motion, non-tender Mi Galeas NP Feb 22, 2018 11:11
--- NOTE | 2018-02-22 11:32 | General Progress Note ---
Assessment/Plan Status: unchanged Assessment/Plan #. Leukocytosis, likely secondary to recent surgery. --> Closely monitor for improvement. On abx as per ID --> Current wbc is better, closely monitor #. Anemia of chronic disease --> reviewed anemia panel, does not need further workup unless hgb less than 10 #. Acute kidney injury. Creatinine currently 2.6. --> Closely monitor potentially secondary to acute tubular necrosis secondary to hypovolemia. #. Severe sepsis secondary to small bowel obstruction. #. Hypertension --> systolic blood pressure goal less than 140. #. Status post laparoscopic converted to an exploratory laparotomy with small bowel removal, repair of enterotomy, extensive lysis of adhesions. #. Diabetes mellitus, type 1. #. Acute encephalopathy due to Alzheimer disease. Subjective Date patient seen: Feb 22, 2018 Allergies: Coded Allergies: ESTROGENS (Verified Allergy, Unknown, 11/27/14) Uncoded Allergies: "estrogen" (Allergy, Unknown, 02/20/14) All Systems: reviewed and negative except above Subjective Pt in ICU, unable to communicate and hypoactive bowel sounds. NO BM since arrival to ICU Objective Last 24 Hour Vital Signs Date Time Temp Pulse Resp B/P (MAP) Pulse Ox O2 Delivery O2 Flow Rate FiO2 02/22/18 09:29 104 18 25 02/22/18 08:25 25 02/22/18 08:00 98.9 106 16 123/46 100 Mechanical Ventilator 25 98.9 02/22/18 07:29 97 13 25 02/22/18 07:00 101 16 144/37 100 Mechanical Ventilator 25 02/22/18 06:00 101 16 144/37 100 Mechanical Ventilator 30 02/22/18 05:24 122 21 25 02/22/18 05:00 100 16 153/71 100 Mechanical Ventilator 30 02/22/18 04:00 107 02/22/18 04:00 99.1 107 16 126/86 100 Mechanical Ventilator 30 99.1 02/22/18 03:00 95 16 154/46 100 Mechanical Ventilator 30 02/22/18 02:55 107 25 25 02/22/18 02:00 91 16 115/38 100 Mechanical Ventilator 30 02/22/18 01:00 96 16 120/82 100 Mechanical Ventilator 30 02/22/18 00:57 121 20 25 02/22/18 00:00 98.6 88 13 106/41 100 Mechanical Ventilator 30 98.6 02/22/18 00:00 89 02/21/18 23:00 88 13 90/73 100 Mechanical Ventilator 30 02/21/18 22:50 91 12 25 02/21/18 22:00 92 12 105/41 100 Mechanical Ventilator 30 02/21/18 21:12 111 24 25 02/21/18 21:00 106 14 117/53 100 Mechanical Ventilator 30 02/21/18 20:20 163/48 02/21/18 20:00 99.0 106 18 163/48 100 Mechanical Ventilator 30 99.0 02/21/18 20:00 115 02/21/18 19:00 105 17 155/69 100 Mechanical Ventilator 30 02/21/18 18:56 114 17 25 02/21/18 18:00 111 17 158/65 100 Mechanical Ventilator 30 02/21/18 17:00 114 18 162/75 100 Mechanical Ventilator 30 02/21/18 16:45 115 25 25 02/21/18 16:00 115 02/21/18 16:00 104 18 133/73 100 Mechanical Ventilator 30 02/21/18 15:01 106 24 25 02/21/18 15:00 111 18 133/73 100 Mechanical Ventilator 30 02/21/18 14:00 110 18 133/73 100 Mechanical Ventilator 30 02/21/18 13:22 106 17 25 02/21/18 13:00 111 18 146/77 100 Mechanical Ventilator 30 02/21/18 12:00 103 02/21/18 12:00 98.9 107 18 157/89 100 Mechanical Ventilator 30 98.9 Intake and Output 02/21/18 02/22/18 19:00 07:00 Intake Total 1753.336 ml 1375 ml Output Total 2180 ml 4830 ml Balance -426.664 ml -3455 ml IV Total 1753.336 ml 1375 ml Output Urine Total 1280 ml 1080 ml Stool Total 0 ml Gastric Drainage Total 150 ml Other 900 ml 3600 ml Laboratory Tests 02/21/18 12:03: Arterial Blood pH 7.500H, Arterial Blood Partial Pressure CO2 31.1L, Arterial Blood Partial Pressure O2 75.9, Arterial Blood HCO3 24.0, Arterial Blood Oxygen Saturation 94.6, Arterial Blood Base Excess 1.3, Travis Test Positive 02/22/18 05:00: White Blood Count 15.4H, Red Blood Count 3.48L, Hemoglobin 9.1L, Hematocrit 28.2L, Mean Corpuscular Volume 81, Mean Corpuscular Hemoglobin 26.1L, Mean Corpuscular Hemoglobin Concent 32.3, Red Cell Distribution Width 12.5, Platelet Count 131L, Mean Platelet Volume 8.2, Neutrophils (%) (Auto) , Lymphocytes (%) ( Auto) , Monocytes (%) (Auto) , Eosinophils (%) (Auto) , Basophils (%) (Auto) , Differential Total Cells Counted 100, Neutrophils % (Manual) 87H, Lymphocytes % (Manual) 8L, Monocytes % (Manual) 4, Eosinophils % (Manual) 1, Basophils % ( Manual) 0, Band Neutrophils 0, Platelet Estimate DecreasedL, Platelet Morphology Normal, Hypochromasia 1+, Microcytosis 1+, Schistocytes 1+, Urine Eosinophils None seen, Sodium Level 141, Potassium Level 3.1L, Chloride Level 106, Carbon Dioxide Level 25, Anion Gap 10, Blood Urea Nitrogen 22H, Creatinine 1.9H, Estimat Glomerular Filtration Rate , Glucose Level 143H, Calcium Level 9.0 , Troponin I 0.082H 02/22/18 10:13: Arterial Blood pH 7.490H, Arterial Blood Partial Pressure CO2 33.6L, Arterial Blood Partial Pressure O2 80.4, Arterial Blood HCO3 25.5, Arterial Blood Oxygen Saturation 95.7, Arterial Blood Base Excess 2.4, Travis Test Positive Height (Feet): 5 Height (Inches): 5.00 Weight (Pounds): 164 General Appearance: WD/WN, no apparent distress EENT: PERRL/EOMI Neck: limited range of motion Cardiovascular: normal peripheral pulses Respiratory/Chest: no respiratory distress Abdomen: soft Karan Carrero MD Feb 22, 2018 11:31
[2018-02-22] MEDS: Levemir Flexpen SUBQ SCH (11:51)
--- NOTE | 2018-02-22 13:02 | Cardiology Progress Note ---
Assessment/Plan Status: stable, progressing Assessment/Plan /p 02/19 laparoscopy converted to exploratory laparotomy with small bowel resection, repair of enterotomy, extensive lysis of adhesions, and abdominal washout. Wean vent as tolerated, pulmonary toilet, nebs, suctioning Tachycardia secondary to post surgical inflammation/fluid shifts Continue antibiotics TPN Fluids Zofran DVT ppx Wean pressors as tolerated Supportive care Subjective Cardiovascular: Reports: no symptoms Respiratory: Reports: no symptoms Gastrointestinal/Abdominal: Reports: no symptoms Genitourinary: Reports: no symptoms Subjective s/p 02/19 laparoscopy converted to exploratory laparotomy with small bowel resection, repair of enterotomy, extensive lysis of adhesions, and abdominal washout. Vitals stable, patient stable on vent, WBC coming down, creatinine stable, vitals stable Objective Last 24 Hour Vital Signs Date Time Temp Pulse Resp B/P (MAP) Pulse Ox O2 Delivery O2 Flow Rate FiO2 02/22/18 10:00 98 Nasal Cannula 2.0 28 02/22/18 10:00 Nasal Cannula 2.0 28 02/22/18 09:45 Nasal Cannula 2.0 28 02/22/18 09:29 104 18 25 02/22/18 08:25 25 02/22/18 08:00 98.9 106 16 123/46 100 Mechanical Ventilator 25 98.9 02/22/18 07:29 97 13 25 02/22/18 07:00 101 16 144/37 100 Mechanical Ventilator 25 02/22/18 06:00 101 16 144/37 100 Mechanical Ventilator 30 02/22/18 05:24 122 21 25 02/22/18 05:00 100 16 153/71 100 Mechanical Ventilator 30 02/22/18 04:00 107 02/22/18 04:00 99.1 107 16 126/86 100 Mechanical Ventilator 30 99.1 02/22/18 03:00 95 16 154/46 100 Mechanical Ventilator 30 02/22/18 02:55 107 25 25 02/22/18 02:00 91 16 115/38 100 Mechanical Ventilator 30 02/22/18 01:00 96 16 120/82 100 Mechanical Ventilator 30 02/22/18 00:57 121 20 25 02/22/18 00:00 98.6 88 13 106/41 100 Mechanical Ventilator 30 98.6 02/22/18 00:00 89 02/21/18 23:00 88 13 90/73 100 Mechanical Ventilator 30 02/21/18 22:50 91 12 25 02/21/18 22:00 92 12 105/41 100 Mechanical Ventilator 30 02/21/18 21:12 111 24 25 02/21/18 21:00 106 14 117/53 100 Mechanical Ventilator 30 02/21/18 20:20 163/48 02/21/18 20:00 99.0 106 18 163/48 100 Mechanical Ventilator 30 99.0 02/21/18 20:00 115 02/21/18 19:00 105 17 155/69 100 Mechanical Ventilator 30 02/21/18 18:56 114 17 25 02/21/18 18:00 111 17 158/65 100 Mechanical Ventilator 30 02/21/18 17:00 114 18 162/75 100 Mechanical Ventilator 30 02/21/18 16:45 115 25 25 02/21/18 16:00 115 02/21/18 16:00 104 18 133/73 100 Mechanical Ventilator 30 02/21/18 15:01 106 24 25 02/21/18 15:00 111 18 133/73 100 Mechanical Ventilator 30 02/21/18 14:00 110 18 133/73 100 Mechanical Ventilator 30 02/21/18 13:22 106 17 25 General Appearance: no apparent distress, on vent EENT: PERRL/EOMI Neck: non-tender Rhythm: NSR Cardiovascular: normal peripheral pulses Respiratory/Chest: chest wall non-tender Abdomen: hypoactive bowel sounds Extremities: normal range of motion 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 Intake and Output 02/21/18 02/22/18 19:00 07:00 Intake Total 1753.336 ml 1375 ml Output Total 2180 ml 4830 ml Balance -426.664 ml -3455 ml IV Total 1753.336 ml 1375 ml Output Urine Total 1280 ml 1080 ml Stool Total 0 ml Gastric Drainage Total 150 ml Other 900 ml 3600 ml Laboratory Tests Test 02/22/18 05:00 02/22/18 10:13 White Blood Count 15.4 K/UL (4.8-10.8) H Red Blood Count 3.48 M/UL (4.20-5.40) L Hemoglobin 9.1 G/DL (12.0-16.0) L Hematocrit 28.2 % (37.0-47.0) L Mean Corpuscular Volume 81 FL (80-99) Mean Corpuscular Hemoglobin 26.1 PG (27.0-31.0) L Mean Corpuscular Hemoglobin Concent 32.3 G/DL (32.0-36.0) Red Cell Distribution Width 12.5 % (11.6-14.8) Platelet Count 131 K/UL (150-450) L Mean Platelet Volume 8.2 FL (6.5-10.1) Neutrophils (%) (Auto) % (45.0-75.0) Lymphocytes (%) (Auto) % (20.0-45.0) Monocytes (%) (Auto) % (1.0-10.0) Eosinophils (%) (Auto) % (0.0-3.0) Basophils (%) (Auto) % (0.0-2.0) Differential Total Cells Counted 100 Neutrophils % (Manual) 87 % (45-75) H Lymphocytes % (Manual) 8 % (20-45) L Monocytes % (Manual) 4 % (1-10) Eosinophils % (Manual) 1 % (0-3) Basophils % (Manual) 0 % (0-2) Band Neutrophils 0 % (0-8) Platelet Estimate Decreased L Platelet Morphology Normal Hypochromasia 1+ Microcytosis 1+ Schistocytes 1+ Urine Eosinophils None seen Sodium Level 141 MMOL/L (136-145) Potassium Level 3.1 MMOL/L (3.5-5.1) L Chloride Level 106 MMOL/L (98-107) Carbon Dioxide Level 25 MMOL/L (21-32) Anion Gap 10 mmol/L (5-15) Blood Urea Nitrogen 22 mg/dL (7-18) H Creatinine 1.9 MG/DL (0.55-1.30) H Estimat Glomerular Filtration Rate mL/min (>60) Glucose Level 143 MG/DL (74-106) H Calcium Level 9.0 MG/DL (8.5-10.1) Troponin I 0.082 ng/mL (0.000-0.056) Arterial Blood pH 7.490 (7.350-7.450) Arterial Blood Partial Pressure CO2 33.6 mmHg (35.0-45.0) L Arterial Blood Partial Pressure O2 80.4 mmHg (75.0-100.0) Arterial Blood HCO3 25.5 mmol/L (22.0-26.0) Arterial Blood Oxygen Saturation 95.7 % (92.0-98.0) Arterial Blood Base Excess 2.4 Travis Test Positive Ant Gu M.D. Feb 22, 2018 13:02
--- NOTE | 2018-02-22 13:38 | Cardiology Report ---
APPROVED REPORT EKG Measurement Heart [id number] CA [id number] Sinus tachycardia with occasional premature ventricular complexes Nonspecific ST and T wave abnormality Abnormal ECG
[2018-02-22] MEDS ORDERED: Tubing IV Secondary IV ONE ×4 (15:24→16:58)
--- NOTE | 2018-02-22 15:35 | General Progress Note ---
Progress Note Progress Note Surgery: leukocytosis improving. labs improving. extubated this AM and doing well. abdominal exam stable. wounds c/d/i. ng tube with minimal output -okay to start tube feeds at 10cc through ng tube -cont abx -trend labs -picc line today. d/c central line -will follow with recs. thank you Miguel Freeman Feb 22, 2018 15:35
--- NOTE | 2018-02-22 15:49 | Nephrology Progress Note ---
Assessment/Plan Problem List: (1) Acute renal failure (2) SBO (small bowel obstruction) (3) Anemia (4) Diabetes Assessment Severe sepsis ( secondary to small bowel obstruction) septic shock Acute respiratory failure requiring intubation Acute encephalopathy ( due to sepsis) on chronic end-stage Alzheimer dementia Acute renal failure, probably ATN due to unstable hemodynamics Urine out put improving Pneumonia with Klebsiella Small bowel obstruction s/p 02/19 laparoscopy converted to exploratory laparotomy with small bowel resection, repair of enterotomy, extensive lysis of adhesions, and abdominal washout. Hematemesis Electrolyte imbalance Anemia Diabetes mellitus h/o Hypertension Aspiration risk Severe protein calorie malnutrition Plan Mag and Phos supplement as needed Post Op care- pulmonary support Monitor renal parameters, Urine output, Avoid Nephrotoxics Keep BP above 100 syst Keep BS in check Subjective ROS Limited/Unobtainable: No Constitutional: Reports: malaise, weakness Objective Objective Last 24 Hour Vital Signs Date Time Temp Pulse Resp B/P (MAP) Pulse Ox O2 Delivery O2 Flow Rate FiO2 02/22/18 15:00 104 16 114/45 100 Mechanical Ventilator 25 02/22/18 14:00 90 16 145/53 100 Mechanical Ventilator 25 02/22/18 13:00 87 16 120/79 100 Mechanical Ventilator 25 02/22/18 12:00 82 16 123/75 100 Mechanical Ventilator 25 02/22/18 12:00 102 02/22/18 12:00 96 02/22/18 12:00 96 02/22/18 11:00 81 16 109/70 100 Mechanical Ventilator 25 02/22/18 10:00 82 16 122/70 100 Mechanical Ventilator 25 02/22/18 10:00 98 Nasal Cannula 2.0 28 02/22/18 10:00 Nasal Cannula 2.0 28 02/22/18 09:45 Nasal Cannula 2.0 28 02/22/18 09:29 104 18 25 02/22/18 09:00 84 16 104/64 100 Mechanical Ventilator 25 02/22/18 08:25 25 02/22/18 08:00 98.9 106 16 123/46 100 Mechanical Ventilator 25 98.9 02/22/18 08:00 94 02/22/18 08:00 96 02/22/18 07:29 97 13 25 02/22/18 07:00 101 16 144/37 100 Mechanical Ventilator 25 02/22/18 06:00 101 16 144/37 100 Mechanical Ventilator 30 02/22/18 05:24 122 21 25 02/22/18 05:00 100 16 153/71 100 Mechanical Ventilator 30 02/22/18 04:00 107 02/22/18 04:00 99.1 107 16 126/86 100 Mechanical Ventilator 30 99.1 02/22/18 03:00 95 16 154/46 100 Mechanical Ventilator 30 02/22/18 02:55 107 25 25 02/22/18 02:00 91 16 115/38 100 Mechanical Ventilator 30 02/22/18 01:00 96 16 120/82 100 Mechanical Ventilator 30 02/22/18 00:57 121 20 25 02/22/18 00:00 98.6 88 13 106/41 100 Mechanical Ventilator 30 98.6 02/22/18 00:00 89 02/21/18 23:00 88 13 90/73 100 Mechanical Ventilator 30 02/21/18 22:50 91 12 25 02/21/18 22:00 92 12 105/41 100 Mechanical Ventilator 30 02/21/18 21:12 111 24 25 02/21/18 21:00 106 14 117/53 100 Mechanical Ventilator 30 02/21/18 20:20 163/48 02/21/18 20:00 99.0 106 18 163/48 100 Mechanical Ventilator 30 99.0 02/21/18 20:00 115 02/21/18 19:00 105 17 155/69 100 Mechanical Ventilator 30 02/21/18 18:56 114 17 25 02/21/18 18:00 111 17 158/65 100 Mechanical Ventilator 30 02/21/18 17:00 114 18 162/75 100 Mechanical Ventilator 30 02/21/18 16:45 115 25 25 02/21/18 16:00 115 02/21/18 16:00 104 18 133/73 100 Mechanical Ventilator 30 Intake and Output 02/21/18 02/22/18 19:00 07:00 Intake Total 1753.336 ml 1375 ml Output Total 2180 ml 4830 ml Balance -426.664 ml -3455 ml IV Total 1753.336 ml 1375 ml Output Urine Total 1280 ml 1080 ml Stool Total 0 ml Gastric Drainage Total 150 ml Other 900 ml 3600 ml Laboratory Tests 02/22/18 05:00: White Blood Count 15.4H, Red Blood Count 3.48L, Hemoglobin 9.1L, Hematocrit 28.2L, Mean Corpuscular Volume 81, Mean Corpuscular Hemoglobin 26.1L, Mean Corpuscular Hemoglobin Concent 32.3, Red Cell Distribution Width 12.5, Platelet Count 131L, Mean Platelet Volume 8.2, Neutrophils (%) (Auto) , Lymphocytes (%) ( Auto) , Monocytes (%) (Auto) , Eosinophils (%) (Auto) , Basophils (%) (Auto) , Differential Total Cells Counted 100, Neutrophils % (Manual) 87H, Lymphocytes % (Manual) 8L, Monocytes % (Manual) 4, Eosinophils % (Manual) 1, Basophils % ( Manual) 0, Band Neutrophils 0, Platelet Estimate DecreasedL, Platelet Morphology Normal, Hypochromasia 1+, Microcytosis 1+, Schistocytes 1+, Urine Eosinophils None seen, Sodium Level 141, Potassium Level 3.1L, Chloride Level 106, Carbon Dioxide Level 25, Anion Gap 10, Blood Urea Nitrogen 22H, Creatinine 1.9H, Estimat Glomerular Filtration Rate , Glucose Level 143H, Calcium Level 9.0 , Troponin I 0.082H 02/22/18 10:13: Arterial Blood pH 7.490H, Arterial Blood Partial Pressure CO2 33.6L, Arterial Blood Partial Pressure O2 80.4, Arterial Blood HCO3 25.5, Arterial Blood Oxygen Saturation 95.7, Arterial Blood Base Excess 2.4, Travis Test Positive Height (Feet): 5 Height (Inches): 5.00 Weight (Pounds): 164 EENT: other - now extubated Cardiovascular: tachycardia Respiratory/Chest: decreased breath sounds Abdomen: distended ROSA REED Feb 22, 2018 15:49
[2018-02-22] MEDS ORDERED: LR 1000ml ONE (16:58)
--- NOTE | 2018-02-22 17:21 | General Progress Note ---
Assessment/Plan Assessment/Plan Dementia with behavioral disturbance The pt lacks capacity The pt is non compliance The pt public guardian should be contacted the pts pg needs to be contacted prior to gt Subjective Date patient seen: Feb 22, 2018 Neurologic/Psychiatric: Reports: anxiety, depressed, emotional problems Allergies: Coded Allergies: ESTROGENS (Verified Allergy, Unknown, 11/27/14) Uncoded Allergies: "estrogen" (Allergy, Unknown, 02/20/14) Subjective the pt is confuse less agitated Objective Last 24 Hour Vital Signs Date Time Temp Pulse Resp B/P (MAP) Pulse Ox O2 Delivery O2 Flow Rate FiO2 02/22/18 17:00 103 18 119/37 99 Mechanical Ventilator 25 02/22/18 16:00 105 02/22/18 16:00 98 18 119/37 99 Mechanical Ventilator 25 02/22/18 15:00 104 16 114/45 100 Mechanical Ventilator 25 02/22/18 14:00 90 16 145/53 100 Mechanical Ventilator 25 02/22/18 13:00 87 16 120/79 100 Mechanical Ventilator 25 02/22/18 12:00 82 16 123/75 100 Mechanical Ventilator 25 02/22/18 12:00 102 02/22/18 12:00 96 02/22/18 12:00 96 02/22/18 11:00 81 16 109/70 100 Mechanical Ventilator 25 02/22/18 10:00 82 16 122/70 100 Mechanical Ventilator 25 02/22/18 10:00 98 Nasal Cannula 2.0 28 02/22/18 10:00 Nasal Cannula 2.0 28 02/22/18 09:45 Nasal Cannula 2.0 28 02/22/18 09:29 104 18 25 02/22/18 09:00 84 16 104/64 100 Mechanical Ventilator 25 02/22/18 08:25 25 02/22/18 08:00 98.9 106 16 123/46 100 Mechanical Ventilator 25 98.9 02/22/18 08:00 94 02/22/18 08:00 96 02/22/18 07:29 97 13 25 02/22/18 07:00 101 16 144/37 100 Mechanical Ventilator 25 02/22/18 06:00 101 16 144/37 100 Mechanical Ventilator 30 02/22/18 05:24 122 21 25 02/22/18 05:00 100 16 153/71 100 Mechanical Ventilator 30 02/22/18 04:00 107 02/22/18 04:00 99.1 107 16 126/86 100 Mechanical Ventilator 30 99.1 02/22/18 03:00 95 16 154/46 100 Mechanical Ventilator 30 02/22/18 02:55 107 25 25 02/22/18 02:00 91 16 115/38 100 Mechanical Ventilator 30 02/22/18 01:00 96 16 120/82 100 Mechanical Ventilator 30 02/22/18 00:57 121 20 25 02/22/18 00:00 98.6 88 13 106/41 100 Mechanical Ventilator 30 98.6 02/22/18 00:00 89 02/21/18 23:00 88 13 90/73 100 Mechanical Ventilator 30 02/21/18 22:50 91 12 25 02/21/18 22:00 92 12 105/41 100 Mechanical Ventilator 30 02/21/18 21:12 111 24 25 02/21/18 21:00 106 14 117/53 100 Mechanical Ventilator 30 02/21/18 20:20 163/48 02/21/18 20:00 99.0 106 18 163/48 100 Mechanical Ventilator 30 99.0 02/21/18 20:00 115 02/21/18 19:00 105 17 155/69 100 Mechanical Ventilator 30 02/21/18 18:56 114 17 25 02/21/18 18:00 111 17 158/65 100 Mechanical Ventilator 30 Intake and Output 02/21/18 02/22/18 19:00 07:00 Intake Total 1753.336 ml 1375 ml Output Total 2180 ml 4830 ml Balance -426.664 ml -3455 ml IV Total 1753.336 ml 1375 ml Output Urine Total 1280 ml 1080 ml Stool Total 0 ml Gastric Drainage Total 150 ml Other 900 ml 3600 ml Laboratory Tests 02/22/18 05:00: White Blood Count 15.4H, Red Blood Count 3.48L, Hemoglobin 9.1L, Hematocrit 28.2L, Mean Corpuscular Volume 81, Mean Corpuscular Hemoglobin 26.1L, Mean Corpuscular Hemoglobin Concent 32.3, Red Cell Distribution Width 12.5, Platelet Count 131L, Mean Platelet Volume 8.2, Neutrophils (%) (Auto) , Lymphocytes (%) ( Auto) , Monocytes (%) (Auto) , Eosinophils (%) (Auto) , Basophils (%) (Auto) , Differential Total Cells Counted 100, Neutrophils % (Manual) 87H, Lymphocytes % (Manual) 8L, Monocytes % (Manual) 4, Eosinophils % (Manual) 1, Basophils % ( Manual) 0, Band Neutrophils 0, Platelet Estimate DecreasedL, Platelet Morphology Normal, Hypochromasia 1+, Microcytosis 1+, Schistocytes 1+, Urine Eosinophils None seen, Sodium Level 141, Potassium Level 3.1L, Chloride Level 106, Carbon Dioxide Level 25, Anion Gap 10, Blood Urea Nitrogen 22H, Creatinine 1.9H, Estimat Glomerular Filtration Rate , Glucose Level 143H, Calcium Level 9.0 , Troponin I 0.082H 02/22/18 06:00: C-Reactive Protein, Quantitative > 70.0H 02/22/18 10:13: Arterial Blood pH 7.490H, Arterial Blood Partial Pressure CO2 33.6L, Arterial Blood Partial Pressure O2 80.4, Arterial Blood HCO3 25.5, Arterial Blood Oxygen Saturation 95.7, Arterial Blood Base Excess 2.4, Travis Test Positive Height (Feet): 5 Height (Inches): 5.00 Weight (Pounds): 164 Josue Roy M.D. Feb 22, 2018 17:21
[2018-02-22] MEDS: Dyna-Hex 2% Top Sol 2oz TOPIC SCH (19:49)
[2018-02-23] VITALS (14 sets, daily range): BP systolic 106–153; BP diastolic 31–117
[2018-02-23 06:06] LABS: BASOPHILS % (AUTO) 0.3 % (0.0-2.0); EOSINOPHILS % (AUTO) 2.7 % (0.0-3.0); HEMATOCRIT 29.8 % (37.0-47.0); HEMOGLOBIN 9.6 G/DL (12.0-16.0); LYMPHOCYTES % (AUTO) 10.5 % (20.0-45.0); MEAN CORPUSCULAR VOLUME 81 FL (80-99); MONOCYTES % (AUTO) 7.9 % (1.0-10.0); NEUTROPHILS % (AUTO) 78.6 % (45.0-75.0); PLATELET COUNT 141 K/UL (150-450); RED BLOOD COUNT 3.65 M/UL (4.20-5.40); RED CELL DISTRIBUTION WIDTH 12.6 % (11.6-14.8); WHITE BLOOD COUNT 12.3 K/UL (4.8-10.8)
[2018-02-23] MEDS: NovoLOG Insulin Flexpen SUBQ SCH ×3 (06:12→17:43)
[2018-02-23 06:17] LABS: APPEARANCE,URINE CLEAR; BILIRUBIN, URINE NEGATIVE (NEGATIVE); COLOR,URINE PALE YELLOW; GLUCOSE, URINE (UA) NEGATIVE (NEGATIVE); KETONES,URINE 2+ (NEGATIVE); LEUKOCYTE ESTERASE ,URINE NEGATIVE (NEGATIVE); NITRITE,URINE NEGATIVE (NEGATIVE); PH,URINE 5 (4.5-8.0); PROTEIN,URINE 3+ (NEGATIVE); UROBILINOGEN,URINE NORMAL MG/DL (0.0-1.0)
[2018-02-23 06:28] LABS: ALANINE AMINOTRANSFERASE 23 U/L (12-78); ALBUMIN 1.9 G/DL (3.4-5.0); ALBUMIN/GLOBULIN RATIO 0.5 (1.0-2.7); ALKALINE PHOSPHATASE 67 U/L (46-116); ANION GAP 10 mmol/L (5-15); ASPARTATE AMINO TRANSFERASE 65 U/L (15-37); BILIRUBIN,TOTAL 0.7 MG/DL (0.2-1.0); BLOOD UREA NITROGEN 16 mg/dL (7-18); CARBON DIOXIDE 25 MMOL/L (21-32); CHLORIDE 109 MMOL/L (98-107); CREATININE 1.5 MG/DL (0.55-1.30); PHOSPHORUS 2.4 MG/DL (2.5-4.9); SODIUM 144 MMOL/L (136-145)
[2018-02-23] MEDS: Meropenem 1 GM in NS 55 ML IVPB SCH ×2 (08:53→20:32)
[2018-02-23] MEDS: Pantoprazole Inj IVP SCH (08:53)
[2018-02-23] MEDS: Micafungin 100 MG in NS 110 ML IVPB SCH (08:53)
--- NOTE | 2018-02-23 08:58 | Pulmonolgy Critical Care Note ---
Critical Care - Asmt/Plan Problems: (1) Ileus (2) S/P laparotomy (3) SBO (small bowel obstruction) (4) Acute renal failure (5) end stage alzheimrers dementia (6) Diabetes Respiratory: monitor respiratory rate, adjust FIO2 Cardiac: continue to monitor HR/BP Renal: F/U I&O, decrease IV fluid, other - Kcl in IV fluid Gastrointestinal: continue feedings/current rate Endocrine: monitor blood sugar Neurologic: PRN Ativan, keep patient comfortable Affect: PRN ativan Time Spent (Minutes): 40 Notes Reviewed: renal Discussed with: nurses, consultants Critical Care - Objective Last 24 Hour Vital Signs Date Time Temp Pulse Resp B/P (MAP) Pulse Ox O2 Delivery O2 Flow Rate FiO2 02/23/18 08:00 99.8 95 19 107/35 98 Nasal Cannula 2.0 99.8 02/23/18 07:00 97 17 106/31 98 Nasal Cannula 2.0 02/23/18 06:00 98 17 115/43 98 Nasal Cannula 2.0 02/23/18 06:00 98 02/23/18 05:00 99 18 108/88 98 Nasal Cannula 2.0 02/23/18 04:00 98.8 94 22 137/43 97 Nasal Cannula 2.0 98.8 02/23/18 03:00 97 20 140/50 97 Nasal Cannula 2.0 02/23/18 02:00 99 20 132/40 97 Nasal Cannula 2.0 02/23/18 01:00 97 20 130/74 97 Nasal Cannula 2.0 02/23/18 00:00 99.0 100 21 136/117 97 Nasal Cannula 2.0 99.0 02/23/18 00:00 104 02/22/18 23:00 105 17 135/65 98 Nasal Cannula 2.0 02/22/18 22:00 95 20 98/31 99 Nasal Cannula 2.0 02/22/18 21:00 107 20 103/36 99 Nasal Cannula 2.0 02/22/18 20:20 114/37 02/22/18 20:00 108 18 91/59 99 Nasal Cannula 2.0 02/22/18 20:00 108 02/22/18 19:00 100 Nasal Cannula 2.0 28 02/22/18 19:00 99.1 104 16 94/40 99 Nasal Cannula 2.0 99.1 02/22/18 19:00 Nasal Cannula 2.0 28 02/22/18 19:00 114 19 Nasal Cannula 2.0 28 02/22/18 18:00 97.6 103 16 82/48 99 Nasal Cannula 2.0 97.6 02/22/18 17:01 103 18 119/37 99 Nasal Cannula 2.0 02/22/18 16:01 98 18 119/37 99 Nasal Cannula 2.0 02/22/18 16:00 105 02/22/18 15:00 104 16 114/45 100 Mechanical Ventilator 25 02/22/18 14:00 90 16 145/53 100 Mechanical Ventilator 25 02/22/18 13:00 87 16 120/79 100 Mechanical Ventilator 25 02/22/18 12:00 82 16 123/75 100 Mechanical Ventilator 25 02/22/18 12:00 102 02/22/18 12:00 96 02/22/18 12:00 96 02/22/18 11:00 81 16 109/70 100 Mechanical Ventilator 25 02/22/18 10:00 82 16 122/70 100 Mechanical Ventilator 25 02/22/18 10:00 98 Nasal Cannula 2.0 28 02/22/18 10:00 Nasal Cannula 2.0 28 02/22/18 09:45 Nasal Cannula 2.0 28 02/22/18 09:29 104 18 25 02/22/18 09:00 84 16 104/64 100 Mechanical Ventilator 25 Status: somnolent Condition: critical HEENT: atraumatic Neck: full ROM Lungs: clear Heart: HR/BP stable Abdomen: soft Extremities: no C/C/E Accucheck: 137 Critical Care - Subjective Condition: critical IV Access: central EKG Rhythm: Sinus Rhythm FI02: 28 Vent Support Breath Rate: 12 Vent Support Mode: CPAP Vent Tidal Volume: 500 Sputum Amount: Moderate PEEP: 5.0 PIP: 23 Fluids: NS 125 cc/hour Tube Feeding Amount: 40 I&O: Intake and Output 02/22/18 02/23/18 19:00 07:00 Intake Total 1465 ml 1840 ml Output Total 4370 ml 980 ml Balance -2905 ml 860 ml Free Water 30 ml IV Total 1415 ml 1500 ml Tube Feeding 50 ml 310 ml Output Urine Total 1070 ml 980 ml Other 3300 ml CXR: LIN ET-Tube: 8.0 ET Position: 23 Labs: Laboratory Tests Test 02/22/18 10:13 02/23/18 04:30 02/23/18 05:00 Arterial Blood pH 7.490 (7.350-7.450) Arterial Blood Partial Pressure CO2 33.6 mmHg (35.0-45.0) L Arterial Blood Partial Pressure O2 80.4 mmHg (75.0-100.0) Arterial Blood HCO3 25.5 mmol/L (22.0-26.0) Arterial Blood Oxygen Saturation 95.7 % (92.0-98.0) Arterial Blood Base Excess 2.4 Travis Test Positive White Blood Count 12.3 K/UL (4.8-10.8) H Red Blood Count 3.65 M/UL (4.20-5.40) L Hemoglobin 9.6 G/DL (12.0-16.0) L Hematocrit 29.8 % (37.0-47.0) L Mean Corpuscular Volume 81 FL (80-99) Mean Corpuscular Hemoglobin 26.2 PG (27.0-31.0) L Mean Corpuscular Hemoglobin Concent 32.1 G/DL (32.0-36.0) Red Cell Distribution Width 12.6 % (11.6-14.8) Platelet Count 141 K/UL (150-450) L Mean Platelet Volume 7.6 FL (6.5-10.1) Neutrophils (%) (Auto) 78.6 % (45.0-75.0) H Lymphocytes (%) (Auto) 10.5 % (20.0-45.0) L Monocytes (%) (Auto) 7.9 % (1.0-10.0) Eosinophils (%) (Auto) 2.7 % (0.0-3.0) Basophils (%) (Auto) 0.3 % (0.0-2.0) Sodium Level 144 MMOL/L (136-145) Potassium Level 3.0 MMOL/L (3.5-5.1) L Chloride Level 109 MMOL/L (98-107) H Carbon Dioxide Level 25 MMOL/L (21-32) Anion Gap 10 mmol/L (5-15) Blood Urea Nitrogen 16 mg/dL (7-18) Creatinine 1.5 MG/DL (0.55-1.30) H Estimat Glomerular Filtration Rate mL/min (>60) Glucose Level 130 MG/DL (74-106) H Uric Acid 3.7 MG/DL (2.6-7.2) Calcium Level 9.0 MG/DL (8.5-10.1) Phosphorus Level 2.4 MG/DL (2.5-4.9) L Magnesium Level 1.8 MG/DL (1.8-2.4) Total Bilirubin 0.7 MG/DL (0.2-1.0) Aspartate Amino Transf (AST/SGOT) 65 U/L (15-37) H Alanine Aminotransferase (ALT/SGPT) 23 U/L (12-78) Alkaline Phosphatase 67 U/L (46-116) Troponin I 0.060 ng/mL (0.000-0.056) Pro-B-Type Natriuretic Peptide 1753 pg/mL (0-125) H Total Protein 5.4 G/DL (6.4-8.2) L Albumin 1.9 G/DL (3.4-5.0) L Globulin 3.5 g/dL Albumin/Globulin Ratio 0.5 (1.0-2.7) L Urine Color Pale yellow Urine Appearance Clear Urine pH 5 (4.5-8.0) Urine Specific [place] 1.010 (1.005-1.035) Urine Protein 3+ (NEGATIVE) H Urine Glucose (UA) Negative (NEGATIVE) Urine Ketones 2+ (NEGATIVE) H Urine Occult Blood 2+ (NEGATIVE) H Urine Nitrite Negative (NEGATIVE) Urine Bilirubin Negative (NEGATIVE) Urine Urobilinogen Normal MG/DL (0.0-1.0) Urine Leukocyte Esterase Negative (NEGATIVE) Urine RBC 5-10 /HPF (0 - 2) H Urine WBC 0-2 /HPF (0 - 2) Urine Squamous Epithelial Cells Few /LPF (NONE/OCC) Urine Bacteria Few /HPF (NONE) Urine Eosinophils Pending Urine Random Sodium 111 mmol/L (20-110) H Urine Potassium Timed 29 mmol/L (12-62) Tiago Cason MD Feb 23, 2018 08:58
[2018-02-23] MEDS ORDERED: Potassium Chloride 10 MEQ in 1/2 NS 1000ml 1,000 ML IV SCH (10:00)
[2018-02-23] MEDS ORDERED: Potassium Phosphate 30 MM in NS 275 ML IV ONE (10:30)
[2018-02-23] MEDS ORDERED: 1/2NS w/KCl 20mEq 1000ml 1,000 ML IV SCH (10:30)
--- NOTE | 2018-02-23 10:52 | Diagnostic Imaging Report ---
Indication: Cough Technique: One view of the chest Comparison: 02/22/2018 Findings: Satisfactory position of nasogastric tube, stable. Questionably small amount of free air is seen in the left hemidiaphragm. The endotracheal tube is been removed. Lung volumes are lower and there are some atelectatic changes in the right perihilar region. The heart size is normal. Pleural spaces are clear Impression: Interim endotracheal extubation Low lung volumes, with right perihilar atelectasis Suspect small pneumoperitoneum, not unexpected given history of recent abdominal surgery
[2018-02-23] MEDS: 1/2NS w/KCl 20mEq 1000ml 1,000 ML IV SCH (11:45)
[2018-02-23] MEDS ORDERED: Nitroglycerin Subl 0.4mg tab SL PRN (11:45)
[2018-02-23] MEDS: Levemir Flexpen SUBQ SCH (12:00)
[2018-02-23] MEDS ORDERED: NovoLOG Insulin Flexpen SUBQ SCH (12:00)
--- NOTE | 2018-02-23 12:18 | Nephrology Progress Note ---
Assessment/Plan Problem List: (1) Acute renal failure (2) SBO (small bowel obstruction) (3) Anemia (4) Diabetes Assessment Severe sepsis ( secondary to small bowel obstruction) septic shock Acute respiratory failure requiring intubation Acute encephalopathy ( due to sepsis) on chronic end-stage Alzheimer dementia Acute renal failure, probably ATN due to unstable hemodynamics Urine out put improving Pneumonia with Klebsiella Small bowel obstruction s/p 02/19 laparoscopy converted to exploratory laparotomy with small bowel resection, repair of enterotomy, extensive lysis of adhesions, and abdominal washout. Hematemesis Electrolyte imbalance Anemia Diabetes mellitus h/o Hypertension Aspiration risk Severe protein calorie malnutrition Plan K supplement Mag and Phos supplement as needed Post Op care- pulmonary support Monitor renal parameters, Urine output, Avoid Nephrotoxics Keep BP above 100 syst Keep BS in check Subjective ROS Limited/Unobtainable: No Constitutional: Reports: malaise Objective Objective Last 24 Hour Vital Signs Date Time Temp Pulse Resp B/P (MAP) Pulse Ox O2 Delivery O2 Flow Rate FiO2 02/23/18 10:00 94 23 151/57 99 Nasal Cannula 2.0 02/23/18 09:00 97 19 125/34 97 Nasal Cannula 2.0 02/23/18 08:00 104 02/23/18 08:00 99.8 95 19 107/35 98 Nasal Cannula 2.0 99.8 02/23/18 07:00 97 17 106/31 98 Nasal Cannula 2.0 02/23/18 06:30 101 20 Nasal Cannula 2.0 28 02/23/18 06:30 100 Nasal Cannula 2.0 28 02/23/18 06:30 Nasal Cannula 2.0 28 02/23/18 06:00 98 17 115/43 98 Nasal Cannula 2.0 02/23/18 06:00 98 02/23/18 05:00 99 18 108/88 98 Nasal Cannula 2.0 02/23/18 04:00 98.8 94 22 137/43 97 Nasal Cannula 2.0 98.8 02/23/18 03:00 97 20 140/50 97 Nasal Cannula 2.0 02/23/18 02:00 99 20 132/40 97 Nasal Cannula 2.0 02/23/18 01:00 97 20 130/74 97 Nasal Cannula 2.0 02/23/18 00:00 99.0 100 21 136/117 97 Nasal Cannula 2.0 99.0 02/23/18 00:00 104 02/22/18 23:00 105 17 135/65 98 Nasal Cannula 2.0 02/22/18 22:00 95 20 98/31 99 Nasal Cannula 2.0 02/22/18 21:00 107 20 103/36 99 Nasal Cannula 2.0 02/22/18 20:20 114/37 02/22/18 20:00 108 18 91/59 99 Nasal Cannula 2.0 02/22/18 20:00 108 02/22/18 19:00 100 Nasal Cannula 2.0 28 02/22/18 19:00 99.1 104 16 94/40 99 Nasal Cannula 2.0 99.1 02/22/18 19:00 Nasal Cannula 2.0 28 02/22/18 19:00 114 19 Nasal Cannula 2.0 28 02/22/18 18:00 97.6 103 16 82/48 99 Nasal Cannula 2.0 97.6 02/22/18 17:01 103 18 119/37 99 Nasal Cannula 2.0 02/22/18 16:01 98 18 119/37 99 Nasal Cannula 2.0 02/22/18 16:00 105 02/22/18 15:00 104 16 114/45 100 Mechanical Ventilator 25 02/22/18 14:00 90 16 145/53 100 Mechanical Ventilator 25 02/22/18 13:00 87 16 120/79 100 Mechanical Ventilator 25 Intake and Output 02/22/18 02/23/18 19:00 07:00 Intake Total 1465 ml 1840 ml Output Total 4370 ml 980 ml Balance -2905 ml 860 ml Free Water 30 ml IV Total 1415 ml 1500 ml Tube Feeding 50 ml 310 ml Output Urine Total 1070 ml 980 ml Other 3300 ml Laboratory Tests 02/23/18 04:30: White Blood Count 12.3H, Red Blood Count 3.65L, Hemoglobin 9.6L, Hematocrit 29.8L, Mean Corpuscular Volume 81, Mean Corpuscular Hemoglobin 26.2L, Mean Corpuscular Hemoglobin Concent 32.1, Red Cell Distribution Width 12.6, Platelet Count 141L, Mean Platelet Volume 7.6, Neutrophils (%) (Auto) 78.6H, Lymphocytes (%) (Auto) 10.5L, Monocytes (%) (Auto) 7.9, Eosinophils (%) (Auto) 2.7, Basophils (%) (Auto) 0.3, Sodium Level 144, Potassium Level 3.0L, Chloride Level 109H, Carbon Dioxide Level 25, Anion Gap 10, Blood Urea Nitrogen 16, Creatinine 1.5H, Estimat Glomerular Filtration Rate , Glucose Level 130H, Uric Acid 3.7, Calcium Level 9.0, Phosphorus Level 2.4L, Magnesium Level 1.8, Total Bilirubin 0.7, Aspartate Amino Transf (AST/SGOT) 65H, Alanine Aminotransferase ( ALT/SGPT) 23, Alkaline Phosphatase 67, Troponin I 0.060H, Pro-B-Type Natriuretic Peptide 1753H, Total Protein 5.4L, Albumin 1.9L, Globulin 3.5, Albumin/Globulin Ratio 0.5L 02/23/18 05:00: Urine Color Pale yellow, Urine Appearance Clear, Urine pH 5, Urine Specific [place] 1.010, Urine Protein 3+H, Urine Glucose (UA) Negative, Urine Ketones 2+H , Urine Occult Blood 2+H, Urine Nitrite Negative, Urine Bilirubin Negative, Urine Urobilinogen Normal, Urine Leukocyte Esterase Negative, Urine RBC 5-10H, Urine WBC 0-2, Urine Squamous Epithelial Cells Few, Urine Bacteria Few, Urine Eosinophils None seen, Urine Random Sodium 111H, Urine Potassium Timed 29 02/23/18 09:10: Arterial Blood pH 7.510H, Arterial Blood Partial Pressure CO2 29.7L, Arterial Blood Partial Pressure O2 77.9, Arterial Blood HCO3 23.2, Arterial Blood Oxygen Saturation 96.1, Arterial Blood Base Excess 0.7, Travis Test Positive Height (Feet): 5 Height (Inches): 5.00 Weight (Pounds): 160 General Appearance: lethargic Cardiovascular: tachycardia Respiratory/Chest: decreased breath sounds Abdomen: distended ROSA REED Feb 23, 2018 12:18
--- NOTE | 2018-02-23 12:47 | General Progress Note ---
Assessment/Plan Assessment/Plan Dementia with behavioral disturbance The pt lacks capacity The pt is non compliance The pt public guardian should be contacted the pts pg needs to be contacted prior to gt dc haldol start seroquel prn Subjective Date patient seen: Feb 23, 2018 Neurologic/Psychiatric: Reports: anxiety, depressed, emotional problems Allergies: Coded Allergies: ESTROGENS (Verified Allergy, Unknown, 11/27/14) Uncoded Allergies: "estrogen" (Allergy, Unknown, 02/20/14) Subjective the pt is confuse not agitated Objective Last 24 Hour Vital Signs Date Time Temp Pulse Resp B/P (MAP) Pulse Ox O2 Delivery O2 Flow Rate FiO2 02/23/18 10:00 94 23 151/57 99 Nasal Cannula 2.0 02/23/18 09:00 97 19 125/34 97 Nasal Cannula 2.0 02/23/18 08:00 104 02/23/18 08:00 99.8 95 19 107/35 98 Nasal Cannula 2.0 99.8 02/23/18 07:00 97 17 106/31 98 Nasal Cannula 2.0 02/23/18 06:30 101 20 Nasal Cannula 2.0 28 02/23/18 06:30 100 Nasal Cannula 2.0 28 02/23/18 06:30 Nasal Cannula 2.0 28 02/23/18 06:00 98 17 115/43 98 Nasal Cannula 2.0 02/23/18 06:00 98 02/23/18 05:00 99 18 108/88 98 Nasal Cannula 2.0 02/23/18 04:00 98.8 94 22 137/43 97 Nasal Cannula 2.0 98.8 02/23/18 03:00 97 20 140/50 97 Nasal Cannula 2.0 02/23/18 02:00 99 20 132/40 97 Nasal Cannula 2.0 02/23/18 01:00 97 20 130/74 97 Nasal Cannula 2.0 02/23/18 00:00 99.0 100 21 136/117 97 Nasal Cannula 2.0 99.0 02/23/18 00:00 104 02/22/18 23:00 105 17 135/65 98 Nasal Cannula 2.0 02/22/18 22:00 95 20 98/31 99 Nasal Cannula 2.0 02/22/18 21:00 107 20 103/36 99 Nasal Cannula 2.0 6/11/18 20:20 114/37 02/22/18 20:00 108 18 91/59 99 Nasal Cannula 2.0 02/22/18 20:00 108 02/22/18 19:00 100 Nasal Cannula 2.0 28 02/22/18 19:00 99.1 104 16 94/40 99 Nasal Cannula 2.0 99.1 02/22/18 19:00 Nasal Cannula 2.0 28 02/22/18 19:00 114 19 Nasal Cannula 2.0 28 02/22/18 18:00 97.6 103 16 82/48 99 Nasal Cannula 2.0 97.6 02/22/18 17:01 103 18 119/37 99 Nasal Cannula 2.0 02/22/18 16:01 98 18 119/37 99 Nasal Cannula 2.0 02/22/18 16:00 105 02/22/18 15:00 104 16 114/45 100 Mechanical Ventilator 25 02/22/18 14:00 90 16 145/53 100 Mechanical Ventilator 25 02/22/18 13:00 87 16 120/79 100 Mechanical Ventilator 25 Intake and Output 02/22/18 02/23/18 19:00 07:00 Intake Total 1465 ml 1840 ml Output Total 4370 ml 980 ml Balance -2905 ml 860 ml Free Water 30 ml IV Total 1415 ml 1500 ml Tube Feeding 50 ml 310 ml Output Urine Total 1070 ml 980 ml Other 3300 ml Laboratory Tests 02/23/18 04:30: White Blood Count 12.3H, Red Blood Count 3.65L, Hemoglobin 9.6L, Hematocrit 29.8L, Mean Corpuscular Volume 81, Mean Corpuscular Hemoglobin 26.2L, Mean Corpuscular Hemoglobin Concent 32.1, Red Cell Distribution Width 12.6, Platelet Count 141L, Mean Platelet Volume 7.6, Neutrophils (%) (Auto) 78.6H, Lymphocytes (%) (Auto) 10.5L, Monocytes (%) (Auto) 7.9, Eosinophils (%) (Auto) 2.7, Basophils (%) (Auto) 0.3, Sodium Level 144, Potassium Level 3.0L, Chloride Level 109H, Carbon Dioxide Level 25, Anion Gap 10, Blood Urea Nitrogen 16, Creatinine 1.5H, Estimat Glomerular Filtration Rate , Glucose Level 130H, Uric Acid 3.7, Calcium Level 9.0, Phosphorus Level 2.4L, Magnesium Level 1.8, Total Bilirubin 0.7, Aspartate Amino Transf (AST/SGOT) 65H, Alanine Aminotransferase ( ALT/SGPT) 23, Alkaline Phosphatase 67, Troponin I 0.060H, C-Reactive Protein, Quantitative [Pending], Pro-B-Type Natriuretic Peptide 1753H, Total Protein 5.4L , Albumin 1.9L, Globulin 3.5, Albumin/Globulin Ratio 0.5L 02/23/18 05:00: Urine Color Pale yellow, Urine Appearance Clear, Urine pH 5, Urine Specific [place] 1.010, Urine Protein 3+H, Urine Glucose (UA) Negative, Urine Ketones 2+H , Urine Occult Blood 2+H, Urine Nitrite Negative, Urine Bilirubin Negative, Urine Urobilinogen Normal, Urine Leukocyte Esterase Negative, Urine RBC 5-10H, Urine WBC 0-2, Urine Squamous Epithelial Cells Few, Urine Bacteria Few, Urine Eosinophils None seen, Urine Random Sodium 111H, Urine Potassium Timed 29 02/23/18 09:10: Arterial Blood pH 7.510H, Arterial Blood Partial Pressure CO2 29.7L, Arterial Blood Partial Pressure O2 77.9, Arterial Blood HCO3 23.2, Arterial Blood Oxygen Saturation 96.1, Arterial Blood Base Excess 0.7, Travis Test Positive Height (Feet): 5 Height (Inches): 5.00 Weight (Pounds): 160 General Appearance: no apparent distress, confused Josue Roy M.D. Feb 23, 2018 12:46
[2018-02-23] MEDS ORDERED: Albuterol/Ipratropium 3ml neb HHN PRN (13:45)
--- NOTE | 2018-02-23 13:52 | GI Progress Note ---
Assessment/Plan Problems: (1) Altered mental status ICD Codes: R41.82 - Altered mental status, unspecified SNOMED: 071801294 (2) At high risk for aspiration ICD Codes: Z91.89 - At high risk for aspiration SNOMED: 508609869 (3) Anemia ICD Codes: D64.9 - Anemia SNOMED: 009107815 (4) Ileus ICD Codes: K56.7 - Ileus, unspecified SNOMED: 953383161 (5) SBO (small bowel obstruction) ICD Codes: K56.609 - Unspecified intestinal obstruction, unspecified as to partial versus complete obstruction SNOMED: 228348018 (6) Coffee ground emesis ICD Codes: K92.0 - Hematemesis SNOMED: 93021285, 829647067 Status: progressing Status Narrative Discussed with Dr. Montoya. Assessment/Plan hep panel negative s/p SB surgery NPO + IVFs NGT diet per surgery serial imaging prn electrolyte correction ppi BID fu labs The patient was seen and examined at bedside and all new and available data was reviewed in the patients chart. I agree with the above findings, impression and plan. (Patient seen earlier today. Signature stamp does not reflect patient encounter time.). - Jesse Montoya MD Subjective Subjective limited Objective Last 24 Hour Vital Signs Date Time Temp Pulse Resp B/P (MAP) Pulse Ox O2 Delivery O2 Flow Rate FiO2 02/23/18 10:00 94 23 151/57 99 Nasal Cannula 2.0 02/23/18 09:00 97 19 125/34 97 Nasal Cannula 2.0 02/23/18 08:00 104 02/23/18 08:00 99.8 95 19 107/35 98 Nasal Cannula 2.0 99.8 02/23/18 07:00 97 17 106/31 98 Nasal Cannula 2.0 02/23/18 06:30 101 20 Nasal Cannula 2.0 28 02/23/18 06:30 100 Nasal Cannula 2.0 28 02/23/18 06:30 Nasal Cannula 2.0 28 02/23/18 06:00 98 17 115/43 98 Nasal Cannula 2.0 02/23/18 06:00 98 02/23/18 05:00 99 18 108/88 98 Nasal Cannula 2.0 02/23/18 04:00 98.8 94 22 137/43 97 Nasal Cannula 2.0 98.8 02/23/18 03:00 97 20 140/50 97 Nasal Cannula 2.0 02/23/18 02:00 99 20 132/40 97 Nasal Cannula 2.0 02/23/18 01:00 97 20 130/74 97 Nasal Cannula 2.0 02/23/18 00:00 99.0 100 21 136/117 97 Nasal Cannula 2.0 99.0 02/23/18 00:00 104 02/22/18 23:00 105 17 135/65 98 Nasal Cannula 2.0 02/22/18 22:00 95 20 98/31 99 Nasal Cannula 2.0 02/22/18 21:00 107 20 103/36 99 Nasal Cannula 2.0 02/22/18 20:20 114/37 02/22/18 20:00 108 18 91/59 99 Nasal Cannula 2.0 02/22/18 20:00 108 02/22/18 19:00 100 Nasal Cannula 2.0 28 02/22/18 19:00 99.1 104 16 94/40 99 Nasal Cannula 2.0 99.1 02/22/18 19:00 Nasal Cannula 2.0 28 02/22/18 19:00 114 19 Nasal Cannula 2.0 28 02/22/18 18:00 97.6 103 16 82/48 99 Nasal Cannula 2.0 97.6 02/22/18 17:01 103 18 119/37 99 Nasal Cannula 2.0 02/22/18 16:01 98 18 119/37 99 Nasal Cannula 2.0 02/22/18 16:00 105 02/22/18 15:00 104 16 114/45 100 Mechanical Ventilator 25 02/22/18 14:00 90 16 145/53 100 Mechanical Ventilator 25 Intake and Output 02/22/18 02/23/18 19:00 07:00 Intake Total 1465 ml 1840 ml Output Total 4370 ml 980 ml Balance -2905 ml 860 ml Free Water 30 ml IV Total 1415 ml 1500 ml Tube Feeding 50 ml 310 ml Output Urine Total 1070 ml 980 ml Other 3300 ml Laboratory Tests Test 02/23/18 04:30 02/23/18 05:00 02/23/18 09:10 White Blood Count 12.3 K/UL (4.8-10.8) H Red Blood Count 3.65 M/UL (4.20-5.40) L Hemoglobin 9.6 G/DL (12.0-16.0) L Hematocrit 29.8 % (37.0-47.0) L Mean Corpuscular Volume 81 FL (80-99) Mean Corpuscular Hemoglobin 26.2 PG (27.0-31.0) L Mean Corpuscular Hemoglobin Concent 32.1 G/DL (32.0-36.0) Red Cell Distribution Width 12.6 % (11.6-14.8) Platelet Count 141 K/UL (150-450) L Mean Platelet Volume 7.6 FL (6.5-10.1) Neutrophils (%) (Auto) 78.6 % (45.0-75.0) H Lymphocytes (%) (Auto) 10.5 % (20.0-45.0) L Monocytes (%) (Auto) 7.9 % (1.0-10.0) Eosinophils (%) (Auto) 2.7 % (0.0-3.0) Basophils (%) (Auto) 0.3 % (0.0-2.0) Sodium Level 144 MMOL/L (136-145) Potassium Level 3.0 MMOL/L (3.5-5.1) L Chloride Level 109 MMOL/L (98-107) H Carbon Dioxide Level 25 MMOL/L (21-32) Anion Gap 10 mmol/L (5-15) Blood Urea Nitrogen 16 mg/dL (7-18) Creatinine 1.5 MG/DL (0.55-1.30) H Estimat Glomerular Filtration Rate mL/min (>60) Glucose Level 130 MG/DL (74-106) H Uric Acid 3.7 MG/DL (2.6-7.2) Calcium Level 9.0 MG/DL (8.5-10.1) Phosphorus Level 2.4 MG/DL (2.5-4.9) L Magnesium Level 1.8 MG/DL (1.8-2.4) Total Bilirubin 0.7 MG/DL (0.2-1.0) Aspartate Amino Transf (AST/SGOT) 65 U/L (15-37) H Alanine Aminotransferase (ALT/SGPT) 23 U/L (12-78) Alkaline Phosphatase 67 U/L (46-116) Troponin I 0.060 ng/mL (0.000-0.056) C-Reactive Protein, Quantitative 17.4 mg/dL (0.00-0.90) H Pro-B-Type Natriuretic Peptide 1753 pg/mL (0-125) H Total Protein 5.4 G/DL (6.4-8.2) L Albumin 1.9 G/DL (3.4-5.0) L Globulin 3.5 g/dL Albumin/Globulin Ratio 0.5 (1.0-2.7) L Urine Color Pale yellow Urine Appearance Clear Urine pH 5 (4.5-8.0) Urine Specific [place] 1.010 (1.005-1.035) Urine Protein 3+ (NEGATIVE) H Urine Glucose (UA) Negative (NEGATIVE) Urine Ketones 2+ (NEGATIVE) H Urine Occult Blood 2+ (NEGATIVE) H Urine Nitrite Negative (NEGATIVE) Urine Bilirubin Negative (NEGATIVE) Urine Urobilinogen Normal MG/DL (0.0-1.0) Urine Leukocyte Esterase Negative (NEGATIVE) Urine RBC 5-10 /HPF (0 - 2) H Urine WBC 0-2 /HPF (0 - 2) Urine Squamous Epithelial Cells Few /LPF (NONE/OCC) Urine Bacteria Few /HPF (NONE) Urine Eosinophils None seen Urine Random Sodium 111 mmol/L (20-110) H Urine Potassium Timed 29 mmol/L (12-62) Arterial Blood pH 7.510 (7.350-7.450) Arterial Blood Partial Pressure CO2 29.7 mmHg (35.0-45.0) L Arterial Blood Partial Pressure O2 77.9 mmHg (75.0-100.0) Arterial Blood HCO3 23.2 mmol/L (22.0-26.0) Arterial Blood Oxygen Saturation 96.1 % (92.0-98.0) Arterial Blood Base Excess 0.7 Travis Test Positive Height (Feet): 5 Height (Inches): 5.00 Weight (Pounds): 160 General Appearance: WD/WN, no apparent distress, alert Cardiovascular: normal rate Respiratory/Chest: normal breath sounds, no respiratory distress Abdominal Exam: normal bowel sounds, non tender, soft Extremities: non-tender Mi Galeas NP Feb 23, 2018 13:52
--- NOTE | 2018-02-23 14:42 | General Progress Note ---
Progress Note Progress Note Surgery: doing well. labs improving. overall improving. downgraded from ICU exam benign -cont with current care. -can go to 20cc/hr for feeds -trend labs Miguel Freeman Feb 23, 2018 14:41
[2018-02-23] MEDS ORDERED: Haloperidol Lactate 5 MG in D5W 110 ML IVPB PRN (15:00)
--- NOTE | 2018-02-23 15:18 | Infectious Diseases Prog Note ---
Assessment/Plan Assessment/Plan Sepsis, resolved- likely from SBO possibly due to adhesions -shock after surgery; now off pressors 02/19 SP lap with exploration. 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 hernia reduced and tumor with small bowel resected. primary anastomosis. -Small bowel w/ gastroffin: Subsequent small bowel study indicates that the prominent upper abdominal small bowel loops are proximal jejunal loops, and there is a transition point identifiable retrospect centrally in the mid abdomen distal to which loops are nondilated. There is a slight swirling of the vessels in this area, indicating this could be an internal hernia, although the presence of an incisional scar on the CT and the appearance on the small bowel study indicates that it is more likely due to adhesions. -CT abd/p: Mildly prominent gas and fluid-filled small bowel loops without definite transition point. Most likely on the basis of ileus/enteritis. Early small bowel obstruction not completely excludable but deemed less likely. Right basilar infiltrate, most likely pneumonia. Mild anasarca. Stable, presumably benign, right lobe liver lesion. Soria catheter within nondistended bladder. Mild scoliosis and degenerative spondylosis incidentally noted. - 02/21 CXR: Patchy ill-defined groundglass and reticular opacities in the lung bases bilaterally, right greater than left, suggesting subsegmental atelectasis +/- pneumonit -02/14 u/a wbc 60-80, nit +, leuk +3; Ucx Neg; repeat 02/15 UCx NTD -02/14 Bcx NTD -sp cx K. 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 -amylase, lipase normal -influenza sc neg Fever, SP Leukocytosis; improving Lactic acidosis; resolved Elevated LFTs, resolving 02/19 VDRF FARIBA, worsen HTN Dm2 constipation Alzheimer's Disease assisted living resident Plan: -Continue Meropenem # 6 (abx d# 10 ) and IV Vanco and Micafungin d# 5 (for enterococcal and ernst coverage in the setting of worsening leukocytosis and SBO.); will continue for 7 day post-op and based on clinical improvement may DC IV Vanco if Cr increases further -02/18 SP Cefepime #5, Flagyl #4 -02/16 SP IV Vancomycin #3 -f/u cx -Monitor CBC/CMP, temperatures -Aspiration precautions -GI, Sx f/u -wound Subjective Allergies: Coded Allergies: ESTROGENS (Verified Allergy, Unknown, 11/27/14) Uncoded Allergies: "estrogen" (Allergy, Unknown, 02/20/14) Subjective transferred out of ICU afebrile at 2l NC leukocytosis improving Bcx NTD Objective Vital Signs Last 24 Hour Vital Signs Date Time Temp Pulse Resp B/P (MAP) Pulse Ox O2 Delivery O2 Flow Rate FiO2 02/23/18 12:00 98.9 104 19 132/87 98 Nasal Cannula 2.0 98.9 02/23/18 10:00 94 23 151/57 99 Nasal Cannula 2.0 02/23/18 09:00 97 19 125/34 97 Nasal Cannula 2.0 02/23/18 08:00 104 02/23/18 08:00 99.8 95 19 107/35 98 Nasal Cannula 2.0 99.8 02/23/18 07:00 97 17 106/31 98 Nasal Cannula 2.0 02/23/18 06:30 101 20 Nasal Cannula 2.0 28 02/23/18 06:30 100 Nasal Cannula 2.0 28 02/23/18 06:30 Nasal Cannula 2.0 28 02/23/18 06:00 98 17 115/43 98 Nasal Cannula 2.0 02/23/18 06:00 98 02/23/18 05:00 99 18 108/88 98 Nasal Cannula 2.0 02/23/18 04:00 98.8 94 22 137/43 97 Nasal Cannula 2.0 98.8 02/23/18 03:00 97 20 140/50 97 Nasal Cannula 2.0 02/23/18 02:00 99 20 132/40 97 Nasal Cannula 2.0 02/23/18 01:00 97 20 130/74 97 Nasal Cannula 2.0 02/23/18 00:00 99.0 100 21 136/117 97 Nasal Cannula 2.0 99.0 02/23/18 00:00 104 02/22/18 23:00 105 17 135/65 98 Nasal Cannula 2.0 02/22/18 22:00 95 20 98/31 99 Nasal Cannula 2.0 02/22/18 21:00 107 20 103/36 99 Nasal Cannula 2.0 02/22/18 20:20 114/37 02/22/18 20:00 108 18 91/59 99 Nasal Cannula 2.0 02/22/18 20:00 108 02/22/18 19:00 100 Nasal Cannula 2.0 28 02/22/18 19:00 99.1 104 16 94/40 99 Nasal Cannula 2.0 99.1 02/22/18 19:00 Nasal Cannula 2.0 28 02/22/18 19:00 114 19 Nasal Cannula 2.0 28 02/22/18 18:00 97.6 103 16 82/48 99 Nasal Cannula 2.0 97.6 02/22/18 17:01 103 18 119/37 99 Nasal Cannula 2.0 02/22/18 16:01 98 18 119/37 99 Nasal Cannula 2.0 02/22/18 16:00 105 Height (Feet): 5 Height (Inches): 5.00 Weight (Pounds): 160 Objective General Appearance: cachetic Lines, tubes and drains: central line HEENT: normocephalic, atraumatic, PERRL Neck: normal alignment Respiratory/Chest: chest wall non-tender, normal breath sounds Cardiovascular/Chest: normal peripheral pulses, normal rate Abdomen: normal bowel sounds, non tender Genitourinary/Rectal: normal genital exam, normal rectal exam Extremities: non-pitting Laboratory Tests Test 02/23/18 04:30 02/23/18 05:00 02/23/18 09:10 White Blood Count 12.3 K/UL (4.8-10.8) H Red Blood Count 3.65 M/UL (4.20-5.40) L Hemoglobin 9.6 G/DL (12.0-16.0) L Hematocrit 29.8 % (37.0-47.0) L Mean Corpuscular Volume 81 FL (80-99) Mean Corpuscular Hemoglobin 26.2 PG (27.0-31.0) L Mean Corpuscular Hemoglobin Concent 32.1 G/DL (32.0-36.0) Red Cell Distribution Width 12.6 % (11.6-14.8) Platelet Count 141 K/UL (150-450) L Mean Platelet Volume 7.6 FL (6.5-10.1) Neutrophils (%) (Auto) 78.6 % (45.0-75.0) H Lymphocytes (%) (Auto) 10.5 % (20.0-45.0) L Monocytes (%) (Auto) 7.9 % (1.0-10.0) Eosinophils (%) (Auto) 2.7 % (0.0-3.0) Basophils (%) (Auto) 0.3 % (0.0-2.0) Sodium Level 144 MMOL/L (136-145) Potassium Level 3.0 MMOL/L (3.5-5.1) L Chloride Level 109 MMOL/L (98-107) H Carbon Dioxide Level 25 MMOL/L (21-32) Anion Gap 10 mmol/L (5-15) Blood Urea Nitrogen 16 mg/dL (7-18) Creatinine 1.5 MG/DL (0.55-1.30) H Estimat Glomerular Filtration Rate mL/min (>60) Glucose Level 130 MG/DL (74-106) H Uric Acid 3.7 MG/DL (2.6-7.2) Calcium Level 9.0 MG/DL (8.5-10.1) Phosphorus Level 2.4 MG/DL (2.5-4.9) L Magnesium Level 1.8 MG/DL (1.8-2.4) Total Bilirubin 0.7 MG/DL (0.2-1.0) Aspartate Amino Transf (AST/SGOT) 65 U/L (15-37) H Alanine Aminotransferase (ALT/SGPT) 23 U/L (12-78) Alkaline Phosphatase 67 U/L (46-116) Troponin I 0.060 ng/mL (0.000-0.056) C-Reactive Protein, Quantitative 17.4 mg/dL (0.00-0.90) H Pro-B-Type Natriuretic Peptide 1753 pg/mL (0-125) H Total Protein 5.4 G/DL (6.4-8.2) L Albumin 1.9 G/DL (3.4-5.0) L Globulin 3.5 g/dL Albumin/Globulin Ratio 0.5 (1.0-2.7) L Urine Color Pale yellow Urine Appearance Clear Urine pH 5 (4.5-8.0) Urine Specific [place] 1.010 (1.005-1.035) Urine Protein 3+ (NEGATIVE) H Urine Glucose (UA) Negative (NEGATIVE) Urine Ketones 2+ (NEGATIVE) H Urine Occult Blood 2+ (NEGATIVE) H Urine Nitrite Negative (NEGATIVE) Urine Bilirubin Negative (NEGATIVE) Urine Urobilinogen Normal MG/DL (0.0-1.0) Urine Leukocyte Esterase Negative (NEGATIVE) Urine RBC 5-10 /HPF (0 - 2) H Urine WBC 0-2 /HPF (0 - 2) Urine Squamous Epithelial Cells Few /LPF (NONE/OCC) Urine Bacteria Few /HPF (NONE) Urine Eosinophils None seen Urine Random Sodium 111 mmol/L (20-110) H Urine Potassium Timed 29 mmol/L (12-62) Arterial Blood pH 7.510 (7.350-7.450) Arterial Blood Partial Pressure CO2 29.7 mmHg (35.0-45.0) L Arterial Blood Partial Pressure O2 77.9 mmHg (75.0-100.0) Arterial Blood HCO3 23.2 mmol/L (22.0-26.0) Arterial Blood Oxygen Saturation 96.1 % (92.0-98.0) Arterial Blood Base Excess 0.7 Travis Test Positive Current Medications Medications (Trade) Dose Ordered Sig/Jus Route PRN Reason Start Time Stop Time Status Last Admin Dose Admin Albuterol/ Ipratropium (Albuterol/ Ipratropium) 3 ml Q4H PRN HHN sob 02/23/18 13:45 02/26/18 09:44 Chlorhexidine Gluconate (Kim-Hex 2%) 1 applic DAILY@2000 TOPIC 02/23/18 20:00 03/21/18 20:29 Dextrose (Dextrose 50%) 25 ml STAT PRN IV Hypoglycemia 02/23/18 20:30 03/21/18 20:29 Dextrose (Dextrose 50%) 50 ml STAT PRN IV Hypoglycemia 02/23/18 20:30 03/21/18 20:29 Hydralazine HCl (Apresoline) 10 mg Q8H PRN IV For High Blood Pressure 02/23/18 12:30 03/21/18 20:29 Insulin Aspart (NovoLOG) Q6HR SUBQ 02/23/18 12:00 03/16/18 20:59 02/23/18 12:00 Insulin Detemir (Levemir) 7 units Q24H SUBQ 02/23/18 12:00 03/22/18 11:59 02/23/18 12:00 Meropenem 1 gm/ Sodium Chloride 55 ml @ 110 mls/hr Q12HR IVPB 02/23/18 21:00 02/27/18 20:59 Micafungin Sodium 100 mg/Dextrose 110 ml @ 110 mls/hr Q24H IVPB 02/24/18 10:30 02/26/18 23:59 Nitroglycerin (Ntg) 0.4 mg Q5M PRN SL Prn Chest Pain 02/23/18 11:45 03/16/18 17:44 Ondansetron HCl (Zofran) 4 mg Q6H PRN IVP Nausea & Vomiting 02/23/18 14:30 03/16/18 20:29 Pantoprazole (Protonix) 40 mg Q12HR IVP 02/23/18 21:00 03/23/18 08:59 Polyethylene Glycol (Miralax) 17 gm DAILYPRN PRN ORAL Constipation 02/23/18 20:30 03/21/18 20:29 Quetiapine Fumarate (SEROquel) 25 mg Q6H PRN ORAL For Anxiety 02/23/18 12:45 03/25/18 12:44 Sodium 1,000 ml @ 50 mls/hr Q20H IV 02/23/18 11:45 03/25/18 10:29 02/23/18 11:45 Vancomycin HCl (Vanco rx to dose) 1 ea DAILY PRN MISC Per rx protocol 02/24/18 09:00 03/21/18 09:29 Brianna Root M.D. Feb 23, 2018 15:18
--- NOTE | 2018-02-23 16:13 | Cardiology Progress Note ---
Assessment/Plan Status: doing well, stable, progressing, tolerating diet Assessment/Plan s/p 02/19 laparoscopy converted to exploratory laparotomy with small bowel resection, repair of enterotomy, extensive lysis of adhesions, and abdominal washout. -Feeds started 20cc/hr -Pain control -Bowel ppx/stool softners -Continue antibiotics -Incentive spirometry -EKG reviewed- ST, occasional PVCs Subjective Cardiovascular: Reports: no symptoms Respiratory: Reports: no symptoms Gastrointestinal/Abdominal: Reports: no symptoms Genitourinary: Reports: no symptoms Subjective s/p 02/19 laparoscopy converted to exploratory laparotomy with small bowel resection, repair of enterotomy, extensive lysis of adhesions, and abdominal washout. Vitals stable, patient clinically improving, feeds started, WBC and CRP coming down. Objective Last 24 Hour Vital Signs Date Time Temp Pulse Resp B/P (MAP) Pulse Ox O2 Delivery O2 Flow Rate FiO2 02/23/18 12:00 98.9 104 19 132/87 98 Nasal Cannula 2.0 98.9 02/23/18 12:00 98 02/23/18 10:00 94 23 151/57 99 Nasal Cannula 2.0 02/23/18 09:00 97 19 125/34 97 Nasal Cannula 2.0 02/23/18 08:00 104 02/23/18 08:00 99.8 95 19 107/35 98 Nasal Cannula 2.0 99.8 02/23/18 07:00 97 17 106/31 98 Nasal Cannula 2.0 02/23/18 06:30 101 20 Nasal Cannula 2.0 28 02/23/18 06:30 100 Nasal Cannula 2.0 28 02/23/18 06:30 Nasal Cannula 2.0 28 02/23/18 06:00 98 17 115/43 98 Nasal Cannula 2.0 02/23/18 06:00 98 02/23/18 05:00 99 18 108/88 98 Nasal Cannula 2.0 02/23/18 04:00 98.8 94 22 137/43 97 Nasal Cannula 2.0 98.8 02/23/18 03:00 97 20 140/50 97 Nasal Cannula 2.0 02/23/18 02:00 99 20 132/40 97 Nasal Cannula 2.0 02/23/18 01:00 97 20 130/74 97 Nasal Cannula 2.0 02/23/18 00:00 99.0 100 21 136/117 97 Nasal Cannula 2.0 99.0 02/23/18 00:00 104 02/22/18 23:00 105 17 135/65 98 Nasal Cannula 2.0 02/22/18 22:00 95 20 98/31 99 Nasal Cannula 2.0 02/22/18 21:00 107 20 103/36 99 Nasal Cannula 2.0 02/22/18 20:20 114/37 02/22/18 20:00 108 18 91/59 99 Nasal Cannula 2.0 02/22/18 20:00 108 02/22/18 19:00 100 Nasal Cannula 2.0 28 02/22/18 19:00 99.1 104 16 94/40 99 Nasal Cannula 2.0 99.1 02/22/18 19:00 Nasal Cannula 2.0 28 02/22/18 19:00 114 19 Nasal Cannula 2.0 28 02/22/18 18:00 97.6 103 16 82/48 99 Nasal Cannula 2.0 97.6 02/22/18 17:01 103 18 119/37 99 Nasal Cannula 2.0 General Appearance: no apparent distress EENT: PERRL/EOMI Neck: non-tender Rhythm: NSR Cardiovascular: normal peripheral pulses Respiratory/Chest: chest wall non-tender Abdomen: normal bowel sounds, non tender Extremities: normal range of motion 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 Intake and Output 02/22/18 02/23/18 19:00 07:00 Intake Total 1465 ml 1840 ml Output Total 4370 ml 980 ml Balance -2905 ml 860 ml Free Water 30 ml IV Total 1415 ml 1500 ml Tube Feeding 50 ml 310 ml Output Urine Total 1070 ml 980 ml Other 3300 ml Laboratory Tests Test 02/23/18 04:30 02/23/18 05:00 02/23/18 09:10 White Blood Count 12.3 K/UL (4.8-10.8) H Red Blood Count 3.65 M/UL (4.20-5.40) L Hemoglobin 9.6 G/DL (12.0-16.0) L Hematocrit 29.8 % (37.0-47.0) L Mean Corpuscular Volume 81 FL (80-99) Mean Corpuscular Hemoglobin 26.2 PG (27.0-31.0) L Mean Corpuscular Hemoglobin Concent 32.1 G/DL (32.0-36.0) Red Cell Distribution Width 12.6 % (11.6-14.8) Platelet Count 141 K/UL (150-450) L Mean Platelet Volume 7.6 FL (6.5-10.1) Neutrophils (%) (Auto) 78.6 % (45.0-75.0) H Lymphocytes (%) (Auto) 10.5 % (20.0-45.0) L Monocytes (%) (Auto) 7.9 % (1.0-10.0) Eosinophils (%) (Auto) 2.7 % (0.0-3.0) Basophils (%) (Auto) 0.3 % (0.0-2.0) Sodium Level 144 MMOL/L (136-145) Potassium Level 3.0 MMOL/L (3.5-5.1) L Chloride Level 109 MMOL/L (98-107) H Carbon Dioxide Level 25 MMOL/L (21-32) Anion Gap 10 mmol/L (5-15) Blood Urea Nitrogen 16 mg/dL (7-18) Creatinine 1.5 MG/DL (0.55-1.30) H Estimat Glomerular Filtration Rate mL/min (>60) Glucose Level 130 MG/DL (74-106) H Uric Acid 3.7 MG/DL (2.6-7.2) Calcium Level 9.0 MG/DL (8.5-10.1) Phosphorus Level 2.4 MG/DL (2.5-4.9) L Magnesium Level 1.8 MG/DL (1.8-2.4) Total Bilirubin 0.7 MG/DL (0.2-1.0) Aspartate Amino Transf (AST/SGOT) 65 U/L (15-37) H Alanine Aminotransferase (ALT/SGPT) 23 U/L (12-78) Alkaline Phosphatase 67 U/L (46-116) Troponin I 0.060 ng/mL (0.000-0.056) C-Reactive Protein, Quantitative 17.4 mg/dL (0.00-0.90) H Pro-B-Type Natriuretic Peptide 1753 pg/mL (0-125) H Total Protein 5.4 G/DL (6.4-8.2) L Albumin 1.9 G/DL (3.4-5.0) L Globulin 3.5 g/dL Albumin/Globulin Ratio 0.5 (1.0-2.7) L Urine Color Pale yellow Urine Appearance Clear Urine pH 5 (4.5-8.0) Urine Specific Bimble 1.010 (1.005-1.035) Urine Protein 3+ (NEGATIVE) H Urine Glucose (UA) Negative (NEGATIVE) Urine Ketones 2+ (NEGATIVE) H Urine Occult Blood 2+ (NEGATIVE) H Urine Nitrite Negative (NEGATIVE) Urine Bilirubin Negative (NEGATIVE) Urine Urobilinogen Normal MG/DL (0.0-1.0) Urine Leukocyte Esterase Negative (NEGATIVE) Urine RBC 5-10 /HPF (0 - 2) H Urine WBC 0-2 /HPF (0 - 2) Urine Squamous Epithelial Cells Few /LPF (NONE/OCC) Urine Bacteria Few /HPF (NONE) Urine Eosinophils None seen Urine Random Sodium 111 mmol/L (20-110) H Urine Potassium Timed 29 mmol/L (12-62) Arterial Blood pH 7.510 (7.350-7.450) Arterial Blood Partial Pressure CO2 29.7 mmHg (35.0-45.0) L Arterial Blood Partial Pressure O2 77.9 mmHg (75.0-100.0) Arterial Blood HCO3 23.2 mmol/L (22.0-26.0) Arterial Blood Oxygen Saturation 96.1 % (92.0-98.0) Arterial Blood Base Excess 0.7 Travis Test Positive Ant Gu M.D. Feb 23, 2018 16:13
[2018-02-23] MEDS ORDERED: Dyna-Hex 2% Top Sol 2oz TOPIC SCH (20:00)
[2018-02-23] MEDS ORDERED: Miralax 17gm pkt ORAL PRN (20:30)
[2018-02-23] MEDS ORDERED: Pantoprazole Inj IVP SCH (21:00)
[2018-02-24] VITALS: BP 110/90
[2018-02-24] MEDS: NovoLOG Insulin Flexpen SUBQ SCH ×5 (00:29→23:41)
[2018-02-24 04:00] VITALS: BP 163/91
[2018-02-24 06:13] LABS: BASOPHILS % (AUTO) 0.4 % (0.0-2.0); EOSINOPHILS % (AUTO) 3.2 % (0.0-3.0); HEMATOCRIT 31.5 % (37.0-47.0); HEMOGLOBIN 9.8 G/DL (12.0-16.0); LYMPHOCYTES % (AUTO) 10.7 % (20.0-45.0); MEAN CORPUSCULAR VOLUME 82 FL (80-99); MONOCYTES % (AUTO) 7.8 % (1.0-10.0); PLATELET COUNT 140 K/UL (150-450); RED BLOOD COUNT 3.85 M/UL (4.20-5.40); RED CELL DISTRIBUTION WIDTH 12.5 % (11.6-14.8); WHITE BLOOD COUNT 11.6 K/UL (4.8-10.8)
[2018-02-24 06:39] LABS: ALANINE AMINOTRANSFERASE 24 U/L (12-78); ALBUMIN/GLOBULIN RATIO 0.5 (1.0-2.7); ALKALINE PHOSPHATASE 74 U/L (46-116); ANION GAP 8 mmol/L (5-15); ASPARTATE AMINO TRANSFERASE 50 U/L (15-37); BILIRUBIN,TOTAL 0.6 MG/DL (0.2-1.0); BLOOD UREA NITROGEN 15 mg/dL (7-18); CALCIUM 8.4 MG/DL (8.5-10.1); CARBON DIOXIDE 27 MMOL/L (21-32); CHLORIDE 109 MMOL/L (98-107); CREATININE 1.3 MG/DL (0.55-1.30); POTASSIUM 3.1 MMOL/L (3.5-5.1); SODIUM 143 MMOL/L (136-145)
[2018-02-24 06:40] LABS: PHOSPHORUS 3.1 MG/DL (2.5-4.9)
--- NOTE | 2018-02-24 06:58 | General Progress Note ---
Assessment/Plan Status: stable Assessment/Plan #. Leukocytosis, likely secondary to recent surgery. --> Closely monitor for improvement. On abx as per ID --> Current wbc is better, closely monitor #. Anemia of chronic disease --> reviewed anemia panel, does not need further workup unless hgb less than 10 #. Acute kidney injury. Creatinine currently 2.6. --> Closely monitor potentially secondary to acute tubular necrosis secondary to hypovolemia. #. Severe sepsis secondary to small bowel obstruction. #. Hypertension --> systolic blood pressure goal less than 140. #. Status post laparoscopic converted to an exploratory laparotomy with small bowel removal, repair of enterotomy, extensive lysis of adhesions. #. Diabetes mellitus, type 1. #. Acute encephalopathy due to Alzheimer disease. Subjective Date patient seen: Feb 23, 2018 Allergies: Coded Allergies: ESTROGENS (Verified Allergy, Unknown, 11/27/14) Uncoded Allergies: "estrogen" (Allergy, Unknown, 02/20/14) All Systems: reviewed and negative except above Subjective Pt no longer in ICU, Vitals stable, patient clinically improving, feeds started , WBC and CRP coming down. Objective Last 24 Hour Vital Signs Date Time Temp Pulse Resp B/P (MAP) Pulse Ox O2 Delivery O2 Flow Rate FiO2 02/24/18 05:33 163/91 02/24/18 04:00 98.0 104 18 163/91 96 Nasal Cannula 2.0 98.0 02/24/18 04:00 95 02/24/18 00:00 101 02/24/18 00:00 99.2 108 20 110/90 96 Nasal Cannula 2.0 99.2 02/23/18 20:48 96 Nasal Cannula 2.0 28 02/23/18 20:48 99 18 Nasal Cannula 2.0 28 02/23/18 20:48 Nasal Cannula 2.0 28 02/23/18 20:00 100 02/23/18 20:00 98.0 98 16 153/63 99 Nasal Cannula 2.0 98.0 02/23/18 16:00 99 02/23/18 16:00 98.7 107 19 149/100 96 Nasal Cannula 2.0 98.7 02/23/18 12:00 98.9 104 19 132/87 98 Nasal Cannula 2.0 98.9 02/23/18 12:00 98 02/23/18 10:00 94 23 151/57 99 Nasal Cannula 2.0 02/23/18 09:00 97 19 125/34 97 Nasal Cannula 2.0 02/23/18 08:00 104 02/23/18 08:00 99.8 95 19 107/35 98 Nasal Cannula 2.0 99.8 02/23/18 07:00 97 17 106/31 98 Nasal Cannula 2.0 Intake and Output 02/23/18 02/24/18 19:00 07:00 Intake Total 1227.25 ml 1415 ml Output Total 995 ml 1000 ml Balance 232.25 ml 415 ml Free Water 90 ml 150 ml IV Total 527.25 ml 660 ml Tube Feeding 550 ml 605 ml Other 60 ml Output Urine Total 995 ml 1000 ml # Bowel Movements 1 Laboratory Tests 02/23/18 09:10: Arterial Blood pH 7.510H, Arterial Blood Partial Pressure CO2 29.7L, Arterial Blood Partial Pressure O2 77.9, Arterial Blood HCO3 23.2, Arterial Blood Oxygen Saturation 96.1, Arterial Blood Base Excess 0.7, Travis Test Positive 02/24/18 05:20: White Blood Count 11.6H, Red Blood Count 3.85L, Hemoglobin 9.8L, Hematocrit 31.5L, Mean Corpuscular Volume 82, Mean Corpuscular Hemoglobin 25.5L, Mean Corpuscular Hemoglobin Concent 31.1L, Red Cell Distribution Width 12.5, Platelet Count 140L, Mean Platelet Volume 7.9, Neutrophils (%) (Auto) 78.0H, Lymphocytes (%) (Auto) 10.7L, Monocytes (%) (Auto) 7.8, Eosinophils (%) (Auto) 3.2H, Basophils (%) (Auto) 0.4, Sodium Level 143, Potassium Level 3.1L, Chloride Level 109H, Carbon Dioxide Level 27, Anion Gap 8, Blood Urea Nitrogen 15, Creatinine 1.3, Estimat Glomerular Filtration Rate , Glucose Level 285#H, Calcium Level 8.4L, Phosphorus Level 3.1, Magnesium Level 1.7L, Total Bilirubin 0.6, Aspartate Amino Transf (AST/SGOT) 50H, Alanine Aminotransferase (ALT/SGPT) 24, Alkaline Phosphatase 74, Troponin I 0.034, Pro-B-Type Natriuretic Peptide 1443H, Total Protein 5.7L, Albumin 2.0L, Globulin 3.7, Albumin/Globulin Ratio 0.5L, Random Vancomycin Level 10.4 Height (Feet): 5 Height (Inches): 5.00 Weight (Pounds): 160 General Appearance: WD/WN, no apparent distress EENT: PERRL/EOMI Neck: supple Cardiovascular: normal peripheral pulses, normal rate Respiratory/Chest: normal breath sounds, no respiratory distress Abdomen: soft Karan Carrero MD Feb 24, 2018 06:58
--- NOTE | 2018-02-24 07:01 | General Progress Note ---
Assessment/Plan Status: stable Assessment/Plan #. Leukocytosis, likely secondary to recent surgery. --> Closely monitor for improvement. On abx as per ID --> Current wbc is better, closely monitor #. Anemia of chronic disease --> reviewed anemia panel, does not need further workup unless hgb less than 10 #. Thrombocytopenia potentialy related to infection --> currently stable at 100-140k, closely monitor #. Acute kidney injury. Creatinine currently 2.6. --> Closely monitor potentially secondary to acute tubular necrosis secondary to hypovolemia. #. Severe sepsis secondary to small bowel obstruction. #. Hypertension --> systolic blood pressure goal less than 140. #. Status post laparoscopic converted to an exploratory laparotomy with small bowel removal, repair of enterotomy, extensive lysis of adhesions. #. Diabetes mellitus, type 1. #. Acute encephalopathy due to Alzheimer disease. Subjective Date patient seen: Feb 24, 2018 Allergies: Coded Allergies: ESTROGENS (Verified Allergy, Unknown, 11/27/14) Uncoded Allergies: "estrogen" (Allergy, Unknown, 02/20/14) All Systems: reviewed and negative except above Subjective No overnight events reported. No signs of acute medical distress. Objective Last 24 Hour Vital Signs Date Time Temp Pulse Resp B/P (MAP) Pulse Ox O2 Delivery O2 Flow Rate FiO2 02/24/18 05:33 163/91 02/24/18 04:00 98.0 104 18 163/91 96 Nasal Cannula 2.0 98.0 02/24/18 04:00 95 02/24/18 00:00 101 02/24/18 00:00 99.2 108 20 110/90 96 Nasal Cannula 2.0 99.2 02/23/18 20:48 96 Nasal Cannula 2.0 28 02/23/18 20:48 99 18 Nasal Cannula 2.0 28 02/23/18 20:48 Nasal Cannula 2.0 28 02/23/18 20:00 100 02/23/18 20:00 98.0 98 16 153/63 99 Nasal Cannula 2.0 98.0 02/23/18 16:00 99 02/23/18 16:00 98.7 107 19 149/100 96 Nasal Cannula 2.0 98.7 02/23/18 12:00 98.9 104 19 132/87 98 Nasal Cannula 2.0 98.9 02/23/18 12:00 98 02/23/18 10:00 94 23 151/57 99 Nasal Cannula 2.0 02/23/18 09:00 97 19 125/34 97 Nasal Cannula 2.0 02/23/18 08:00 104 02/23/18 08:00 99.8 95 19 107/35 98 Nasal Cannula 2.0 99.8 02/23/18 07:00 97 17 106/31 98 Nasal Cannula 2.0 Intake and Output 02/23/18 02/24/18 19:00 07:00 Intake Total 1227.25 ml 1415 ml Output Total 995 ml 1000 ml Balance 232.25 ml 415 ml Free Water 90 ml 150 ml IV Total 527.25 ml 660 ml Tube Feeding 550 ml 605 ml Other 60 ml Output Urine Total 995 ml 1000 ml # Bowel Movements 1 Laboratory Tests 02/23/18 09:10: Arterial Blood pH 7.510H, Arterial Blood Partial Pressure CO2 29.7L, Arterial Blood Partial Pressure O2 77.9, Arterial Blood HCO3 23.2, Arterial Blood Oxygen Saturation 96.1, Arterial Blood Base Excess 0.7, Travis Test Positive 02/24/18 05:20: White Blood Count 11.6H, Red Blood Count 3.85L, Hemoglobin 9.8L, Hematocrit 31.5L, Mean Corpuscular Volume 82, Mean Corpuscular Hemoglobin 25.5L, Mean Corpuscular Hemoglobin Concent 31.1L, Red Cell Distribution Width 12.5, Platelet Count 140L, Mean Platelet Volume 7.9, Neutrophils (%) (Auto) 78.0H, Lymphocytes (%) (Auto) 10.7L, Monocytes (%) (Auto) 7.8, Eosinophils (%) (Auto) 3.2H, Basophils (%) (Auto) 0.4, Sodium Level 143, Potassium Level 3.1L, Chloride Level 109H, Carbon Dioxide Level 27, Anion Gap 8, Blood Urea Nitrogen 15, Creatinine 1.3, Estimat Glomerular Filtration Rate , Glucose Level 285#H, Calcium Level 8.4L, Phosphorus Level 3.1, Magnesium Level 1.7L, Total Bilirubin 0.6, Aspartate Amino Transf (AST/SGOT) 50H, Alanine Aminotransferase (ALT/SGPT) 24, Alkaline Phosphatase 74, Troponin I 0.034, Pro-B-Type Natriuretic Peptide 1443H, Total Protein 5.7L, Albumin 2.0L, Globulin 3.7, Albumin/Globulin Ratio 0.5L, Random Vancomycin Level 10.4 Height (Feet): 5 Height (Inches): 5.00 Weight (Pounds): 160 General Appearance: WD/WN, no apparent distress EENT: PERRL/EOMI, normal ENT inspection Neck: supple Cardiovascular: normal peripheral pulses, normal rate Respiratory/Chest: chest wall non-tender, normal breath sounds Abdomen: soft Karan Carrero MD Feb 24, 2018 07:01
[2018-02-24 08:00] VITALS: BP 104/60
[2018-02-24] MEDS: 1/2NS w/KCl 20mEq 1000ml 1,000 ML IV SCH (08:25)
[2018-02-24] MEDS: Meropenem 1 GM in NS 55 ML IVPB SCH ×2 (08:26→20:41)
[2018-02-24] MEDS ORDERED: Potassium Phosphate 30 MM in NS 275 ML IV ONE (10:30)
[2018-02-24] MEDS ORDERED: Micafungin 100 MG in D5W 110 ML IVPB SCH (10:30)
--- NOTE | 2018-02-24 10:45 | GI Progress Note ---
Assessment/Plan Problems: (1) Altered mental status ICD Codes: R41.82 - Altered mental status, unspecified SNOMED: 378391282 (2) At high risk for aspiration ICD Codes: Z91.89 - At high risk for aspiration SNOMED: 633938542 (3) Anemia ICD Codes: D64.9 - Anemia SNOMED: 890007679 (4) Ileus ICD Codes: K56.7 - Ileus, unspecified SNOMED: 012085657 (5) SBO (small bowel obstruction) ICD Codes: K56.609 - Unspecified intestinal obstruction, unspecified as to partial versus complete obstruction SNOMED: 008204403 (6) Coffee ground emesis ICD Codes: K92.0 - Hematemesis SNOMED: 32977029, 932696139 Status: stable Status Narrative Discussed with Dr. Montoya. Assessment/Plan hep panel negative s/p SB surgery NGTFs per surgery serial imaging prn electrolyte correction ppi BID fu labs The patient was seen and examined at bedside and all new and available data was reviewed in the patients chart. I agree with the above findings, impression and plan. (Patient seen earlier today. Signature stamp does not reflect patient encounter time.). - Jesse Montoya MD Subjective Subjective limited Objective Last 24 Hour Vital Signs Date Time Temp Pulse Resp B/P (MAP) Pulse Ox O2 Delivery O2 Flow Rate FiO2 02/24/18 08:31 Nasal Cannula 2.0 28 02/24/18 08:31 97 Nasal Cannula 2.0 28 02/24/18 08:30 97 20 Nasal Cannula 2.0 28 02/24/18 08:00 94 02/24/18 08:00 98.4 101 20 104/60 100 Nasal Cannula 2.0 98.4 02/24/18 05:33 163/91 02/24/18 04:00 98.0 104 18 163/91 96 Nasal Cannula 2.0 98.0 02/24/18 04:00 95 02/24/18 00:00 101 02/24/18 00:00 99.2 108 20 110/90 96 Nasal Cannula 2.0 99.2 02/23/18 20:48 96 Nasal Cannula 2.0 28 02/23/18 20:48 99 18 Nasal Cannula 2.0 28 02/23/18 20:48 Nasal Cannula 2.0 28 02/23/18 20:00 100 02/23/18 20:00 98.0 98 16 153/63 99 Nasal Cannula 2.0 98.0 02/23/18 16:00 99 02/23/18 16:00 98.7 107 19 149/100 96 Nasal Cannula 2.0 98.7 02/23/18 12:00 98.9 104 19 132/87 98 Nasal Cannula 2.0 98.9 02/23/18 12:00 98 Intake and Output 02/23/18 02/24/18 19:00 07:00 Intake Total 1227.25 ml 1520 ml Output Total 995 ml 1000 ml Balance 232.25 ml 520 ml Free Water 90 ml 150 ml IV Total 527.25 ml 710 ml Tube Feeding 550 ml 660 ml Other 60 ml Output Urine Total 995 ml 1000 ml # Bowel Movements 1 Laboratory Tests Test 02/24/18 05:20 White Blood Count 11.6 K/UL (4.8-10.8) H Red Blood Count 3.85 M/UL (4.20-5.40) L Hemoglobin 9.8 G/DL (12.0-16.0) L Hematocrit 31.5 % (37.0-47.0) L Mean Corpuscular Volume 82 FL (80-99) Mean Corpuscular Hemoglobin 25.5 PG (27.0-31.0) L Mean Corpuscular Hemoglobin Concent 31.1 G/DL (32.0-36.0) L Red Cell Distribution Width 12.5 % (11.6-14.8) Platelet Count 140 K/UL (150-450) L Mean Platelet Volume 7.9 FL (6.5-10.1) Neutrophils (%) (Auto) 78.0 % (45.0-75.0) H Lymphocytes (%) (Auto) 10.7 % (20.0-45.0) L Monocytes (%) (Auto) 7.8 % (1.0-10.0) Eosinophils (%) (Auto) 3.2 % (0.0-3.0) H Basophils (%) (Auto) 0.4 % (0.0-2.0) Sodium Level 143 MMOL/L (136-145) Potassium Level 3.1 MMOL/L (3.5-5.1) L Chloride Level 109 MMOL/L (98-107) H Carbon Dioxide Level 27 MMOL/L (21-32) Anion Gap 8 mmol/L (5-15) Blood Urea Nitrogen 15 mg/dL (7-18) Creatinine 1.3 MG/DL (0.55-1.30) Estimat Glomerular Filtration Rate mL/min (>60) Glucose Level 285 MG/DL (74-106) #H Calcium Level 8.4 MG/DL (8.5-10.1) L Phosphorus Level 3.1 MG/DL (2.5-4.9) Magnesium Level 1.7 MG/DL (1.8-2.4) L Total Bilirubin 0.6 MG/DL (0.2-1.0) Aspartate Amino Transf (AST/SGOT) 50 U/L (15-37) H Alanine Aminotransferase (ALT/SGPT) 24 U/L (12-78) Alkaline Phosphatase 74 U/L (46-116) Troponin I 0.034 ng/mL (0.000-0.056) Pro-B-Type Natriuretic Peptide 1443 pg/mL (0-125) H Total Protein 5.7 G/DL (6.4-8.2) L Albumin 2.0 G/DL (3.4-5.0) L Globulin 3.7 g/dL Albumin/Globulin Ratio 0.5 (1.0-2.7) L Random Vancomycin Level 10.4 ug/mL Height (Feet): 5 Height (Inches): 5.00 Weight (Pounds): 160 General Appearance: no apparent distress, alert, thin Cardiovascular: normal rate Respiratory/Chest: normal breath sounds, no respiratory distress Abdominal Exam: normal bowel sounds, non tender, soft, other - NGT Extremities: non-tender Mi Galeas NP Feb 24, 2018 10:45
[2018-02-24] MEDS: Levemir Flexpen SUBQ SCH (11:32)
[2018-02-24 12:00] VITALS: BP 157/61
--- NOTE | 2018-02-24 14:07 | Pulmonology Progress Note ---
Assessment/Plan Problems: (1) SBO (small bowel obstruction) (2) Coffee ground emesis (3) Hematemesis (4) Severe sepsis (5) Intractable nausea and vomiting (6) Altered mental status (7) end stage alzheimrers dementia (8) UTI (urinary tract infection) (9) At high risk for aspiration (10) Diabetes Assessment/Plan swallow study looks comfortable laparotomy today NGtube feeding toleraing well hold heparin check h/h continue abx check cultures check electrolytes dvt prophylaxis. Subjective ROS Limited/Unobtainable: No Interval Events: looks comfortable Allergies: Coded Allergies: ESTROGENS (Verified Allergy, Unknown, 11/27/14) Uncoded Allergies: "estrogen" (Allergy, Unknown, 02/20/14) Objective Last 24 Hour Vital Signs Date Time Temp Pulse Resp B/P (MAP) Pulse Ox O2 Delivery O2 Flow Rate FiO2 02/24/18 12:00 101 02/24/18 12:00 97.6 105 20 157/61 99 Nasal Cannula 2.0 97.6 02/24/18 08:31 Nasal Cannula 2.0 28 02/24/18 08:31 97 Nasal Cannula 2.0 28 02/24/18 08:30 97 20 Nasal Cannula 2.0 28 02/24/18 08:00 94 02/24/18 08:00 98.4 101 20 104/60 100 Nasal Cannula 2.0 98.4 02/24/18 05:33 163/91 02/24/18 04:00 98.0 104 18 163/91 96 Nasal Cannula 2.0 98.0 02/24/18 04:00 95 02/24/18 00:00 101 02/24/18 00:00 99.2 108 20 110/90 96 Nasal Cannula 2.0 99.2 02/23/18 20:48 96 Nasal Cannula 2.0 28 02/23/18 20:48 99 18 Nasal Cannula 2.0 28 02/23/18 20:48 Nasal Cannula 2.0 28 02/23/18 20:00 100 02/23/18 20:00 98.0 98 16 153/63 99 Nasal Cannula 2.0 98.0 02/23/18 16:00 99 02/23/18 16:00 98.7 107 19 149/100 96 Nasal Cannula 2.0 98.7 Intake and Output 02/23/18 02/24/18 19:00 07:00 Intake Total 1227.25 ml 1520 ml Output Total 995 ml 1000 ml Balance 232.25 ml 520 ml Free Water 90 ml 150 ml IV Total 527.25 ml 710 ml Tube Feeding 550 ml 660 ml Other 60 ml Output Urine Total 995 ml 1000 ml # Bowel Movements 1 General Appearance: WD/WN HEENT: normocephalic Respiratory/Chest: chest wall non-tender, lungs clear Breasts: no masses Cardiovascular: normal rate Abdomen: normal bowel sounds, no organomegaly Extremities: no cyanosis Skin: no rash, no lesions Microbiology Date/Time Source Procedure Growth Status 02/22/18 15:15 Sputum Gram Stain - Final Resulted 02/22/18 15:15 Sputum Sputum Culture Pending Resulted Laboratory Tests 02/24/18 05:20: White Blood Count 11.6H, Red Blood Count 3.85L, Hemoglobin 9.8L, Hematocrit 31.5L, Mean Corpuscular Volume 82, Mean Corpuscular Hemoglobin 25.5L, Mean Corpuscular Hemoglobin Concent 31.1L, Red Cell Distribution Width 12.5, Platelet Count 140L, Mean Platelet Volume 7.9, Neutrophils (%) (Auto) 78.0H, Lymphocytes (%) (Auto) 10.7L, Monocytes (%) (Auto) 7.8, Eosinophils (%) (Auto) 3.2H, Basophils (%) (Auto) 0.4, Sodium Level 143, Potassium Level 3.1L, Chloride Level 109H, Carbon Dioxide Level 27, Anion Gap 8, Blood Urea Nitrogen 15, Creatinine 1.3, Estimat Glomerular Filtration Rate , Glucose Level 285#H, Calcium Level 8.4L, Phosphorus Level 3.1, Magnesium Level 1.7L, Total Bilirubin 0.6, Aspartate Amino Transf (AST/SGOT) 50H, Alanine Aminotransferase (ALT/SGPT) 24, Alkaline Phosphatase 74, Troponin I 0.034, Pro-B-Type Natriuretic Peptide 1443H, Total Protein 5.7L, Albumin 2.0L, Globulin 3.7, Albumin/Globulin Ratio 0.5L, Random Vancomycin Level 10.4 Current Medications Medications (Trade) Dose Ordered Sig/Jus Route PRN Reason Start Time Stop Time Status Last Admin Dose Admin Albuterol/ Ipratropium (Albuterol/ Ipratropium) 3 ml Q4H PRN HHN sob 6/12/18 13:45 02/26/18 09:44 Dextrose (Dextrose 50%) 25 ml STAT PRN IV Hypoglycemia 02/23/18 20:30 03/21/18 20:29 Dextrose (Dextrose 50%) 50 ml STAT PRN IV Hypoglycemia 02/23/18 20:30 03/21/18 20:29 Insulin Aspart (NovoLOG) Q6HR SUBQ 02/23/18 12:00 03/16/18 20:59 02/24/18 11:32 Insulin Detemir (Levemir) 7 units Q24H SUBQ 02/23/18 12:00 03/22/18 11:59 02/24/18 11:32 Lansoprazole (Prevacid) 30 mg Q12HR GT 02/24/18 09:00 03/26/18 08:59 02/24/18 08:25 Meropenem 1 gm/ Sodium Chloride 55 ml @ 110 mls/hr Q12HR IVPB 02/23/18 21:00 02/27/18 20:59 02/24/18 08:26 Micafungin Sodium 100 mg/Dextrose 110 ml @ 110 mls/hr Q24H IVPB 02/24/18 10:30 02/26/18 23:59 02/24/18 10:14 Nitroglycerin (Ntg) 0.4 mg Q5M PRN SL Prn Chest Pain 02/23/18 11:45 03/16/18 17:44 Ondansetron HCl (Zofran) 4 mg Q6H PRN IVP Nausea & Vomiting 02/23/18 14:30 03/16/18 20:29 Polyethylene Glycol (Miralax) 17 gm DAILYPRN PRN ORAL Constipation 02/23/18 20:30 03/21/18 20:29 Potassium Chloride (K-Dur) 20 meq TWICE A DAY NG 02/24/18 10:45 03/26/18 10:44 02/24/18 10:45 Quetiapine Fumarate (SEROquel) 25 mg Q6H PRN ORAL For Anxiety 02/23/18 12:45 03/25/18 12:44 Vancomycin HCl (Vanco rx to dose) 1 ea DAILY PRN MISC Per rx protocol 02/24/18 09:00 03/21/18 09:29 Vancomycin HCl/ Dextrose 250 ml @ 166.667 mls/hr ONCE ONCE IVPB 02/24/18 14:30 02/24/18 15:59 Tiago Cason MD Feb 24, 2018 14:07
[2018-02-24] MEDS ORDERED: Vancomycin 1250mg/D5W 250ml IVPB ONE (14:30)
--- NOTE | 2018-02-24 15:46 | Nephrology Progress Note ---
Assessment/Plan Problem List: (1) Acute renal failure (2) SBO (small bowel obstruction) (3) Anemia (4) Diabetes Assessment Severe sepsis ( secondary to small bowel obstruction) septic shock Acute respiratory failure requiring intubation Acute encephalopathy ( due to sepsis) on chronic end-stage Alzheimer dementia Acute renal failure, probably ATN due to unstable hemodynamics Urine out put improving Pneumonia with Klebsiella Small bowel obstruction s/p 02/19 laparoscopy converted to exploratory laparotomy with small bowel resection, repair of enterotomy, extensive lysis of adhesions, and abdominal washout. Hematemesis Electrolyte imbalance Anemia Diabetes mellitus h/o Hypertension Aspiration risk Severe protein calorie malnutrition Plan increase levemir K supplement Mag and Phos supplement as needed Post Op care- pulmonary support Monitor renal parameters, Urine output, Avoid Nephrotoxics Keep BP above 100 syst Keep BS in check Subjective ROS Limited/Unobtainable: No Constitutional: Reports: malaise Objective Objective Last 24 Hour Vital Signs Date Time Temp Pulse Resp B/P (MAP) Pulse Ox O2 Delivery O2 Flow Rate FiO2 02/24/18 12:00 101 02/24/18 12:00 97.6 105 20 157/61 99 Nasal Cannula 2.0 97.6 02/24/18 08:31 Nasal Cannula 2.0 28 02/24/18 08:31 97 Nasal Cannula 2.0 28 02/24/18 08:30 97 20 Nasal Cannula 2.0 28 02/24/18 08:00 94 02/24/18 08:00 98.4 101 20 104/60 100 Nasal Cannula 2.0 98.4 02/24/18 05:33 163/91 02/24/18 04:00 98.0 104 18 163/91 96 Nasal Cannula 2.0 98.0 02/24/18 04:00 95 02/24/18 00:00 101 02/24/18 00:00 99.2 108 20 110/90 96 Nasal Cannula 2.0 99.2 02/23/18 20:48 96 Nasal Cannula 2.0 28 02/23/18 20:48 99 18 Nasal Cannula 2.0 28 02/23/18 20:48 Nasal Cannula 2.0 28 02/23/18 20:00 100 02/23/18 20:00 98.0 98 16 153/63 99 Nasal Cannula 2.0 98.0 02/23/18 16:00 99 02/23/18 16:00 98.7 107 19 149/100 96 Nasal Cannula 2.0 98.7 Intake and Output 02/23/18 02/24/18 19:00 07:00 Intake Total 1227.25 ml 1520 ml Output Total 995 ml 1000 ml Balance 232.25 ml 520 ml Free Water 90 ml 150 ml IV Total 527.25 ml 710 ml Tube Feeding 550 ml 660 ml Other 60 ml Output Urine Total 995 ml 1000 ml # Bowel Movements 1 Laboratory Tests 02/24/18 05:20: White Blood Count 11.6H, Red Blood Count 3.85L, Hemoglobin 9.8L, Hematocrit 31.5L, Mean Corpuscular Volume 82, Mean Corpuscular Hemoglobin 25.5L, Mean Corpuscular Hemoglobin Concent 31.1L, Red Cell Distribution Width 12.5, Platelet Count 140L, Mean Platelet Volume 7.9, Neutrophils (%) (Auto) 78.0H, Lymphocytes (%) (Auto) 10.7L, Monocytes (%) (Auto) 7.8, Eosinophils (%) (Auto) 3.2H, Basophils (%) (Auto) 0.4, Sodium Level 143, Potassium Level 3.1L, Chloride Level 109H, Carbon Dioxide Level 27, Anion Gap 8, Blood Urea Nitrogen 15, Creatinine 1.3, Estimat Glomerular Filtration Rate , Glucose Level 285#H, Calcium Level 8.4L, Phosphorus Level 3.1, Magnesium Level 1.7L, Total Bilirubin 0.6, Aspartate Amino Transf (AST/SGOT) 50H, Alanine Aminotransferase (ALT/SGPT) 24, Alkaline Phosphatase 74, Troponin I 0.034, Pro-B-Type Natriuretic Peptide 1443H, Total Protein 5.7L, Albumin 2.0L, Globulin 3.7, Albumin/Globulin Ratio 0.5L, Random Vancomycin Level 10.4 Height (Feet): 5 Height (Inches): 5.00 Weight (Pounds): 160 EENT: other - NGT feeding Cardiovascular: tachycardia Respiratory/Chest: decreased breath sounds Abdomen: distended Objective no change ROSA REED Feb 24, 2018 15:46
[2018-02-24 16:00] VITALS: BP 128/87
--- NOTE | 2018-02-24 16:08 | General Progress Note ---
Assessment/Plan Assessment/Plan Dementia with behavioral disturbance The pt lacks capacity The pt is non compliance The pt public guardian should be contacted the pts pg needs to be contacted prior to gt dc haldol start seroquel prn Subjective Date patient seen: Feb 24, 2018 Neurologic/Psychiatric: Reports: anxiety, depressed, emotional problems Allergies: Coded Allergies: ESTROGENS (Verified Allergy, Unknown, 11/27/14) Uncoded Allergies: "estrogen" (Allergy, Unknown, 02/20/14) Subjective the pt is confuse not agitated Objective Last 24 Hour Vital Signs Date Time Temp Pulse Resp B/P (MAP) Pulse Ox O2 Delivery O2 Flow Rate FiO2 02/24/18 12:00 101 02/24/18 12:00 97.6 105 20 157/61 99 Nasal Cannula 2.0 97.6 02/24/18 08:31 Nasal Cannula 2.0 28 02/24/18 08:31 97 Nasal Cannula 2.0 28 02/24/18 08:30 97 20 Nasal Cannula 2.0 28 02/24/18 08:00 94 02/24/18 08:00 98.4 101 20 104/60 100 Nasal Cannula 2.0 98.4 02/24/18 05:33 163/91 02/24/18 04:00 98.0 104 18 163/91 96 Nasal Cannula 2.0 98.0 02/24/18 04:00 95 02/24/18 00:00 101 02/24/18 00:00 99.2 108 20 110/90 96 Nasal Cannula 2.0 99.2 02/23/18 20:48 96 Nasal Cannula 2.0 28 02/23/18 20:48 99 18 Nasal Cannula 2.0 28 02/23/18 20:48 Nasal Cannula 2.0 28 02/23/18 20:00 100 02/23/18 20:00 98.0 98 16 153/63 99 Nasal Cannula 2.0 98.0 Intake and Output 02/23/18 02/24/18 19:00 07:00 Intake Total 1227.25 ml 1520 ml Output Total 995 ml 1000 ml Balance 232.25 ml 520 ml Free Water 90 ml 150 ml IV Total 527.25 ml 710 ml Tube Feeding 550 ml 660 ml Other 60 ml Output Urine Total 995 ml 1000 ml # Bowel Movements 1 Laboratory Tests 02/24/18 05:20: White Blood Count 11.6H, Red Blood Count 3.85L, Hemoglobin 9.8L, Hematocrit 31.5L, Mean Corpuscular Volume 82, Mean Corpuscular Hemoglobin 25.5L, Mean Corpuscular Hemoglobin Concent 31.1L, Red Cell Distribution Width 12.5, Platelet Count 140L, Mean Platelet Volume 7.9, Neutrophils (%) (Auto) 78.0H, Lymphocytes (%) (Auto) 10.7L, Monocytes (%) (Auto) 7.8, Eosinophils (%) (Auto) 3.2H, Basophils (%) (Auto) 0.4, Sodium Level 143, Potassium Level 3.1L, Chloride Level 109H, Carbon Dioxide Level 27, Anion Gap 8, Blood Urea Nitrogen 15, Creatinine 1.3, Estimat Glomerular Filtration Rate , Glucose Level 285#H, Calcium Level 8.4L, Phosphorus Level 3.1, Magnesium Level 1.7L, Total Bilirubin 0.6, Aspartate Amino Transf (AST/SGOT) 50H, Alanine Aminotransferase (ALT/SGPT) 24, Alkaline Phosphatase 74, Troponin I 0.034, Pro-B-Type Natriuretic Peptide 1443H, Total Protein 5.7L, Albumin 2.0L, Globulin 3.7, Albumin/Globulin Ratio 0.5L, Random Vancomycin Level 10.4 Height (Feet): 5 Height (Inches): 5.00 Weight (Pounds): 160 Josue Roy M.D. Feb 24, 2018 16:08
--- NOTE | 2018-02-24 16:38 | General Progress Note ---
Progress Note Progress Note Surgery: no acute events. doing much better. no n/v/f/c. tolerating tube feeds at goal. responds to pain leukocytosis improving. labs reviewed exam benign. incisions c/d/i -feeds as tolerated -speech eval -placement. Miguel Freeman Feb 24, 2018 16:38
--- NOTE | 2018-02-24 17:25 | Cardiology Progress Note ---
Assessment/Plan Status: stable, progressing, tolerating diet Assessment/Plan s/p 02/19 laparoscopy converted to exploratory laparotomy with small bowel resection, repair of enterotomy, extensive lysis of adhesions, and abdominal washout. -Continue feeds via NGT -Swallow study soon -Pain control -Bowel ppx/stool softeners -Continue antibiotics, follow respiratory cultures -Incentive spirometry -EKG reviewed- ST, occasional PVCs -BP control, goal <140 -Placement Subjective Cardiovascular: Reports: no symptoms Respiratory: Reports: no symptoms Gastrointestinal/Abdominal: Reports: no symptoms Genitourinary: Reports: no symptoms Subjective s/p 02/19 laparoscopy converted to exploratory laparotomy with small bowel resection, repair of enterotomy, extensive lysis of adhesions, and abdominal washout. Vitals stable, patient clinically improving, tolerating feeds, WBC and CRP coming down. Objective Last 24 Hour Vital Signs Date Time Temp Pulse Resp B/P (MAP) Pulse Ox O2 Delivery O2 Flow Rate FiO2 02/24/18 16:00 97.8 107 20 128/87 99 Nasal Cannula 2.0 97.8 02/24/18 16:00 98 02/24/18 12:00 101 02/24/18 12:00 97.6 105 20 157/61 99 Nasal Cannula 2.0 97.6 02/24/18 08:31 Nasal Cannula 2.0 28 02/24/18 08:31 97 Nasal Cannula 2.0 28 02/24/18 08:30 97 20 Nasal Cannula 2.0 28 02/24/18 08:00 94 02/24/18 08:00 98.4 101 20 104/60 100 Nasal Cannula 2.0 98.4 02/24/18 05:33 163/91 02/24/18 04:00 98.0 104 18 163/91 96 Nasal Cannula 2.0 98.0 02/24/18 04:00 95 02/24/18 00:00 101 02/24/18 00:00 99.2 108 20 110/90 96 Nasal Cannula 2.0 99.2 02/23/18 20:48 96 Nasal Cannula 2.0 28 02/23/18 20:48 99 18 Nasal Cannula 2.0 28 02/23/18 20:48 Nasal Cannula 2.0 28 02/23/18 20:00 100 02/23/18 20:00 98.0 98 16 153/63 99 Nasal Cannula 2.0 98.0 General Appearance: no apparent distress EENT: PERRL/EOMI Neck: non-tender Rhythm: NSR Cardiovascular: normal peripheral pulses Respiratory/Chest: chest wall non-tender Abdomen: normal bowel sounds Extremities: normal range of motion Neurologic: community education specialist II-XII grossly normal Intake and Output 02/23/18 02/24/18 19:00 07:00 Intake Total 1227.25 ml 1520 ml Output Total 995 ml 1000 ml Balance 232.25 ml 520 ml Free Water 90 ml 150 ml IV Total 527.25 ml 710 ml Tube Feeding 550 ml 660 ml Other 60 ml Output Urine Total 995 ml 1000 ml # Bowel Movements 1 Laboratory Tests Test 02/24/18 05:20 White Blood Count 11.6 K/UL (4.8-10.8) H Red Blood Count 3.85 M/UL (4.20-5.40) L Hemoglobin 9.8 G/DL (12.0-16.0) L Hematocrit 31.5 % (37.0-47.0) L Mean Corpuscular Volume 82 FL (80-99) Mean Corpuscular Hemoglobin 25.5 PG (27.0-31.0) L Mean Corpuscular Hemoglobin Concent 31.1 G/DL (32.0-36.0) L Red Cell Distribution Width 12.5 % (11.6-14.8) Platelet Count 140 K/UL (150-450) L Mean Platelet Volume 7.9 FL (6.5-10.1) Neutrophils (%) (Auto) 78.0 % (45.0-75.0) H Lymphocytes (%) (Auto) 10.7 % (20.0-45.0) L Monocytes (%) (Auto) 7.8 % (1.0-10.0) Eosinophils (%) (Auto) 3.2 % (0.0-3.0) H Basophils (%) (Auto) 0.4 % (0.0-2.0) Sodium Level 143 MMOL/L (136-145) Potassium Level 3.1 MMOL/L (3.5-5.1) L Chloride Level 109 MMOL/L (98-107) H Carbon Dioxide Level 27 MMOL/L (21-32) Anion Gap 8 mmol/L (5-15) Blood Urea Nitrogen 15 mg/dL (7-18) Creatinine 1.3 MG/DL (0.55-1.30) Estimat Glomerular Filtration Rate mL/min (>60) Glucose Level 285 MG/DL (74-106) #H Calcium Level 8.4 MG/DL (8.5-10.1) L Phosphorus Level 3.1 MG/DL (2.5-4.9) Magnesium Level 1.7 MG/DL (1.8-2.4) L Total Bilirubin 0.6 MG/DL (0.2-1.0) Aspartate Amino Transf (AST/SGOT) 50 U/L (15-37) H Alanine Aminotransferase (ALT/SGPT) 24 U/L (12-78) Alkaline Phosphatase 74 U/L (46-116) Troponin I 0.034 ng/mL (0.000-0.056) Pro-B-Type Natriuretic Peptide 1443 pg/mL (0-125) H Total Protein 5.7 G/DL (6.4-8.2) L Albumin 2.0 G/DL (3.4-5.0) L Globulin 3.7 g/dL Albumin/Globulin Ratio 0.5 (1.0-2.7) L Random Vancomycin Level 10.4 ug/mL Microbiology Date/Time Source Procedure Growth Status 02/22/18 15:15 Sputum Gram Stain - Final Resulted 02/22/18 15:15 Sputum Sputum Culture Pending Resulted Ant Gu M.D. Feb 24, 2018 17:25
--- NOTE | 2018-02-24 18:12 | Infectious Diseases Prog Note ---
Assessment/Plan Assessment/Plan Sepsis, resolved- likely from SBO possibly due to adhesions -shock after surgery; now off pressors 02/19 SP lap with exploration. 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 hernia reduced and tumor with small bowel resected. primary anastomosis. -Small bowel w/ gastroffin: Subsequent small bowel study indicates that the prominent upper abdominal small bowel loops are proximal jejunal loops, and there is a transition point identifiable retrospect centrally in the mid abdomen distal to which loops are nondilated. There is a slight swirling of the vessels in this area, indicating this could be an internal hernia, although the presence of an incisional scar on the CT and the appearance on the small bowel study indicates that it is more likely due to adhesions. -CT abd/p: Mildly prominent gas and fluid-filled small bowel loops without definite transition point. Most likely on the basis of ileus/enteritis. Early small bowel obstruction not completely excludable but deemed less likely. Right basilar infiltrate, most likely pneumonia. Mild anasarca. Stable, presumably benign, right lobe liver lesion. Soria catheter within nondistended bladder. Mild scoliosis and degenerative spondylosis incidentally noted. - 02/21 CXR: Patchy ill-defined groundglass and reticular opacities in the lung bases bilaterally, right greater than left, suggesting subsegmental atelectasis +/- pneumonit -02/14 u/a wbc 60-80, nit +, leuk +3; Ucx Neg; repeat 02/15 UCx NTD -02/14 Bcx NTD -sp cx K. 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 -amylase, lipase normal -influenza sc neg Fever, SP Leukocytosis; improving Lactic acidosis; resolved Elevated LFTs, resolving 02/19 VDRF ; s/p extubation 02/22 FARIBA, worsened; now improving HTN Dm2 constipation Alzheimer's Disease assisted living resident Plan: -d/c IV Vancomycin #6 -Continue Meropenem # 7 (abx d# 11 ) and Micafungin d# 6 (for enterococcal and ernst coverage in the setting of worsening leukocytosis and SBO.); will continue for 7 day post-op and based on clinical improvement -02/18 SP Cefepime #5, Flagyl #4 -02/16 SP IV Vancomycin #3 -f/u cx -Monitor CBC/CMP, temperatures -Aspiration precautions -GI, Sx f/u -wound care Subjective Allergies: Coded Allergies: ESTROGENS (Verified Allergy, Unknown, 11/27/14) Uncoded Allergies: "estrogen" (Allergy, Unknown, 02/20/14) Subjective afebrile at 2l NC leukocytosis improving Bcx NTD Objective Vital Signs Last 24 Hour Vital Signs Date Time Temp Pulse Resp B/P (MAP) Pulse Ox O2 Delivery O2 Flow Rate FiO2 02/24/18 16:00 97.8 107 20 128/87 99 Nasal Cannula 2.0 97.8 02/24/18 16:00 98 02/24/18 12:00 101 02/24/18 12:00 97.6 105 20 157/61 99 Nasal Cannula 2.0 97.6 02/24/18 08:31 Nasal Cannula 2.0 28 02/24/18 08:31 97 Nasal Cannula 2.0 28 02/24/18 08:30 97 20 Nasal Cannula 2.0 28 02/24/18 08:00 94 02/24/18 08:00 98.4 101 20 104/60 100 Nasal Cannula 2.0 98.4 02/24/18 05:33 163/91 02/24/18 04:00 98.0 104 18 163/91 96 Nasal Cannula 2.0 98.0 02/24/18 04:00 95 02/24/18 00:00 101 02/24/18 00:00 99.2 108 20 110/90 96 Nasal Cannula 2.0 99.2 02/23/18 20:48 96 Nasal Cannula 2.0 28 02/23/18 20:48 99 18 Nasal Cannula 2.0 28 02/23/18 20:48 Nasal Cannula 2.0 28 02/23/18 20:00 100 02/23/18 20:00 98.0 98 16 153/63 99 Nasal Cannula 2.0 98.0 Height (Feet): 5 Height (Inches): 5.00 Weight (Pounds): 160 Objective General Appearance: cachetic Lines, tubes and drains: central line HEENT: normocephalic, atraumatic, PERRL Neck: normal alignment Respiratory/Chest: chest wall non-tender, normal breath sounds Cardiovascular/Chest: normal peripheral pulses, normal rate Abdomen: normal bowel sounds, non tender Genitourinary/Rectal: normal genital exam, normal rectal exam Extremities: non-pitting Microbiology Date/Time Source Procedure Growth Status 02/22/18 15:15 Sputum Gram Stain - Final Resulted 02/22/18 15:15 Sputum Sputum Culture Pending Resulted Laboratory Tests Test 02/24/18 05:20 White Blood Count 11.6 K/UL (4.8-10.8) H Red Blood Count 3.85 M/UL (4.20-5.40) L Hemoglobin 9.8 G/DL (12.0-16.0) L Hematocrit 31.5 % (37.0-47.0) L Mean Corpuscular Volume 82 FL (80-99) Mean Corpuscular Hemoglobin 25.5 PG (27.0-31.0) L Mean Corpuscular Hemoglobin Concent 31.1 G/DL (32.0-36.0) L Red Cell Distribution Width 12.5 % (11.6-14.8) Platelet Count 140 K/UL (150-450) L Mean Platelet Volume 7.9 FL (6.5-10.1) Neutrophils (%) (Auto) 78.0 % (45.0-75.0) H Lymphocytes (%) (Auto) 10.7 % (20.0-45.0) L Monocytes (%) (Auto) 7.8 % (1.0-10.0) Eosinophils (%) (Auto) 3.2 % (0.0-3.0) H Basophils (%) (Auto) 0.4 % (0.0-2.0) Sodium Level 143 MMOL/L (136-145) Potassium Level 3.1 MMOL/L (3.5-5.1) L Chloride Level 109 MMOL/L (98-107) H Carbon Dioxide Level 27 MMOL/L (21-32) Anion Gap 8 mmol/L (5-15) Blood Urea Nitrogen 15 mg/dL (7-18) Creatinine 1.3 MG/DL (0.55-1.30) Estimat Glomerular Filtration Rate mL/min (>60) Glucose Level 285 MG/DL (74-106) #H Calcium Level 8.4 MG/DL (8.5-10.1) L Phosphorus Level 3.1 MG/DL (2.5-4.9) Magnesium Level 1.7 MG/DL (1.8-2.4) L Total Bilirubin 0.6 MG/DL (0.2-1.0) Aspartate Amino Transf (AST/SGOT) 50 U/L (15-37) H Alanine Aminotransferase (ALT/SGPT) 24 U/L (12-78) Alkaline Phosphatase 74 U/L (46-116) Troponin I 0.034 ng/mL (0.000-0.056) Pro-B-Type Natriuretic Peptide 1443 pg/mL (0-125) H Total Protein 5.7 G/DL (6.4-8.2) L Albumin 2.0 G/DL (3.4-5.0) L Globulin 3.7 g/dL Albumin/Globulin Ratio 0.5 (1.0-2.7) L Random Vancomycin Level 10.4 ug/mL Current Medications Medications (Trade) Dose Ordered Sig/Jus Route PRN Reason Start Time Stop Time Status Last Admin Dose Admin Albuterol/ Ipratropium (Albuterol/ Ipratropium) 3 ml Q4H PRN HHN sob 02/23/18 13:45 02/26/18 09:44 Dextrose (Dextrose 50%) 25 ml STAT PRN IV Hypoglycemia 02/23/18 20:30 03/21/18 20:29 Dextrose (Dextrose 50%) 50 ml STAT PRN IV Hypoglycemia 02/23/18 20:30 03/21/18 20:29 Insulin Aspart (NovoLOG) Q6HR SUBQ 02/23/18 12:00 03/16/18 20:59 02/24/18 17:29 Insulin Detemir (Levemir) 10 units Q12HR SUBQ 02/24/18 21:00 03/22/18 11:59 Lansoprazole (Prevacid) 30 mg Q12HR GT 02/24/18 09:00 03/26/18 08:59 02/24/18 08:25 Meropenem 1 gm/ Sodium Chloride 55 ml @ 110 mls/hr Q12HR IVPB 02/23/18 21:00 02/27/18 20:59 02/24/18 08:26 Micafungin Sodium 100 mg/Dextrose 110 ml @ 110 mls/hr Q24H IVPB 02/24/18 10:30 02/26/18 23:59 02/24/18 10:14 Nitroglycerin (Ntg) 0.4 mg Q5M PRN SL Prn Chest Pain 02/23/18 11:45 03/16/18 17:44 Ondansetron HCl (Zofran) 4 mg Q6H PRN IVP Nausea & Vomiting 02/23/18 14:30 03/16/18 20:29 Polyethylene Glycol (Miralax) 17 gm DAILYPRN PRN ORAL Constipation 02/23/18 20:30 03/21/18 20:29 Potassium Chloride (K-Dur) 20 meq TWICE A DAY NG 02/24/18 10:45 03/26/18 10:44 02/24/18 17:28 Quetiapine Fumarate (SEROquel) 25 mg Q6H PRN ORAL For Anxiety 02/23/18 12:45 03/25/18 12:44 Vancomycin HCl (Vanco rx to dose) 1 ea DAILY PRN MISC Per rx protocol 02/24/18 09:00 03/21/18 09:29 Brianna Root M.D. Feb 24, 2018 18:12
[2018-02-24] MEDS ORDERED: Tubing IV Secondary IV ONE (19:13)
[2018-02-24] MEDS ORDERED: NS 500ML ONE (19:13)
[2018-02-24 20:00] VITALS: BP 143/96
[2018-02-24] MEDS ORDERED: Levemir Flexpen SUBQ SCH (21:00)
[2018-02-24] MEDS ORDERED: Nitroglycerin Subl 0.4mg tab SL PRN (23:15)
[2018-02-25] VITALS: BP 141/65
[2018-02-25] MEDS ORDERED: Albuterol/Ipratropium 3ml neb HHN PRN (01:45)
[2018-02-25 04:00] VITALS: BP 134/55
[2018-02-25] MEDS: NovoLOG Insulin Flexpen SUBQ SCH ×3 (06:04→18:15)
[2018-02-25 07:53] LABS: ALANINE AMINOTRANSFERASE 23 U/L (12-78); ALBUMIN/GLOBULIN RATIO 0.5 (1.0-2.7); ALKALINE PHOSPHATASE 77 U/L (46-116); ANION GAP 5 mmol/L (5-15); ASPARTATE AMINO TRANSFERASE 41 U/L (15-37); BILIRUBIN,TOTAL 0.4 MG/DL (0.2-1.0); BLOOD UREA NITROGEN 15 mg/dL (7-18); CALCIUM 8.5 MG/DL (8.5-10.1); CARBON DIOXIDE 28 MMOL/L (21-32); CHLORIDE 110 MMOL/L (98-107); CREATININE 1.2 MG/DL (0.55-1.30); POTASSIUM 3.4 MMOL/L (3.5-5.1); SODIUM 143 MMOL/L (136-145)
[2018-02-25 07:59] LABS: BASOPHILS % (AUTO) 0.3 % (0.0-2.0); EOSINOPHILS % (AUTO) 2.5 % (0.0-3.0); HEMATOCRIT 34.1 % (37.0-47.0); HEMOGLOBIN 10.4 G/DL (12.0-16.0); LYMPHOCYTES % (AUTO) 7.2 % (20.0-45.0); MEAN CORPUSCULAR VOLUME 82 FL (80-99); MONOCYTES % (AUTO) 7.9 % (1.0-10.0); NEUTROPHILS % (AUTO) 82.1 % (45.0-75.0); PLATELET COUNT 168 K/UL (150-450); RED BLOOD COUNT 4.16 M/UL (4.20-5.40); RED CELL DISTRIBUTION WIDTH 12.6 % (11.6-14.8); WHITE BLOOD COUNT 12.3 K/UL (4.8-10.8)
[2018-02-25 08:00] VITALS: BP 132/80
--- NOTE | 2018-02-25 08:25 | General Progress Note ---
Assessment/Plan Status: stable Assessment/Plan #. 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 Leukocytosis, likely secondary to recent surgery. --> Closely monitor for improvement. On abx as per ID --> Current wbc is better, closely monitor #. Anemia of chronic disease --> reviewed anemia panel, does not need further workup unless hgb less than 10 #. Thrombocytopenia potentialy related to infection --> currently stable at 100-140k, closely monitor #. Acute kidney injury. Creatinine currently 2.6. --> Closely monitor potentially secondary to acute tubular necrosis secondary to hypovolemia. #. Severe sepsis secondary to small bowel obstruction. #. Hypertension --> systolic blood pressure goal less than 140. #. Status post laparoscopic converted to an exploratory laparotomy with small bowel removal, repair of enterotomy, extensive lysis of adhesions. #. Diabetes mellitus, type 1. #. Acute encephalopathy due to Alzheimer disease. Subjective Date patient seen: Feb 25, 2018 ROS Limited/Unobtainable: Yes Allergies: Coded Allergies: ESTROGENS (Verified Allergy, Unknown, 11/27/14) Uncoded Allergies: "estrogen" (Allergy, Unknown, 02/20/14) All Systems: reviewed and negative except above Subjective Pt lying in bed asleep, unresponsove but able to open eyes. Hooked to compliance monitor. No signs of acute medical distress. Objective Last 24 Hour Vital Signs Date Time Temp Pulse Resp B/P (MAP) Pulse Ox O2 Delivery O2 Flow Rate FiO2 02/25/18 04:00 98.1 95 20 134/55 100 Nasal Cannula 2.0 98.1 02/25/18 04:00 92 02/25/18 00:00 100 02/25/18 00:00 98.8 100 21 141/65 100 Nasal Cannula 2.0 98.8 02/24/18 20:00 98.5 104 19 143/96 100 Nasal Cannula 2.0 98.5 02/24/18 20:00 103 02/24/18 19:05 79 18 Nasal Cannula 2.0 28 02/24/18 19:05 99 Nasal Cannula 2.0 28 02/24/18 19:05 Nasal Cannula 2.0 28 02/24/18 16:00 97.8 107 20 128/87 99 Nasal Cannula 2.0 97.8 02/24/18 16:00 98 02/24/18 12:00 101 02/24/18 12:00 97.6 105 20 157/61 99 Nasal Cannula 2.0 97.6 02/24/18 08:31 Nasal Cannula 2.0 28 02/24/18 08:31 97 Nasal Cannula 2.0 28 02/24/18 08:30 97 20 Nasal Cannula 2.0 28 Intake and Output 02/24/18 02/25/18 19:00 07:00 Intake Total 1090 ml 930 ml Output Total 650 ml 1600 ml Balance 440 ml -670 ml Free Water 30 ml 160 ml IV Total 365 ml 110 ml Tube Feeding 605 ml 660 ml Other 90 ml Output Urine Total 650 ml 1600 ml Laboratory Tests 02/25/18 06:45: White Blood Count 12.3H, Red Blood Count 4.16L, Hemoglobin 10.4L, Hematocrit 34.1L, Mean Corpuscular Volume 82, Mean Corpuscular Hemoglobin 25.0L, Mean Corpuscular Hemoglobin Concent 30.5L, Red Cell Distribution Width 12.6, Platelet Count 168, Mean Platelet Volume 9.3, Neutrophils (%) (Auto) 82.1H, Lymphocytes (%) (Auto) 7.2L, Monocytes (%) (Auto) 7.9, Eosinophils (%) (Auto) 2.5, Basophils (%) (Auto) 0.3, Sodium Level 143, Potassium Level 3.4L, Chloride Level 110H, Carbon Dioxide Level 28, Anion Gap 5, Blood Urea Nitrogen 15, Creatinine 1.2, Estimat Glomerular Filtration Rate , Glucose Level 194H, Calcium Level 8.5, Phosphorus Level [Pending], Magnesium Level [Pending], Total Bilirubin 0.4, Aspartate Amino Transf (AST/SGOT) 41H, Alanine Aminotransferase ( ALT/SGPT) 23, Alkaline Phosphatase 77, Total Protein 5.8L, Albumin 2.0L, Globulin 3.8, Albumin/Globulin Ratio 0.5L Height (Feet): 5 Height (Inches): 5.00 Weight (Pounds): 161 General Appearance: WD/WN, no apparent distress EENT: PERRL/EOMI Neck: supple Cardiovascular: normal peripheral pulses, regular rhythm Respiratory/Chest: normal breath sounds, no respiratory distress Abdomen: normal bowel sounds Karan Carrero MD Feb 25, 2018 08:25
[2018-02-25] MEDS ORDERED: Tubing IV Secondary IV ONE (08:30)
[2018-02-25] MEDS ORDERED: NS 500ML ONE (08:30)
[2018-02-25 08:45] LABS: PHOSPHORUS 2.2 MG/DL (2.5-4.9)
[2018-02-25] MEDS ORDERED: Levemir Flexpen SUBQ SCH (09:00)
[2018-02-25] MEDS: Meropenem 1 GM in NS 55 ML IVPB SCH ×2 (09:06→20:54)
--- NOTE | 2018-02-25 09:55 | GI Progress Note ---
Assessment/Plan Problems: (1) Altered mental status ICD Codes: R41.82 - Altered mental status, unspecified SNOMED: 306298295 (2) At high risk for aspiration ICD Codes: Z91.89 - At high risk for aspiration SNOMED: 483793137 (3) Anemia ICD Codes: D64.9 - Anemia SNOMED: 392021313 (4) Ileus ICD Codes: K56.7 - Ileus, unspecified SNOMED: 479029006 (5) SBO (small bowel obstruction) ICD Codes: K56.609 - Unspecified intestinal obstruction, unspecified as to partial versus complete obstruction SNOMED: 457507576 (6) Coffee ground emesis ICD Codes: K92.0 - Hematemesis SNOMED: 36276188, 537177618 Status: stable Status Narrative Discussed with Dr. Montoya. Assessment/Plan hep panel negative had BM s/p SB surgery NGTFs per surgery serial imaging prn electrolyte correction ppi BID fu labs The patient was seen and examined at bedside and all new and available data was reviewed in the patients chart. I agree with the above findings, impression and plan. (Patient seen earlier today. Signature stamp does not reflect patient encounter time.). - Jesse Montoya MD Subjective Subjective limited Objective Last 24 Hour Vital Signs Date Time Temp Pulse Resp B/P (MAP) Pulse Ox O2 Delivery O2 Flow Rate FiO2 02/25/18 08:00 98.4 114 22 132/80 94 Nasal Cannula 2.0 98.4 02/25/18 04:00 98.1 95 20 134/55 100 Nasal Cannula 2.0 98.1 02/25/18 04:00 92 02/25/18 00:00 100 02/25/18 00:00 98.8 100 21 141/65 100 Nasal Cannula 2.0 98.8 02/24/18 20:00 98.5 104 19 143/96 100 Nasal Cannula 2.0 98.5 02/24/18 20:00 103 02/24/18 19:05 79 18 Nasal Cannula 2.0 28 02/24/18 19:05 99 Nasal Cannula 2.0 28 02/24/18 19:05 Nasal Cannula 2.0 28 02/24/18 16:00 97.8 107 20 128/87 99 Nasal Cannula 2.0 97.8 02/24/18 16:00 98 02/24/18 12:00 101 02/24/18 12:00 97.6 105 20 157/61 99 Nasal Cannula 2.0 97.6 Intake and Output 02/24/18 02/25/18 19:00 07:00 Intake Total 1090 ml 930 ml Output Total 650 ml 1600 ml Balance 440 ml -670 ml Free Water 30 ml 160 ml IV Total 365 ml 110 ml Tube Feeding 605 ml 660 ml Other 90 ml Output Urine Total 650 ml 1600 ml Laboratory Tests Test 02/25/18 06:45 White Blood Count 12.3 K/UL (4.8-10.8) H Red Blood Count 4.16 M/UL (4.20-5.40) L Hemoglobin 10.4 G/DL (12.0-16.0) L Hematocrit 34.1 % (37.0-47.0) L Mean Corpuscular Volume 82 FL (80-99) Mean Corpuscular Hemoglobin 25.0 PG (27.0-31.0) L Mean Corpuscular Hemoglobin Concent 30.5 G/DL (32.0-36.0) L Red Cell Distribution Width 12.6 % (11.6-14.8) Platelet Count 168 K/UL (150-450) Mean Platelet Volume 9.3 FL (6.5-10.1) Neutrophils (%) (Auto) 82.1 % (45.0-75.0) H Lymphocytes (%) (Auto) 7.2 % (20.0-45.0) L Monocytes (%) (Auto) 7.9 % (1.0-10.0) Eosinophils (%) (Auto) 2.5 % (0.0-3.0) Basophils (%) (Auto) 0.3 % (0.0-2.0) Sodium Level 143 MMOL/L (136-145) Potassium Level 3.4 MMOL/L (3.5-5.1) L Chloride Level 110 MMOL/L (98-107) H Carbon Dioxide Level 28 MMOL/L (21-32) Anion Gap 5 mmol/L (5-15) Blood Urea Nitrogen 15 mg/dL (7-18) Creatinine 1.2 MG/DL (0.55-1.30) Estimat Glomerular Filtration Rate mL/min (>60) Glucose Level 194 MG/DL (74-106) H Calcium Level 8.5 MG/DL (8.5-10.1) Phosphorus Level 2.2 MG/DL (2.5-4.9) L Magnesium Level 2.1 MG/DL (1.8-2.4) Total Bilirubin 0.4 MG/DL (0.2-1.0) Aspartate Amino Transf (AST/SGOT) 41 U/L (15-37) H Alanine Aminotransferase (ALT/SGPT) 23 U/L (12-78) Alkaline Phosphatase 77 U/L (46-116) Total Protein 5.8 G/DL (6.4-8.2) L Albumin 2.0 G/DL (3.4-5.0) L Globulin 3.8 g/dL Albumin/Globulin Ratio 0.5 (1.0-2.7) L Height (Feet): 5 Height (Inches): 5.00 Weight (Pounds): 161 General Appearance: no apparent distress, thin Cardiovascular: normal rate Respiratory/Chest: normal breath sounds, no respiratory distress Abdominal Exam: normal bowel sounds, non tender, soft, other - NGT Extremities: non-tender Mi Galeas NP Feb 25, 2018 09:55
[2018-02-25] MEDS ORDERED: Micafungin 100 MG in D5W 110 ML IVPB SCH (10:30)
--- NOTE | 2018-02-25 10:39 | General Progress Note ---
Progress Note Progress Note Surgery: no acute events. tolerating feeds. otherwise unchanged. abd soft, wound c/d/ i. 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 -feeds as tolerated -appreciate ID input -appreciate heme/onc input. Miguel Freeman Feb 25, 2018 10:39
--- NOTE | 2018-02-25 10:50 | Infectious Diseases Prog Note ---
Assessment/Plan Assessment/Plan Sepsis, resolved- likely from SBO possibly due to adhesions -shock after surgery; now off pressors 02/19 SP lap with exploration. 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 hernia reduced and tumor with small bowel resected. primary anastomosis. -Small bowel w/ gastroffin: Subsequent small bowel study indicates that the prominent upper abdominal small bowel loops are proximal jejunal loops, and there is a transition point identifiable retrospect centrally in the mid abdomen distal to which loops are nondilated. There is a slight swirling of the vessels in this area, indicating this could be an internal hernia, although the presence of an incisional scar on the CT and the appearance on the small bowel study indicates that it is more likely due to adhesions. -CT abd/p: Mildly prominent gas and fluid-filled small bowel loops without definite transition point. Most likely on the basis of ileus/enteritis. Early small bowel obstruction not completely excludable but deemed less likely. Right basilar infiltrate, most likely pneumonia. Mild anasarca. Stable, presumably benign, right lobe liver lesion. Soria catheter within nondistended bladder. Mild scoliosis and degenerative spondylosis incidentally noted. - 02/21 CXR: Patchy ill-defined groundglass and reticular opacities in the lung bases bilaterally, right greater than left, suggesting subsegmental atelectasis +/- pneumonit -02/14 u/a wbc 60-80, nit +, leuk +3; Ucx Neg; repeat 02/15 UCx NTD -02/14 Bcx NTD -sp cx K. 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 -D/c Micafungin #7 -02/24 SP IV Vancomycin #6 -02/18 SP Cefepime #5, Flagyl #4 -6 SP IV Vancomycin #3 -Monitor CBC/CMP, temperatures -Aspiration precautions -GI, Sx f/u -wound care -CXR Subjective Allergies: Coded Allergies: ESTROGENS (Verified Allergy, Unknown, 11/27/14) Uncoded Allergies: "estrogen" (Allergy, Unknown, 02/20/14) Subjective afebrile at 2l NC leukocytosis overall improved Bcx NTD sp cx with MRSA Objective Vital Signs Last 24 Hour Vital Signs Date Time Temp Pulse Resp B/P (MAP) Pulse Ox O2 Delivery O2 Flow Rate FiO2 02/25/18 08:00 98.4 114 22 132/80 94 Nasal Cannula 2.0 98.4 02/25/18 07:38 97 02/25/18 04:00 98.1 95 20 134/55 100 Nasal Cannula 2.0 98.1 02/25/18 04:00 92 02/25/18 00:00 100 02/25/18 00:00 98.8 100 21 141/65 100 Nasal Cannula 2.0 98.8 02/24/18 20:00 98.5 104 19 143/96 100 Nasal Cannula 2.0 98.5 02/24/18 20:00 103 02/24/18 19:05 79 18 Nasal Cannula 2.0 28 02/24/18 19:05 99 Nasal Cannula 2.0 28 02/24/18 19:05 Nasal Cannula 2.0 28 02/24/18 16:00 97.8 107 20 128/87 99 Nasal Cannula 2.0 97.8 02/24/18 16:00 98 02/24/18 12:00 101 02/24/18 12:00 97.6 105 20 157/61 99 Nasal Cannula 2.0 97.6 Height (Feet): 5 Height (Inches): 5.00 Weight (Pounds): 161 Objective General Appearance: cachetic Lines, tubes and drains: central line HEENT: normocephalic, atraumatic, PERRL Neck: normal alignment Respiratory/Chest: chest wall non-tender, normal breath sounds Cardiovascular/Chest: normal peripheral pulses, normal rate Abdomen: normal bowel sounds, non tender Genitourinary/Rectal: normal genital exam, normal rectal exam Extremities: non-pitting Microbiology Date/Time Source Procedure Growth Status 6/11/18 15:15 Sputum Gram Stain - Final Resulted 02/22/18 15:15 Sputum Culture - Preliminary Staphylococcus Aureus Resulted Laboratory Tests Test 02/25/18 06:45 White Blood Count 12.3 K/UL (4.8-10.8) H Red Blood Count 4.16 M/UL (4.20-5.40) L Hemoglobin 10.4 G/DL (12.0-16.0) L Hematocrit 34.1 % (37.0-47.0) L Mean Corpuscular Volume 82 FL (80-99) Mean Corpuscular Hemoglobin 25.0 PG (27.0-31.0) L Mean Corpuscular Hemoglobin Concent 30.5 G/DL (32.0-36.0) L Red Cell Distribution Width 12.6 % (11.6-14.8) Platelet Count 168 K/UL (150-450) Mean Platelet Volume 9.3 FL (6.5-10.1) Neutrophils (%) (Auto) 82.1 % (45.0-75.0) H Lymphocytes (%) (Auto) 7.2 % (20.0-45.0) L Monocytes (%) (Auto) 7.9 % (1.0-10.0) Eosinophils (%) (Auto) 2.5 % (0.0-3.0) Basophils (%) (Auto) 0.3 % (0.0-2.0) Sodium Level 143 MMOL/L (136-145) Potassium Level 3.4 MMOL/L (3.5-5.1) L Chloride Level 110 MMOL/L (98-107) H Carbon Dioxide Level 28 MMOL/L (21-32) Anion Gap 5 mmol/L (5-15) Blood Urea Nitrogen 15 mg/dL (7-18) Creatinine 1.2 MG/DL (0.55-1.30) Estimat Glomerular Filtration Rate mL/min (>60) Glucose Level 194 MG/DL (74-106) H Calcium Level 8.5 MG/DL (8.5-10.1) Phosphorus Level 2.2 MG/DL (2.5-4.9) L Magnesium Level 2.1 MG/DL (1.8-2.4) Total Bilirubin 0.4 MG/DL (0.2-1.0) Aspartate Amino Transf (AST/SGOT) 41 U/L (15-37) H Alanine Aminotransferase (ALT/SGPT) 23 U/L (12-78) Alkaline Phosphatase 77 U/L (46-116) Total Protein 5.8 G/DL (6.4-8.2) L Albumin 2.0 G/DL (3.4-5.0) L Globulin 3.8 g/dL Albumin/Globulin Ratio 0.5 (1.0-2.7) L Current Medications Medications (Trade) Dose Ordered Sig/Jus Route PRN Reason Start Time Stop Time Status Last Admin Dose Admin Albuterol/ Ipratropium (Albuterol/ Ipratropium) 3 ml Q4H PRN HHN sob 02/25/18 01:45 02/26/18 09:44 Dextrose (Dextrose 50%) 25 ml STAT PRN IV Hypoglycemia 02/25/18 20:30 03/21/18 20:29 Dextrose (Dextrose 50%) 50 ml STAT PRN IV Hypoglycemia 02/25/18 20:30 03/21/18 20:29 Insulin Aspart (NovoLOG) Q6HR SUBQ 02/25/18 00:00 03/16/18 20:59 02/25/18 06:04 Insulin Detemir (Levemir) 10 units Q12HR SUBQ 02/25/18 09:00 03/22/18 11:59 02/25/18 09:07 Lansoprazole (Prevacid) 30 mg Q12HR GT 02/25/18 09:00 03/26/18 08:59 02/25/18 09:05 Meropenem 1 gm/ Sodium Chloride 55 ml @ 110 mls/hr Q12HR IVPB 02/25/18 09:00 02/27/18 20:59 02/25/18 09:06 Micafungin Sodium 100 mg/Dextrose 110 ml @ 110 mls/hr Q24H IVPB 02/25/18 10:30 02/26/18 23:59 Nitroglycerin (Ntg) 0.4 mg Q5M PRN SL Prn Chest Pain 02/24/18 23:15 03/16/18 17:44 Ondansetron HCl (Zofran) 4 mg Q6H PRN IVP Nausea & Vomiting 02/25/18 02:30 03/16/18 20:29 Polyethylene Glycol (Miralax) 17 gm DAILYPRN PRN ORAL Constipation 02/25/18 20:30 03/21/18 20:29 Potassium Chloride (K-Dur) 20 meq TWICE A DAY NG 02/25/18 09:00 03/26/18 10:44 02/25/18 09:06 Quetiapine Fumarate (SEROquel) 25 mg Q6H PRN ORAL For Anxiety 02/25/18 00:45 03/25/18 12:44 Brianna Root M.D. Feb 25, 2018 10:50
--- NOTE | 2018-02-25 11:25 | Pulmonology Progress Note ---
Assessment/Plan Problems: (1) SBO (small bowel obstruction) (2) Coffee ground emesis (3) Hematemesis (4) Severe sepsis (5) Intractable nausea and vomiting (6) Altered mental status (7) end stage alzheimrers dementia (8) UTI (urinary tract infection) (9) At high risk for aspiration (10) Diabetes Assessment/Plan looks comfortable laparotomy today NGtube feeding toleraing well hold heparin check h/h continue abx check cultures check electrolytes dvt prophylaxis. needs gtube. d/w dr Quintana Subjective ROS Limited/Unobtainable: No Constitutional: Reports: no symptoms HEENT: Repors: no symptoms Respiratory: Reports: no symptoms Cardiovascular: Reports: no symptoms Allergies: Coded Allergies: ESTROGENS (Verified Allergy, Unknown, 11/27/14) Uncoded Allergies: "estrogen" (Allergy, Unknown, 02/20/14) Objective Last 24 Hour Vital Signs Date Time Temp Pulse Resp B/P (MAP) Pulse Ox O2 Delivery O2 Flow Rate FiO2 02/25/18 08:00 98.4 114 22 132/80 94 Nasal Cannula 2.0 98.4 02/25/18 07:38 97 02/25/18 04:00 98.1 95 20 134/55 100 Nasal Cannula 2.0 98.1 02/25/18 04:00 92 02/25/18 00:00 100 02/25/18 00:00 98.8 100 21 141/65 100 Nasal Cannula 2.0 98.8 02/24/18 20:00 98.5 104 19 143/96 100 Nasal Cannula 2.0 98.5 02/24/18 20:00 103 02/24/18 19:05 79 18 Nasal Cannula 2.0 28 02/24/18 19:05 99 Nasal Cannula 2.0 28 02/24/18 19:05 Nasal Cannula 2.0 28 02/24/18 16:00 97.8 107 20 128/87 99 Nasal Cannula 2.0 97.8 02/24/18 16:00 98 02/24/18 12:00 101 02/24/18 12:00 97.6 105 20 157/61 99 Nasal Cannula 2.0 97.6 Intake and Output 02/24/18 02/25/18 19:00 07:00 Intake Total 1090 ml 930 ml Output Total 650 ml 1600 ml Balance 440 ml -670 ml Free Water 30 ml 160 ml IV Total 365 ml 110 ml Tube Feeding 605 ml 660 ml Other 90 ml Output Urine Total 650 ml 1600 ml General Appearance: WD/WN HEENT: normocephalic, atraumatic Respiratory/Chest: chest wall non-tender, lungs clear Cardiovascular: normal peripheral pulses, normal rate Abdomen: normal bowel sounds, soft, non tender Genitourinary: normal external genitalia Skin: no rash Microbiology Date/Time Source Procedure Growth Status 02/22/18 15:15 Sputum Gram Stain - Final Resulted 02/22/18 15:15 Sputum Culture - Preliminary Staphylococcus Aureus Resulted Laboratory Tests 02/25/18 06:45: White Blood Count 12.3H, Red Blood Count 4.16L, Hemoglobin 10.4L, Hematocrit 34.1L, Mean Corpuscular Volume 82, Mean Corpuscular Hemoglobin 25.0L, Mean Corpuscular Hemoglobin Concent 30.5L, Red Cell Distribution Width 12.6, Platelet Count 168, Mean Platelet Volume 9.3, Neutrophils (%) (Auto) 82.1H, Lymphocytes (%) (Auto) 7.2L, Monocytes (%) (Auto) 7.9, Eosinophils (%) (Auto) 2.5, Basophils (%) (Auto) 0.3, Sodium Level 143, Potassium Level 3.4L, Chloride Level 110H, Carbon Dioxide Level 28, Anion Gap 5, Blood Urea Nitrogen 15, Creatinine 1.2, Estimat Glomerular Filtration Rate , Glucose Level 194H, Calcium Level 8.5, Phosphorus Level 2.2L, Magnesium Level 2.1, Total Bilirubin 0.4, Aspartate Amino Transf (AST/SGOT) 41H, Alanine Aminotransferase (ALT/SGPT) 23, Alkaline Phosphatase 77, Total Protein 5.8L, Albumin 2.0L, Globulin 3.8, Albumin/Globulin Ratio 0.5L Current Medications Medications (Trade) Dose Ordered Sig/Jus Route PRN Reason Start Time Stop Time Status Last Admin Dose Admin Albuterol/ Ipratropium (Albuterol/ Ipratropium) 3 ml Q4H PRN HHN sob 02/25/18 01:45 02/26/18 09:44 Dextrose (Dextrose 50%) 25 ml STAT PRN IV Hypoglycemia 02/25/18 20:30 03/21/18 20:29 Dextrose (Dextrose 50%) 50 ml STAT PRN IV Hypoglycemia 02/25/18 20:30 03/21/18 20:29 Insulin Aspart (NovoLOG) Q6HR SUBQ 02/25/18 00:00 03/16/18 20:59 02/25/18 06:04 Insulin Detemir (Levemir) 10 units Q12HR SUBQ 02/25/18 09:00 03/22/18 11:59 02/25/18 09:07 Lansoprazole (Prevacid) 30 mg Q12HR GT 02/25/18 09:00 03/26/18 08:59 02/25/18 09:05 Meropenem 1 gm/ Sodium Chloride 55 ml @ 110 mls/hr Q12HR IVPB 02/25/18 09:00 02/27/18 20:59 02/25/18 09:06 Nitroglycerin (Ntg) 0.4 mg Q5M PRN SL Prn Chest Pain 02/24/18 23:15 03/16/18 17:44 Ondansetron HCl (Zofran) 4 mg Q6H PRN IVP Nausea & Vomiting 02/25/18 02:30 03/16/18 20:29 Polyethylene Glycol (Miralax) 17 gm DAILYPRN PRN ORAL Constipation 02/25/18 20:30 03/21/18 20:29 Potassium Chloride (K-Dur) 20 meq TWICE A DAY NG 02/25/18 09:00 03/26/18 10:44 02/25/18 09:06 Quetiapine Fumarate (SEROquel) 25 mg Q6H PRN ORAL For Anxiety 02/25/18 00:45 03/25/18 12:44 Tiago Cason MD Feb 25, 2018 11:25
--- NOTE | 2018-02-25 11:52 | General Progress Note ---
Assessment/Plan Assessment/Plan Dementia with behavioral disturbance The pt lacks capacity The pt public guardian should be contacted jeimy flores Subjective Date patient seen: Feb 25, 2018 Neurologic/Psychiatric: Reports: anxiety Allergies: Coded Allergies: ESTROGENS (Verified Allergy, Unknown, 11/27/14) Uncoded Allergies: "estrogen" (Allergy, Unknown, 02/20/14) Subjective the pt is confuse not agitated more lethargic Objective Last 24 Hour Vital Signs Date Time Temp Pulse Resp B/P (MAP) Pulse Ox O2 Delivery O2 Flow Rate FiO2 02/25/18 08:00 98.4 114 22 132/80 94 Nasal Cannula 2.0 98.4 02/25/18 07:38 97 02/25/18 04:00 98.1 95 20 134/55 100 Nasal Cannula 2.0 98.1 02/25/18 04:00 92 02/25/18 00:00 100 02/25/18 00:00 98.8 100 21 141/65 100 Nasal Cannula 2.0 98.8 02/24/18 20:00 98.5 104 19 143/96 100 Nasal Cannula 2.0 98.5 02/24/18 20:00 103 02/24/18 19:05 79 18 Nasal Cannula 2.0 28 02/24/18 19:05 99 Nasal Cannula 2.0 28 02/24/18 19:05 Nasal Cannula 2.0 28 02/24/18 16:00 97.8 107 20 128/87 99 Nasal Cannula 2.0 97.8 02/24/18 16:00 98 02/24/18 12:00 101 02/24/18 12:00 97.6 105 20 157/61 99 Nasal Cannula 2.0 97.6 Intake and Output 02/24/18 02/25/18 19:00 07:00 Intake Total 1090 ml 930 ml Output Total 650 ml 1600 ml Balance 440 ml -670 ml Free Water 30 ml 160 ml IV Total 365 ml 110 ml Tube Feeding 605 ml 660 ml Other 90 ml Output Urine Total 650 ml 1600 ml Laboratory Tests 02/25/18 06:45: White Blood Count 12.3H, Red Blood Count 4.16L, Hemoglobin 10.4L, Hematocrit 34.1L, Mean Corpuscular Volume 82, Mean Corpuscular Hemoglobin 25.0L, Mean Corpuscular Hemoglobin Concent 30.5L, Red Cell Distribution Width 12.6, Platelet Count 168, Mean Platelet Volume 9.3, Neutrophils (%) (Auto) 82.1H, Lymphocytes (%) (Auto) 7.2L, Monocytes (%) (Auto) 7.9, Eosinophils (%) (Auto) 2.5, Basophils (%) (Auto) 0.3, Sodium Level 143, Potassium Level 3.4L, Chloride Level 110H, Carbon Dioxide Level 28, Anion Gap 5, Blood Urea Nitrogen 15, Creatinine 1.2, Estimat Glomerular Filtration Rate , Glucose Level 194H, Calcium Level 8.5, Phosphorus Level 2.2L, Magnesium Level 2.1, Total Bilirubin 0.4, Aspartate Amino Transf (AST/SGOT) 41H, Alanine Aminotransferase (ALT/SGPT) 23, Alkaline Phosphatase 77, Total Protein 5.8L, Albumin 2.0L, Globulin 3.8, Albumin/Globulin Ratio 0.5L Height (Feet): 5 Height (Inches): 5.00 Weight (Pounds): 161 General Appearance: no apparent distress, lethargic, confused Josue Roy M.D. Feb 25, 2018 11:52
[2018-02-25 12:00] VITALS: BP 124/92
--- NOTE | 2018-02-25 13:20 | Nephrology Progress Note ---
Assessment/Plan Problem List: (1) Acute renal failure (2) SBO (small bowel obstruction) (3) Anemia (4) Diabetes Assessment Severe sepsis ( secondary to small bowel obstruction) septic shock Acute respiratory failure requiring intubation Acute encephalopathy ( due to sepsis) on chronic end-stage Alzheimer dementia Acute renal failure, probably ATN due to unstable hemodynamics Urine out put improving Pneumonia with Klebsiella Small bowel obstruction s/p 02/19 laparoscopy converted to exploratory laparotomy with small bowel resection, repair of enterotomy, extensive lysis of adhesions, and abdominal washout. Hematemesis Electrolyte imbalance Anemia Diabetes mellitus h/o Hypertension Aspiration risk Severe protein calorie malnutrition Plan increase levemir- K supplement - Mag and Phos supplement as needed- Post Op care- pulmonary support- Monitor renal parameters, Urine output, Avoid Nephrotoxics- Keep BP above 100 syst- Keep BS in check- Subjective ROS Limited/Unobtainable: No Constitutional: Reports: malaise Objective Objective Last 24 Hour Vital Signs Date Time Temp Pulse Resp B/P (MAP) Pulse Ox O2 Delivery O2 Flow Rate FiO2 02/25/18 12:25 Nasal Cannula 2.0 28 02/25/18 12:25 96 Nasal Cannula 2.0 28 02/25/18 12:24 101 16 Nasal Cannula 2.0 28 02/25/18 12:00 98.1 105 20 124/92 95 Nasal Cannula 2.0 98.1 02/25/18 11:43 114 02/25/18 08:00 98.4 114 22 132/80 94 Nasal Cannula 2.0 98.4 02/25/18 07:38 97 02/25/18 04:00 98.1 95 20 134/55 100 Nasal Cannula 2.0 98.1 02/25/18 04:00 92 02/25/18 00:00 100 02/25/18 00:00 98.8 100 21 141/65 100 Nasal Cannula 2.0 98.8 02/24/18 20:00 98.5 104 19 143/96 100 Nasal Cannula 2.0 98.5 02/24/18 20:00 103 02/24/18 19:05 79 18 Nasal Cannula 2.0 28 02/24/18 19:05 99 Nasal Cannula 2.0 28 02/24/18 19:05 Nasal Cannula 2.0 28 02/24/18 16:00 97.8 107 20 128/87 99 Nasal Cannula 2.0 97.8 02/24/18 16:00 98 Intake and Output 02/24/18 02/25/18 19:00 07:00 Intake Total 1090 ml 930 ml Output Total 650 ml 1600 ml Balance 440 ml -670 ml Free Water 30 ml 160 ml IV Total 365 ml 110 ml Tube Feeding 605 ml 660 ml Other 90 ml Output Urine Total 650 ml 1600 ml Laboratory Tests 02/25/18 06:45: White Blood Count 12.3H, Red Blood Count 4.16L, Hemoglobin 10.4L, Hematocrit 34.1L, Mean Corpuscular Volume 82, Mean Corpuscular Hemoglobin 25.0L, Mean Corpuscular Hemoglobin Concent 30.5L, Red Cell Distribution Width 12.6, Platelet Count 168, Mean Platelet Volume 9.3, Neutrophils (%) (Auto) 82.1H, Lymphocytes (%) (Auto) 7.2L, Monocytes (%) (Auto) 7.9, Eosinophils (%) (Auto) 2.5, Basophils (%) (Auto) 0.3, Sodium Level 143, Potassium Level 3.4L, Chloride Level 110H, Carbon Dioxide Level 28, Anion Gap 5, Blood Urea Nitrogen 15, Creatinine 1.2, Estimat Glomerular Filtration Rate , Glucose Level 194H, Calcium Level 8.5, Phosphorus Level 2.2L, Magnesium Level 2.1, Total Bilirubin 0.4, Aspartate Amino Transf (AST/SGOT) 41H, Alanine Aminotransferase (ALT/SGPT) 23, Alkaline Phosphatase 77, Total Protein 5.8L, Albumin 2.0L, Globulin 3.8, Albumin/Globulin Ratio 0.5L Height (Feet): 5 Height (Inches): 5.00 Weight (Pounds): 161 EENT: other - NGT Cardiovascular: tachycardia Respiratory/Chest: decreased breath sounds Abdomen: distended Objective no change ROSA REED Feb 25, 2018 13:20
--- NOTE | 2018-02-25 13:32 | Cardiology Progress Note ---
Assessment/Plan Status: doing well, stable, progressing, tolerating diet Assessment/Plan s/p 02/19 laparoscopy converted to exploratory laparotomy with small bowel resection, repair of enterotomy, extensive lysis of adhesions, and abdominal washout. -Continue feeds via NGT -Swallow study soon -Pain control -Bowel ppx/stool softeners -Continue antibiotics, follow respiratory cultures -Incentive spirometry -EKG reviewed- ST, occasional PVCs -BP control, goal <140 -Placement Subjective Cardiovascular: Reports: no symptoms Respiratory: Reports: no symptoms Gastrointestinal/Abdominal: Reports: no symptoms Genitourinary: Reports: no symptoms Subjective s/p 02/19 laparoscopy converted to exploratory laparotomy with small bowel resection, repair of enterotomy, extensive lysis of adhesions, and abdominal washout. Vitals stable, patient clinically improving, tolerating feeds, WBC and CRP coming down. No acute events, no distress, sleeping, comfortable Objective Last 24 Hour Vital Signs Date Time Temp Pulse Resp B/P (MAP) Pulse Ox O2 Delivery O2 Flow Rate FiO2 02/25/18 12:25 Nasal Cannula 2.0 28 02/25/18 12:25 96 Nasal Cannula 2.0 28 02/25/18 12:24 101 16 Nasal Cannula 2.0 28 02/25/18 12:00 98.1 105 20 124/92 95 Nasal Cannula 2.0 98.1 02/25/18 11:43 114 02/25/18 08:00 98.4 114 22 132/80 94 Nasal Cannula 2.0 98.4 02/25/18 07:38 97 02/25/18 04:00 98.1 95 20 134/55 100 Nasal Cannula 2.0 98.1 02/25/18 04:00 92 02/25/18 00:00 100 02/25/18 00:00 98.8 100 21 141/65 100 Nasal Cannula 2.0 98.8 02/24/18 20:00 98.5 104 19 143/96 100 Nasal Cannula 2.0 98.5 02/24/18 20:00 103 02/24/18 19:05 79 18 Nasal Cannula 2.0 28 02/24/18 19:05 99 Nasal Cannula 2.0 28 02/24/18 19:05 Nasal Cannula 2.0 28 02/24/18 16:00 97.8 107 20 128/87 99 Nasal Cannula 2.0 97.8 02/24/18 16:00 98 General Appearance: no apparent distress EENT: PERRL/EOMI Neck: non-tender Rhythm: NSR Cardiovascular: normal peripheral pulses Respiratory/Chest: chest wall non-tender Abdomen: normal bowel sounds Extremities: normal range of motion Neurologic: hi ranger operator II-XII grossly normal Intake and Output 02/24/18 02/25/18 19:00 07:00 Intake Total 1090 ml 930 ml Output Total 650 ml 1600 ml Balance 440 ml -670 ml Free Water 30 ml 160 ml IV Total 365 ml 110 ml Tube Feeding 605 ml 660 ml Other 90 ml Output Urine Total 650 ml 1600 ml Laboratory Tests Test 02/25/18 06:45 White Blood Count 12.3 K/UL (4.8-10.8) H Red Blood Count 4.16 M/UL (4.20-5.40) L Hemoglobin 10.4 G/DL (12.0-16.0) L Hematocrit 34.1 % (37.0-47.0) L Mean Corpuscular Volume 82 FL (80-99) Mean Corpuscular Hemoglobin 25.0 PG (27.0-31.0) L Mean Corpuscular Hemoglobin Concent 30.5 G/DL (32.0-36.0) L Red Cell Distribution Width 12.6 % (11.6-14.8) Platelet Count 168 K/UL (150-450) Mean Platelet Volume 9.3 FL (6.5-10.1) Neutrophils (%) (Auto) 82.1 % (45.0-75.0) H Lymphocytes (%) (Auto) 7.2 % (20.0-45.0) L Monocytes (%) (Auto) 7.9 % (1.0-10.0) Eosinophils (%) (Auto) 2.5 % (0.0-3.0) Basophils (%) (Auto) 0.3 % (0.0-2.0) Sodium Level 143 MMOL/L (136-145) Potassium Level 3.4 MMOL/L (3.5-5.1) L Chloride Level 110 MMOL/L (98-107) H Carbon Dioxide Level 28 MMOL/L (21-32) Anion Gap 5 mmol/L (5-15) Blood Urea Nitrogen 15 mg/dL (7-18) Creatinine 1.2 MG/DL (0.55-1.30) Estimat Glomerular Filtration Rate mL/min (>60) Glucose Level 194 MG/DL (74-106) H Calcium Level 8.5 MG/DL (8.5-10.1) Phosphorus Level 2.2 MG/DL (2.5-4.9) L Magnesium Level 2.1 MG/DL (1.8-2.4) Total Bilirubin 0.4 MG/DL (0.2-1.0) Aspartate Amino Transf (AST/SGOT) 41 U/L (15-37) H Alanine Aminotransferase (ALT/SGPT) 23 U/L (12-78) Alkaline Phosphatase 77 U/L (46-116) Total Protein 5.8 G/DL (6.4-8.2) L Albumin 2.0 G/DL (3.4-5.0) L Globulin 3.8 g/dL Albumin/Globulin Ratio 0.5 (1.0-2.7) L Microbiology Date/Time Source Procedure Growth Status 02/22/18 15:15 Sputum Gram Stain - Final Resulted 02/22/18 15:15 Sputum Culture - Preliminary Staphylococcus Aureus Resulted Ant Gu M.D. Feb 25, 2018 13:32
--- NOTE | 2018-02-25 14:39 | Diagnostic Imaging Report ---
Indication: Cough Technique: One view of the chest Comparison: 02/23/2018 Findings: Linear band of the right lung base may reflect atelectasis or postoperative pneumoperitoneum. There is hazy parenchymal infiltrate at the right lung base as well. Lung volumes are low. Heart size is normal. There is a nasogastric tube in place. Impression: Right basilar atelectasis and possible hazy infiltrate Possible pneumoperitoneum, presumably postoperative if real Other findings as noted
[2018-02-25 16:00] VITALS: BP 157/61
[2018-02-25 20:00] VITALS: BP 166/89
[2018-02-25] MEDS ORDERED: Miralax 17gm pkt ORAL PRN (20:30)
[2018-02-25] MEDS: Levemir Flexpen SUBQ SCH (20:52)
[2018-02-26] VITALS (10 sets, daily range): BP systolic 123–165; BP diastolic 58–90
[2018-02-26] MEDS: NovoLOG Insulin Flexpen SUBQ SCH ×4 (01:22→18:18)
[2018-02-26 06:10] LABS: BASOPHILS % (AUTO) 0.9 % (0.0-2.0); EOSINOPHILS % (AUTO) 3.3 % (0.0-3.0); HEMATOCRIT 32.7 % (37.0-47.0); LYMPHOCYTES % (AUTO) 13.8 % (20.0-45.0); MEAN CORPUSCULAR VOLUME 82 FL (80-99); MONOCYTES % (AUTO) 9.4 % (1.0-10.0); NEUTROPHILS % (AUTO) 72.6 % (45.0-75.0); PLATELET COUNT 176 K/UL (150-450); RED BLOOD COUNT 3.98 M/UL (4.20-5.40); WHITE BLOOD COUNT 9.2 K/UL (4.8-10.8)
[2018-02-26 06:33] LABS: ANION GAP 4 mmol/L (5-15); BLOOD UREA NITROGEN 14 mg/dL (7-18); CALCIUM 8.8 MG/DL (8.5-10.1); CARBON DIOXIDE 32 MMOL/L (21-32); CHLORIDE 112 MMOL/L (98-107); CREATININE 1.1 MG/DL (0.55-1.30); POTASSIUM 3.7 MMOL/L (3.5-5.1); SODIUM 148 MMOL/L (136-145)
[2018-02-26] MEDS ORDERED: LR 1000ml 1,000 ML IVLG SCH (06:54)
--- NOTE | 2018-02-26 06:54 | Anethesia Preoperative Eval ---
Anesthesia Pre-op PMH/ROS General Date of Evaluation: Feb 26, 2018 Anesthesiologist: Mohsen ASA Score: ASA 3 Mallampati Score Class I : Soft palate, uvula, fauces, pillars visible Class II: Soft palate, uvula, fauces visible Class III: Soft palate, base of uvula visible Class IV: Only hard plate visible Mallampati Classification: Class II Surgeon: Jan Diagnosis: Failure to Thrive Surgical Procedure: PEG Anesthesia History: none Family History: no anesthesia problems Allergies: Coded Allergies: ESTROGENS (Verified Allergy, Unknown, 11/27/14) Uncoded Allergies: "estrogen" (Allergy, Unknown, 02/20/14) Medications: see eMAR Past Medical History Cardiovascular: Reports: HTN; Denies: CAD, NE, valve dz, arrhythmia, other Pulmonary: Denies: asthma, COPD, EMMA, other Gastrointestinal/Genitourinary: Denies: GERD, CRI, ESRD, other Neurologic/Psychiatric: Reports: dementia - alzheimers; Denies: CVA, depression/anxiety, TIA, other Endocrine: Reports: DM; Denies: hypothyroidism, steroids, other HEENT: Denies: cataract (L), cataract (R), glaucoma, RED CLIFF (L), RED CLIFF (R), other Hematology/Immune: Reports: anemia - chronic; Denies: DVT, bleeding disorder, other Musculoskeletal/Integumentary: Denies: OA, RA, DJD, DDD, edema, other PSxH Narrative: PEDRO, ex-lap Anesthesia Pre-op Phys. Exam Physician Exam Last Vital Signs Date Time Temp Pulse Resp B/P (MAP) Pulse Ox O2 Delivery O2 Flow Rate FiO2 02/26/18 04:00 97.5 105 23 148/80 100 Nasal Cannula 2.0 97.5 02/25/18 19:38 28 Constitutional: NAD Cardiovascular: RRR Respiratory: CTA Airway Exam Mallampati Score: Class II MO: limited ROM: limited Teeth: missing Anesthesia Pre-op A/P Labs Hematology Test 02/26/18 05:30 White Blood Count 9.2 K/UL (4.8-10.8) Red Blood Count 3.98 M/UL (4.20-5.40) L Hemoglobin 10.0 G/DL (12.0-16.0) L Hematocrit 32.7 % (37.0-47.0) L Mean Corpuscular Volume 82 FL (80-99) Mean Corpuscular Hemoglobin 25.0 PG (27.0-31.0) L Mean Corpuscular Hemoglobin Concent 30.5 G/DL (32.0-36.0) L Red Cell Distribution Width 13.0 % (11.6-14.8) Platelet Count 176 K/UL (150-450) Mean Platelet Volume 8.1 FL (6.5-10.1) Neutrophils (%) (Auto) 72.6 % (45.0-75.0) Lymphocytes (%) (Auto) 13.8 % (20.0-45.0) L Monocytes (%) (Auto) 9.4 % (1.0-10.0) Eosinophils (%) (Auto) 3.3 % (0.0-3.0) H Basophils (%) (Auto) 0.9 % (0.0-2.0) Coagulation Test 02/26/18 05:30 Prothrombin Time Pending Prothromb Time International Ratio Pending Activated Partial Thromboplast Time Pending Chemistry Test 02/26/18 05:30 Sodium Level 148 MMOL/L (136-145) H Potassium Level 3.7 MMOL/L (3.5-5.1) Chloride Level 112 MMOL/L (98-107) H Carbon Dioxide Level 32 MMOL/L (21-32) Anion Gap 4 mmol/L (5-15) L Blood Urea Nitrogen 14 mg/dL (7-18) Creatinine 1.1 MG/DL (0.55-1.30) Estimat Glomerular Filtration Rate mL/min (>60) Glucose Level 112 MG/DL (74-106) H Uric Acid Pending Calcium Level 8.8 MG/DL (8.5-10.1) Phosphorus Level Pending Magnesium Level Pending Total Bilirubin Pending Direct Bilirubin Pending Aspartate Amino Transf (AST/SGOT) Pending Alanine Aminotransferase (ALT/SGPT) Pending Alkaline Phosphatase Pending Total Protein Pending Albumin Pending Studies Pre-op Studies: EKG - ST with PVCs Risk Assessment & Plan Assessment: ASA III Plan: MAC Status Change Before Surgery: No Pre-Antibiotics Drug: Ancef 1g Given Within 1 Hr of Incision: MARLYS Knight M.D. Feb 26, 2018 06:54
[2018-02-26 06:55] LABS: INR 0.9 (0.9-1.1)
--- NOTE | 2018-02-26 06:57 | Immediate Post-Op Evaluation ---
Immediate Post-Op Evalulation Immediate Post-Op Evalulation Procedure: PEG placement Date of Evaluation: Feb 26, 2018 Time of Evaluation: 08:19 IV Fluids: 150 Blood Products: 0 Estimated Blood Loss: 0 Urinary Output: 0 Blood Pressure Systolic: 150 Blood Pressure Diastolic: 58 Pulse Rate: 90 Respiratory Rate: 17 O2 Sat by Pulse Oximetry: 100 Temperature (Fahrenheit): 97 Pain Score (1-10): 0 Nausea: No Vomiting: No Complications 0 Patient Status: awake, reacts, patent, none Hydration Status: adequate Drug: Ancef 1g Given Within 1 Hr of Incision: MARLYS Knight M.D. Feb 26, 2018 06:57
--- NOTE | 2018-02-26 06:58 | 48 Hour Post Anesthesia Eval ---
Post Anesthesia Evaluation Procedure: PEG placement Date of Evaluation: Feb 26, 2018 Airway: patent Nausea: No Vomiting: No Pain Intensity: 0 Hydration Status: adequate Cardiopulmonary Status: at baseline Mental Status/LOC: patient returned to baseline Post-Anesthesia Complications: 0 Follow-up care needed: N/A - further care as per primaryu team MARLYS MORRIS M.D. Feb 26, 2018 06:58
[2018-02-26] MEDS ORDERED: Labetalol 5mg/ml 20ml vial IV PRN (07:00)
[2018-02-26] MEDS ORDERED: DiphenhydrAMINE 50mg/ml Inj IVP PRN (07:00)
[2018-02-26 07:06] LABS: ALANINE AMINOTRANSFERASE 29 U/L (12-78); ALBUMIN 2.1 G/DL (3.4-5.0); ALKALINE PHOSPHATASE 78 U/L (46-116); ASPARTATE AMINO TRANSFERASE 51 U/L (15-37); BILIRUBIN,DIRECT 0.2 MG/DL (0.0-0.3); BILIRUBIN,TOTAL 0.4 MG/DL (0.2-1.0); PHOSPHORUS 2.3 MG/DL (2.5-4.9)
--- NOTE | 2018-02-26 07:26 | Pre-Procedure Note/Attestation ---
Pre-Procedure Note/Attestation Complete Prior to Procedure Planned Procedure: not applicable Procedure Narrative: esophagogastroduodenoscopy peg Indications for Procedure Pre-Operative Diagnosis: dysphagia Attestation I attest that I discussed the nature of the procedure; its benefits; risks and complications; and alternatives (and the risks and benefits of such alternatives ), prior to the procedure, with the patient (or the patient's legal insurance sales representative). I attest that, if there was a reasonable possibility of needing a blood transfusion, the patient (or the patient's legal insurance sales representative) was given the [facility] standardized written summary, pursuant to the Armando Bowen Blood Safety Act ([place] Health and Safety Code # 1645, as amended). I attest that I re-evaluated the patient just prior to the surgery and that there has been no change in the patient's H&P, except as documented below: Jesse Montoya MD Feb 26, 2018 07:26
[2018-02-26] MEDS ORDERED: Lidocaine 1% MPF 10mg/ml 5ml ONE (07:30)
[2018-02-26] MEDS ORDERED: Propofol 200mg/20ml IV ONE (07:30)
[2018-02-26] MEDS ORDERED: NS 500ML IVPB ONE (07:35)
--- NOTE | 2018-02-26 08:06 | Endoscopy Procedure Note ---
Endoscopy Procedure Note General Indication for Procedure: dysphagia Procedures Performed: EGD, PEG Operative Findings/Diagnosis: same Specimen: yes Pt Tolerated Procedure Well: Yes Estimated Blood Loss: none Anesthesia Anesthesiologist: coty Anesthesia: MAC Inserted Devices Implant(s) used?: No GI Core Measures 50 yrs or older w/o bx or poly: Not Applicable 10yrs. F/U not recommended: Not Applicable Jesse Montoya MD Feb 26, 2018 08:06
--- NOTE | 2018-02-26 08:26 | General Progress Note ---
Assessment/Plan Status: stable Assessment/Plan #. 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 Leukocytosis, likely secondary to recent surgery. --> Closely monitor for improvement. On abx as per ID --> Current wbc is better, closely monitor #. Anemia of chronic disease --> reviewed anemia panel, does not need further workup unless hgb less than 10 #. Thrombocytopenia potentialy related to infection --> currently stable at 100-140k, closely monitor #. Acute kidney injury. Creatinine currently 2.6. --> Closely monitor potentially secondary to acute tubular necrosis secondary to hypovolemia. #. Severe sepsis secondary to small bowel obstruction. #. Hypertension --> systolic blood pressure goal less than 140. #. Status post laparoscopic converted to an exploratory laparotomy with small bowel removal, repair of enterotomy, extensive lysis of adhesions. #. Diabetes mellitus, type 1. #. Acute encephalopathy due to Alzheimer disease. Subjective Date patient seen: Feb 26, 2018 ROS Limited/Unobtainable: Yes Allergies: Coded Allergies: ESTROGENS (Verified Allergy, Unknown, 11/27/14) Uncoded Allergies: "estrogen" (Allergy, Unknown, 02/20/14) All Systems: reviewed and negative except above Subjective S/p PEG placement. No signs of acute medical distress. Objective Last 24 Hour Vital Signs Date Time Temp Pulse Resp B/P (MAP) Pulse Ox O2 Delivery O2 Flow Rate FiO2 02/26/18 04:00 97.5 105 23 148/80 100 Nasal Cannula 2.0 97.5 02/26/18 04:00 94 02/26/18 00:00 110 02/26/18 00:00 97.9 109 24 139/76 100 Nasal Cannula 2.0 97.9 02/25/18 20:00 99.5 107 20 166/89 100 Nasal Cannula 2.0 99.5 02/25/18 20:00 103 02/25/18 19:38 94 Nasal Cannula 2.0 28 02/25/18 19:38 Nasal Cannula 2.0 28 02/25/18 19:37 90 18 Nasal Cannula 2.0 28 02/25/18 16:00 97.9 98 20 157/61 93 Nasal Cannula 2.0 97.9 6/14/18 15:22 108 02/25/18 12:25 Nasal Cannula 2.0 28 02/25/18 12:25 96 Nasal Cannula 2.0 28 02/25/18 12:24 101 16 Nasal Cannula 2.0 28 02/25/18 12:00 98.1 105 20 124/92 95 Nasal Cannula 2.0 98.1 02/25/18 11:43 114 Intake and Output 02/25/18 02/26/18 19:00 07:00 Output Total 450 ml 300 ml Balance -450 ml -300 ml Output Urine Total 450 ml 300 ml Laboratory Tests 02/26/18 05:30: White Blood Count 9.2, Red Blood Count 3.98L, Hemoglobin 10.0L, Hematocrit 32.7L , Mean Corpuscular Volume 82, Mean Corpuscular Hemoglobin 25.0L, Mean Corpuscular Hemoglobin Concent 30.5L, Red Cell Distribution Width 13.0, Platelet Count 176, Mean Platelet Volume 8.1, Neutrophils (%) (Auto) 72.6, Lymphocytes (%) (Auto) 13.8L, Monocytes (%) (Auto) 9.4, Eosinophils (%) (Auto) 3.3H, Basophils (%) (Auto) 0.9, Prothrombin Time 9.6, Prothromb Time International Ratio 0.9, Activated Partial Thromboplast Time 27, Sodium Level 148H, Potassium Level 3.7, Chloride Level 112H, Carbon Dioxide Level 32, Anion Gap 4L, Blood Urea Nitrogen 14, Creatinine 1.1, Estimat Glomerular Filtration Rate , Glucose Level 112H, Uric Acid 2.5L, Calcium Level 8.8, Phosphorus Level 2.3L, Magnesium Level 2.0, Total Bilirubin 0.4, Direct Bilirubin 0.2, Aspartate Amino Transf (AST/SGOT) 51H, Alanine Aminotransferase (ALT/SGPT) 29, Alkaline Phosphatase 78, Total Protein 5.5L, Albumin 2.1L Height (Feet): 5 Height (Inches): 5.00 Weight (Pounds): 161 General Appearance: WD/WN, no apparent distress EENT: PERRL/EOMI Neck: supple Cardiovascular: tachycardia Respiratory/Chest: no respiratory distress Abdomen: non tender Karan Carrero MD Feb 26, 2018 08:26
[2018-02-26] MEDS: Meropenem 1 GM in NS 55 ML IVPB SCH ×2 (09:11→21:25)
[2018-02-26] MEDS: Levemir Flexpen SUBQ SCH ×2 (09:13→21:26)
[2018-02-26] MEDS ORDERED: Potassium Phosphate 20 MM in NS 275 ML IV SCH (09:30)
--- NOTE | 2018-02-26 10:38 | Nephrology Progress Note ---
Assessment/Plan Problem List: (1) Acute renal failure (2) SBO (small bowel obstruction) (3) Anemia (4) Diabetes Assessment Severe sepsis ( secondary to small bowel obstruction) septic shock Acute respiratory failure requiring intubation Acute encephalopathy ( due to sepsis) on chronic end-stage Alzheimer dementia Acute renal failure, probably ATN due to unstable hemodynamics Urine out put improving Pneumonia with Klebsiella Small bowel obstruction s/p 02/19 laparoscopy converted to exploratory laparotomy with small bowel resection, repair of enterotomy, extensive lysis of adhesions, and abdominal washout. Hematemesis Electrolyte imbalance Anemia Diabetes mellitus h/o Hypertension Aspiration risk Severe protein calorie malnutrition Plan due PEG increase levemir- K supplement - Mag and Phos supplement as needed- Post Op care- pulmonary support- Monitor renal parameters, Urine output, Avoid Nephrotoxics- Keep BP above 100 syst- Keep BS in check- Subjective ROS Limited/Unobtainable: No Constitutional: Reports: malaise, weakness Objective Objective Last 24 Hour Vital Signs Date Time Temp Pulse Resp B/P (MAP) Pulse Ox O2 Delivery O2 Flow Rate FiO2 02/26/18 09:00 98.6 89 19 123/76 100 Nasal Cannula 2.0 98.6 02/26/18 08:36 90 17 159/90 100 Simple Mask 5.0 90 02/26/18 08:24 88 17 165/72 100 Simple Mask 5.0 88 02/26/18 08:22 206.6 90 17 100 02/26/18 08:19 89 17 160/60 100 Simple Mask 5.0 89 02/26/18 08:14 97.0 90 17 150/58 100 Simple Mask 5.0 97.0 90 02/26/18 08:00 Nasal Cannula 2.0 28 02/26/18 08:00 94 18 Nasal Cannula 2.0 28 02/26/18 08:00 94 Nasal Cannula 2.0 28 02/26/18 04:00 97.5 105 23 148/80 100 Nasal Cannula 2.0 97.5 02/26/18 04:00 94 02/26/18 00:00 110 02/26/18 00:00 97.9 109 24 139/76 100 Nasal Cannula 2.0 97.9 02/25/18 20:00 99.5 107 20 166/89 100 Nasal Cannula 2.0 99.5 02/25/18 20:00 103 02/25/18 19:38 94 Nasal Cannula 2.0 28 02/25/18 19:38 Nasal Cannula 2.0 28 02/25/18 19:37 90 18 Nasal Cannula 2.0 28 02/25/18 16:00 97.9 98 20 157/61 93 Nasal Cannula 2.0 97.9 02/25/18 15:22 108 02/25/18 12:25 Nasal Cannula 2.0 28 02/25/18 12:25 96 Nasal Cannula 2.0 28 02/25/18 12:24 101 16 Nasal Cannula 2.0 28 02/25/18 12:00 98.1 105 20 124/92 95 Nasal Cannula 2.0 98.1 02/25/18 11:43 114 Intake and Output 02/25/18 02/26/18 19:00 07:00 Output Total 450 ml 300 ml Balance -450 ml -300 ml Output Urine Total 450 ml 300 ml Laboratory Tests 02/26/18 05:30: White Blood Count 9.2, Red Blood Count 3.98L, Hemoglobin 10.0L, Hematocrit 32.7L , Mean Corpuscular Volume 82, Mean Corpuscular Hemoglobin 25.0L, Mean Corpuscular Hemoglobin Concent 30.5L, Red Cell Distribution Width 13.0, Platelet Count 176, Mean Platelet Volume 8.1, Neutrophils (%) (Auto) 72.6, Lymphocytes (%) (Auto) 13.8L, Monocytes (%) (Auto) 9.4, Eosinophils (%) (Auto) 3.3H, Basophils (%) (Auto) 0.9, Prothrombin Time 9.6, Prothromb Time International Ratio 0.9, Activated Partial Thromboplast Time 27, Sodium Level 148H, Potassium Level 3.7, Chloride Level 112H, Carbon Dioxide Level 32, Anion Gap 4L, Blood Urea Nitrogen 14, Creatinine 1.1, Estimat Glomerular Filtration Rate , Glucose Level 112H, Uric Acid 2.5L, Calcium Level 8.8, Phosphorus Level 2.3L, Magnesium Level 2.0, Total Bilirubin 0.4, Direct Bilirubin 0.2, Aspartate Amino Transf (AST/SGOT) 51H, Alanine Aminotransferase (ALT/SGPT) 29, Alkaline Phosphatase 78, Total Protein 5.5L, Albumin 2.1L Height (Feet): 5 Height (Inches): 5.00 Weight (Pounds): 161 General Appearance: no apparent distress Objective no change ROSA REED Feb 26, 2018 10:38
--- NOTE | 2018-02-26 11:00 | Procedure Note ---
DATE OF PROCEDURE: 02/26/2018 SURGEON: Jesse Montoya M.D. ANESTHESIOLOGIST: Dr. Connolly. REFERRING PHYSICIAN: Tiago Cason M.D. PROCEDURE: Upper endoscopy with biopsy and G-tube placement. ANESTHESIA: Per Dr. Connolly. INSTRUMENT: Olympus adult flexible upper endoscope. INDICATION: Dysphagia, failure to thrive. The procedure, risks, benefits, and possible consequences, including hemorrhage, aspiration, perforation and infection, and alternative treatments, were explained to the patient/legal guardian by Dr. Jesse Montoya and the patient/legal guardian understood and accepted these risks. DESCRIPTION OF PROCEDURE: After informed consent was obtained and the patient was adequately sedated, Olympus upper endoscope was advanced from the mouth into the second portion of duodenum and retroflexion was performed in the stomach. The patient had multiple polyps in the stomach. There was some proximal body gastritis and erosions. Then biopsy of the antrum to rule out H. pylori infection. Then under endoscopic guidance and under sterile condition, a 20-Albanian pull type of G-tube was successfully placed in the epigastric area. The distance from tip of the tube to skin was about 3 cm in size. The patient tolerated the procedure very well without any complication. SUMMARY OF FINDINGS: 1. Gastritis. 2. Multiple gastric polyps. 3. Status post successful PEG placement. RECOMMENDATIONS: 1. Abdominal binder. 2. Elevate the head of the bed at all times. 3. G-tube flush. 4. G-tube care. 5. Start tube feeding later today. 6. The patient currently on antibiotics. I want to thank Dr. Cason for this kind referral. Jesse Montoya M.D. DR: Britney JOB#: [id number] CC:
--- NOTE | 2018-02-26 12:21 | Pulmonology Progress Note ---
Assessment/Plan Problems: (1) Feeding by G-tube (2) SBO (small bowel obstruction) (3) Intractable nausea and vomiting (4) Severe sepsis (5) Hematemesis (6) Altered mental status (7) end stage alzheimrers dementia (8) UTI (urinary tract infection) (9) At high risk for aspiration (10) Diabetes Assessment/Plan wbc normal afebrile tolerated Gtube insertion by Gtube. looks comfortable check h/h check electrolytes dvt prophylaxis. needs gtube. d/w dr Quintana Subjective ROS Limited/Unobtainable: Yes Interval Events: tolerated PEg insertion yesterday Constitutional: Reports: no symptoms HEENT: Repors: no symptoms Allergies: Coded Allergies: ESTROGENS (Verified Allergy, Unknown, 11/27/14) Uncoded Allergies: "estrogen" (Allergy, Unknown, 02/20/14) Objective Last 24 Hour Vital Signs Date Time Temp Pulse Resp B/P (MAP) Pulse Ox O2 Delivery O2 Flow Rate FiO2 02/26/18 09:00 98.6 89 19 123/76 100 Nasal Cannula 2.0 98.6 02/26/18 08:36 90 17 159/90 100 Simple Mask 5.0 90 02/26/18 08:24 88 17 165/72 100 Simple Mask 5.0 88 02/26/18 08:22 206.6 90 17 100 02/26/18 08:19 89 17 160/60 100 Simple Mask 5.0 89 02/26/18 08:14 97.0 90 17 150/58 100 Simple Mask 5.0 97.0 90 02/26/18 08:00 Nasal Cannula 2.0 28 02/26/18 08:00 94 18 Nasal Cannula 2.0 28 02/26/18 08:00 94 Nasal Cannula 2.0 28 02/26/18 04:00 97.5 105 23 148/80 100 Nasal Cannula 2.0 97.5 02/26/18 04:00 94 02/26/18 00:00 110 02/26/18 00:00 97.9 109 24 139/76 100 Nasal Cannula 2.0 97.9 02/25/18 20:00 99.5 107 20 166/89 100 Nasal Cannula 2.0 99.5 02/25/18 20:00 103 02/25/18 19:38 94 Nasal Cannula 2.0 28 02/25/18 19:38 Nasal Cannula 2.0 28 02/25/18 19:37 90 18 Nasal Cannula 2.0 28 02/25/18 16:00 97.9 98 20 157/61 93 Nasal Cannula 2.0 97.9 02/25/18 15:22 108 02/25/18 12:25 Nasal Cannula 2.0 28 02/25/18 12:25 96 Nasal Cannula 2.0 28 02/25/18 12:24 101 16 Nasal Cannula 2.0 28 Intake and Output 02/25/18 02/26/18 19:00 07:00 Output Total 450 ml 300 ml Balance -450 ml -300 ml Output Urine Total 450 ml 300 ml General Appearance: WD/WN HEENT: normocephalic, atraumatic Respiratory/Chest: chest wall non-tender, lungs clear Cardiovascular: normal peripheral pulses, normal rate Abdomen: normal bowel sounds, soft, non tender Skin: no rash Neurologic/Psychiatric: shirt creaser II-XII grossly normal Lymphatic: no neck adenopathy Musculoskeletal: normal muscle bulk Laboratory Tests 02/26/18 05:30: White Blood Count 9.2, Red Blood Count 3.98L, Hemoglobin 10.0L, Hematocrit 32.7L , Mean Corpuscular Volume 82, Mean Corpuscular Hemoglobin 25.0L, Mean Corpuscular Hemoglobin Concent 30.5L, Red Cell Distribution Width 13.0, Platelet Count 176, Mean Platelet Volume 8.1, Neutrophils (%) (Auto) 72.6, Lymphocytes (%) (Auto) 13.8L, Monocytes (%) (Auto) 9.4, Eosinophils (%) (Auto) 3.3H, Basophils (%) (Auto) 0.9, Prothrombin Time 9.6, Prothromb Time International Ratio 0.9, Activated Partial Thromboplast Time 27, Sodium Level 148H, Potassium Level 3.7, Chloride Level 112H, Carbon Dioxide Level 32, Anion Gap 4L, Blood Urea Nitrogen 14, Creatinine 1.1, Estimat Glomerular Filtration Rate , Glucose Level 112H, Uric Acid 2.5L, Calcium Level 8.8, Phosphorus Level 2.3L, Magnesium Level 2.0, Total Bilirubin 0.4, Direct Bilirubin 0.2, Aspartate Amino Transf (AST/SGOT) 51H, Alanine Aminotransferase (ALT/SGPT) 29, Alkaline Phosphatase 78, Total Protein 5.5L, Albumin 2.1L Current Medications Medications (Trade) Dose Ordered Sig/Jus Route PRN Reason Start Time Stop Time Status Last Admin Dose Admin Acetaminophen (Tylenol) 650 mg Q4H PRN ORAL Mild Pain (Pain Scale 1-3) 02/26/18 07:00 02/26/18 16:00 Dextrose (Dextrose 50%) 25 ml STAT PRN IV Hypoglycemia 02/25/18 20:30 03/21/18 20:29 Dextrose (Dextrose 50%) 50 ml STAT PRN IV Hypoglycemia 02/25/18 20:30 03/21/18 20:29 Diphenhydramine HCl (Benadryl) 25 mg Q15M PRN IVP Itching 02/26/18 07:00 02/26/18 16:00 Hydralazine HCl (Apresoline) 5 mg Q30M PRN IV SBP>160 OR___/DBP>90 OR___ 02/26/18 07:00 02/26/18 16:00 Insulin Aspart (NovoLOG) Q6HR SUBQ 02/25/18 00:00 03/16/18 20:59 02/26/18 01:22 Insulin Detemir (Levemir) 12 units Q12HR SUBQ 02/25/18 21:00 03/22/18 11:59 02/26/18 09:13 Labetalol HCl (Normodyne) 5 mg Q10M PRN IV SBP>160 or____/ DBP>90 or 02/26/18 07:00 02/26/18 16:00 Lansoprazole (Prevacid) 30 mg Q12HR GT 02/25/18 09:00 03/26/18 08:59 02/26/18 09:11 Meropenem 1 gm/ Sodium Chloride 55 ml @ 110 mls/hr Q12HR IVPB 02/25/18 09:00 02/27/18 20:59 02/26/18 09:11 Nitroglycerin (Ntg) 0.4 mg Q5M PRN SL Prn Chest Pain 02/24/18 23:15 03/16/18 17:44 Ondansetron HCl (Zofran) 4 mg Q1H PRN IVP Nausea & Vomiting 02/26/18 07:00 02/26/18 16:00 Ondansetron HCl (Zofran) 4 mg Q6H PRN IVP Nausea & Vomiting 02/25/18 02:30 03/16/18 20:29 Polyethylene Glycol (Miralax) 17 gm DAILYPRN PRN ORAL Constipation 02/25/18 20:30 03/21/18 20:29 Potassium Chloride (K-Dur) 20 meq TWICE A DAY NG 02/25/18 09:00 03/26/18 10:44 02/26/18 09:11 Quetiapine Fumarate (SEROquel) 25 mg Q6H PRN ORAL For Anxiety 02/25/18 00:45 03/25/18 12:44 Tiago Cason MD Feb 26, 2018 12:21
[2018-02-26] MEDS ORDERED: LEVEMIR FL100 UNIT/1 SUBQ (12:24)
[2018-02-26] MEDS ORDERED: MERREM1 GM IV (12:24)
[2018-02-26] MEDS ORDERED: SEROQUEL25 MG ORAL (12:24)
--- NOTE | 2018-02-26 12:45 | Cardiology Progress Note ---
Assessment/Plan Status: stable, progressing, tolerating diet Assessment/Plan s/p 02/19 laparoscopy converted to exploratory laparotomy with small bowel resection, repair of enterotomy, extensive lysis of adhesions, and abdominal washout. s/p 02/25 G tube placement for residential feeds -Pain control -Bowel ppx/stool softeners -Continue antibiotics, follow respiratory cultures -Incentive spirometry -EKG reviewed- ST, occasional PVCs -BP control, goal <140 -Placement Subjective Cardiovascular: Reports: no symptoms Respiratory: Reports: no symptoms Gastrointestinal/Abdominal: Reports: no symptoms, poor fluid intake Genitourinary: Reports: no symptoms Subjective s/p 02/19 laparoscopy converted to exploratory laparotomy with small bowel resection, repair of enterotomy, extensive lysis of adhesions, and abdominal washout. Vitals stable, patient clinically improving, tolerating feeds, WBC and CRP coming down. No acute events, no distress, sleeping, comfortable G tube placed 02/25 no complications Objective Last 24 Hour Vital Signs Date Time Temp Pulse Resp B/P (MAP) Pulse Ox O2 Delivery O2 Flow Rate FiO2 02/26/18 12:00 98.6 98 20 136/65 100 Nasal Cannula 2.0 98.6 02/26/18 11:45 93 02/26/18 09:00 98.6 89 19 123/76 100 Nasal Cannula 2.0 98.6 02/26/18 08:36 90 17 159/90 100 Simple Mask 5.0 90 02/26/18 08:24 88 17 165/72 100 Simple Mask 5.0 88 02/26/18 08:22 206.6 90 17 100 02/26/18 08:19 89 17 160/60 100 Simple Mask 5.0 89 02/26/18 08:14 97.0 90 17 150/58 100 Simple Mask 5.0 97.0 90 02/26/18 08:00 Nasal Cannula 2.0 28 02/26/18 08:00 94 18 Nasal Cannula 2.0 28 02/26/18 08:00 94 Nasal Cannula 2.0 28 02/26/18 04:00 97.5 105 23 148/80 100 Nasal Cannula 2.0 97.5 02/26/18 04:00 94 02/26/18 00:00 110 02/26/18 00:00 97.9 109 24 139/76 100 Nasal Cannula 2.0 97.9 02/25/18 20:00 99.5 107 20 166/89 100 Nasal Cannula 2.0 99.5 02/25/18 20:00 103 02/25/18 19:38 94 Nasal Cannula 2.0 28 02/25/18 19:38 Nasal Cannula 2.0 28 02/25/18 19:37 90 18 Nasal Cannula 2.0 28 02/25/18 16:00 97.9 98 20 157/61 93 Nasal Cannula 2.0 97.9 02/25/18 15:22 108 General Appearance: no apparent distress EENT: PERRL/EOMI Neck: normal alignment Rhythm: NSR Cardiovascular: normal peripheral pulses Respiratory/Chest: chest wall non-tender Abdomen: normal bowel sounds Extremities: normal range of motion, non-tender Intake and Output 02/25/18 02/26/18 19:00 07:00 Output Total 450 ml 300 ml Balance -450 ml -300 ml Output Urine Total 450 ml 300 ml Laboratory Tests Test 02/26/18 05:30 White Blood Count 9.2 K/UL (4.8-10.8) Red Blood Count 3.98 M/UL (4.20-5.40) L Hemoglobin 10.0 G/DL (12.0-16.0) L Hematocrit 32.7 % (37.0-47.0) L Mean Corpuscular Volume 82 FL (80-99) Mean Corpuscular Hemoglobin 25.0 PG (27.0-31.0) L Mean Corpuscular Hemoglobin Concent 30.5 G/DL (32.0-36.0) L Red Cell Distribution Width 13.0 % (11.6-14.8) Platelet Count 176 K/UL (150-450) Mean Platelet Volume 8.1 FL (6.5-10.1) Neutrophils (%) (Auto) 72.6 % (45.0-75.0) Lymphocytes (%) (Auto) 13.8 % (20.0-45.0) L Monocytes (%) (Auto) 9.4 % (1.0-10.0) Eosinophils (%) (Auto) 3.3 % (0.0-3.0) H Basophils (%) (Auto) 0.9 % (0.0-2.0) Prothrombin Time 9.6 SEC (9.30-11.50) Prothromb Time International Ratio 0.9 (0.9-1.1) Activated Partial Thromboplast Time 27 SEC (23-33) Sodium Level 148 MMOL/L (136-145) H Potassium Level 3.7 MMOL/L (3.5-5.1) Chloride Level 112 MMOL/L (98-107) H Carbon Dioxide Level 32 MMOL/L (21-32) Anion Gap 4 mmol/L (5-15) L Blood Urea Nitrogen 14 mg/dL (7-18) Creatinine 1.1 MG/DL (0.55-1.30) Estimat Glomerular Filtration Rate mL/min (>60) Glucose Level 112 MG/DL (74-106) H Uric Acid 2.5 MG/DL (2.6-7.2) L Calcium Level 8.8 MG/DL (8.5-10.1) Phosphorus Level 2.3 MG/DL (2.5-4.9) L Magnesium Level 2.0 MG/DL (1.8-2.4) Total Bilirubin 0.4 MG/DL (0.2-1.0) Direct Bilirubin 0.2 MG/DL (0.0-0.3) Aspartate Amino Transf (AST/SGOT) 51 U/L (15-37) H Alanine Aminotransferase (ALT/SGPT) 29 U/L (12-78) Alkaline Phosphatase 78 U/L (46-116) Total Protein 5.5 G/DL (6.4-8.2) L Albumin 2.1 G/DL (3.4-5.0) L Ant Gu M.D. Feb 26, 2018 12:45
--- NOTE | 2018-02-26 13:38 | General Progress Note ---
Progress Note Progress Note Surgery: doing well. no acute events. labs okay. exam benign. -diet as tolerated -d/c planning -cierra to be removed in 1-2 weeks. Miguel Freeman Feb 26, 2018 13:38
--- NOTE | 2018-02-26 20:10 | Infectious Diseases Prog Note ---
Assessment/Plan Assessment/Plan MOld in sputum- suspect likely colonizer- will further evaluate with CT chest, fungal serologies and markers -CXR 02/25: Right basilar atelectasis and possible hazy infiltrate. Possible pneumoperitoneum, presumably postoperative if real Sepsis, resolved- likely from SBO possibly due to adhesions -shock after surgery; now off pressors 02/19 SP lap with exploration. 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 hernia reduced and tumor with small bowel resected. primary anastomosis. -Small bowel w/ gastroffin: Subsequent small bowel study indicates that the prominent upper abdominal small bowel loops are proximal jejunal loops, and there is a transition point identifiable retrospect centrally in the mid abdomen distal to which loops are nondilated. There is a slight swirling of the vessels in this area, indicating this could be an internal hernia, although the presence of an incisional scar on the CT and the appearance on the small bowel study indicates that it is more likely due to adhesions. -CT abd/p: Mildly prominent gas and fluid-filled small bowel loops without definite transition point. Most likely on the basis of ileus/enteritis. Early small bowel obstruction not completely excludable but deemed less likely. Right basilar infiltrate, most likely pneumonia. Mild anasarca. Stable, presumably benign, right lobe liver lesion. Soria catheter within nondistended bladder. Mild scoliosis and degenerative spondylosis incidentally noted. - 02/21 CXR: Patchy ill-defined groundglass and reticular opacities in the lung bases bilaterally, right greater than left, suggesting subsegmental atelectasis +/- pneumonit -02/14 u/a wbc 60-80, nit +, leuk +3; Ucx Neg; repeat 02/15 UCx NTD -02/14 Bcx NTD -sp cx K. 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 -02/25 SP Micafungin #7 -02/24 SP IV Vancomycin #6 -/ SP Cefepime #5, Flagyl #4 -/ SP IV Vancomycin #3 -CT chest wo, fungitell, asp ag, fungal sp cx, cocci ab -Monitor CBC/CMP, temperatures -Aspiration precautions -GI, Sx f/u -wound care Subjective Allergies: Coded Allergies: ESTROGENS (Verified Allergy, Unknown, 11/27/14) Uncoded Allergies: "estrogen" (Allergy, Unknown, 02/20/14) Subjective afebrile at 2l NC leukocytosis resolved Bcx NTD sp cx with MRSA, and now with mold Objective Vital Signs Last 24 Hour Vital Signs Date Time Temp Pulse Resp B/P (MAP) Pulse Ox O2 Delivery O2 Flow Rate FiO2 02/26/18 16:00 97.8 98 19 130/71 99 Nasal Cannula 2.0 97.8 02/26/18 15:29 103 02/26/18 12:00 98.6 98 20 136/65 100 Nasal Cannula 2.0 98.6 02/26/18 11:45 93 02/26/18 09:00 98.6 89 19 123/76 100 Nasal Cannula 2.0 98.6 02/26/18 08:36 90 17 159/90 100 Simple Mask 5.0 90 02/26/18 08:24 88 17 165/72 100 Simple Mask 5.0 88 02/26/18 08:22 206.6 90 17 100 02/26/18 08:19 89 17 160/60 100 Simple Mask 5.0 89 02/26/18 08:14 97.0 90 17 150/58 100 Simple Mask 5.0 97.0 90 02/26/18 08:00 Nasal Cannula 2.0 28 02/26/18 08:00 94 18 Nasal Cannula 2.0 28 02/26/18 08:00 94 Nasal Cannula 2.0 28 02/26/18 04:00 97.5 105 23 148/80 100 Nasal Cannula 2.0 97.5 02/26/18 04:00 94 02/26/18 00:00 110 02/26/18 00:00 97.9 109 24 139/76 100 Nasal Cannula 2.0 97.9 Height (Feet): 5 Height (Inches): 5.00 Weight (Pounds): 161 Objective General Appearance: cachetic Lines, tubes and drains: central line HEENT: normocephalic, atraumatic, PERRL Neck: normal alignment Respiratory/Chest: chest wall non-tender, normal breath sounds Cardiovascular/Chest: normal peripheral pulses, normal rate Abdomen: normal bowel sounds, non tender Genitourinary/Rectal: normal genital exam, normal rectal exam Extremities: non-pitting Laboratory Tests Test 02/26/18 05:30 White Blood Count 9.2 K/UL (4.8-10.8) Red Blood Count 3.98 M/UL (4.20-5.40) L Hemoglobin 10.0 G/DL (12.0-16.0) L Hematocrit 32.7 % (37.0-47.0) L Mean Corpuscular Volume 82 FL (80-99) Mean Corpuscular Hemoglobin 25.0 PG (27.0-31.0) L Mean Corpuscular Hemoglobin Concent 30.5 G/DL (32.0-36.0) L Red Cell Distribution Width 13.0 % (11.6-14.8) Platelet Count 176 K/UL (150-450) Mean Platelet Volume 8.1 FL (6.5-10.1) Neutrophils (%) (Auto) 72.6 % (45.0-75.0) Lymphocytes (%) (Auto) 13.8 % (20.0-45.0) L Monocytes (%) (Auto) 9.4 % (1.0-10.0) Eosinophils (%) (Auto) 3.3 % (0.0-3.0) H Basophils (%) (Auto) 0.9 % (0.0-2.0) Prothrombin Time 9.6 SEC (9.30-11.50) Prothromb Time International Ratio 0.9 (0.9-1.1) Activated Partial Thromboplast Time 27 SEC (23-33) Sodium Level 148 MMOL/L (136-145) H Potassium Level 3.7 MMOL/L (3.5-5.1) Chloride Level 112 MMOL/L (98-107) H Carbon Dioxide Level 32 MMOL/L (21-32) Anion Gap 4 mmol/L (5-15) L Blood Urea Nitrogen 14 mg/dL (7-18) Creatinine 1.1 MG/DL (0.55-1.30) Estimat Glomerular Filtration Rate mL/min (>60) Glucose Level 112 MG/DL (74-106) H Uric Acid 2.5 MG/DL (2.6-7.2) L Calcium Level 8.8 MG/DL (8.5-10.1) Phosphorus Level 2.3 MG/DL (2.5-4.9) L Magnesium Level 2.0 MG/DL (1.8-2.4) Total Bilirubin 0.4 MG/DL (0.2-1.0) Direct Bilirubin 0.2 MG/DL (0.0-0.3) Aspartate Amino Transf (AST/SGOT) 51 U/L (15-37) H Alanine Aminotransferase (ALT/SGPT) 29 U/L (12-78) Alkaline Phosphatase 78 U/L (46-116) Total Protein 5.5 G/DL (6.4-8.2) L Albumin 2.1 G/DL (3.4-5.0) L Current Medications Medications (Trade) Dose Ordered Sig/Jus Route PRN Reason Start Time Stop Time Status Last Admin Dose Admin Dextrose (Dextrose 50%) 25 ml STAT PRN IV Hypoglycemia 02/25/18 20:30 03/21/18 20:29 Dextrose (Dextrose 50%) 50 ml STAT PRN IV Hypoglycemia 02/25/18 20:30 03/21/18 20:29 Insulin Aspart (NovoLOG) Q6HR SUBQ 02/25/18 00:00 03/16/18 20:59 02/26/18 18:18 Insulin Detemir (Levemir) 12 units Q12HR SUBQ 02/25/18 21:00 03/22/18 11:59 02/26/18 09:13 Lansoprazole (Prevacid) 30 mg Q12HR GT 02/25/18 09:00 03/26/18 08:59 02/26/18 09:11 Meropenem 1 gm/ Sodium Chloride 55 ml @ 110 mls/hr Q12HR IVPB 02/25/18 09:00 02/27/18 20:59 02/26/18 09:11 Nitroglycerin (Ntg) 0.4 mg Q5M PRN SL Prn Chest Pain 02/24/18 23:15 03/16/18 17:44 Ondansetron HCl (Zofran) 4 mg Q6H PRN IVP Nausea & Vomiting 02/25/18 02:30 03/16/18 20:29 Polyethylene Glycol (Miralax) 17 gm DAILYPRN PRN ORAL Constipation 02/25/18 20:30 03/21/18 20:29 Potassium Chloride (K-Dur) 20 meq TWICE A DAY NG 02/25/18 09:00 03/26/18 10:44 02/26/18 18:16 Quetiapine Fumarate (SEROquel) 25 mg Q6H PRN ORAL For Anxiety 02/25/18 00:45 03/25/18 12:44 Brianna Root M.D. Feb 26, 2018 20:10
--- NOTE | 2018-02-26 23:07 | General Progress Note ---
Assessment/Plan Status: stable Assessment/Plan Dementia with behavioral disturbance The pt lacks capacity The pt public guardian should be contacted seromarcia parisn Subjective Date patient seen: Feb 26, 2018 Neurologic/Psychiatric: Reports: anxiety, depressed Allergies: Coded Allergies: ESTROGENS (Verified Allergy, Unknown, 11/27/14) Uncoded Allergies: "estrogen" (Allergy, Unknown, 02/20/14) Subjective the pt is confuse not agitated more lethargic Objective Last 24 Hour Vital Signs Date Time Temp Pulse Resp B/P (MAP) Pulse Ox O2 Delivery O2 Flow Rate FiO2 02/26/18 20:56 95 Nasal Cannula 2.0 28 02/26/18 20:56 Nasal Cannula 2.0 28 02/26/18 20:55 95 18 Nasal Cannula 2.0 28 02/26/18 20:00 99.5 109 16 131/63 92 99.5 02/26/18 20:00 103 02/26/18 16:00 97.8 98 19 130/71 99 Nasal Cannula 2.0 97.8 02/26/18 15:29 103 02/26/18 12:00 98.6 98 20 136/65 100 Nasal Cannula 2.0 98.6 02/26/18 11:45 93 02/26/18 09:00 98.6 89 19 123/76 100 Nasal Cannula 2.0 98.6 02/26/18 08:36 90 17 159/90 100 Simple Mask 5.0 90 02/26/18 08:24 88 17 165/72 100 Simple Mask 5.0 88 02/26/18 08:22 206.6 90 17 100 02/26/18 08:19 89 17 160/60 100 Simple Mask 5.0 89 02/26/18 08:14 97.0 90 17 150/58 100 Simple Mask 5.0 97.0 90 02/26/18 08:00 Nasal Cannula 2.0 28 02/26/18 08:00 94 18 Nasal Cannula 2.0 28 02/26/18 08:00 94 Nasal Cannula 2.0 28 02/26/18 04:00 97.5 105 23 148/80 100 Nasal Cannula 2.0 97.5 02/26/18 04:00 94 02/26/18 00:00 110 02/26/18 00:00 97.9 109 24 139/76 100 Nasal Cannula 2.0 97.9 Intake and Output 02/25/18 02/26/18 19:00 07:00 Output Total 450 ml 300 ml Balance -450 ml -300 ml Output Urine Total 450 ml 300 ml Laboratory Tests 02/26/18 05:30: White Blood Count 9.2, Red Blood Count 3.98L, Hemoglobin 10.0L, Hematocrit 32.7L , Mean Corpuscular Volume 82, Mean Corpuscular Hemoglobin 25.0L, Mean Corpuscular Hemoglobin Concent 30.5L, Red Cell Distribution Width 13.0, Platelet Count 176, Mean Platelet Volume 8.1, Neutrophils (%) (Auto) 72.6, Lymphocytes (%) (Auto) 13.8L, Monocytes (%) (Auto) 9.4, Eosinophils (%) (Auto) 3.3H, Basophils (%) (Auto) 0.9, Prothrombin Time 9.6, Prothromb Time International Ratio 0.9, Activated Partial Thromboplast Time 27, Sodium Level 148H, Potassium Level 3.7, Chloride Level 112H, Carbon Dioxide Level 32, Anion Gap 4L, Blood Urea Nitrogen 14, Creatinine 1.1, Estimat Glomerular Filtration Rate , Glucose Level 112H, Uric Acid 2.5L, Calcium Level 8.8, Phosphorus Level 2.3L, Magnesium Level 2.0, Total Bilirubin 0.4, Direct Bilirubin 0.2, Aspartate Amino Transf (AST/SGOT) 51H, Alanine Aminotransferase (ALT/SGPT) 29, Alkaline Phosphatase 78, Total Protein 5.5L, Albumin 2.1L Height (Feet): 5 Height (Inches): 5.00 Weight (Pounds): 161 General Appearance: no apparent distress, alert Josue Roy M.D. Feb 26, 2018 23:07
[2018-02-27] VITALS: BP 127/74
[2018-02-27] MEDS: NovoLOG Insulin Flexpen SUBQ SCH ×3 (00:39→12:35)
[2018-02-27 04:00] VITALS: BP 135/67
[2018-02-27 07:11] LABS: BASOPHILS % (AUTO) 0.3 % (0.0-2.0); EOSINOPHILS % (AUTO) 1.8 % (0.0-3.0); HEMATOCRIT 31.2 % (37.0-47.0); HEMOGLOBIN 9.6 G/DL (12.0-16.0); LYMPHOCYTES % (AUTO) 10.3 % (20.0-45.0); MEAN CORPUSCULAR VOLUME 83 FL (80-99); MONOCYTES % (AUTO) 7.1 % (1.0-10.0); NEUTROPHILS % (AUTO) 80.4 % (45.0-75.0); PLATELET COUNT 182 K/UL (150-450); RED BLOOD COUNT 3.77 M/UL (4.20-5.40); RED CELL DISTRIBUTION WIDTH 13.2 % (11.6-14.8); WHITE BLOOD COUNT 12.5 K/UL (4.8-10.8)
[2018-02-27 07:17] LABS: ANION GAP 5 mmol/L (5-15); BLOOD UREA NITROGEN 16 mg/dL (7-18); CALCIUM 9.3 MG/DL (8.5-10.1); CARBON DIOXIDE 28 MMOL/L (21-32); CHLORIDE 109 MMOL/L (98-107); CREATININE 1.1 MG/DL (0.55-1.30); PHOSPHORUS 2.9 MG/DL (2.5-4.9); POTASSIUM 4.9 MMOL/L (3.5-5.1); SODIUM 142 MMOL/L (136-145)
[2018-02-27 08:00] VITALS: BP 122/56
[2018-02-27] MEDS: Meropenem 1 GM in NS 55 ML IVPB SCH (08:35)
[2018-02-27] MEDS: Levemir Flexpen SUBQ SCH (08:36)
--- NOTE | 2018-02-27 10:33 | Cardiology Progress Note ---
Assessment/Plan Status: stable Assessment/Plan s/p 02/19 laparoscopy converted to exploratory laparotomy with small bowel resection, repair of enterotomy, extensive lysis of adhesions, and abdominal washout. 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 Vitals stable, patient clinically improving, tolerating feeds, WBC and CRP coming down. No acute events, no distress, sleeping, comfortable G tube placed 02/25 no complications Objective Last 24 Hour Vital Signs Date Time Temp Pulse Resp B/P (MAP) Pulse Ox O2 Delivery O2 Flow Rate FiO2 02/27/18 09:29 96 Nasal Cannula 2.0 28 02/27/18 09:29 96 18 Nasal Cannula 2.0 28 02/27/18 09:29 Nasal Cannula 2.0 28 02/27/18 08:00 108 02/27/18 08:00 98.8 111 26 122/56 98 Nasal Cannula 2.0 98.8 02/27/18 04:00 99.5 103 19 135/67 95 99.5 02/27/18 04:00 108 02/27/18 00:00 98.9 114 18 127/74 94 98.9 02/27/18 00:00 106 02/26/18 20:56 95 Nasal Cannula 2.0 28 02/26/18 20:56 Nasal Cannula 2.0 28 02/26/18 20:55 95 18 Nasal Cannula 2.0 28 02/26/18 20:00 99.5 109 16 131/63 92 99.5 02/26/18 20:00 103 02/26/18 16:00 97.8 98 19 130/71 99 Nasal Cannula 2.0 97.8 02/26/18 15:29 103 02/26/18 12:00 98.6 98 20 136/65 100 Nasal Cannula 2.0 98.6 02/26/18 11:45 93 General Appearance: no apparent distress EENT: PERRL/EOMI Neck: non-tender Rhythm: NSR, ST Cardiovascular: normal peripheral pulses Respiratory/Chest: chest wall non-tender Abdomen: normal bowel sounds Extremities: normal range of motion Neurologic: audio video repairer II-XII grossly normal Intake and Output 02/26/18 02/27/18 19:00 07:00 Intake Total 550 ml Output Total 1200 ml 1000 ml Balance -650 ml -1000 ml Free Water 50 ml Tube Feeding 500 ml Output Urine Total 1200 ml 1000 ml Laboratory Tests Test 02/27/18 05:37 White Blood Count 12.5 K/UL (4.8-10.8) H Red Blood Count 3.77 M/UL (4.20-5.40) L Hemoglobin 9.6 G/DL (12.0-16.0) L Hematocrit 31.2 % (37.0-47.0) L Mean Corpuscular Volume 83 FL (80-99) Mean Corpuscular Hemoglobin 25.5 PG (27.0-31.0) L Mean Corpuscular Hemoglobin Concent 30.9 G/DL (32.0-36.0) L Red Cell Distribution Width 13.2 % (11.6-14.8) Platelet Count 182 K/UL (150-450) Mean Platelet Volume 7.9 FL (6.5-10.1) Neutrophils (%) (Auto) 80.4 % (45.0-75.0) H Lymphocytes (%) (Auto) 10.3 % (20.0-45.0) L Monocytes (%) (Auto) 7.1 % (1.0-10.0) Eosinophils (%) (Auto) 1.8 % (0.0-3.0) Basophils (%) (Auto) 0.3 % (0.0-2.0) Sodium Level 142 MMOL/L (136-145) Potassium Level 4.9 MMOL/L (3.5-5.1) Chloride Level 109 MMOL/L (98-107) H Carbon Dioxide Level 28 MMOL/L (21-32) Anion Gap 5 mmol/L (5-15) Blood Urea Nitrogen 16 mg/dL (7-18) Creatinine 1.1 MG/DL (0.55-1.30) Estimat Glomerular Filtration Rate mL/min (>60) Glucose Level 206 MG/DL (74-106) H Calcium Level 9.3 MG/DL (8.5-10.1) Phosphorus Level 2.9 MG/DL (2.5-4.9) Magnesium Level 2.1 MG/DL (1.8-2.4) Coccidioides Antibody (Comp Fix) Pending Aspergillus fumigatus Antibody Pending Ant Gu M.D. Feb 27, 2018 10:33
--- NOTE | 2018-02-27 10:40 | Nephrology Progress Note ---
Assessment/Plan Problem List: (1) Acute renal failure Assessment: ok (2) SBO (small bowel obstruction) (3) Diabetes (4) Anemia Plan abxs Insulin follow labs Subjective Subjective In NAD Objective Objective Last 24 Hour Vital Signs Date Time Temp Pulse Resp B/P (MAP) Pulse Ox O2 Delivery O2 Flow Rate FiO2 02/27/18 09:29 96 Nasal Cannula 2.0 28 02/27/18 09:29 96 18 Nasal Cannula 2.0 28 02/27/18 09:29 Nasal Cannula 2.0 28 02/27/18 08:00 108 02/27/18 08:00 98.8 111 26 122/56 98 Nasal Cannula 2.0 98.8 02/27/18 04:00 99.5 103 19 135/67 95 99.5 02/27/18 04:00 108 02/27/18 00:00 98.9 114 18 127/74 94 98.9 02/27/18 00:00 106 02/26/18 20:56 95 Nasal Cannula 2.0 28 02/26/18 20:56 Nasal Cannula 2.0 28 02/26/18 20:55 95 18 Nasal Cannula 2.0 28 02/26/18 20:00 99.5 109 16 131/63 92 99.5 02/26/18 20:00 103 02/26/18 16:00 97.8 98 19 130/71 99 Nasal Cannula 2.0 97.8 02/26/18 15:29 103 02/26/18 12:00 98.6 98 20 136/65 100 Nasal Cannula 2.0 98.6 02/26/18 11:45 93 Intake and Output 02/26/18 02/27/18 19:00 07:00 Intake Total 550 ml Output Total 1200 ml 1000 ml Balance -650 ml -1000 ml Free Water 50 ml Tube Feeding 500 ml Output Urine Total 1200 ml 1000 ml Laboratory Tests 02/27/18 05:37: White Blood Count 12.5H, Red Blood Count 3.77L, Hemoglobin 9.6L, Hematocrit 31.2L, Mean Corpuscular Volume 83, Mean Corpuscular Hemoglobin 25.5L, Mean Corpuscular Hemoglobin Concent 30.9L, Red Cell Distribution Width 13.2, Platelet Count 182, Mean Platelet Volume 7.9, Neutrophils (%) (Auto) 80.4H, Lymphocytes (%) (Auto) 10.3L, Monocytes (%) (Auto) 7.1, Eosinophils (%) (Auto) 1.8, Basophils (%) (Auto) 0.3, Sodium Level 142, Potassium Level 4.9, Chloride Level 109H, Carbon Dioxide Level 28, Anion Gap 5, Blood Urea Nitrogen 16, Creatinine 1.1, Estimat Glomerular Filtration Rate , Glucose Level 206H, Calcium Level 9.3, Phosphorus Level 2.9, Magnesium Level 2.1, Coccidioides Antibody (Comp Fix) [Pending], Aspergillus fumigatus Antibody [Pending] Height (Feet): 5 Height (Inches): 5.00 Weight (Pounds): 161 Cardiovascular: normal rate Respiratory/Chest: lungs clear Extremities: moderate edema Avelino Cox MD Feb 27, 2018 10:40
--- NOTE | 2018-02-27 11:22 | Pulmonology Progress Note ---
Assessment/Plan Problems: (1) Feeding by G-tube (2) SBO (small bowel obstruction) (3) Intractable nausea and vomiting (4) Severe sepsis (5) Hematemesis (6) Altered mental status (7) end stage alzheimrers dementia (8) UTI (urinary tract infection) (9) At high risk for aspiration (10) Diabetes Assessment/Plan afebrile tolerating feeding very well looks comfortable check h/h check electrolytes dvt prophylaxis. Subjective ROS Limited/Unobtainable: No Constitutional: Reports: no symptoms HEENT: Repors: no symptoms Allergies: Coded Allergies: ESTROGENS (Verified Allergy, Unknown, 11/27/14) Uncoded Allergies: "estrogen" (Allergy, Unknown, 02/20/14) Objective Last 24 Hour Vital Signs Date Time Temp Pulse Resp B/P (MAP) Pulse Ox O2 Delivery O2 Flow Rate FiO2 02/27/18 09:29 96 Nasal Cannula 2.0 28 02/27/18 09:29 96 18 Nasal Cannula 2.0 28 02/27/18 09:29 Nasal Cannula 2.0 28 02/27/18 08:00 108 02/27/18 08:00 98.8 111 26 122/56 98 Nasal Cannula 2.0 98.8 02/27/18 04:00 99.5 103 19 135/67 95 99.5 02/27/18 04:00 108 02/27/18 00:00 98.9 114 18 127/74 94 98.9 02/27/18 00:00 106 02/26/18 20:56 95 Nasal Cannula 2.0 28 02/26/18 20:56 Nasal Cannula 2.0 28 02/26/18 20:55 95 18 Nasal Cannula 2.0 28 02/26/18 20:00 99.5 109 16 131/63 92 99.5 02/26/18 20:00 103 02/26/18 16:00 97.8 98 19 130/71 99 Nasal Cannula 2.0 97.8 02/26/18 15:29 103 02/26/18 12:00 98.6 98 20 136/65 100 Nasal Cannula 2.0 98.6 02/26/18 11:45 93 Intake and Output 02/26/18 02/27/18 19:00 07:00 Intake Total 550 ml 60 ml Output Total 1200 ml 1000 ml Balance -650 ml -940 ml Free Water 50 ml Tube Feeding 500 ml 60 ml Output Urine Total 1200 ml 1000 ml General Appearance: WD/WN HEENT: normocephalic Respiratory/Chest: chest wall non-tender, lungs clear Cardiovascular: normal peripheral pulses, normal rate Abdomen: normal bowel sounds, soft, non tender, no organomegaly Laboratory Tests 02/27/18 05:37: White Blood Count 12.5H, Red Blood Count 3.77L, Hemoglobin 9.6L, Hematocrit 31.2L, Mean Corpuscular Volume 83, Mean Corpuscular Hemoglobin 25.5L, Mean Corpuscular Hemoglobin Concent 30.9L, Red Cell Distribution Width 13.2, Platelet Count 182, Mean Platelet Volume 7.9, Neutrophils (%) (Auto) 80.4H, Lymphocytes (%) (Auto) 10.3L, Monocytes (%) (Auto) 7.1, Eosinophils (%) (Auto) 1.8, Basophils (%) (Auto) 0.3, Sodium Level 142, Potassium Level 4.9, Chloride Level 109H, Carbon Dioxide Level 28, Anion Gap 5, Blood Urea Nitrogen 16, Creatinine 1.1, Estimat Glomerular Filtration Rate , Glucose Level 206H, Calcium Level 9.3, Phosphorus Level 2.9, Magnesium Level 2.1, Coccidioides Antibody (Comp Fix) [Pending], Aspergillus fumigatus Antibody [Pending] Current Medications Medications (Trade) Dose Ordered Sig/Jus Route PRN Reason Start Time Stop Time Status Last Admin Dose Admin Dextrose (Dextrose 50%) 25 ml STAT PRN IV Hypoglycemia 02/25/18 20:30 03/21/18 20:29 Dextrose (Dextrose 50%) 50 ml STAT PRN IV Hypoglycemia 02/25/18 20:30 03/21/18 20:29 Insulin Aspart (NovoLOG) Q6HR SUBQ 02/25/18 00:00 03/16/18 20:59 02/27/18 06:14 Insulin Detemir (Levemir) 12 units Q12HR SUBQ 02/25/18 21:00 03/22/18 11:59 02/27/18 08:36 Lansoprazole (Prevacid) 30 mg Q12HR GT 02/25/18 09:00 03/26/18 08:59 02/27/18 08:31 Meropenem 1 gm/ Sodium Chloride 55 ml @ 110 mls/hr Q12HR IVPB 02/25/18 09:00 02/27/18 20:59 02/27/18 08:35 Nitroglycerin (Ntg) 0.4 mg Q5M PRN SL Prn Chest Pain 02/24/18 23:15 03/16/18 17:44 Ondansetron HCl (Zofran) 4 mg Q6H PRN IVP Nausea & Vomiting 02/25/18 02:30 03/16/18 20:29 Polyethylene Glycol (Miralax) 17 gm DAILYPRN PRN ORAL Constipation 02/25/18 20:30 03/21/18 20:29 Potassium Chloride (K-Dur) 20 meq TWICE A DAY NG 02/25/18 09:00 03/26/18 10:44 02/27/18 08:31 Quetiapine Fumarate (SEROquel) 25 mg Q6H PRN ORAL For Anxiety 02/25/18 00:45 03/25/18 12:44 Tiago Cason MD Feb 27, 2018 11:22
--- NOTE | 2018-02-27 12:05 | Diagnostic Imaging Report ---
EXAM: CT Chest Without Intravenous Contrast CLINICAL HISTORY: COUGH TECHNIQUE: Axial computed tomography images of the chest without intravenous contrast. CTDI is 27.17 mGy and DLP is 702.28 mGy-cm. One or more of the following dose reduction techniques were used: automated exposure control, adjustment of the mA and/or kV according to patient size, use of iterative reconstruction technique. COMPARISON: No relevant prior studies available. FINDINGS: Lungs: Bibasilar atelectasis/consolidation and airspace, worse on the right. Pleural space: Small to moderate right pleural effusion. Small left pleural effusion. Heart: Coronary artery disease. No significant pericardial effusion. Bones/joints: Degenerative changes of the spine. No acute fracture. No dislocation. Soft tissues: Unremarkable. Vasculature: Atherosclerotic vascular disease. No thoracic aortic aneurysm. Lymph nodes: Unremarkable. No enlarged lymph nodes. Intraperitoneal space: Trace free fluid around the liver. IMPRESSION: 1. Small to moderate right pleural effusion. Small left pleural effusion. Bibasilar atelectasis/consolidation and airspace, worse on the right. 2. Trace free fluid around the liver.
--- NOTE | 2018-02-27 12:31 | Infectious Diseases Prog Note ---
Assessment/Plan Assessment/Plan MOld in sputum- suspect likely colonizer- no CT evidence of fungal infection -CT chest: . Small to moderate right pleural effusion. Small left pleural effusion. Bibasilar atelectasis/consolidation and airspace, worse on the right. Trace free fluid around the liver. -CXR 02/25: Right basilar atelectasis and possible hazy infiltrate. Possible pneumoperitoneum, presumably postoperative if real Sepsis, resolved- likely from SBO possibly due to adhesions -shock after surgery; now off pressors 02/19 SP lap with exploration. 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 hernia reduced and tumor with small bowel resected. primary anastomosis. -Small bowel w/ gastroffin: Subsequent small bowel study indicates that the prominent upper abdominal small bowel loops are proximal jejunal loops, and there is a transition point identifiable retrospect centrally in the mid abdomen distal to which loops are nondilated. There is a slight swirling of the vessels in this area, indicating this could be an internal hernia, although the presence of an incisional scar on the CT and the appearance on the small bowel study indicates that it is more likely due to adhesions. -CT abd/p: Mildly prominent gas and fluid-filled small bowel loops without definite transition point. Most likely on the basis of ileus/enteritis. Early small bowel obstruction not completely excludable but deemed less likely. Right basilar infiltrate, most likely pneumonia. Mild anasarca. Stable, presumably benign, right lobe liver lesion. Soria catheter within nondistended bladder. Mild scoliosis and degenerative spondylosis incidentally noted. - 02/21 CXR: Patchy ill-defined groundglass and reticular opacities in the lung bases bilaterally, right greater than left, suggesting subsegmental atelectasis +/- pneumonit -02/14 u/a wbc 60-80, nit +, leuk +3; Ucx Neg; repeat 02/15 UCx NTD -02/14 Bcx NTD -sp cx K. 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 -02/25 SP Micafungin #7 -02/24 SP IV Vancomycin #6 -/ SP Cefepime #5, Flagyl #4 -/ SP IV Vancomycin #3 -f/u fungitell, asp ag, fungal sp cx, cocci ab -Monitor CBC/CMP, temperatures -Aspiration precautions -GI, Sx f/u -wound care Discussed with RN Attempted calling Micro lab today twice with no response. Subjective Allergies: Coded Allergies: ESTROGENS (Verified Allergy, Unknown, 11/27/14) Uncoded Allergies: "estrogen" (Allergy, Unknown, 02/20/14) Subjective afebrile at 2l NC leukocytosis mild, recurrent Bcx Neg for discharge today. Objective Vital Signs Last 24 Hour Vital Signs Date Time Temp Pulse Resp B/P (MAP) Pulse Ox O2 Delivery O2 Flow Rate FiO2 02/27/18 09:29 96 Nasal Cannula 2.0 28 02/27/18 09:29 96 18 Nasal Cannula 2.0 28 02/27/18 09:29 Nasal Cannula 2.0 28 02/27/18 08:00 108 02/27/18 08:00 98.8 111 26 122/56 98 Nasal Cannula 2.0 98.8 02/27/18 04:00 99.5 103 19 135/67 95 99.5 02/27/18 04:00 108 02/27/18 00:00 98.9 114 18 127/74 94 98.9 02/27/18 00:00 106 02/26/18 20:56 95 Nasal Cannula 2.0 28 02/26/18 20:56 Nasal Cannula 2.0 28 02/26/18 20:55 95 18 Nasal Cannula 2.0 28 02/26/18 20:00 99.5 109 16 131/63 92 99.5 02/26/18 20:00 103 02/26/18 16:00 97.8 98 19 130/71 99 Nasal Cannula 2.0 97.8 02/26/18 15:29 103 Height (Feet): 5 Height (Inches): 5.00 Weight (Pounds): 161 Objective General Appearance: cachetic Lines, tubes and drains: central line HEENT: normocephalic, atraumatic, PERRL Neck: normal alignment Respiratory/Chest: chest wall non-tender, normal breath sounds Cardiovascular/Chest: normal peripheral pulses, normal rate Abdomen: normal bowel sounds, non tender Genitourinary/Rectal: normal genital exam, normal rectal exam Extremities: non-pitting Laboratory Tests Test 02/27/18 05:37 White Blood Count 12.5 K/UL (4.8-10.8) H Red Blood Count 3.77 M/UL (4.20-5.40) L Hemoglobin 9.6 G/DL (12.0-16.0) L Hematocrit 31.2 % (37.0-47.0) L Mean Corpuscular Volume 83 FL (80-99) Mean Corpuscular Hemoglobin 25.5 PG (27.0-31.0) L Mean Corpuscular Hemoglobin Concent 30.9 G/DL (32.0-36.0) L Red Cell Distribution Width 13.2 % (11.6-14.8) Platelet Count 182 K/UL (150-450) Mean Platelet Volume 7.9 FL (6.5-10.1) Neutrophils (%) (Auto) 80.4 % (45.0-75.0) H Lymphocytes (%) (Auto) 10.3 % (20.0-45.0) L Monocytes (%) (Auto) 7.1 % (1.0-10.0) Eosinophils (%) (Auto) 1.8 % (0.0-3.0) Basophils (%) (Auto) 0.3 % (0.0-2.0) Sodium Level 142 MMOL/L (136-145) Potassium Level 4.9 MMOL/L (3.5-5.1) Chloride Level 109 MMOL/L (98-107) H Carbon Dioxide Level 28 MMOL/L (21-32) Anion Gap 5 mmol/L (5-15) Blood Urea Nitrogen 16 mg/dL (7-18) Creatinine 1.1 MG/DL (0.55-1.30) Estimat Glomerular Filtration Rate mL/min (>60) Glucose Level 206 MG/DL (74-106) H Calcium Level 9.3 MG/DL (8.5-10.1) Phosphorus Level 2.9 MG/DL (2.5-4.9) Magnesium Level 2.1 MG/DL (1.8-2.4) Coccidioides Antibody (Comp Fix) Pending Aspergillus fumigatus Antibody Pending Current Medications Medications (Trade) Dose Ordered Sig/Jus Route PRN Reason Start Time Stop Time Status Last Admin Dose Admin Dextrose (Dextrose 50%) 25 ml STAT PRN IV Hypoglycemia 02/25/18 20:30 03/21/18 20:29 Dextrose (Dextrose 50%) 50 ml STAT PRN IV Hypoglycemia 02/25/18 20:30 03/21/18 20:29 Insulin Aspart (NovoLOG) Q6HR SUBQ 02/25/18 00:00 03/16/18 20:59 02/27/18 06:14 Insulin Detemir (Levemir) 12 units Q12HR SUBQ 02/25/18 21:00 03/22/18 11:59 02/27/18 08:36 Lansoprazole (Prevacid) 30 mg Q12HR GT 02/25/18 09:00 03/26/18 08:59 02/27/18 08:31 Meropenem 1 gm/ Sodium Chloride 55 ml @ 110 mls/hr Q12HR IVPB 02/25/18 09:00 02/27/18 20:59 02/27/18 08:35 Nitroglycerin (Ntg) 0.4 mg Q5M PRN SL Prn Chest Pain 02/24/18 23:15 03/16/18 17:44 Ondansetron HCl (Zofran) 4 mg Q6H PRN IVP Nausea & Vomiting 02/25/18 02:30 03/16/18 20:29 Polyethylene Glycol (Miralax) 17 gm DAILYPRN PRN ORAL Constipation 02/25/18 20:30 03/21/18 20:29 Potassium Chloride (K-Dur) 20 meq TWICE A DAY NG 02/25/18 09:00 03/26/18 10:44 02/27/18 08:31 Quetiapine Fumarate (SEROquel) 25 mg Q6H PRN ORAL For Anxiety 02/25/18 00:45 03/25/18 12:44 Brianna Root M.D. Feb 27, 2018 12:31
--- NOTE | 2018-02-27 13:53 | General Progress Note ---
Progress Note Progress Note Surgery: CT chest reviewed. leukocytosis today. tolerating feeds. afebrile, HD stable, exam stable, drain output serous -feeds as tolerated -IV Abx -drain care Miguel Freeman Feb 27, 2018 13:53
[2018-02-27 15:03] VITALS: BP 157/108
--- NOTE | 2018-02-27 22:17 | General Progress Note ---
Assessment/Plan Assessment/Plan Dementia with behavioral disturbance The pt lacks capacity The pt public guardian should be contacted jeimy flores Subjective Date patient seen: Feb 27, 2018 Neurologic/Psychiatric: Reports: anxiety, depressed, emotional problems Allergies: Coded Allergies: ESTROGENS (Verified Allergy, Unknown, 11/27/14) Uncoded Allergies: "estrogen" (Allergy, Unknown, 02/20/14) Subjective the pt is confuse not agitated more lethargic Objective Last 24 Hour Vital Signs Date Time Temp Pulse Resp B/P (MAP) Pulse Ox O2 Delivery O2 Flow Rate FiO2 02/27/18 15:03 98.2 108 22 157/108 99 Nasal Cannula 2.0 98.2 02/27/18 09:29 96 Nasal Cannula 2.0 28 02/27/18 09:29 96 18 Nasal Cannula 2.0 28 02/27/18 09:29 Nasal Cannula 2.0 28 02/27/18 08:00 108 02/27/18 08:00 98.8 111 26 122/56 98 Nasal Cannula 2.0 98.8 02/27/18 04:00 99.5 103 19 135/67 95 99.5 02/27/18 04:00 108 02/27/18 00:00 98.9 114 18 127/74 94 98.9 02/27/18 00:00 106 Intake and Output 02/26/18 02/27/18 19:00 07:00 Intake Total 550 ml 60 ml Output Total 1200 ml 1000 ml Balance -650 ml -940 ml Free Water 50 ml Tube Feeding 500 ml 60 ml Output Urine Total 1200 ml 1000 ml Laboratory Tests 02/27/18 05:37: White Blood Count 12.5H, Red Blood Count 3.77L, Hemoglobin 9.6L, Hematocrit 31.2L, Mean Corpuscular Volume 83, Mean Corpuscular Hemoglobin 25.5L, Mean Corpuscular Hemoglobin Concent 30.9L, Red Cell Distribution Width 13.2, Platelet Count 182, Mean Platelet Volume 7.9, Neutrophils (%) (Auto) 80.4H, Lymphocytes (%) (Auto) 10.3L, Monocytes (%) (Auto) 7.1, Eosinophils (%) (Auto) 1.8, Basophils (%) (Auto) 0.3, Sodium Level 142, Potassium Level 4.9, Chloride Level 109H, Carbon Dioxide Level 28, Anion Gap 5, Blood Urea Nitrogen 16, Creatinine 1.1, Estimat Glomerular Filtration Rate , Glucose Level 206H, Calcium Level 9.3, Phosphorus Level 2.9, Magnesium Level 2.1, Coccidioides Antibody (Comp Fix) [Pending], Aspergillus fumigatus Antibody [Pending] Height (Feet): 5 Height (Inches): 5.00 Weight (Pounds): 161 Josue Roy M.D. Feb 27, 2018 22:17
--- NOTE | 2018-02-28 08:36 | General Progress Note ---
Assessment/Plan Status: stable Assessment/Plan #. 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 Leukocytosis, likely secondary to recent surgery. --> Closely monitor for improvement. On abx as per ID --> Current wbc is better, closely monitor #. Anemia of chronic disease --> reviewed anemia panel, does not need further workup unless hgb less than 10 #. Thrombocytopenia potentialy related to infection --> currently stable at 100-140k, closely monitor #. Acute kidney injury. Creatinine currently 2.6. --> Closely monitor potentially secondary to acute tubular necrosis secondary to hypovolemia. #. Severe sepsis secondary to small bowel obstruction. #. Hypertension --> systolic blood pressure goal less than 140. #. Status post laparoscopic converted to an exploratory laparotomy with small bowel removal, repair of enterotomy, extensive lysis of adhesions. #. Diabetes mellitus, type 1. #. Acute encephalopathy due to Alzheimer disease. Subjective Date patient seen: Feb 27, 2018 Allergies: Coded Allergies: ESTROGENS (Verified Allergy, Unknown, 11/27/14) Uncoded Allergies: "estrogen" (Allergy, Unknown, 02/20/14) All Systems: reviewed and negative except above Subjective Pt is stable and medically cleared for dc. No signs of acute medical distress. Objective Last 24 Hour Vital Signs Date Time Temp Pulse Resp B/P (MAP) Pulse Ox O2 Delivery O2 Flow Rate FiO2 02/27/18 15:03 98.2 108 22 157/108 99 Nasal Cannula 2.0 98.2 02/27/18 09:29 96 Nasal Cannula 2.0 28 02/27/18 09:29 96 18 Nasal Cannula 2.0 28 02/27/18 09:29 Nasal Cannula 2.0 28 Intake and Output 02/27/18 02/28/18 19:00 07:00 Intake Total 335 ml Balance 335 ml Free Water 100 ml IV Total 55 ml Tube Feeding 180 ml Height (Feet): 5 Height (Inches): 5.00 Weight (Pounds): 161 General Appearance: WD/WN, no apparent distress EENT: PERRL/EOMI Neck: normal alignment, supple Cardiovascular: normal peripheral pulses Respiratory/Chest: normal breath sounds Abdomen: non tender KleynbergKaran MD Feb 28, 2018 08:36
--- NOTE | 2018-03-01 12:04 | Discharge Summary ---
Discharge Summary Hospital Course Date of Admission Feb 14, 2018 at 15:26 Date of Discharge Feb 27, 2018 at 16:12 Admitting Diagnosis abdominal pain, possible bowel obstruction HPI Zhane Meléndez is a 87 year old female who was admitted on Feb 14, 2018 at 15:26 for Abdominal Pain, Possible Bowel Obstruction Hospital Course dc summary #[id number] Discharge Medications New Medications: Meropenem (Merrem) 1 Gm Vial 1 GM IV DAILY for 3 Days, VIAL Insulin Detemir (Levemir Flexpen) 100 Unit/1 Ml Insuln.pen 12 UNITS SUBQ Q12HR for 30 Days, EA Quetiapine Fumarate* (Seroquel*) 25 Mg Tablet 25 MG ORAL Q6H PRN for 30 Days, TAB Continued Medications: Acetaminophen (Acetaminophen) 650 Mg/20.3 Ml Soln 650 MG ORAL Q6H PRN for Prn Headache/Temp > 101, ML 0 Refills Insulin Aspart* (Novolog*) 100 Unit/1 Ml Insuln.pen 0 SUBQ, #1 EA 0 Refills Polyethylene Glycol 3350* (Miralax*) 17 Gm Powd.pack 17 GM ORAL DAILY, PACKET Sitagliptin (Januvia) 50 Mg Tab 50 MG ORAL DAILY, TAB Discharge Condition Upon Discharge: stable Discharge Disposition Patient was discharged to [facility] (04) Tonja Gonzales NP Mar 01, 2018 12:03
--- NOTE | 2018-03-01 22:45 | Discharge Summary 2 SIG ---
DATE OF ADMISSION: 02/14/2018 DATE OF DISCHARGE: 02/27/2018 REASON FOR ADMISSION: 87-year-old female, resident of assisted living, with past medical history of dementia, diabetes, and hypertension, was brought in by ambulance with chief complaint of abdominal pain and vomiting. The patient by herself was unable to provide any history and all information was obtained from her chart and from the report from assisted living. Upon evaluation, vital signs were stable. WBC was 12.8 with neutrophils of 94%. BUN 21, creatinine 1.4, glucose 246. AST 144, ALT 124. Troponin negative. Lactic acid 2.6. Urinalysis with pyuria and bacteria. EKG revealed sinus tachycardia, no acute changes. Chest x-ray showed mild interstitial edema. CT of the abdomen and pelvis revealed right basilar infiltrate, most likely pneumonia, mildly prominent gas and fluid-filled small bowel loops without definite transition point, most likely on the basis of ileus/enteritis, early small bowel obstruction could not be completely excludable. ADMITTING DIAGNOSES: The patient admitted with diagnoses of severe sepsis, lactic acidosis, elevated LFT, urinary tract infection, possible pneumonia, high aspiration risk, diabetes, altered mental status, end-stage Alzheimer dementia, intractable nausea and vomiting, ileus, rule out small bowel obstruction, and acute renal failure. CONSULTANTS: 1. Construction Assistant, Dr. Gu 2. Leathersmith, Dr. Grewal. 3. General Surgeon, Dr. Freeman. 4. GI specialist, Dr. Montoya. 5. Infectious Disease specialist, Dr. Landry. 6. Milk Sampler/Oncologist, Dr. Carrero. 7. Psychiatrist, Dr. Roy. HOSPITAL COURSE: The patient initially admitted to medical/surgical floor. Septic workup initiated. The patient started on IV hydration. The patient pancultured. The patient started on empiric antibiotics. GI and Surgery consults were requested. Blood sugar was managed with sliding scale of insulin. DVT prophylaxis provided. Swallow evaluation was ordered. The patient initially was treated conservatively per GI and Surgery recommendations. The patient was on bowel rest with NG tube decompression. Bowel regimen instituted. Antibiotics provided as per ID recommendations. However, the patient had no bowel movement. Serial imaging showed no changes. Small bowel x-ray on 02/18/2018 showed high-grade small-bowel obstruction. Decision subsequently was made to proceed with surgery. The patient subsequently had undergone on 02/19/2018, diagnostic laparoscopy converted to mini exploratory laparotomy with small bowel resection, repair of enterotomy, extensive lysis of adhesions, abdominal washout with placement of central line. During the surgery, there was noted small bowel tumor along with small bowel obstruction secondary to internal hernia and adhesion. 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 During the surgery, the patient was intubated After surgery, the patient remained intubated and was placed in intensive care unit. The patient was closely monitored. The patient after surgery developed septic shock and was hemodynamically unstable. The patient required Levophed drip to keep mean arterial blood pressure above 65. The patient was on aggressive IV hydration. The patient was kept n.p.o., NG tube to suction. Antibiotics were continued. Blood culture, urine culture, and influenza screen test were all negative. Sputum culture revealed Klebsiella. The patient likely had pneumonia. Severe sepsis was secondary to small bowel obstruction along with pneumonia. Ventilator support provided. Pulmonary toilet provided. While on the ventilator, the patient was followed up with daily chest x-ray and ABG. The patient subsequently started on weaning protocol. The patient was successfully extubated on 2017. The patient had a single episode of elevated troponin, however, no acute ischemic changes on telemetry. Construction Assistant followed. The patient noted to have evidence of renal failure. Leathersmith closely followed. Acute renal failure was likely due to dehydration and septic shock, possible acute tubular necrosis due to unstable hemodynamics. Renal ultrasound revealed no acute findings. Leathersmith closely followed. Creatinine at zaina - 2.6 and then started slowly to trend down. Nephrotoxics were avoided. The patient was hydrated. Renal parameters and electrolytes were closely monitored. Electrolytes corrected as needed. Prior to discharge, creatinine down to normal , and acute renal failure resolved. Milk Sampler/oncologist closely followed. Per sheet heater helper, cancer tumor markers such as CEA, CA 15-3, and CA 19-9. were ordered and were all within normal limits, Given pathology report with low-grade intraductal papillary neoplasm, sheet heater helper recommended to hold the chemotherapy at this time and repeat in six months cancer tumor markers along with CT of the abdomen and pelvis. Hemoglobin and hematocrit were closely monitored and remained stable. No need for further workup unless hemoglobin below 10. Stool for occult blood was negative. Pain management provided. Hepatitis panel was negative. GI closely followed. Swallow evaluation revealed aspiration risk. Speech therapist recommended to continue with non-oral feeding. Psychiatrist had seen and evaluated the patient and deemed the patient lacking capacity to make decision. The patient started on Seroquel on as-needed basis. The patient subsequently had undergone EGD with PEG placement on 02/26/2018. The patient started on G-tube feeding when cleared by GI specialist. Tube feeding provided as per nutritional recommendations. Nutritional recommendation regarding severe protein-calorie malnutrition implemented in plan of care. The patient was able to tolerate tube feeding. Antiemetic provided as needed. The patient was on PPI. Bowel regimen instituted. Strict aspiration/ reflux precautions maintained. AST down to 61. ALT within normal limits. Hepatitis panel negative. Elevated LFTs were likely due to shock liver secondary to sepsis. Sputum culture was repeated and showed MRSA and mold. CT of the chest was repeated on 02/26/2018, and i revealed [id number] right pleural effusion, small left pleural effusion, bibasilar atelectasis/consolidation, and airspace worse on the right. Trace free fluid around the liver. No CT evidence of fungal infection. According to ID specialist, sputum with mold and MRSA likely colonized, would not treat. The patient would need meropenem upon discharge to complete the course. Blood sugar initially was not controlled even though hemoglobin A1c 6.8, at goal. Hyperglycemia was likely due to sepsis. Levemir was added and sliding scale of insulin was used as needed. Blood sugar stabilized. Blood pressure was closely monitored and remained stable. After the patient was off the pressor, blood pressure was stable, no need for antihypertensive. Surgeon closely followed. Drain care provided. The patient was tolerating tube feeding. The patient was afebrile and hemodynamically stable. Drain output was serous. The patient was cleared for discharge to detention facility by kelvin and all other consultants. The patient was stable for discharge to detention facility. FINAL DIAGNOSES: 1. Severe sepsis secondary to small-bowel obstruction. 2. Septic shock, resolved. 3. Acute respiratory failure, requiring intubation on 02/19/2018, status post extubation on 02/22/2018. 4. Acute encephalopathy due to sepsis on chronic end-stage Alzheimer dementia. 5. Acute renal failure, probably acute tubular necrosis secondary to unstable hemodynamics, resolved. 6. Pneumonia with Klebsiella. 7. Small-bowel obstruction. 8. Status post on 02/19/2018, laparoscopy converted to exploratory laparotomy with small bowel resection, repair of enterotomy, extensive lysis of adhesion, and abdominal washout. 9. Elevated troponin. 10. Electrolyte imbalance. 11. Anemia of chronic disease. 12. Dementia with behavioral disturbances. 13. Diabetes mellitus type 2. 14. Hypertension. 15. Aspiration risk. 16. Severe protein-calorie malnutrition. 17. 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 18. Dysphagia, failure to thrive. 19. Status post EGD and G-tube placement. DISCHARGE MEDICATIONS: See medication reconciliation list. DISCHARGE INSTRUCTIONS: The patient discharged to detention facility. Follow up with medical doctor at the facility. Tiago Cason M.D. [facility] N.PKyra DR: JEFFERSON JOB#: [id number] CC: JUVENAL
== END 2018-02-27 16:12 | DRG 853 ==
LOC: EDBD 13:18 → EMR 15:14 → 2E 15:26 → EDBEDREQ 16:18 → ICU 02-19 15:59 → 2W 02-23 11:19 → 2E 02-24 23:04
PROC: 0DB80ZZ Excision of Small Intestine, Open Approach (ICD-10-PCS; principal; 2018-02-19 13:00)
PROC: 5A1945Z Respiratory Ventilation, 24-96 Consecutive Hours (ICD-10-PCS; principal; 2018-02-19 13:00)
PROC: 0DJV4ZZ Inspection of Mesentery, Percutaneous Endoscopic Approach (ICD-10-PCS; principal; 2018-02-19 13:00)
PROC: 0DNU4ZZ Release Omentum, Percutaneous Endoscopic Approach (ICD-10-PCS; principal; 2018-02-19 13:00)
PROC: 0DQV0ZZ Repair Mesentery, Open Approach (ICD-10-PCS; principal; 2018-02-19 13:00)
PROC: 06HN33Z Insertion of Infusion Device into Left Femoral Vein, Percutaneous Approach (ICD-10-PCS; principal; 2018-02-19 13:00)
PROC: 05H633Z Insertion of Infusion Device into Left Subclavian Vein, Percutaneous Approach (ICD-10-PCS; principal; 2018-02-19 13:00)
PROC: 0BH17EZ Insertion of Endotracheal Airway into Trachea, Via Natural or Artificial Opening (ICD-10-PCS; principal; 2018-02-19 13:00)
PROC: 0DN80ZZ Release Small Intestine, Open Approach (ICD-10-PCS; principal; 2018-02-19 13:00)
PROC: 0DB78ZX Excision of Stomach, Pylorus, Via Natural or Artificial Opening Endoscopic, Diagnostic (ICD-10-PCS; 2018-02-26 07:52)
PROC: 0DH63UZ Insertion of Feeding Device into Stomach, Percutaneous Approach (ICD-10-PCS; 2018-02-26 07:52)
DX: A41.9 Sepsis, unspecified organism (principal); G93.40 Encephalopathy, unspecified; N17.0 Acute kidney failure with tubular necrosis; J96.00 Acute respiratory failure, unspecified whether with hypoxia or hypercapnia; R65.21 Severe sepsis with septic shock; J15.0 Pneumonia due to Klebsiella pneumoniae; E43 Unspecified severe protein-calorie malnutrition; N39.0 Urinary tract infection, site not specified; F02.81 Dementia in other diseases classified elsewhere, unspecified severity, with behavioral disturbance; E87.2 Acidosis; K92.0 Hematemesis; Z99.11 Dependence on respirator [ventilator] status; K56.50 Intestinal adhesions [bands], unspecified as to partial versus complete obstruction; R11.2 Nausea with vomiting, unspecified; E10.9 Type 1 diabetes mellitus without complications; G30.9 Alzheimer's disease, unspecified; D64.9 Anemia, unspecified; Z68.26 Body mass index [BMI] 26.0-26.9, adult; E87.6 Hypokalemia; R00.0 Tachycardia, unspecified; D69.6 Thrombocytopenia, unspecified; K29.50 Unspecified chronic gastritis without bleeding; K31.7 Polyp of stomach and duodenum; D13.30 Benign neoplasm of unspecified part of small intestine; Z53.31 Laparoscopic surgical procedure converted to open procedure
CPT/HCPCS: 36415; 36600; 71045; 71250; 74018; 74177; 74250; 76770; 80048; 80053; 80076; 80202; 81001; 81003; 82150; 82270; 82378; 82550; 82553; 82607; 82728; 82746; 82803; 82962; 82977; 83036; 83540; 83550; 83605; 83690; 83735; 83880; 84100; 84133; 84300; 84439; 84443; 84484; 84550; 85007; 85025; 85044; 85610; 85730; 86140; 86300; 86606; 86635; 86705; 86709; 86710; 86803; 86850; 86900; 86901; 87040; 87070; 87081; 87086; 87181; 87205; 87340; 89050; 93005; 94002; 94003; 94150; 94664; 94760; 97802; 99285; J1815; J2370; J2405; J8499; S5561

== ENCOUNTER 2018-03-16 20:29 | Inpatient (IN) | payer MEDICARE, BC ==
[~2018-03-16] VITALS: Ht 167.6 cm; Wt 69.4 kg
[~2018-03-16 20:29] MED LIST changes: -Isovue-300 100ml vial INJ PRN; +LEVEMIR FL100 UNIT/1 SUBQ; +MERREM1 GM IV; +SEROQUEL25 MG ORAL
[2018-03-16] MEDS ORDERED: ERYTHROMYCIN1 G1 OP (20:38)
--- NOTE | 2018-03-16 20:39 | Emergency Room Report ---
History of Present Illness General Chief Complaint: Shortness of breath Source: Family Member, EMS Present Illness HPI Patient is a 87-year-old female sent in by nursing facility after increased fever and vomiting. Patient prior history of dementia. Patient was noted to be had debilitated and chronically has confused. The patient was noted have fever up to 101 at the facility. She had been noted to be tachycardic and was started on IV fluids by EMS. The patient was noted to be full code. Allergies: Coded Allergies: ESTROGENS (Verified Allergy, Unknown, 11/27/14) Uncoded Allergies: "estrogen" (Allergy, Unknown, 02/20/14) Patient History Past Medical History: see triage record, other - dementia, tumor Past Surgical History: other - gtube Last Menstrual Period: n/a Reviewed Nursing Documentation: PMH: Agreed; PSxH: Agreed Nursing Documentation-PMH Past Medical History Deferred: Pt Cognitively Impaired Hx Cardiac Problems: Yes - sepsis Hx Hypertension: Yes Hx Diabetes: Yes - DM II Hx Cancer: No Hx Gastrointestinal Problems: Yes - constipation, vomiting, gastrostomy, intestinal obstruction History Of Psychiatric Problem: Yes - MDD Hx Dementia: Yes Hx Alzheimer's Disease: Yes Review of Systems All Other Systems: limited - by mental status Physical Exam Vital Signs Date Time Temp Pulse Resp B/P (MAP) Pulse Ox O2 Delivery O2 Flow Rate FiO2 03/16/18 20:25 101.0 120 28 84/43 96 Room Air 100.9 Sp02 EP Interpretation: reviewed General Appearance: moderate distress, Chronically Ill Head: atraumatic ENT: dry mucus membranes Neck: no bony tend, limited range of motion Respiratory: crackles Cardiovascular #1: no edema, tachycardia Gastrointestinal: soft, no guarding, no hernia, other - gtube site CDI Genitourinary: no CVA tenderness Musculoskeletal: normal range of motion, other - contracted Neurologic: motor weakness, other - contracted Psychiatric: depressed affect Skin: normal inspection, normal color, no rash Medical Decision Making Diagnostic Impression: Primary Impression: Pneumonia Additional Impressions: Feeding by G-tube Sepsis ER Course Patient presented for fever. Differential diagnosis included wasn't limited to pneumonia, urinary tract infection, drug fever, allergic reaction, sepsis, cholecystitis, among others. Because of complexity of patient's case laboratory testing and imaging studies were ordered.The patient noted to have elevated white blood count. Patient was started on IV fluids. She started on IV antibiotics. The CT abdomen pelvis was ordered due to patient's recent surgery. The CT read by radiology showed. Mild ventral subcutaneous stranding which may be postop versus infection/ inflammation. No discrete abscess collection. 2. Colonic diverticulosis, no diverticulitis. No bowel obstruction. 3. Right basilar mild atelectasis/infiltrates. Dr. Freeman was contacted for surgical consult. Dr. Cason was contacted for primary care physician. Labs Test 03/16/18 20:35 03/16/18 20:45 03/16/18 21:00 03/16/18 22:02 Arterial Blood pH 7.433 (7.350-7.450) Arterial Blood Partial Pressure CO2 44.4 mmHg (35.0-45.0) Arterial Blood Partial Pressure O2 138.8 mmHg (75.0-100.0) Arterial Blood HCO3 29.0 mmol/L (22.0-26.0) Arterial Blood Oxygen Saturation 98.8 % (92.0-98.0) Arterial Blood Base Excess 4.3 Travis Test Positive White Blood Count 18.8 K/UL (4.8-10.8) Red Blood Count 2.94 M/UL (4.20-5.40) Hemoglobin 7.7 G/DL (12.0-16.0) Hematocrit 23.5 % (37.0-47.0) Mean Corpuscular Volume 80 FL (80-99) Mean Corpuscular Hemoglobin 26.0 PG (27.0-31.0) Mean Corpuscular Hemoglobin Concent 32.6 G/DL (32.0-36.0) Red Cell Distribution Width 13.8 % (11.6-14.8) Platelet Count 368 K/UL (150-450) Mean Platelet Volume 7.5 FL (6.5-10.1) Neutrophils (%) (Auto) % (45.0-75.0) Lymphocytes (%) (Auto) % (20.0-45.0) Monocytes (%) (Auto) % (1.0-10.0) Eosinophils (%) (Auto) % (0.0-3.0) Basophils (%) (Auto) % (0.0-2.0) Differential Total Cells Counted 100 Neutrophils % (Manual) 92 % (45-75) Lymphocytes % (Manual) 4 % (20-45) Monocytes % (Manual) 2 % (1-10) Eosinophils % (Manual) 0 % (0-3) Basophils % (Manual) 0 % (0-2) Band Neutrophils 2 % (0-8) Platelet Estimate Adequate Platelet Morphology Normal Polychromasia 1+ Hypochromasia 1+ Anisocytosis 1+ Microcytosis 1+ Prothrombin Time 10.5 SEC (9.30-11.50) Prothromb Time International Ratio 1.0 (0.9-1.1) Activated Partial Thromboplast Time 25 SEC (23-33) Urine Color Pale yellow Urine Appearance Clear Urine pH 7 (4.5-8.0) Urine Specific [place] 1.005 (1.005-1.035) Urine Protein 3+ (NEGATIVE) Urine Glucose (UA) 2+ (NEGATIVE) Urine Ketones 1+ (NEGATIVE) Urine Occult Blood 1+ (NEGATIVE) Urine Nitrite Negative (NEGATIVE) Urine Bilirubin Negative (NEGATIVE) Urine Urobilinogen Normal MG/DL (0.0-1.0) Urine Leukocyte Esterase Negative (NEGATIVE) Urine RBC 0-2 /HPF (0 - 2) Urine WBC 0-2 /HPF (0 - 2) Urine Squamous Epithelial Cells Few /LPF (NONE/OCC) Urine Bacteria Few /HPF (NONE) Sodium Level 134 MMOL/L (136-145) Potassium Level 5.0 MMOL/L (3.5-5.1) Chloride Level 103 MMOL/L (98-107) Carbon Dioxide Level 31 MMOL/L (21-32) Anion Gap 0 mmol/L (5-15) Blood Urea Nitrogen 30 mg/dL (7-18) Creatinine 1.3 MG/DL (0.55-1.30) Estimat Glomerular Filtration Rate mL/min (>60) Glucose Level 279 MG/DL (74-106) Calcium Level 9.7 MG/DL (8.5-10.1) Total Bilirubin 0.2 MG/DL (0.2-1.0) Aspartate Amino Transf (AST/SGOT) 49 U/L (15-37) Alanine Aminotransferase (ALT/SGPT) 30 U/L (12-78) Alkaline Phosphatase 98 U/L (46-116) Total Creatine Kinase 98 U/L (26-308) Creatine Kinase MB 3.6 NG/ML (0.0-3.6) Troponin I 0.262 ng/mL (0.000-0.056) Total Protein 8.3 G/DL (6.4-8.2) Albumin 2.1 G/DL (3.4-5.0) Globulin 6.2 g/dL Albumin/Globulin Ratio 0.3 (1.0-2.7) Lipase 217 U/L (73-393) Test 03/16/18 23:22 Lactic Acid Level 1.10 mmol/L (0.66-2.22) EKG Diagnostic Results Rate: normal Rhythm: NSR ST Segments: no acute changes Last Vital Signs Date Time Temp Pulse Resp B/P (MAP) Pulse Ox O2 Delivery O2 Flow Rate FiO2 03/16/18 20:25 101.0 120 28 84/43 96 Room Air 100.9 Disposition: ADMITTED INPATIENT Condition: Serious Jayy Bolanos MD Mar 16, 2018 20:39
[2018-03-16] MEDS ORDERED: Vancomycin 1 GM in NS 275 ML IV ONE (20:45)
[2018-03-16] MEDS ORDERED: NS 1000ml 1,900 ML IVLG ONE (20:45)
[2018-03-16 21:15] LABS: HEMATOCRIT 23.5 % (37.0-47.0); HEMOGLOBIN 7.7 G/DL (12.0-16.0); MEAN CORPUSCULAR VOLUME 80 FL (80-99); PLATELET COUNT 368 K/UL (150-450); RED BLOOD COUNT 2.94 M/UL (4.20-5.40); RED CELL DISTRIBUTION WIDTH 13.8 % (11.6-14.8); WHITE BLOOD COUNT 18.8 K/UL (4.8-10.8)
[2018-03-16] MEDS: Ampicillin/Sulbactam Sod 3 GM in NS 110 ML IV SCH (21:18)
[2018-03-16 21:23] LABS: APPEARANCE,URINE CLEAR; BILIRUBIN, URINE NEGATIVE (NEGATIVE); COLOR,URINE PALE YELLOW; GLUCOSE, URINE (UA) 2+ (NEGATIVE); KETONES,URINE 1+ (NEGATIVE); LEUKOCYTE ESTERASE ,URINE NEGATIVE (NEGATIVE); NITRITE,URINE NEGATIVE (NEGATIVE); PH,URINE 7 (4.5-8.0); PROTEIN,URINE 3+ (NEGATIVE); UROBILINOGEN,URINE NORMAL MG/DL (0.0-1.0)
[2018-03-16] MEDS ORDERED: Isovue-300 100ml vial INJ PRN (21:45)
--- NOTE | 2018-03-16 22:16 | Diagnostic Imaging Report ---
EXAM: XR Chest, 1 View CLINICAL HISTORY: SOB TECHNIQUE: Frontal view of the chest. COMPARISON: 02/25/2018. FINDINGS: Lungs: Possible mild pulmonary vascular congestion, versus hypoventilation. No focal consolidation. Pleural space: Unremarkable. No pneumothorax. Heart: Unremarkable. No cardiomegaly. Mediastinum: Unremarkable. Bones/joints: Unremarkable. IMPRESSION: Possible mild pulmonary vascular congestion, versus hypoventilation. No focal consolidation.
[2018-03-16 22:27] LABS: ANION GAP 0 mmol/L (5-15); BLOOD UREA NITROGEN 30 mg/dL (7-18); CALCIUM 9.7 MG/DL (8.5-10.1); CARBON DIOXIDE 31 MMOL/L (21-32); CHLORIDE 103 MMOL/L (98-107); CREATININE 1.3 MG/DL (0.55-1.30); SODIUM 134 MMOL/L (136-145)
[2018-03-16] MEDS ORDERED: Miralax 17gm pkt ORAL PRN (22:30)
[2018-03-16] MEDS ORDERED: Albuterol/Ipratropium 3ml neb HHN PRN (22:30)
[2018-03-16] MEDS ORDERED: Morphine Sulfate 4mg/ml Inj IVP PRN (22:30)
[2018-03-16] MEDS ORDERED: Promethazine/Codeine 5ml UD ORAL PRN (22:30)
[2018-03-16] MEDS ORDERED: LORazepam Inj 2mg/ml 1ml IV PRN (22:30)
[2018-03-16 22:35] LABS: CREATINE KINASE 98 U/L (26-308)
[2018-03-16 22:40] LABS: ALANINE AMINOTRANSFERASE 30 U/L (12-78); ALBUMIN 2.1 G/DL (3.4-5.0); ALBUMIN/GLOBULIN RATIO 0.3 (1.0-2.7); ALKALINE PHOSPHATASE 98 U/L (46-116); ASPARTATE AMINO TRANSFERASE 49 U/L (15-37); BILIRUBIN,TOTAL 0.2 MG/DL (0.2-1.0); CKMB 3.6 NG/ML (0.0-3.6)
[2018-03-16 23:45] VITALS: BP 137/58
--- NOTE | 2018-03-17 00:07 | Diagnostic Imaging Report ---
EXAM: CT Abdomen and Pelvis With Intravenous Contrast CLINICAL HISTORY: ABD PAIN TECHNIQUE: Axial computed tomography images of the abdomen and pelvis with intravenous contrast. CTDI is 19 mGy and DLP is 945 mGy-cm. One or more of the following dose reduction techniques were used: automated exposure control, adjustment of the mA and/or kV according to patient size, use of iterative reconstruction technique. COMPARISON: 02/14/2018 CT abdomen and pelvis. FINDINGS: Lung bases: Right basilar mild atelectasis/infiltrates. ABDOMEN: Liver: Unremarkable. No mass. Gallbladder and bile ducts: Unremarkable. No calcified stones. Pancreas: Unremarkable. Spleen: Unremarkable. Adrenals: Unremarkable. Kidneys and ureters: Unremarkable. No hydronephrosis. Stomach and bowel: Colonic diverticulosis, no diverticulitis. No bowel obstruction. PELVIS: Appendix: No findings to suggest acute appendicitis. Bladder: Soria catheter in the bladder. Distended bladder. Small air in the bladder. Reproductive: Hysterectomy. ABDOMEN and PELVIS: Intraperitoneal space: No free air. Bones/joints: No acute fracture. Soft tissues: Mild ventral subcutaneous stranding which may be postop versus infection/inflammation. No discrete abscess collection. Vasculature: Atherosclerosis. Lymph nodes: Unremarkable. No enlarged lymph nodes. Tubes, lines and devices: Gastrostomy tube in the stomach. IMPRESSION: 1. Mild ventral subcutaneous stranding which may be postop versus infection/inflammation. No discrete abscess collection. 2. Colonic diverticulosis, no diverticulitis. No bowel obstruction. 3. Right basilar mild atelectasis/infiltrates.
[2018-03-17 00:12] VITALS: BP 156/68
[2018-03-17] MEDS: Ampicillin/Sulbactam Sod 3 GM in NS 110 ML IV SCH (02:45)
[2018-03-17 04:00] VITALS: BP 144/91
[2018-03-17 06:11] LABS: HEMATOCRIT 25.8 % (37.0-47.0); HEMOGLOBIN 7.9 G/DL (12.0-16.0); MEAN CORPUSCULAR VOLUME 82 FL (80-99); PLATELET COUNT 346 K/UL (150-450); RED BLOOD COUNT 3.15 M/UL (4.20-5.40); RED CELL DISTRIBUTION WIDTH 13.2 % (11.6-14.8); WHITE BLOOD COUNT 16.6 K/UL (4.8-10.8)
[2018-03-17 06:30] LABS: ANION GAP 4 mmol/L (5-15); BLOOD UREA NITROGEN 25 mg/dL (7-18); CALCIUM 9.4 MG/DL (8.5-10.1); CARBON DIOXIDE 28 MMOL/L (21-32); CHLORIDE 105 MMOL/L (98-107); CREATININE 1.2 MG/DL (0.55-1.30); PHOSPHORUS 3.2 MG/DL (2.5-4.9); POTASSIUM 4.4 MMOL/L (3.5-5.1); SODIUM 137 MMOL/L (136-145)
[2018-03-17 08:00] VITALS: BP 107/50
[2018-03-17] MEDS ORDERED: Cefepime HCl 2 GM in D5W 110 ML IV SCH ×2 (09:00→21:00)
[2018-03-17] MEDS: sitaGLIPtin 50mg tab ORAL SCH (09:34)
[2018-03-17] MEDS: NovoLOG Insulin Flexpen SUBQ SCH ×4 (09:35→21:49)
[2018-03-17] MEDS: Heparin 5000 units/ml inj SUBQ SCH ×2 (09:36→21:18)
--- NOTE | 2018-03-17 10:28 | History and Physical ---
History of Present Illness General Date patient seen: Mar 17, 2018 Reason for Hospitalization: Upper Respiratory Illness Present Illness HPI 87-year-old female with hx of end stage dementia, Gtube feeding sent in by nursing facility after increased fever and vomiting. The patient was noted have fever up to 101 at the facility. She had been noted to be tachycardic and was started on IV fluids by EMS. She can't give any history and all information was obtained from the chart. Allergies: Coded Allergies: ESTROGENS (Verified Allergy, Unknown, 11/27/14) Uncoded Allergies: "estrogen" (Allergy, Unknown, 02/20/14) Medication History Scheduled Calcium Carbonate (Calcium), 500 MG PO BID, (Reported) Docusate Sodium (Silace), 100 MG PO BID, (Reported) Erythromycin Base (Erythromycin), 1 GM OP BID, (Reported) Insulin Detemir (Levemir), 20 UNITS SUBQ BID, (Reported) Insulin Detemir (Levemir Flexpen), 12 UNITS SUBQ Q12HR Meropenem (Merrem), 1 GM IV DAILY Multivitamin (One Daily), 1 TAB ORAL DAILY, (Reported) Polyethylene Glycol 3350 (Glycolax), 17 GM PO DAILY, (Reported) Polyethylene Glycol 3350* (Miralax*), 17 GM ORAL DAILY, (Reported) Ranitidine Hcl (Zantac), 150 MG ORAL DAILY, (Reported) Sitagliptin (Januvia), 50 MG ORAL DAILY, (Reported) Vancomycin Hcl/D5w (Vancomycin-D5w 1 G/250 Ml), 1 GM IVPB Q24H Scheduled PRN Acetaminophen (Acetaminophen), 650 MG ORAL Q6H PRN for Prn Headache/Temp > 101, (Reported) Magnesium Hydroxide* (Milk Of Magnesia*), 30 ML ORAL DAILY PRN for Constipation, (Reported) Quetiapine Fumarate* (Seroquel*), 25 MG ORAL Q6H PRN Miscellaneous Medications Calcium Carbonate ([id number]), 500 MG PO, (Reported) Insulin Aspart* (Novolog*), 0 SUBQ, (Reported) [miralax], (Reported) Patient History Healthcare decision maker Resuscitation status Full Code Advanced Directive on File Past Medical/Surgical History Past Medical/Surgical History: (1) Diabetes (2) Feeding by G-tube (3) end stage alzheimrers dementia Review of Systems All Other Systems: negative except mentioned in HPI Physical Exam General Appearance: WD/WN, mild distress Lines, tubes and drains: peripheral HEENT: normocephalic, atraumatic Neck: non-tender, normal alignment Respiratory/Chest: chest wall non-tender Breasts: no masses Cardiovascular/Chest: normal peripheral pulses Abdomen: normal bowel sounds, non tender Genitourinary/Rectal: normal genital exam Extremities: normal range of motion Skin Exam: normal pigmentation 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 Last 24 Hour Vital Signs Date Time Temp Pulse Resp B/P (MAP) Pulse Ox O2 Delivery O2 Flow Rate FiO2 03/17/18 08:00 132 03/17/18 08:00 98.6 111 22 107/50 100 Nasal Cannula 2.0 98.6 03/17/18 04:21 109 03/17/18 04:00 98.5 106 24 144/91 100 Nasal Cannula 2.0 98.5 03/17/18 00:34 99.0 116 20 156/68 98 Room Air 99.0 03/17/18 00:12 99.0 116 20 156/68 98 Room Air 99.0 03/16/18 23:45 99.3 107 24 137/58 100 Nasal Cannula 2.0 99.3 03/16/18 20:53 120 28 Room Air 03/16/18 20:25 101.0 120 28 84/43 96 Room Air 100.9 Intake and Output 03/16/18 03/17/18 19:00 07:00 Intake Total 269.09 ml Output Total 1050 ml Balance -780.91 ml Intake IV Total 269.09 ml Output Urine Total 1050 ml Laboratory Tests Test 03/16/18 20:35 03/16/18 20:45 03/16/18 21:00 03/16/18 22:02 Arterial Blood pH 7.433 (7.350-7.450) Arterial Blood Partial Pressure CO2 44.4 mmHg (35.0-45.0) Arterial Blood Partial Pressure O2 138.8 mmHg (75.0-100.0) H Arterial Blood HCO3 29.0 mmol/L (22.0-26.0) H Arterial Blood Oxygen Saturation 98.8 % (92.0-98.0) H Arterial Blood Base Excess 4.3 Travis Test Positive White Blood Count 18.8 K/UL (4.8-10.8) H Red Blood Count 2.94 M/UL (4.20-5.40) L Hemoglobin 7.7 G/DL (12.0-16.0) L Hematocrit 23.5 % (37.0-47.0) L Mean Corpuscular Volume 80 FL (80-99) Mean Corpuscular Hemoglobin 26.0 PG (27.0-31.0) L Mean Corpuscular Hemoglobin Concent 32.6 G/DL (32.0-36.0) Red Cell Distribution Width 13.8 % (11.6-14.8) Platelet Count 368 K/UL (150-450) Mean Platelet Volume 7.5 FL (6.5-10.1) Neutrophils (%) (Auto) % (45.0-75.0) Lymphocytes (%) (Auto) % (20.0-45.0) Monocytes (%) (Auto) % (1.0-10.0) Eosinophils (%) (Auto) % (0.0-3.0) Basophils (%) (Auto) % (0.0-2.0) Differential Total Cells Counted 100 Neutrophils % (Manual) 92 % (45-75) H Lymphocytes % (Manual) 4 % (20-45) L Monocytes % (Manual) 2 % (1-10) Eosinophils % (Manual) 0 % (0-3) Basophils % (Manual) 0 % (0-2) Band Neutrophils 2 % (0-8) Platelet Estimate Adequate Platelet Morphology Normal Polychromasia 1+ Hypochromasia 1+ Anisocytosis 1+ Microcytosis 1+ Prothrombin Time 10.5 SEC (9.30-11.50) Prothromb Time International Ratio 1.0 (0.9-1.1) Activated Partial Thromboplast Time 25 SEC (23-33) Urine Color Pale yellow Urine Appearance Clear Urine pH 7 (4.5-8.0) Urine Specific [place] 1.005 (1.005-1.035) Urine Protein 3+ (NEGATIVE) H Urine Glucose (UA) 2+ (NEGATIVE) H Urine Ketones 1+ (NEGATIVE) H Urine Occult Blood 1+ (NEGATIVE) H Urine Nitrite Negative (NEGATIVE) Urine Bilirubin Negative (NEGATIVE) Urine Urobilinogen Normal MG/DL (0.0-1.0) Urine Leukocyte Esterase Negative (NEGATIVE) Urine RBC 0-2 /HPF (0 - 2) Urine WBC 0-2 /HPF (0 - 2) Urine Squamous Epithelial Cells Few /LPF (NONE/OCC) Urine Bacteria Few /HPF (NONE) Sodium Level 134 MMOL/L (136-145) L Potassium Level 5.0 MMOL/L (3.5-5.1) Chloride Level 103 MMOL/L (98-107) Carbon Dioxide Level 31 MMOL/L (21-32) Anion Gap 0 mmol/L (5-15) L Blood Urea Nitrogen 30 mg/dL (7-18) H Creatinine 1.3 MG/DL (0.55-1.30) Estimat Glomerular Filtration Rate mL/min (>60) Glucose Level 279 MG/DL (74-106) H Lactic Acid Level 2.00 mmol/L (0.4-2.0) Calcium Level 9.7 MG/DL (8.5-10.1) Total Bilirubin 0.2 MG/DL (0.2-1.0) Aspartate Amino Transf (AST/SGOT) 49 U/L (15-37) H Alanine Aminotransferase (ALT/SGPT) 30 U/L (12-78) Alkaline Phosphatase 98 U/L (46-116) Total Creatine Kinase 98 U/L (26-308) Creatine Kinase MB 3.6 NG/ML (0.0-3.6) Troponin I 0.262 ng/mL (0.000-0.056) Total Protein 8.3 G/DL (6.4-8.2) H Albumin 2.1 G/DL (3.4-5.0) L Globulin 6.2 g/dL Albumin/Globulin Ratio 0.3 (1.0-2.7) L Lipase 217 U/L (73-393) Test 03/16/18 23:22 03/17/18 04:38 Lactic Acid Level 1.10 mmol/L (0.66-2.22) White Blood Count 16.6 K/UL (4.8-10.8) H Red Blood Count 3.15 M/UL (4.20-5.40) L Hemoglobin 7.9 G/DL (12.0-16.0) L Hematocrit 25.8 % (37.0-47.0) L Mean Corpuscular Volume 82 FL (80-99) Mean Corpuscular Hemoglobin 24.9 PG (27.0-31.0) L Mean Corpuscular Hemoglobin Concent 30.5 G/DL (32.0-36.0) L Red Cell Distribution Width 13.2 % (11.6-14.8) Platelet Count 346 K/UL (150-450) Mean Platelet Volume 7.5 FL (6.5-10.1) Neutrophils (%) (Auto) % (45.0-75.0) Lymphocytes (%) (Auto) % (20.0-45.0) Monocytes (%) (Auto) % (1.0-10.0) Eosinophils (%) (Auto) % (0.0-3.0) Basophils (%) (Auto) % (0.0-2.0) Differential Total Cells Counted 100 Neutrophils % (Manual) 85 % (45-75) H Lymphocytes % (Manual) 11 % (20-45) L Monocytes % (Manual) 4 % (1-10) Eosinophils % (Manual) 0 % (0-3) Basophils % (Manual) 0 % (0-2) Band Neutrophils 0 % (0-8) Platelet Estimate Adequate Platelet Morphology Normal Hypochromasia 1+ Sodium Level 137 MMOL/L (136-145) Potassium Level 4.4 MMOL/L (3.5-5.1) Chloride Level 105 MMOL/L (98-107) Carbon Dioxide Level 28 MMOL/L (21-32) Anion Gap 4 mmol/L (5-15) L Blood Urea Nitrogen 25 mg/dL (7-18) H Creatinine 1.2 MG/DL (0.55-1.30) Estimat Glomerular Filtration Rate mL/min (>60) Glucose Level 291 MG/DL (74-106) H Calcium Level 9.4 MG/DL (8.5-10.1) Phosphorus Level 3.2 MG/DL (2.5-4.9) Albumin 2.0 G/DL (3.4-5.0) L Height (Feet): 5 Height (Inches): 6.00 Weight (Pounds): 153 Medications Current Medications Medications (Trade) Dose Ordered Sig/Jus Route PRN Reason Start Time Stop Time Status Last Admin Dose Admin Acetaminophen (Tylenol) 650 mg Q4H PRN ORAL FEVER 03/16/18 22:30 04/15/18 22:29 Albuterol/ Ipratropium (Albuterol/ Ipratropium) 3 ml EVERY 4 HOURS PRN HHN Shortness of Breath 03/16/18 22:30 03/21/18 22:29 Albuterol/ Ipratropium (Albuterol/ Ipratropium) 3 ml Q4HRT HHN 03/17/18 11:00 03/22/18 10:59 Cefepime HCl 2 gm/ Dextrose 110 ml @ 220 mls/hr Q24H IV 03/17/18 21:00 03/24/18 20:59 Dextrose (Dextrose 50%) STAT PRN IV Hypoglycemia 03/16/18 22:30 04/15/18 22:29 Dextrose (Dextrose 50%) STAT PRN IV Hypoglycemia 03/16/18 22:30 04/15/18 22:29 Heparin Sodium (Porcine) (Heparin 5000 units/ml) 5,000 units EVERY 12 HOURS SUBQ 03/17/18 09:00 04/16/18 08:59 03/17/18 09:36 Insulin Aspart (NovoLOG) BEFORE MEALS AND HS SUBQ 03/17/18 06:30 04/16/18 06:29 03/17/18 09:35 Iopamidol (Isovue-300 100ml) 100 ml NOW PRN INJ Radiology Procedure 03/16/18 21:45 03/17/18 21:44 Lorazepam (Ativan 2mg/ml 1ml) 2 mg EVERY 2 HOURS PRN IV For Anxiety 03/16/18 22:30 03/23/18 22:29 Morphine Sulfate (Morphine Sulfate) 4 mg EVERY 4 HOURS PRN IVP Severe Pain (Pain Scale 7-10) 03/16/18 22:30 03/23/18 22:29 Ondansetron HCl (Zofran) 4 mg Q6H PRN IVP Nausea & Vomiting 03/16/18 22:30 04/15/18 22:29 Polyethylene Glycol (Miralax) 17 gm DAILYPRN PRN ORAL Constipation 03/16/18 22:30 04/15/18 22:29 Promethazine HCl/ Codeine (Phenergan with Codeine) 5 ml Q4H PRN ORAL For Cough 03/16/18 22:30 04/15/18 22:29 Quetiapine Fumarate (SEROquel) 25 mg Q6H PRN ORAL agitation 03/16/18 22:30 04/15/18 22:29 Sitagliptin Phosphate (Januvia) 50 mg DAILY ORAL 03/17/18 09:00 04/16/18 08:59 03/17/18 09:34 Sodium Chloride 1,000 ml @ 50 mls/hr Q20H IV 03/16/18 22:50 04/15/18 22:49 03/17/18 01:37 Vancomycin HCl (Vanco rx to dose) 1 ea DAILY PRN MISC per rx protocol 03/17/18 07:15 04/16/18 07:14 Vancomycin HCl 1 gm/Dextrose 275 ml @ 183.3 mls/ hr Q24H IV 03/17/18 23:30 03/22/18 23:29 Assessment/Plan Problem List: (1) Sepsis ICD Codes: A41.9 - Sepsis SNOMED: 15435390 (2) Acute encephalopathy ICD Codes: G93.40 - Encephalopathy, unspecified SNOMED: 01710669, 512062623 (3) Diabetes ICD Codes: E11.9 - Diabetes SNOMED: 90017891 (4) Feeding by G-tube ICD Codes: Z93.1 - Gastrostomy status SNOMED: 795261721, [id number] (5) end stage alzheimrers dementia Assessment/Plan momin culture iv abx check electrolytes iv fluids sliding scale NPO for now monitored by until hemodynamically stable family discussion Tiago Cason MD Mar 17, 2018 10:28
[2018-03-17] MEDS: Albuterol/Ipratropium 3ml neb HHN SCH ×4 (11:27→22:59)
[2018-03-17 12:00] VITALS: BP 134/50
--- NOTE | 2018-03-17 13:00 | Consultation ---
History of Present Illness General Date patient seen: Mar 17, 2018 Time patient seen: 12:56 Chief Complaint: Upper Respiratory Illness Present Illness HPI 87 year old female with dementia presents with vomiting and fever, WBC elevated. Hx of DM and anemia. No diarrhea, no melena, patient has sacral wound ulcers. History obtained from caregiver and chart Allergies: Coded Allergies: ESTROGENS (Verified Allergy, Unknown, 11/27/14) Uncoded Allergies: "estrogen" (Allergy, Unknown, 02/20/14) Medication History Scheduled Calcium Carbonate (Calcium), 500 MG PO BID, (Reported) Docusate Sodium (Silace), 100 MG PO BID, (Reported) Erythromycin Base (Erythromycin), 1 GM OP BID, (Reported) Insulin Detemir (Levemir), 20 UNITS SUBQ BID, (Reported) Insulin Detemir (Levemir Flexpen), 12 UNITS SUBQ Q12HR Meropenem (Merrem), 1 GM IV DAILY Multivitamin (One Daily), 1 TAB ORAL DAILY, (Reported) Polyethylene Glycol 3350 (Glycolax), 17 GM PO DAILY, (Reported) Polyethylene Glycol 3350* (Miralax*), 17 GM ORAL DAILY, (Reported) Ranitidine Hcl (Zantac), 150 MG ORAL DAILY, (Reported) Sitagliptin (Januvia), 50 MG ORAL DAILY, (Reported) Vancomycin Hcl/D5w (Vancomycin-D5w 1 G/250 Ml), 1 GM IVPB Q24H Scheduled PRN Acetaminophen (Acetaminophen), 650 MG ORAL Q6H PRN for Prn Headache/Temp > 101, (Reported) Magnesium Hydroxide* (Milk Of Magnesia*), 30 ML ORAL DAILY PRN for Constipation, (Reported) Quetiapine Fumarate* (Seroquel*), 25 MG ORAL Q6H PRN Miscellaneous Medications Calcium Carbonate ([id number]), 500 MG PO, (Reported) Insulin Aspart* (Novolog*), 0 SUBQ, (Reported) [miralax], (Reported) Patient History Healthcare decision maker Resuscitation status Full Code Advanced Directive on File Review of Systems Constitutional: Reports: fever, weakness Eye: Reports: no symptoms ENT: Reports: no symptoms Respiratory: Reports: no symptoms Cardiovascular: Reports: no symptoms Gastrointestinal: Reports: vomiting Genitourinary: Reports: no symptoms Musculoskeletal: Reports: no symptoms Skin: Reports: no symptoms Psychiatric: Reports: no symptoms Neurological: Reports: no symptoms Endocrine: Reports: no symptoms Hematologic/Lymphatic: Reports: no symptoms Physical Exam General Appearance: no apparent distress Lines, tubes and drains: peripheral HEENT: normocephalic Neck: non-tender Respiratory/Chest: chest wall non-tender Cardiovascular/Chest: normal peripheral pulses Abdomen: normal bowel sounds Extremities: normal range of motion 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 Last 24 Hour Vital Signs Date Time Temp Pulse Resp B/P (MAP) Pulse Ox O2 Delivery O2 Flow Rate FiO2 03/17/18 12:00 98.8 107 32 134/50 100 Nasal Cannula 2.0 98.8 03/17/18 11:37 103 24 100 Nasal Cannula 3.0 32 03/17/18 11:27 105 24 100 Nasal Cannula 3.0 32 03/17/18 08:00 132 03/17/18 08:00 98.6 111 22 107/50 100 Nasal Cannula 2.0 98.6 03/17/18 04:21 109 03/17/18 04:00 98.5 106 24 144/91 100 Nasal Cannula 2.0 98.5 03/17/18 00:34 99.0 116 20 156/68 98 Room Air 99.0 03/17/18 00:12 99.0 116 20 156/68 98 Room Air 99.0 03/16/18 23:45 99.3 107 24 137/58 100 Nasal Cannula 2.0 99.3 03/16/18 20:53 120 28 Room Air 03/16/18 20:25 101.0 120 28 84/43 96 Room Air 100.9 Intake and Output 03/16/18 03/17/18 19:00 07:00 Intake Total 269.09 ml Output Total 1050 ml Balance -780.91 ml Intake IV Total 269.09 ml Output Urine Total 1050 ml Laboratory Tests Test 03/16/18 20:35 03/16/18 20:45 03/16/18 21:00 03/16/18 22:02 Arterial Blood pH 7.433 (7.350-7.450) Arterial Blood Partial Pressure CO2 44.4 mmHg (35.0-45.0) Arterial Blood Partial Pressure O2 138.8 mmHg (75.0-100.0) H Arterial Blood HCO3 29.0 mmol/L (22.0-26.0) H Arterial Blood Oxygen Saturation 98.8 % (92.0-98.0) H Arterial Blood Base Excess 4.3 Travis Test Positive White Blood Count 18.8 K/UL (4.8-10.8) H Red Blood Count 2.94 M/UL (4.20-5.40) L Hemoglobin 7.7 G/DL (12.0-16.0) L Hematocrit 23.5 % (37.0-47.0) L Mean Corpuscular Volume 80 FL (80-99) Mean Corpuscular Hemoglobin 26.0 PG (27.0-31.0) L Mean Corpuscular Hemoglobin Concent 32.6 G/DL (32.0-36.0) Red Cell Distribution Width 13.8 % (11.6-14.8) Platelet Count 368 K/UL (150-450) Mean Platelet Volume 7.5 FL (6.5-10.1) Neutrophils (%) (Auto) % (45.0-75.0) Lymphocytes (%) (Auto) % (20.0-45.0) Monocytes (%) (Auto) % (1.0-10.0) Eosinophils (%) (Auto) % (0.0-3.0) Basophils (%) (Auto) % (0.0-2.0) Differential Total Cells Counted 100 Neutrophils % (Manual) 92 % (45-75) H Lymphocytes % (Manual) 4 % (20-45) L Monocytes % (Manual) 2 % (1-10) Eosinophils % (Manual) 0 % (0-3) Basophils % (Manual) 0 % (0-2) Band Neutrophils 2 % (0-8) Platelet Estimate Adequate Platelet Morphology Normal Polychromasia 1+ Hypochromasia 1+ Anisocytosis 1+ Microcytosis 1+ Prothrombin Time 10.5 SEC (9.30-11.50) Prothromb Time International Ratio 1.0 (0.9-1.1) Activated Partial Thromboplast Time 25 SEC (23-33) Urine Color Pale yellow Urine Appearance Clear Urine pH 7 (4.5-8.0) Urine Specific [place] 1.005 (1.005-1.035) Urine Protein 3+ (NEGATIVE) H Urine Glucose (UA) 2+ (NEGATIVE) H Urine Ketones 1+ (NEGATIVE) H Urine Occult Blood 1+ (NEGATIVE) H Urine Nitrite Negative (NEGATIVE) Urine Bilirubin Negative (NEGATIVE) Urine Urobilinogen Normal MG/DL (0.0-1.0) Urine Leukocyte Esterase Negative (NEGATIVE) Urine RBC 0-2 /HPF (0 - 2) Urine WBC 0-2 /HPF (0 - 2) Urine Squamous Epithelial Cells Few /LPF (NONE/OCC) Urine Bacteria Few /HPF (NONE) Sodium Level 134 MMOL/L (136-145) L Potassium Level 5.0 MMOL/L (3.5-5.1) Chloride Level 103 MMOL/L (98-107) Carbon Dioxide Level 31 MMOL/L (21-32) Anion Gap 0 mmol/L (5-15) L Blood Urea Nitrogen 30 mg/dL (7-18) H Creatinine 1.3 MG/DL (0.55-1.30) Estimat Glomerular Filtration Rate mL/min (>60) Glucose Level 279 MG/DL (74-106) H Lactic Acid Level 2.00 mmol/L (0.4-2.0) Calcium Level 9.7 MG/DL (8.5-10.1) Total Bilirubin 0.2 MG/DL (0.2-1.0) Aspartate Amino Transf (AST/SGOT) 49 U/L (15-37) H Alanine Aminotransferase (ALT/SGPT) 30 U/L (12-78) Alkaline Phosphatase 98 U/L (46-116) Total Creatine Kinase 98 U/L (26-308) Creatine Kinase MB 3.6 NG/ML (0.0-3.6) Troponin I 0.262 ng/mL (0.000-0.056) Total Protein 8.3 G/DL (6.4-8.2) H Albumin 2.1 G/DL (3.4-5.0) L Globulin 6.2 g/dL Albumin/Globulin Ratio 0.3 (1.0-2.7) L Lipase 217 U/L (73-393) Test 03/16/18 23:22 03/17/18 04:38 Lactic Acid Level 1.10 mmol/L (0.66-2.22) White Blood Count 16.6 K/UL (4.8-10.8) H Red Blood Count 3.15 M/UL (4.20-5.40) L Hemoglobin 7.9 G/DL (12.0-16.0) L Hematocrit 25.8 % (37.0-47.0) L Mean Corpuscular Volume 82 FL (80-99) Mean Corpuscular Hemoglobin 24.9 PG (27.0-31.0) L Mean Corpuscular Hemoglobin Concent 30.5 G/DL (32.0-36.0) L Red Cell Distribution Width 13.2 % (11.6-14.8) Platelet Count 346 K/UL (150-450) Mean Platelet Volume 7.5 FL (6.5-10.1) Neutrophils (%) (Auto) % (45.0-75.0) Lymphocytes (%) (Auto) % (20.0-45.0) Monocytes (%) (Auto) % (1.0-10.0) Eosinophils (%) (Auto) % (0.0-3.0) Basophils (%) (Auto) % (0.0-2.0) Differential Total Cells Counted 100 Neutrophils % (Manual) 85 % (45-75) H Lymphocytes % (Manual) 11 % (20-45) L Monocytes % (Manual) 4 % (1-10) Eosinophils % (Manual) 0 % (0-3) Basophils % (Manual) 0 % (0-2) Band Neutrophils 0 % (0-8) Platelet Estimate Adequate Platelet Morphology Normal Hypochromasia 1+ Sodium Level 137 MMOL/L (136-145) Potassium Level 4.4 MMOL/L (3.5-5.1) Chloride Level 105 MMOL/L (98-107) Carbon Dioxide Level 28 MMOL/L (21-32) Anion Gap 4 mmol/L (5-15) L Blood Urea Nitrogen 25 mg/dL (7-18) H Creatinine 1.2 MG/DL (0.55-1.30) Estimat Glomerular Filtration Rate mL/min (>60) Glucose Level 291 MG/DL (74-106) H Calcium Level 9.4 MG/DL (8.5-10.1) Phosphorus Level 3.2 MG/DL (2.5-4.9) Albumin 2.0 G/DL (3.4-5.0) L Height (Feet): 5 Height (Inches): 6.00 Weight (Pounds): 153 Medications Current Medications Medications (Trade) Dose Ordered Sig/Jus Route PRN Reason Start Time Stop Time Status Last Admin Dose Admin Acetaminophen (Tylenol) 650 mg Q4H PRN ORAL FEVER 03/16/18 22:30 04/15/18 22:29 Albuterol/ Ipratropium (Albuterol/ Ipratropium) 3 ml EVERY 4 HOURS PRN HHN Shortness of Breath 03/16/18 22:30 03/21/18 22:29 Albuterol/ Ipratropium (Albuterol/ Ipratropium) 3 ml Q4HRT HHN 03/17/18 11:00 03/22/18 10:59 03/17/18 11:27 Cefepime HCl 2 gm/ Dextrose 110 ml @ 220 mls/hr Q24H IV 03/17/18 21:00 03/24/18 20:59 Dextrose (Dextrose 50%) STAT PRN IV Hypoglycemia 03/16/18 22:30 04/15/18 22:29 Dextrose (Dextrose 50%) STAT PRN IV Hypoglycemia 03/16/18 22:30 04/15/18 22:29 Heparin Sodium (Porcine) (Heparin 5000 units/ml) 5,000 units EVERY 12 HOURS SUBQ 03/17/18 09:00 04/16/18 08:59 03/17/18 09:36 Insulin Aspart (NovoLOG) BEFORE MEALS AND HS SUBQ 03/17/18 06:30 04/16/18 06:29 03/17/18 11:50 Iopamidol (Isovue-300 100ml) 100 ml NOW PRN INJ Radiology Procedure 03/16/18 21:45 03/17/18 21:44 Lorazepam (Ativan 2mg/ml 1ml) 2 mg EVERY 2 HOURS PRN IV For Anxiety 03/16/18 22:30 03/23/18 22:29 Morphine Sulfate (Morphine Sulfate) 4 mg EVERY 4 HOURS PRN IVP Severe Pain (Pain Scale 7-10) 03/16/18 22:30 03/23/18 22:29 Ondansetron HCl (Zofran) 4 mg Q6H PRN IVP Nausea & Vomiting 03/16/18 22:30 04/15/18 22:29 Polyethylene Glycol (Miralax) 17 gm DAILYPRN PRN ORAL Constipation 03/16/18 22:30 04/15/18 22:29 Promethazine HCl/ Codeine (Phenergan with Codeine) 5 ml Q4H PRN ORAL For Cough 03/16/18 22:30 04/15/18 22:29 Quetiapine Fumarate (SEROquel) 25 mg Q6H PRN ORAL agitation 03/16/18 22:30 04/15/18 22:29 Sitagliptin Phosphate (Januvia) 50 mg DAILY ORAL 03/17/18 09:00 04/16/18 08:59 03/17/18 09:34 Sodium Chloride 1,000 ml @ 50 mls/hr Q20H IV 03/16/18 22:50 04/15/18 22:49 03/17/18 01:37 Vancomycin HCl (Vanco rx to dose) 1 ea DAILY PRN MISC per rx protocol 03/17/18 07:15 04/16/18 07:14 Vancomycin HCl 1 gm/Dextrose 275 ml @ 183.3 mls/ hr Q24H IV 03/17/18 23:30 03/22/18 23:29 Assessment/Plan Status: stable Assessment/Plan 1) Fever 2) Vomiting 3) Sacral ulcer 4) Dementia 5) Diabetes Check cultures NPO + IV fluids CT scan abdomen - no obstruction Serial abdominal exam Namenda/aricept Physical therapy Supportive care No sign of aspiration Ant Gu M.D. Mar 17, 2018 13:00
[2018-03-17] MEDS ORDERED: Morphine Sulfate 4mg/ml Inj IVP PRN (13:15)
[2018-03-17] MEDS ORDERED: LORazepam Inj 2mg/ml 1ml IV PRN (13:15)
[2018-03-17] MEDS ORDERED: Albuterol/Ipratropium 3ml neb HHN PRN (13:15)
--- NOTE | 2018-03-17 14:42 | Consultation ---
Consult Note Consult Note Proteinuria and Azotemia Patient is a 87-year-old female sent in by nursing facility after increased fever and vomiting. Patient prior history of dementia. Patient was noted to be had debilitated and chronically has confused. The patient was noted have fever up to 101 at the facility. She had been noted to be tachycardic and was started on IV fluids by EMS. The patient was noted to be full code. 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 1) Sepsis (2) Acute encephalopathy (3) Diabetes (4) Feeding by G-tube (5) end stage alzheimers dementia Anemia CORREA Pepcid IV Monitor lytes and Renal parameters per orders ROSA REED Mar 17, 2018 14:42
[2018-03-17] MEDS: D5NS 1,000 ML IV SCH (15:01)
[2018-03-17] MEDS ORDERED: 1/2 NS 1000ml IV ONE (15:55)
[2018-03-17 16:00] VITALS: BP 104/57
--- NOTE | 2018-03-17 16:02 | Consultation ---
History of Present Illness General Date patient seen: Mar 17, 2018 Chief Complaint: Upper Respiratory Illness Present Illness HPI 87 y/o F with hx of HTN, Dm2, MDD, sacral decubitus ulcer, constipation, dysphagia s/p GT, Alzheimer's Disease, assisted living resident presents to ED on 03/16 with fever up to 101, vomiting and tachycardic No diarrhea, melena Of note, patient recently admitted here from 02/14-02/27 with multiple episodes of vomiting, febrile and leukocytosis. She was found to have SBO due to adhesions and developed shock after surgery. Also found to have K.pna. A mold was also growing for Sputum cx but has not been identified yet. Thought to be colonizer as CT with no evidence of fungal infection. Final sputum cx grew also MRSA but patient had already been discharged. She was treated with 14 days of Meropenem,. Allergies: Coded Allergies: ESTROGENS (Verified Allergy, Unknown, 11/27/14) Uncoded Allergies: "estrogen" (Allergy, Unknown, 02/20/14) Medication History Scheduled Calcium Carbonate (Calcium), 500 MG PO BID, (Reported) Docusate Sodium (Silace), 100 MG PO BID, (Reported) Erythromycin Base (Erythromycin), 1 GM OP BID, (Reported) Insulin Detemir (Levemir), 20 UNITS SUBQ BID, (Reported) Insulin Detemir (Levemir Flexpen), 12 UNITS SUBQ Q12HR Meropenem (Merrem), 1 GM IV DAILY Multivitamin (One Daily), 1 TAB ORAL DAILY, (Reported) Polyethylene Glycol 3350 (Glycolax), 17 GM PO DAILY, (Reported) Polyethylene Glycol 3350* (Miralax*), 17 GM ORAL DAILY, (Reported) Ranitidine Hcl (Zantac), 150 MG ORAL DAILY, (Reported) Sitagliptin (Januvia), 50 MG ORAL DAILY, (Reported) Vancomycin Hcl/D5w (Vancomycin-D5w 1 G/250 Ml), 1 GM IVPB Q24H Scheduled PRN Acetaminophen (Acetaminophen), 650 MG ORAL Q6H PRN for Prn Headache/Temp > 101, (Reported) Magnesium Hydroxide* (Milk Of Magnesia*), 30 ML ORAL DAILY PRN for Constipation, (Reported) Quetiapine Fumarate* (Seroquel*), 25 MG ORAL Q6H PRN Miscellaneous Medications Calcium Carbonate ([id number]), 500 MG PO, (Reported) Insulin Aspart* (Novolog*), 0 SUBQ, (Reported) [miralax], (Reported) Patient History Healthcare decision maker Resuscitation status Full Code Advanced Directive on File Patient History Narrative Pmhx: as above Shx: reviewed Fhx: non contributory l Review of Systems All Other Systems: negative except mentioned in HPI Physical Exam Physical Exam Narrative General Appearance: WD/WN, mild distress Lines, tubes and drains: peripheral HEENT: normocephalic, atraumatic Neck: non-tender, normal alignment Respiratory/Chest: chest wall non-tender Breasts: no masses Cardiovascular/Chest: normal peripheral pulses Abdomen: normal bowel sounds, non tender Extremities: normal range of motion Skin Exam: normal pigmentation Last 24 Hour Vital Signs Date Time Temp Pulse Resp B/P (MAP) Pulse Ox O2 Delivery O2 Flow Rate FiO2 03/17/18 12:00 98.8 107 32 134/50 100 Nasal Cannula 2.0 98.8 03/17/18 12:00 105 03/17/18 11:37 103 24 100 Nasal Cannula 3.0 32 03/17/18 11:27 105 24 100 Nasal Cannula 3.0 32 03/17/18 08:00 132 03/17/18 08:00 98.6 111 22 107/50 100 Nasal Cannula 2.0 98.6 03/17/18 04:21 109 03/17/18 04:00 98.5 106 24 144/91 100 Nasal Cannula 2.0 98.5 03/17/18 00:34 99.0 116 20 156/68 98 Room Air 99.0 03/17/18 00:12 99.0 116 20 156/68 98 Room Air 99.0 03/16/18 23:45 99.3 107 24 137/58 100 Nasal Cannula 2.0 99.3 03/16/18 20:53 120 28 Room Air 03/16/18 20:25 101.0 120 28 84/43 96 Room Air 100.9 Intake and Output 03/16/18 03/17/18 19:00 07:00 Intake Total 269.09 ml Output Total 1050 ml Balance -780.91 ml Intake IV Total 269.09 ml Output Urine Total 1050 ml Laboratory Tests Test 03/16/18 20:35 03/16/18 20:45 03/16/18 21:00 03/16/18 22:02 Arterial Blood pH 7.433 (7.350-7.450) Arterial Blood Partial Pressure CO2 44.4 mmHg (35.0-45.0) Arterial Blood Partial Pressure O2 138.8 mmHg (75.0-100.0) H Arterial Blood HCO3 29.0 mmol/L (22.0-26.0) H Arterial Blood Oxygen Saturation 98.8 % (92.0-98.0) H Arterial Blood Base Excess 4.3 Travis Test Positive White Blood Count 18.8 K/UL (4.8-10.8) H Red Blood Count 2.94 M/UL (4.20-5.40) L Hemoglobin 7.7 G/DL (12.0-16.0) L Hematocrit 23.5 % (37.0-47.0) L Mean Corpuscular Volume 80 FL (80-99) Mean Corpuscular Hemoglobin 26.0 PG (27.0-31.0) L Mean Corpuscular Hemoglobin Concent 32.6 G/DL (32.0-36.0) Red Cell Distribution Width 13.8 % (11.6-14.8) Platelet Count 368 K/UL (150-450) Mean Platelet Volume 7.5 FL (6.5-10.1) Neutrophils (%) (Auto) % (45.0-75.0) Lymphocytes (%) (Auto) % (20.0-45.0) Monocytes (%) (Auto) % (1.0-10.0) Eosinophils (%) (Auto) % (0.0-3.0) Basophils (%) (Auto) % (0.0-2.0) Differential Total Cells Counted 100 Neutrophils % (Manual) 92 % (45-75) H Lymphocytes % (Manual) 4 % (20-45) L Monocytes % (Manual) 2 % (1-10) Eosinophils % (Manual) 0 % (0-3) Basophils % (Manual) 0 % (0-2) Band Neutrophils 2 % (0-8) Platelet Estimate Adequate Platelet Morphology Normal Polychromasia 1+ Hypochromasia 1+ Anisocytosis 1+ Microcytosis 1+ Prothrombin Time 10.5 SEC (9.30-11.50) Prothromb Time International Ratio 1.0 (0.9-1.1) Activated Partial Thromboplast Time 25 SEC (23-33) Urine Color Pale yellow Urine Appearance Clear Urine pH 7 (4.5-8.0) Urine Specific [place] 1.005 (1.005-1.035) Urine Protein 3+ (NEGATIVE) H Urine Glucose (UA) 2+ (NEGATIVE) H Urine Ketones 1+ (NEGATIVE) H Urine Occult Blood 1+ (NEGATIVE) H Urine Nitrite Negative (NEGATIVE) Urine Bilirubin Negative (NEGATIVE) Urine Urobilinogen Normal MG/DL (0.0-1.0) Urine Leukocyte Esterase Negative (NEGATIVE) Urine RBC 0-2 /HPF (0 - 2) Urine WBC 0-2 /HPF (0 - 2) Urine Squamous Epithelial Cells Few /LPF (NONE/OCC) Urine Bacteria Few /HPF (NONE) Sodium Level 134 MMOL/L (136-145) L Potassium Level 5.0 MMOL/L (3.5-5.1) Chloride Level 103 MMOL/L (98-107) Carbon Dioxide Level 31 MMOL/L (21-32) Anion Gap 0 mmol/L (5-15) L Blood Urea Nitrogen 30 mg/dL (7-18) H Creatinine 1.3 MG/DL (0.55-1.30) Estimat Glomerular Filtration Rate mL/min (>60) Glucose Level 279 MG/DL (74-106) H Lactic Acid Level 2.00 mmol/L (0.4-2.0) Calcium Level 9.7 MG/DL (8.5-10.1) Total Bilirubin 0.2 MG/DL (0.2-1.0) Aspartate Amino Transf (AST/SGOT) 49 U/L (15-37) H Alanine Aminotransferase (ALT/SGPT) 30 U/L (12-78) Alkaline Phosphatase 98 U/L (46-116) Total Creatine Kinase 98 U/L (26-308) Creatine Kinase MB 3.6 NG/ML (0.0-3.6) Troponin I 0.262 ng/mL (0.000-0.056) Total Protein 8.3 G/DL (6.4-8.2) H Albumin 2.1 G/DL (3.4-5.0) L Globulin 6.2 g/dL Albumin/Globulin Ratio 0.3 (1.0-2.7) L Lipase 217 U/L (73-393) Test 03/16/18 23:22 03/17/18 04:38 03/17/18 09:38 Lactic Acid Level 1.10 mmol/L (0.66-2.22) White Blood Count 16.6 K/UL (4.8-10.8) H Red Blood Count 3.15 M/UL (4.20-5.40) L Hemoglobin 7.9 G/DL (12.0-16.0) L Hematocrit 25.8 % (37.0-47.0) L Mean Corpuscular Volume 82 FL (80-99) Mean Corpuscular Hemoglobin 24.9 PG (27.0-31.0) L Mean Corpuscular Hemoglobin Concent 30.5 G/DL (32.0-36.0) L Red Cell Distribution Width 13.2 % (11.6-14.8) Platelet Count 346 K/UL (150-450) Mean Platelet Volume 7.5 FL (6.5-10.1) Neutrophils (%) (Auto) % (45.0-75.0) Lymphocytes (%) (Auto) % (20.0-45.0) Monocytes (%) (Auto) % (1.0-10.0) Eosinophils (%) (Auto) % (0.0-3.0) Basophils (%) (Auto) % (0.0-2.0) Differential Total Cells Counted 100 Neutrophils % (Manual) 85 % (45-75) H Lymphocytes % (Manual) 11 % (20-45) L Monocytes % (Manual) 4 % (1-10) Eosinophils % (Manual) 0 % (0-3) Basophils % (Manual) 0 % (0-2) Band Neutrophils 0 % (0-8) Platelet Estimate Adequate Platelet Morphology Normal Hypochromasia 1+ Sodium Level 137 MMOL/L (136-145) Potassium Level 4.4 MMOL/L (3.5-5.1) Chloride Level 105 MMOL/L (98-107) Carbon Dioxide Level 28 MMOL/L (21-32) Anion Gap 4 mmol/L (5-15) L Blood Urea Nitrogen 25 mg/dL (7-18) H Creatinine 1.2 MG/DL (0.55-1.30) Estimat Glomerular Filtration Rate mL/min (>60) Glucose Level 291 MG/DL (74-106) H Calcium Level 9.4 MG/DL (8.5-10.1) Phosphorus Level 3.2 MG/DL (2.5-4.9) Albumin 2.0 G/DL (3.4-5.0) L C-Reactive Protein, Quantitative Pending Height (Feet): 5 Height (Inches): 6.00 Weight (Pounds): 153 Medications Current Medications Medications (Trade) Dose Ordered Sig/Jus Route PRN Reason Start Time Stop Time Status Last Admin Dose Admin Acetaminophen (Tylenol) 650 mg Q4H PRN ORAL FEVER 03/16/18 22:30 04/15/18 22:29 Albuterol/ Ipratropium (Albuterol/ Ipratropium) 3 ml Q4H PRN HHN Shortness of Breath 03/17/18 13:15 03/21/18 22:29 Albuterol/ Ipratropium (Albuterol/ Ipratropium) 3 ml Q4HRT HHN 03/17/18 11:00 03/22/18 10:59 03/17/18 11:27 Cefepime HCl 2 gm/ Dextrose 110 ml @ 220 mls/hr Q24H IV 03/17/18 21:00 03/24/18 20:59 Dextrose (Dextrose 50%) STAT PRN IV Hypoglycemia 03/16/18 22:30 04/15/18 22:29 Dextrose (Dextrose 50%) STAT PRN IV Hypoglycemia 03/16/18 22:30 04/15/18 22:29 Dextrose/Sodium Chloride 1,000 ml @ 75 mls/hr [id number] IV 03/17/18 14:54 04/16/18 14:53 03/17/18 15:01 Famotidine (Pepcid I.v.) 20 mg ONCE IVP 03/17/18 15:00 03/17/18 17:00 Famotidine (Pepcid I.v.) 20 mg Q12HR IVP 03/17/18 21:00 04/16/18 20:59 Heparin Sodium (Porcine) (Heparin 5000 units/ml) 5,000 units EVERY 12 HOURS SUBQ 03/17/18 09:00 04/16/18 08:59 03/17/18 09:36 Insulin Aspart (NovoLOG) BEFORE MEALS AND HS SUBQ 03/17/18 06:30 04/16/18 06:29 03/17/18 11:50 Lorazepam (Ativan 2mg/ml 1ml) 2 mg Q2H PRN IV For Anxiety 03/17/18 13:15 03/23/18 22:29 Morphine Sulfate (Morphine Sulfate) 4 mg Q4H PRN IVP Severe Pain (Pain Scale 7-10) 03/17/18 13:15 03/23/18 22:29 Ondansetron HCl (Zofran) 4 mg Q6H PRN IVP Nausea & Vomiting 03/16/18 22:30 04/15/18 22:29 Polyethylene Glycol (Miralax) 17 gm DAILYPRN PRN ORAL Constipation 03/16/18 22:30 04/15/18 22:29 Promethazine HCl/ Codeine (Phenergan with Codeine) 5 ml Q4H PRN ORAL For Cough 03/16/18 22:30 04/15/18 22:29 Quetiapine Fumarate (SEROquel) 25 mg Q6H PRN ORAL agitation 03/16/18 22:30 04/15/18 22:29 Sitagliptin Phosphate (Januvia) 50 mg DAILY ORAL 03/17/18 09:00 04/16/18 08:59 03/17/18 09:34 Vancomycin HCl (Vanco rx to dose) 1 ea DAILY PRN MISC per rx protocol 03/17/18 07:15 04/16/18 07:14 Vancomycin HCl 1 gm/Dextrose 275 ml @ 183.3 mls/ hr Q24H IV 03/17/18 23:30 03/22/18 23:29 Assessment/Plan Assessment/Plan Abx: IV Vanco 03/16- Cefepime 03/17- Unasyn x1 03/16 Assessment: Sepsis- likely intra-abdominal vs PNA- r/o bacteremia -CXR: Possible mild pulmonary vascular congestion, versus hypoventilation. No focal consolidation. -CT abd/p: Mild ventral subcutaneous stranding which may be postop versus infection/inflammation. No discrete abscess collection. Colonic diverticulosis , no diverticulitis. No bowel obstruction. Right basilar mild atelectasis/ infiltrates. 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 pna (I Zosyn, R amp, otherwise S); repeat sp cx Mold and MRSA ( colonizers) MOld in sputum (sp cx 02/22) - ID pending still- suspect likely colonizer- no CT evidence of fungal infection -CT chest: . Small to moderate right pleural effusion. Small left pleural effusion. Bibasilar atelectasis/consolidation and airspace, worse on the right. Trace free fluid around the liver. Recent VDRF (02/19); s/p extubation 02/22 HTN Dm2 constipation Alzheimer's Disease assisted living resident Plan: -Continue empiric IV Vanco and Cefepime and add IV Flagyl -02/27 SP Meropenem #10 -/ SP Micafungin #7 -/ SP IV Vancomycin #6 -6/7 SP Cefepime #5, Flagyl #4 -6/5 SP IV Vancomycin #3 -f/u cx -Monitor CBC/BMP, temperatures -Aspiration precautions -wound care Thank you for this consultation. Will continue to follow along with you. Brianna Root M.D. Mar 17, 2018 16:02
[2018-03-17] MEDS ORDERED: Tubing IV Secondary IV ONE (16:37)
[2018-03-17] MEDS ORDERED: D5NS 1000ml IV ONE (16:37)
--- NOTE | 2018-03-17 17:00 | Consultation ---
DATE OF CONSULTATION: 03/17/2018 NOTE: "POOR AUDIO QUALITY" HEMATOLOGY ONCOLOGY CONSULTATION CONSULTING PHYSICIAN: Karan Carrero M.D. REQUESTING PHYSICIAN: Tiago Cason M.D. REASON FOR CONSULTATION: ongoing anemia. ID: The patient is a pleasant 87-year-old female who I had seen multiple times in the past, most recently was at the beginning of the last month. The patient discharged on February 26. 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 Repeat tumor markers and CAT scan in 6 months of the abdomen and pelvis and have discussion with surgical team. In addition, the patient had lysis of adhesions, diabetes mellitus, acute encephalopathy, Alzheimer disease, anemia of chronic disease, pancytopenia, FARIBA, leukocytosis. At this time, she presents with altered mental status, acute encephalopathy. She was seen in the ER by Dr. Bolanos. Hematology service was consulted given ongoing anemia and malignancy. PAST MEDICAL HISTORY: As noted above. PAST SURGICAL HISTORY: G-tube placement. ALLERGIES: Estrogen. FAMILY HISTORY: Noncontributory. SOCIAL HISTORY: No alcohol, tobacco, or illicit drug use. REVIEW OF SYSTEMS: CONSTITUTIONAL: No fevers, chills, or night sweats. SKIN: No rashes, bumps, or itching. HEENT: No headache or hearing or vision changes. BREASTS: No lumps, pain, or discharge. PULMONARY: No cough, sputum, or shortness of breath. GASTROINTESTINAL: No nausea, vomiting, or diarrhea. GENITOURINARY: No dysuria, frequency, or urgency. MUSCULOSKELETAL: No muscle pain, joint swelling, or trauma. PHYSICAL EXAMINATION: VITAL SIGNS: Reviewed. GENERAL: No distress. PULMONARY: Decreased breath sounds. CARDIOVASCULAR: Regular rate. No S3 or S4. ABDOMEN: Soft, nontender, nondistended. EXTREMITIES: She has 1+ edema. LABORATORY DATA: Hemoglobin 7.9. ASSESSMENT AND RECOMMENDATIONS: 1. Low-grade papillary neoplasm of small bowel, low grade. She does not require chemotherapy. Repeat CAT scan in September 2018. 2. Leukocytosis. recent surgery in addition to sepsis. Obtain lactic acid. IV fluids and antibiotics as needed. 3. Anemia of chronic disease. Closely monitor and hemoglobin goal is above 7. 4. Pancytopenia related to underlying infection in the past, currently improved. 5. FARIBA, currently improved. Creatinine on prior admission was 2.6 and currently is 1.0. 6. Troponin elevation. Rule out ACS. Rule out KS. 7. Altered mental status, further monitor, potentially secondary to underlying infection. The patient with infection. I appreciate the consultation. Karan Carrero M.D. DR: Rachel JOB#: [id number] CC:
[2018-03-17 20:00] VITALS: BP 108/50
[2018-03-17] MEDS ORDERED: Vancomycin 1 GM in D5W 275 ML IV SCH (23:30)
[2018-03-18 00:05] VITALS: BP 108/54
[2018-03-18] MEDS: Albuterol/Ipratropium 3ml neb HHN SCH ×3 (03:24→10:47)
[2018-03-18 04:00] VITALS: BP 108/52
[2018-03-18] MEDS: D5NS 1,000 ML IV SCH (04:14)
[2018-03-18] MEDS: NovoLOG Insulin Flexpen SUBQ SCH (06:08)
[2018-03-18 06:21] LABS: HEMATOCRIT 21.8 % (37.0-47.0); MEAN CORPUSCULAR VOLUME 82 FL (80-99); PLATELET COUNT 298 K/UL (150-450); RED BLOOD COUNT 2.66 M/UL (4.20-5.40); RED CELL DISTRIBUTION WIDTH 13.3 % (11.6-14.8); WHITE BLOOD COUNT 14.7 K/UL (4.8-10.8)
[2018-03-18 06:33] LABS: HEMOGLOBIN 6.7 G/DL (12.0-16.0)
[2018-03-18 07:17] LABS: ALANINE AMINOTRANSFERASE 22 U/L (12-78); ALBUMIN 1.7 G/DL (3.4-5.0); ALBUMIN/GLOBULIN RATIO 0.3 (1.0-2.7); ALKALINE PHOSPHATASE 61 U/L (46-116); ANION GAP 8 mmol/L (5-15); ASPARTATE AMINO TRANSFERASE 46 U/L (15-37); BILIRUBIN,TOTAL 0.3 MG/DL (0.2-1.0); BLOOD UREA NITROGEN 21 mg/dL (7-18); CALCIUM 8.9 MG/DL (8.5-10.1); CARBON DIOXIDE 26 MMOL/L (21-32); CHLORIDE 106 MMOL/L (98-107); CHOLESTEROL 85 MG/DL (< 200); CREATINE KINASE 104 U/L (26-308); CREATININE 1.2 MG/DL (0.55-1.30); FERRITIN 290 NG/ML (8-388); GAMMA GLUTAMYL TRANSPEPTIDASE 15 U/L (5-85); HDL CHOLESTEROL 33 MG/DL (40-60); PHOSPHORUS 2.3 MG/DL (2.5-4.9); POTASSIUM 3.9 MMOL/L (3.5-5.1); SODIUM 140 MMOL/L (136-145); TRIGLYCERIDES 51 MG/DL (30-150)
[2018-03-18 07:51] LABS: % IRON SATURATION 28 % (15-50); IRON 36 ug/dL (50-175); TOTAL IRON BINDING CAPACITY 130 ug/dL (250-450)
[2018-03-18 08:00] VITALS: BP 118/46
[2018-03-18] MEDS: sitaGLIPtin 50mg tab ORAL SCH (08:29)
[2018-03-18] MEDS: Heparin 5000 units/ml inj SUBQ SCH (08:30)
--- NOTE | 2018-03-18 10:47 | Cardiology Progress Note ---
Assessment/Plan Status: stable Assessment/Plan 1) Fever 2) Vomiting 3) Sacral ulcer 4) Dementia 5) Diabetes Trend troponin, no indication for cath at this time, no chest pain or vital instability, hold anticoagulation Echocardiogram Check cultures NPO + IV fluids CT scan abdomen - no obstruction Serial abdominal exam Namenda/aricept Physical therapy Supportive care No sign of aspiration Subjective Cardiovascular: Reports: no symptoms Respiratory: Reports: no symptoms Gastrointestinal/Abdominal: Reports: no symptoms Genitourinary: Reports: no symptoms Subjective NO acute events, on IV fluids and Abx, no distress Troponin noted to be elevated, echo pending, chest x ray with mild consolidation /fluid No signs of fluid overload clinically, appears more dehydrated due to vomiting Objective Last 24 Hour Vital Signs Date Time Temp Pulse Resp B/P (MAP) Pulse Ox O2 Delivery O2 Flow Rate FiO2 03/18/18 08:00 108 03/18/18 08:00 97.7 108 24 118/46 100 Nasal Cannula 2.0 97.7 03/18/18 07:22 99 Nasal Cannula 2.0 28 03/18/18 07:22 Nasal Cannula 2.0 28 03/18/18 07:19 100 18 99 Nasal Cannula 2.0 28 03/18/18 04:00 95 03/18/18 04:00 98.2 98 20 108/52 100 Nasal Cannula 2.0 98.2 03/18/18 03:34 93 18 99 Nasal Cannula 2.0 03/18/18 03:24 93 18 99 Nasal Cannula 2.0 03/18/18 00:05 99.0 107 24 108/54 100 Nasal Cannula 2.0 99.0 03/18/18 00:00 100 03/18/18 00:00 107 03/17/18 23:08 89 18 99 Nasal Cannula 2.0 28 03/17/18 22:58 88 18 99 Nasal Cannula 2.0 28 03/17/18 20:00 100 03/17/18 20:00 98.0 100 20 108/50 100 Nasal Cannula 2.0 98.0 03/17/18 19:08 97 18 100 Nasal Cannula 2.0 28 03/17/18 18:58 100 Nasal Cannula 2.0 28 03/17/18 18:58 Nasal Cannula 2.0 28 03/17/18 18:58 95 18 100 Nasal Cannula 2.0 28 03/17/18 16:00 99.6 95 24 104/57 99 Nasal Cannula 2.0 99.6 03/17/18 16:00 91 03/17/18 15:29 98 20 100 Nasal Cannula 2.0 28 03/17/18 15:25 96 24 100 Nasal Cannula 2.0 28 03/17/18 15:25 Nasal Cannula 2.0 28 03/17/18 12:00 98.8 107 32 134/50 100 Nasal Cannula 2.0 98.8 03/17/18 12:00 105 03/17/18 11:37 103 24 100 Nasal Cannula 3.0 32 03/17/18 11:27 105 24 100 Nasal Cannula 3.0 32 General Appearance: no apparent distress EENT: PERRL/EOMI Neck: non-tender Rhythm: NSR Cardiovascular: normal peripheral pulses Respiratory/Chest: chest wall non-tender Abdomen: normal bowel sounds Neurologic: motor weakness Intake and Output 03/17/18 03/18/18 19:00 07:00 Intake Total 1019 ml 1760 ml Output Total 1000 ml 560 ml Balance 19 ml 1200 ml Intake Oral 0 ml IV Total 1019 ml 1760 ml Output Urine Total 1000 ml 560 ml Laboratory Tests Test 03/18/18 04:55 White Blood Count 14.7 K/UL (4.8-10.8) H Red Blood Count 2.66 M/UL (4.20-5.40) L Hemoglobin 6.7 G/DL (12.0-16.0) *L Hematocrit 21.8 % (37.0-47.0) L Mean Corpuscular Volume 82 FL (80-99) Mean Corpuscular Hemoglobin 25.3 PG (27.0-31.0) L Mean Corpuscular Hemoglobin Concent 30.9 G/DL (32.0-36.0) L Red Cell Distribution Width 13.3 % (11.6-14.8) Platelet Count 298 K/UL (150-450) Mean Platelet Volume 7.3 FL (6.5-10.1) Neutrophils (%) (Auto) % (45.0-75.0) Lymphocytes (%) (Auto) % (20.0-45.0) Monocytes (%) (Auto) % (1.0-10.0) Eosinophils (%) (Auto) % (0.0-3.0) Basophils (%) (Auto) % (0.0-2.0) Differential Total Cells Counted 100 Neutrophils % (Manual) 82 % (45-75) H Lymphocytes % (Manual) 15 % (20-45) L Monocytes % (Manual) 3 % (1-10) Eosinophils % (Manual) 0 % (0-3) Basophils % (Manual) 0 % (0-2) Band Neutrophils 0 % (0-8) Platelet Estimate Adequate Platelet Morphology Normal Hypochromasia 4+ Anisocytosis 1+ Sodium Level 140 MMOL/L (136-145) Potassium Level 3.9 MMOL/L (3.5-5.1) Chloride Level 106 MMOL/L (98-107) Carbon Dioxide Level 26 MMOL/L (21-32) Anion Gap 8 mmol/L (5-15) Blood Urea Nitrogen 21 mg/dL (7-18) H Creatinine 1.2 MG/DL (0.55-1.30) Estimat Glomerular Filtration Rate mL/min (>60) Glucose Level 324 MG/DL (74-106) H Lactic Acid Level 1.50 mmol/L (0.4-2.0) Uric Acid 5.4 MG/DL (2.6-7.2) Calcium Level 8.9 MG/DL (8.5-10.1) Phosphorus Level 2.3 MG/DL (2.5-4.9) L Magnesium Level 2.1 MG/DL (1.8-2.4) Iron Level 36 ug/dL (50-175) L Total Iron Binding Capacity 130 ug/dL (250-450) L Percent Iron Saturation 28 % (15-50) Unsaturated Iron Binding 94 ug/dL (112-346) L Ferritin 290 NG/ML (8-388) Total Bilirubin 0.3 MG/DL (0.2-1.0) Gamma Glutamyl Transpeptidase 15 U/L (5-85) Aspartate Amino Transf (AST/SGOT) 46 U/L (15-37) H Alanine Aminotransferase (ALT/SGPT) 22 U/L (12-78) Alkaline Phosphatase 61 U/L (46-116) Total Creatine Kinase 104 U/L (26-308) Troponin I 0.101 ng/mL (0.000-0.056) Pro-B-Type Natriuretic Peptide 3454 pg/mL (0-125) H Total Protein 7.0 G/DL (6.4-8.2) Albumin 1.7 G/DL (3.4-5.0) L Globulin 5.3 g/dL Albumin/Globulin Ratio 0.3 (1.0-2.7) L Triglycerides Level 51 MG/DL (30-150) Cholesterol Level 85 MG/DL (< 200) LDL Cholesterol 52 mg/dL (<100) HDL Cholesterol 33 MG/DL (40-60) L Cholesterol/HDL Ratio 2.6 (3.3-4.4) L Lipase 71 U/L (73-393) L Vitamin B12 Level 640 PG/ML (193-986) Folate 35.1 NG/ML (8.6-58.9) Thyroid Stimulating Hormone (TSH) 1.368 uiU/mL (0.358-3.740) Microbiology Date/Time Source Procedure Growth Status 03/16/18 21:00 Blood Blood Culture - Preliminary NO GROWTH AFTER 24 HOURS Resulted 03/16/18 20:45 Blood Blood Culture - Preliminary NO GROWTH AFTER 24 HOURS Resulted Ant Gu M.D. Mar 18, 2018 10:47
[2018-03-18] MEDS ORDERED: MORPHINE S10 MG/5 ML GT (11:08)
--- NOTE | 2018-03-18 11:13 | Pulmonology Progress Note ---
Assessment/Plan Problems: (1) Sepsis (2) Acute encephalopathy (3) Diabetes (4) Feeding by G-tube (5) end stage alzheimrers dementia Assessment/Plan I met with pts DPOA, Ms Jackie Diallo [phone], She is requesting to dc feeding/ She wants comfort and hospice care. she stated that pt never would have wanted to be in this condition with artificial feeding. We will arrange for hospice evaluation. Subjective ROS Limited/Unobtainable: Yes Constitutional: Reports: no symptoms HEENT: Repors: no symptoms Allergies: Coded Allergies: ESTROGENS (Verified Allergy, Unknown, 11/27/14) Uncoded Allergies: "estrogen" (Allergy, Unknown, 02/20/14) Objective Last 24 Hour Vital Signs Date Time Temp Pulse Resp B/P (MAP) Pulse Ox O2 Delivery O2 Flow Rate FiO2 03/18/18 10:54 96 18 100 Nasal Cannula 2.0 28 03/18/18 10:47 97 18 98 Nasal Cannula 2.0 28 03/18/18 08:00 108 03/18/18 08:00 97.7 108 24 118/46 100 Nasal Cannula 2.0 97.7 03/18/18 07:26 95 18 99 Nasal Cannula 2.0 28 03/18/18 07:22 99 Nasal Cannula 2.0 28 03/18/18 07:22 Nasal Cannula 2.0 28 03/18/18 07:19 100 18 99 Nasal Cannula 2.0 28 03/18/18 04:00 95 03/18/18 04:00 98.2 98 20 108/52 100 Nasal Cannula 2.0 98.2 03/18/18 03:34 93 18 99 Nasal Cannula 2.0 28 03/18/18 03:24 93 18 99 Nasal Cannula 2.0 28 03/18/18 00:05 99.0 107 24 108/54 100 Nasal Cannula 2.0 99.0 03/18/18 00:00 100 03/18/18 00:00 107 03/17/18 23:08 89 18 99 Nasal Cannula 2.0 28 03/17/18 22:58 88 18 99 Nasal Cannula 2.0 28 03/17/18 20:00 100 03/17/18 20:00 98.0 100 20 108/50 100 Nasal Cannula 2.0 98.0 03/17/18 19:08 97 18 100 Nasal Cannula 2.0 28 03/17/18 18:58 100 Nasal Cannula 2.0 28 03/17/18 18:58 Nasal Cannula 2.0 28 03/17/18 18:58 95 18 100 Nasal Cannula 2.0 28 03/17/18 16:00 99.6 95 24 104/57 99 Nasal Cannula 2.0 99.6 03/17/18 16:00 91 03/17/18 15:29 98 20 100 Nasal Cannula 2.0 28 03/17/18 15:25 96 24 100 Nasal Cannula 2.0 28 03/17/18 15:25 Nasal Cannula 2.0 28 03/17/18 12:00 98.8 107 32 134/50 100 Nasal Cannula 2.0 98.8 03/17/18 12:00 105 03/17/18 11:37 103 24 100 Nasal Cannula 3.0 32 03/17/18 11:27 105 24 100 Nasal Cannula 3.0 32 Intake and Output 03/17/18 03/18/18 19:00 07:00 Intake Total 1019 ml 1760 ml Output Total 1000 ml 560 ml Balance 19 ml 1200 ml Intake Oral 0 ml IV Total 1019 ml 1760 ml Output Urine Total 1000 ml 560 ml General Appearance: cachetic HEENT: normocephalic, atraumatic Respiratory/Chest: chest wall non-tender, lungs clear Breasts: no masses Cardiovascular: normal peripheral pulses Abdomen: normal bowel sounds, soft, non tender Genitourinary: normal external genitalia Extremities: no cyanosis Neurologic/Psychiatric: unit aide II-XII grossly normal Lymphatic: no neck adenopathy Microbiology Date/Time Source Procedure Growth Status 03/16/18 21:00 Blood Blood Culture - Preliminary NO GROWTH AFTER 24 HOURS Resulted 03/16/18 20:45 Blood Blood Culture - Preliminary NO GROWTH AFTER 24 HOURS Resulted Laboratory Tests 03/18/18 04:55: White Blood Count 14.7H, Red Blood Count 2.66L, Hemoglobin 6.7*L, Hematocrit 21.8L, Mean Corpuscular Volume 82, Mean Corpuscular Hemoglobin 25.3L, Mean Corpuscular Hemoglobin Concent 30.9L, Red Cell Distribution Width 13.3, Platelet Count 298, Mean Platelet Volume 7.3, Neutrophils (%) (Auto) , Lymphocytes (%) (Auto) , Monocytes (%) (Auto) , Eosinophils (%) (Auto) , Basophils (%) (Auto) , Differential Total Cells Counted 100, Neutrophils % ( Manual) 82H, Lymphocytes % (Manual) 15L, Monocytes % (Manual) 3, Eosinophils % ( Manual) 0, Basophils % (Manual) 0, Band Neutrophils 0, Platelet Estimate Adequate, Platelet Morphology Normal, Hypochromasia 4+, Anisocytosis 1+, Sodium Level 140, Potassium Level 3.9, Chloride Level 106, Carbon Dioxide Level 26, Anion Gap 8, Blood Urea Nitrogen 21H, Creatinine 1.2, Estimat Glomerular Filtration Rate , Glucose Level 324H, Lactic Acid Level 1.50, Uric Acid 5.4, Calcium Level 8.9, Phosphorus Level 2.3L, Magnesium Level 2.1, Iron Level 36L, Total Iron Binding Capacity 130L, Percent Iron Saturation 28, Unsaturated Iron Binding 94L, Ferritin 290, Total Bilirubin 0.3, Gamma Glutamyl Transpeptidase 15 , Aspartate Amino Transf (AST/SGOT) 46H, Alanine Aminotransferase (ALT/SGPT) 22 , Alkaline Phosphatase 61, Total Creatine Kinase 104, Troponin I 0.101H, Pro-B- Type Natriuretic Peptide 3454H, Total Protein 7.0, Albumin 1.7L, Globulin 5.3, Albumin/Globulin Ratio 0.3L, Triglycerides Level 51, Cholesterol Level 85, LDL Cholesterol 52, HDL Cholesterol 33L, Cholesterol/HDL Ratio 2.6L, Lipase 71L, Vitamin B12 Level 640, Folate 35.1, Thyroid Stimulating Hormone (TSH) 1.368 Current Medications Medications (Trade) Dose Ordered Sig/Jus Route PRN Reason Start Time Stop Time Status Last Admin Dose Admin Acetaminophen (Tylenol) 650 mg Q4H PRN ORAL FEVER 03/16/18 22:30 04/15/18 22:29 Albuterol/ Ipratropium (Albuterol/ Ipratropium) 3 ml Q4H PRN HHN Shortness of Breath 03/17/18 13:15 03/21/18 22:29 Albuterol/ Ipratropium (Albuterol/ Ipratropium) 3 ml Q4HRT HHN 03/17/18 11:00 03/22/18 10:59 03/18/18 10:47 Cefepime HCl 2 gm/ Dextrose 110 ml @ 220 mls/hr Q24H IV 03/17/18 21:00 03/24/18 20:59 03/17/18 21:19 Dextrose (Dextrose 50%) STAT PRN IV Hypoglycemia 03/16/18 22:30 04/15/18 22:29 Dextrose (Dextrose 50%) STAT PRN IV Hypoglycemia 03/16/18 22:30 04/15/18 22:29 Famotidine (Pepcid I.v.) 20 mg Q12HR IVP 03/17/18 21:00 04/16/18 20:59 03/18/18 08:29 Heparin Sodium (Porcine) (Heparin 5000 units/ml) 5,000 units EVERY 12 HOURS SUBQ 03/17/18 09:00 04/16/18 08:59 03/18/18 08:30 Insulin Aspart (NovoLOG) BEFORE MEALS AND HS SUBQ 03/17/18 06:30 04/16/18 06:29 03/18/18 06:08 Lorazepam (Ativan 2mg/ml 1ml) 2 mg Q2H PRN IV For Anxiety 03/17/18 13:15 03/23/18 22:29 Metronidazole 100 ml @ 100 mls/hr Q8H IVPB 03/17/18 17:00 03/24/18 16:59 03/18/18 08:28 Morphine Sulfate (Morphine Sulfate) 4 mg Q4H PRN IVP Severe Pain (Pain Scale 7-10) 03/17/18 13:15 03/23/18 22:29 Ondansetron HCl (Zofran) 4 mg Q6H PRN IVP Nausea & Vomiting 03/16/18 22:30 04/15/18 22:29 Polyethylene Glycol (Miralax) 17 gm DAILYPRN PRN ORAL Constipation 03/16/18 22:30 04/15/18 22:29 Promethazine HCl/ Codeine (Phenergan with Codeine) 5 ml Q4H PRN ORAL For Cough 03/16/18 22:30 04/15/18 22:29 Quetiapine Fumarate (SEROquel) 25 mg Q6H PRN ORAL agitation 03/16/18 22:30 04/15/18 22:29 Sitagliptin Phosphate (Januvia) 50 mg DAILY ORAL 03/17/18 09:00 04/16/18 08:59 03/18/18 08:29 Sodium Chloride 1,000 ml @ 50 mls/hr Q20H IV 03/18/18 09:45 04/17/18 09:44 03/18/18 09:49 Vancomycin HCl (Vanco rx to dose) 1 ea DAILY PRN MISC per rx protocol 03/17/18 07:15 04/16/18 07:14 Vancomycin HCl 1 gm/Dextrose 275 ml @ 183.3 mls/ hr Q24H IV 03/17/18 23:30 03/22/18 23:29 03/17/18 23:30 Tiago Cason MD Mar 18, 2018 11:13
[2018-03-18 12:00] VITALS: BP 114/54
--- NOTE | 2018-03-18 12:11 | Infectious Diseases Prog Note ---
Assessment/Plan Assessment/Plan Abx: IV Vanco /- Cefepime /- Unasyn x1 03/16 Assessment: Sepsis;improvng- likely intra-abdominal vs PNA- r/o bacteremia -CXR: Possible mild pulmonary vascular congestion, versus hypoventilation. No focal consolidation. -CT abd/p: Mild ventral subcutaneous stranding which may be postop versus infection/inflammation. No discrete abscess collection. Colonic diverticulosis , no diverticulitis. No bowel obstruction. Right basilar mild atelectasis/ infiltrates. 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 pna (I Zosyn, R amp, otherwise S); repeat sp cx Mold and MRSA ( colonizers) MOld in sputum (sp cx 02/22) - ID pending still- suspect likely colonizer- no CT evidence of fungal infection -CT chest: . Small to moderate right pleural effusion. Small left pleural effusion. Bibasilar atelectasis/consolidation and airspace, worse on the right. Trace free fluid around the liver. Recent VDRF (02/19); s/p extubation 02/22 HTN Dm2 constipation Alzheimer's Disease assisted living resident Plan: -Patient now made comfort care and all antibiotics were discontinued -03/18 SP IV Vanco #3 Cefepime and IV Flagyl #2 -02/27 SP Meropenem #10 -02/25 SP Micafungin #7 -02/24 SP IV Vancomycin #6 -/ SP Cefepime #5, Flagyl #4 -02/16/18 SP IV Vancomycin #3 ID WILL SIGN OFF NOW. PLEASE CALL BACK IF NEEDED. Subjective Allergies: Coded Allergies: ESTROGENS (Verified Allergy, Unknown, 11/27/14) Uncoded Allergies: "estrogen" (Allergy, Unknown, 02/20/14) Subjective afebrile in 36hrs WBC improving patient now made comfort care and abx were discontinued Objective Vital Signs Last 24 Hour Vital Signs Date Time Temp Pulse Resp B/P (MAP) Pulse Ox O2 Delivery O2 Flow Rate FiO2 03/18/18 10:54 96 18 100 Nasal Cannula 2.0 28 03/18/18 10:47 97 18 98 Nasal Cannula 2.0 03/18/18 08:00 108 03/18/18 08:00 97.7 108 24 118/46 100 Nasal Cannula 2.0 97.7 03/18/18 07:26 95 18 99 Nasal Cannula 2.0 03/18/18 07:22 99 Nasal Cannula 2.0 03/18/18 07:22 Nasal Cannula 2.0 03/18/18 07:19 100 18 99 Nasal Cannula 2.0 03/18/18 04:00 95 03/18/18 04:00 98.2 98 20 108/52 100 Nasal Cannula 2.0 98.2 03/18/18 03:34 93 18 99 Nasal Cannula 2.0 03/18/18 03:24 93 18 99 Nasal Cannula 2.0 03/18/18 00:05 99.0 107 24 108/54 100 Nasal Cannula 2.0 99.0 03/18/18 00:00 100 03/18/18 00:00 107 03/17/18 23:08 89 18 99 Nasal Cannula 2.0 03/17/18 22:58 88 18 99 Nasal Cannula 2.0 03/17/18 20:00 100 03/17/18 20:00 98.0 100 20 108/50 100 Nasal Cannula 2.0 98.0 03/17/18 19:08 97 18 100 Nasal Cannula 2.0 03/17/18 18:58 100 Nasal Cannula 2.0 03/17/18 18:58 Nasal Cannula 2.0 03/17/18 18:58 95 18 100 Nasal Cannula 2.0 03/17/18 16:00 99.6 95 24 104/57 99 Nasal Cannula 2.0 99.6 03/17/18 16:00 91 03/17/18 15:29 98 20 100 Nasal Cannula 2.0 03/17/18 15:25 96 24 100 Nasal Cannula 2.0 03/17/18 15:25 Nasal Cannula 2.0 28 Height (Feet): 5 Height (Inches): 6.00 Weight (Pounds): 153 Objective General Appearance: WD/WN, mild distress Lines, tubes and drains: peripheral HEENT: normocephalic, atraumatic Neck: non-tender, normal alignment Respiratory/Chest: chest wall non-tender Cardiovascular/Chest: normal peripheral pulses Abdomen: normal bowel sounds, non tender Skin Exam: normal pigmentation Microbiology Date/Time Source Procedure Growth Status 03/16/18 21:00 Blood Blood Culture - Preliminary NO GROWTH AFTER 24 HOURS Resulted 03/16/18 20:45 Blood Blood Culture - Preliminary NO GROWTH AFTER 24 HOURS Resulted Laboratory Tests Test 03/18/18 04:55 White Blood Count 14.7 K/UL (4.8-10.8) H Red Blood Count 2.66 M/UL (4.20-5.40) L Hemoglobin 6.7 G/DL (12.0-16.0) *L Hematocrit 21.8 % (37.0-47.0) L Mean Corpuscular Volume 82 FL (80-99) Mean Corpuscular Hemoglobin 25.3 PG (27.0-31.0) L Mean Corpuscular Hemoglobin Concent 30.9 G/DL (32.0-36.0) L Red Cell Distribution Width 13.3 % (11.6-14.8) Platelet Count 298 K/UL (150-450) Mean Platelet Volume 7.3 FL (6.5-10.1) Neutrophils (%) (Auto) % (45.0-75.0) Lymphocytes (%) (Auto) % (20.0-45.0) Monocytes (%) (Auto) % (1.0-10.0) Eosinophils (%) (Auto) % (0.0-3.0) Basophils (%) (Auto) % (0.0-2.0) Differential Total Cells Counted 100 Neutrophils % (Manual) 82 % (45-75) H Lymphocytes % (Manual) 15 % (20-45) L Monocytes % (Manual) 3 % (1-10) Eosinophils % (Manual) 0 % (0-3) Basophils % (Manual) 0 % (0-2) Band Neutrophils 0 % (0-8) Platelet Estimate Adequate Platelet Morphology Normal Hypochromasia 4+ Anisocytosis 1+ Sodium Level 140 MMOL/L (136-145) Potassium Level 3.9 MMOL/L (3.5-5.1) Chloride Level 106 MMOL/L (98-107) Carbon Dioxide Level 26 MMOL/L (21-32) Anion Gap 8 mmol/L (5-15) Blood Urea Nitrogen 21 mg/dL (7-18) H Creatinine 1.2 MG/DL (0.55-1.30) Estimat Glomerular Filtration Rate mL/min (>60) Glucose Level 324 MG/DL (74-106) H Lactic Acid Level 1.50 mmol/L (0.4-2.0) Uric Acid 5.4 MG/DL (2.6-7.2) Calcium Level 8.9 MG/DL (8.5-10.1) Phosphorus Level 2.3 MG/DL (2.5-4.9) L Magnesium Level 2.1 MG/DL (1.8-2.4) Iron Level 36 ug/dL (50-175) L Total Iron Binding Capacity 130 ug/dL (250-450) L Percent Iron Saturation 28 % (15-50) Unsaturated Iron Binding 94 ug/dL (112-346) L Ferritin 290 NG/ML (8-388) Total Bilirubin 0.3 MG/DL (0.2-1.0) Gamma Glutamyl Transpeptidase 15 U/L (5-85) Aspartate Amino Transf (AST/SGOT) 46 U/L (15-37) H Alanine Aminotransferase (ALT/SGPT) 22 U/L (12-78) Alkaline Phosphatase 61 U/L (46-116) Total Creatine Kinase 104 U/L (26-308) Troponin I 0.101 ng/mL (0.000-0.056) Pro-B-Type Natriuretic Peptide 3454 pg/mL (0-125) H Total Protein 7.0 G/DL (6.4-8.2) Albumin 1.7 G/DL (3.4-5.0) L Globulin 5.3 g/dL Albumin/Globulin Ratio 0.3 (1.0-2.7) L Triglycerides Level 51 MG/DL (30-150) Cholesterol Level 85 MG/DL (< 200) LDL Cholesterol 52 mg/dL (<100) HDL Cholesterol 33 MG/DL (40-60) L Cholesterol/HDL Ratio 2.6 (3.3-4.4) L Lipase 71 U/L (73-393) L Vitamin B12 Level 640 PG/ML (193-986) Folate 35.1 NG/ML (8.6-58.9) Thyroid Stimulating Hormone (TSH) 1.368 uiU/mL (0.358-3.740) Current Medications Medications (Trade) Dose Ordered Sig/Jus Route PRN Reason Start Time Stop Time Status Last Admin Dose Admin Acetaminophen (Tylenol) 650 mg Q4H PRN ORAL FEVER 03/16/18 22:30 04/15/18 22:29 Albuterol/ Ipratropium (Albuterol/ Ipratropium) 3 ml Q4H PRN HHN Shortness of Breath 03/17/18 13:15 03/21/18 22:29 Albuterol/ Ipratropium (Albuterol/ Ipratropium) 3 ml Q4HRT HHN 03/17/18 11:00 03/22/18 10:59 03/18/18 10:47 Dextrose (Dextrose 50%) STAT PRN IV Hypoglycemia 03/16/18 22:30 04/15/18 22:29 Dextrose (Dextrose 50%) STAT PRN IV Hypoglycemia 03/16/18 22:30 04/15/18 22:29 Lorazepam (Ativan 2mg/ml 1ml) 2 mg Q2H PRN IV For Anxiety 03/17/18 13:15 03/23/18 22:29 Morphine Sulfate (Morphine Sulfate) 4 mg Q4H PRN IVP Severe Pain (Pain Scale 7-10) 03/17/18 13:15 03/23/18 22:29 Ondansetron HCl (Zofran) 4 mg Q6H PRN IVP Nausea & Vomiting 03/16/18 22:30 04/15/18 22:29 Polyethylene Glycol (Miralax) 17 gm DAILYPRN PRN ORAL Constipation 03/16/18 22:30 04/15/18 22:29 Quetiapine Fumarate (SEROquel) 25 mg Q6H PRN ORAL agitation 03/16/18 22:30 04/15/18 22:29 Brianna Root M.D. Mar 18, 2018 12:10
--- NOTE | 2018-03-18 12:42 | Consultation ---
History of Present Illness General Date patient seen: Mar 18, 2018 Chief Complaint: Upper Respiratory Illness Reason for Consultation: abdominal pain, sepsis Present Illness HPI 87F well known to me from prior admission and surgery. 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 obstruction resolved and she improved and was discharged. in retirement / rehab when noted to recently have fever and leukocytosis. possible intraabdominal etiology considered. patient admitted for care and sepsis work up. surgery consulted to evaluate for possible intraabdominal etiology. patient seen, chart reviewed, patient examined Allergies: Coded Allergies: ESTROGENS (Verified Allergy, Unknown, 11/27/14) Uncoded Allergies: "estrogen" (Allergy, Unknown, 02/20/14) Medication History Scheduled Calcium Carbonate (Calcium), 500 MG PO BID, (Reported) Docusate Sodium (Silace), 100 MG PO BID, (Reported) Erythromycin Base (Erythromycin), 1 GM OP BID, (Reported) Insulin Detemir (Levemir), 20 UNITS SUBQ BID, (Reported) Insulin Detemir (Levemir Flexpen), 12 UNITS SUBQ Q12HR Meropenem (Merrem), 1 GM IV DAILY Multivitamin (One Daily), 1 TAB ORAL DAILY, (Reported) Polyethylene Glycol 3350 (Glycolax), 17 GM PO DAILY, (Reported) Polyethylene Glycol 3350* (Miralax*), 17 GM ORAL DAILY, (Reported) Ranitidine Hcl (Zantac), 150 MG ORAL DAILY, (Reported) Sitagliptin (Januvia), 50 MG ORAL DAILY, (Reported) Vancomycin Hcl/D5w (Vancomycin-D5w 1 G/250 Ml), 1 GM IVPB Q24H Scheduled PRN Acetaminophen (Acetaminophen), 650 MG ORAL Q6H PRN for Prn Headache/Temp > 101, (Reported) Magnesium Hydroxide* (Milk Of Magnesia*), 30 ML ORAL DAILY PRN for Constipation, (Reported) Quetiapine Fumarate* (Seroquel*), 25 MG ORAL Q6H PRN Miscellaneous Medications Calcium Carbonate ([id number]), 500 MG PO, (Reported) Insulin Aspart* (Novolog*), 0 SUBQ, (Reported) [miralax], (Reported) Patient History Limited by: medical condition History Provided By: Medical Record, PMD Healthcare decision maker Resuscitation status Full Code Advanced Directive on File Past Medical/Surgical History Past Medical/Surgical History: (1) Renal insufficiency (2) UTI (urinary tract infection) (3) At high risk for aspiration (4) Intractable nausea and vomiting (5) Lactic acidosis (6) Anemia (7) Anemia (8) Heart block (9) Hepatitis (10) Hyperlipidemia (11) Leukocytosis (12) Renal insufficiency (13) Renal insufficiency (14) Acute bronchitis (15) Acute bronchitis (16) Hypoxia (17) Altered mental status (18) Altered mental status (19) Abdominal pain (20) Pneumonia (21) Vomiting (22) Vomiting (23) Heart abnormality (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 (25) Podiatry visit, routine (26) Cellulitis of fifth toe, left (27) Type 1 diabetes, controlled, with cellulitis of toe (28) Type 2 diabetes, uncontrolled, with cellulitis of toe (29) Hematemesis (30) SBO (small bowel obstruction) (31) Coffee ground emesis (32) Acute renal failure (33) Feeding by G-tube (34) Diabetes (35) end stage alzheimrers dementia (36) Sepsis (37) Acute encephalopathy (38) Sepsis (39) Altered mental status (40) Diabetic nephropathy (41) Anemia Review of Systems ROS Narrative cannot obtain given medical condition Physical Exam General Appearance: no apparent distress HEENT: mucous membranes moist Neck: normal inspection Respiratory/Chest: no respiratory distress, no accessory muscle use Cardiovascular/Chest: normal rate Abdomen: normal bowel sounds, soft, no organomegaly, no mass Extremities: normal inspection Skin Exam: warm/dry Neurologic: unresponsiveness Last 24 Hour Vital Signs Date Time Temp Pulse Resp B/P (MAP) Pulse Ox O2 Delivery O2 Flow Rate FiO2 03/18/18 10:54 96 18 100 Nasal Cannula 2.0 03/18/18 10:47 97 18 98 Nasal Cannula 2.0 03/18/18 08:00 108 03/18/18 08:00 97.7 108 24 118/46 100 Nasal Cannula 2.0 97.7 03/18/18 07:26 95 18 99 Nasal Cannula 2.0 03/18/18 07:22 99 Nasal Cannula 2.0 03/18/18 07:22 Nasal Cannula 2.0 03/18/18 07:19 100 18 99 Nasal Cannula 2.0 28 03/18/18 04:00 95 03/18/18 04:00 98.2 98 20 108/52 100 Nasal Cannula 2.0 98.2 03/18/18 03:34 93 18 99 Nasal Cannula 2.0 28 03/18/18 03:24 93 18 99 Nasal Cannula 2.0 28 03/18/18 00:05 99.0 107 24 108/54 100 Nasal Cannula 2.0 99.0 03/18/18 00:00 100 03/18/18 00:00 107 03/17/18 23:08 89 18 99 Nasal Cannula 2.0 28 03/17/18 22:58 88 18 99 Nasal Cannula 2.0 28 03/17/18 20:00 100 03/17/18 20:00 98.0 100 20 108/50 100 Nasal Cannula 2.0 98.0 03/17/18 19:08 97 18 100 Nasal Cannula 2.0 28 03/17/18 18:58 100 Nasal Cannula 2.0 28 03/17/18 18:58 Nasal Cannula 2.0 28 03/17/18 18:58 95 18 100 Nasal Cannula 2.0 28 03/17/18 16:00 99.6 95 24 104/57 99 Nasal Cannula 2.0 99.6 03/17/18 16:00 91 03/17/18 15:29 98 20 100 Nasal Cannula 2.0 28 03/17/18 15:25 96 24 100 Nasal Cannula 2.0 28 03/17/18 15:25 Nasal Cannula 2.0 28 Intake and Output 03/17/18 03/18/18 19:00 07:00 Intake Total 1019 ml 1760 ml Output Total 1000 ml 560 ml Balance 19 ml 1200 ml Intake Oral 0 ml IV Total 1019 ml 1760 ml Output Urine Total 1000 ml 560 ml Laboratory Tests Test 03/18/18 04:55 White Blood Count 14.7 K/UL (4.8-10.8) H Red Blood Count 2.66 M/UL (4.20-5.40) L Hemoglobin 6.7 G/DL (12.0-16.0) *L Hematocrit 21.8 % (37.0-47.0) L Mean Corpuscular Volume 82 FL (80-99) Mean Corpuscular Hemoglobin 25.3 PG (27.0-31.0) L Mean Corpuscular Hemoglobin Concent 30.9 G/DL (32.0-36.0) L Red Cell Distribution Width 13.3 % (11.6-14.8) Platelet Count 298 K/UL (150-450) Mean Platelet Volume 7.3 FL (6.5-10.1) Neutrophils (%) (Auto) % (45.0-75.0) Lymphocytes (%) (Auto) % (20.0-45.0) Monocytes (%) (Auto) % (1.0-10.0) Eosinophils (%) (Auto) % (0.0-3.0) Basophils (%) (Auto) % (0.0-2.0) Differential Total Cells Counted 100 Neutrophils % (Manual) 82 % (45-75) H Lymphocytes % (Manual) 15 % (20-45) L Monocytes % (Manual) 3 % (1-10) Eosinophils % (Manual) 0 % (0-3) Basophils % (Manual) 0 % (0-2) Band Neutrophils 0 % (0-8) Platelet Estimate Adequate Platelet Morphology Normal Hypochromasia 4+ Anisocytosis 1+ Sodium Level 140 MMOL/L (136-145) Potassium Level 3.9 MMOL/L (3.5-5.1) Chloride Level 106 MMOL/L (98-107) Carbon Dioxide Level 26 MMOL/L (21-32) Anion Gap 8 mmol/L (5-15) Blood Urea Nitrogen 21 mg/dL (7-18) H Creatinine 1.2 MG/DL (0.55-1.30) Estimat Glomerular Filtration Rate mL/min (>60) Glucose Level 324 MG/DL (74-106) H Lactic Acid Level 1.50 mmol/L (0.4-2.0) Uric Acid 5.4 MG/DL (2.6-7.2) Calcium Level 8.9 MG/DL (8.5-10.1) Phosphorus Level 2.3 MG/DL (2.5-4.9) L Magnesium Level 2.1 MG/DL (1.8-2.4) Iron Level 36 ug/dL (50-175) L Total Iron Binding Capacity 130 ug/dL (250-450) L Percent Iron Saturation 28 % (15-50) Unsaturated Iron Binding 94 ug/dL (112-346) L Ferritin 290 NG/ML (8-388) Total Bilirubin 0.3 MG/DL (0.2-1.0) Gamma Glutamyl Transpeptidase 15 U/L (5-85) Aspartate Amino Transf (AST/SGOT) 46 U/L (15-37) H Alanine Aminotransferase (ALT/SGPT) 22 U/L (12-78) Alkaline Phosphatase 61 U/L (46-116) Total Creatine Kinase 104 U/L (26-308) Troponin I 0.101 ng/mL (0.000-0.056) Pro-B-Type Natriuretic Peptide 3454 pg/mL (0-125) H Total Protein 7.0 G/DL (6.4-8.2) Albumin 1.7 G/DL (3.4-5.0) L Globulin 5.3 g/dL Albumin/Globulin Ratio 0.3 (1.0-2.7) L Triglycerides Level 51 MG/DL (30-150) Cholesterol Level 85 MG/DL (< 200) LDL Cholesterol 52 mg/dL (<100) HDL Cholesterol 33 MG/DL (40-60) L Cholesterol/HDL Ratio 2.6 (3.3-4.4) L Lipase 71 U/L (73-393) L Vitamin B12 Level 640 PG/ML (193-986) Folate 35.1 NG/ML (8.6-58.9) Thyroid Stimulating Hormone (TSH) 1.368 uiU/mL (0.358-3.740) Height (Feet): 5 Height (Inches): 6.00 Weight (Pounds): 153 Medications Current Medications Medications (Trade) Dose Ordered Sig/Jus Route PRN Reason Start Time Stop Time Status Last Admin Dose Admin Acetaminophen (Tylenol) 650 mg Q4H PRN ORAL FEVER 03/16/18 22:30 04/15/18 22:29 Albuterol/ Ipratropium (Albuterol/ Ipratropium) 3 ml Q4H PRN HHN Shortness of Breath 03/17/18 13:15 03/21/18 22:29 Albuterol/ Ipratropium (Albuterol/ Ipratropium) 3 ml Q4HRT HHN 03/17/18 11:00 03/22/18 10:59 03/18/18 10:47 Dextrose (Dextrose 50%) STAT PRN IV Hypoglycemia 03/16/18 22:30 8/2/18 22:29 Dextrose (Dextrose 50%) STAT PRN IV Hypoglycemia 03/16/18 22:30 04/15/18 22:29 Lorazepam (Ativan 2mg/ml 1ml) 2 mg Q2H PRN IV For Anxiety 03/17/18 13:15 03/23/18 22:29 Morphine Sulfate (Morphine Sulfate) 4 mg Q4H PRN IVP Severe Pain (Pain Scale 7-10) 03/17/18 13:15 03/23/18 22:29 Ondansetron HCl (Zofran) 4 mg Q6H PRN IVP Nausea & Vomiting 03/16/18 22:30 04/15/18 22:29 Polyethylene Glycol (Miralax) 17 gm DAILYPRN PRN ORAL Constipation 03/16/18 22:30 04/15/18 22:29 Quetiapine Fumarate (SEROquel) 25 mg Q6H PRN ORAL agitation 03/16/18 22:30 04/15/18 22:29 Assessment/Plan Problem List: (1) Sepsis Assessment & Plan: 87F with sepsis. possible pna vs uti vs intraabdominal etiology. currently afebrile, HD stable, leukocytosis improving. exam benign. abd soft, nt/nd, bs+ CT scan w/ IMPRESSION: 1. Mild ventral subcutaneous stranding which may be postop versus infection/ inflammation. No discrete abscess collection. 2. Colonic diverticulosis, no diverticulitis. No bowel obstruction. 3. Right basilar mild atelectasis/infiltrates. likely pneumonia vs uti. unlikely intraabdominal etiology -diet as tolerated. start feeds and meds -cont IV Abx as per ID -no acute surgical intervention planned. thank you for this consultation. will follow with recs. ICD Codes: A41.9 - Sepsis SNOMED: [id number] Qualifiers: Qualified Codes: A41.9 - Sepsis, unspecified organism Status: stable Miguel Freeman Mar 18, 2018 12:42
[2018-03-18 16:00] VITALS: BP 116/58
--- NOTE | 2018-03-18 19:30 | General Progress Note ---
Assessment/Plan Status: stable Assessment/Plan 1. Low-grade papillary neoplasm of small bowel, low grade. She does not require chemotherapy. Repeat CAT scan in September 2018. 2. Leukocytosis, recent surgery in addition to sepsis. --> IV fluids and antibiotics as needed. 3. Anemia of chronic disease. --> Closely monitor --> hemoglobin goal is above 7. 4. Pancytopenia related to underlying infection in the past, currently improved. 5. FARIBA, currently improved. Creatinine on prior admission was 2.6 and currently is 1.0. 6. Troponin elevation. Rule out ACS. Rule out OH. 7. Altered mental status, further monitor, potentially secondary to underlying infection. The patient with infection. Subjective Date patient seen: Mar 18, 2018 ROS Limited/Unobtainable: Yes Allergies: Coded Allergies: ESTROGENS (Verified Allergy, Unknown, 11/27/14) Uncoded Allergies: "estrogen" (Allergy, Unknown, 02/20/14) All Systems: reviewed and negative except above Subjective Pt scheduled for dc to hospice tomorrow. No acute events. Vitals are stable. Objective Last 24 Hour Vital Signs Date Time Temp Pulse Resp B/P (MAP) Pulse Ox O2 Delivery O2 Flow Rate FiO2 03/18/18 16:00 97 03/18/18 16:00 98.2 97 26 116/58 99 Nasal Cannula 2.0 98.2 03/18/18 12:00 103 03/18/18 12:00 98.2 101 22 114/54 100 Nasal Cannula 2.0 98.2 03/18/18 10:54 96 18 100 Nasal Cannula 2.0 28 03/18/18 10:47 97 18 98 Nasal Cannula 2.0 28 03/18/18 08:00 108 03/18/18 08:00 97.7 108 24 118/46 100 Nasal Cannula 2.0 97.7 03/18/18 07:26 95 18 99 Nasal Cannula 2.0 28 03/18/18 07:22 99 Nasal Cannula 2.0 28 03/18/18 07:22 Nasal Cannula 2.0 28 03/18/18 07:19 100 18 99 Nasal Cannula 2.0 28 03/18/18 04:00 95 03/18/18 04:00 98.2 98 20 108/52 100 Nasal Cannula 2.0 98.2 03/18/18 03:34 93 18 99 Nasal Cannula 2.0 28 03/18/18 03:24 93 18 99 Nasal Cannula 2.0 28 03/18/18 00:05 99.0 107 24 108/54 100 Nasal Cannula 2.0 99.0 03/18/18 00:00 100 03/18/18 00:00 107 03/17/18 23:08 89 18 99 Nasal Cannula 2.0 28 03/17/18 22:58 88 18 99 Nasal Cannula 2.0 28 03/17/18 20:00 100 03/17/18 20:00 98.0 100 20 108/50 100 Nasal Cannula 2.0 98.0 Intake and Output 03/17/18 03/18/18 19:00 07:00 Intake Total 1019 ml 1760 ml Output Total 1000 ml 560 ml Balance 19 ml 1200 ml Intake Oral 0 ml IV Total 1019 ml 1760 ml Output Urine Total 1000 ml 560 ml Laboratory Tests 03/18/18 04:55: White Blood Count 14.7H, Red Blood Count 2.66L, Hemoglobin 6.7*L, Hematocrit 21.8L, Mean Corpuscular Volume 82, Mean Corpuscular Hemoglobin 25.3L, Mean Corpuscular Hemoglobin Concent 30.9L, Red Cell Distribution Width 13.3, Platelet Count 298, Mean Platelet Volume 7.3, Neutrophils (%) (Auto) , Lymphocytes (%) (Auto) , Monocytes (%) (Auto) , Eosinophils (%) (Auto) , Basophils (%) (Auto) , Differential Total Cells Counted 100, Neutrophils % ( Manual) 82H, Lymphocytes % (Manual) 15L, Monocytes % (Manual) 3, Eosinophils % ( Manual) 0, Basophils % (Manual) 0, Band Neutrophils 0, Platelet Estimate Adequate, Platelet Morphology Normal, Hypochromasia 4+, Anisocytosis 1+, Sodium Level 140, Potassium Level 3.9, Chloride Level 106, Carbon Dioxide Level 26, Anion Gap 8, Blood Urea Nitrogen 21H, Creatinine 1.2, Estimat Glomerular Filtration Rate , Glucose Level 324H, Lactic Acid Level 1.50, Uric Acid 5.4, Calcium Level 8.9, Phosphorus Level 2.3L, Magnesium Level 2.1, Iron Level 36L, Total Iron Binding Capacity 130L, Percent Iron Saturation 28, Unsaturated Iron Binding 94L, Ferritin 290, Total Bilirubin 0.3, Gamma Glutamyl Transpeptidase 15 , Aspartate Amino Transf (AST/SGOT) 46H, Alanine Aminotransferase (ALT/SGPT) 22 , Alkaline Phosphatase 61, Total Creatine Kinase 104, Troponin I 0.101H, Pro-B- Type Natriuretic Peptide 3454H, Total Protein 7.0, Albumin 1.7L, Globulin 5.3, Albumin/Globulin Ratio 0.3L, Triglycerides Level 51, Cholesterol Level 85, LDL Cholesterol 52, HDL Cholesterol 33L, Cholesterol/HDL Ratio 2.6L, Lipase 71L, Vitamin B12 Level 640, Folate 35.1, Thyroid Stimulating Hormone (TSH) 1.368 Height (Feet): 5 Height (Inches): 6.00 Weight (Pounds): 153 General Appearance: no apparent distress EENT: PERRL/EOMI Neck: normal alignment Cardiovascular: normal peripheral pulses Respiratory/Chest: no respiratory distress Abdomen: no mass Karan Carrero MD Mar 18, 2018 19:30
[2018-03-18 20:00] VITALS: BP 140/72
[2018-03-18] MEDS ORDERED: Albuterol/Ipratropium 3ml neb HHN PRN (22:00)
[2018-03-18] MEDS ORDERED: Miralax 17gm pkt ORAL PRN (22:00)
[2018-03-18] MEDS ORDERED: LORazepam Inj 2mg/ml 1ml IV PRN (22:00)
[2018-03-18] MEDS ORDERED: Morphine Sulfate 4mg/ml Inj IVP PRN (22:00)
[2018-03-19] VITALS: BP 140/67
[2018-03-19 04:00] VITALS: BP 100/63
[2018-03-19 08:00] VITALS: BP 149/62
--- NOTE | 2018-03-19 11:51 | General Progress Note ---
Assessment/Plan Status: stable Assessment/Plan 1. Low-grade papillary neoplasm of small bowel, low grade. --> She does not require chemotherapy. Repeat CAT scan in September 2018. 2. Leukocytosis, recent surgery in addition to sepsis. --> IV fluids and antibiotics as needed. 3. Anemia of chronic disease. --> Closely monitor --> hemoglobin goal is above 7. 4. Pancytopenia related to underlying infection in the past, currently improved. 5. FARIBA, currently improved. Creatinine on prior admission was 2.6 and currently is 1.0. 6. Troponin elevation. Rule out ACS. Rule out RI. 7. Altered mental status, further monitor, potentially secondary to underlying infection. The patient with infection. Subjective Date patient seen: Mar 19, 2018 Allergies: Coded Allergies: ESTROGENS (Verified Allergy, Unknown, 11/27/14) Uncoded Allergies: "estrogen" (Allergy, Unknown, 02/20/14) All Systems: reviewed and negative except above Subjective No acute events. Vitals are stable. DC planning. Objective Last 24 Hour Vital Signs Date Time Temp Pulse Resp B/P (MAP) Pulse Ox O2 Delivery O2 Flow Rate FiO2 03/19/18 08:14 98 Nasal Cannula 2.0 28 03/19/18 08:14 Nasal Cannula 2.0 28 03/19/18 08:13 72 20 Nasal Cannula 2.0 28 03/19/18 08:00 99.0 96 20 149/62 100 99.0 03/19/18 04:00 98.0 99 26 100/63 100 Nasal Cannula 2.0 98.0 03/19/18 00:00 98.3 104 24 140/67 100 Nasal Cannula 2.0 98.3 03/18/18 21:03 Nasal Cannula 2.0 28 03/18/18 21:02 99 Nasal Cannula 2.0 28 03/18/18 21:02 99 20 Nasal Cannula 2.0 28 03/18/18 20:00 99.0 101 24 140/72 100 Nasal Cannula 2.0 99.0 03/18/18 16:00 97 03/18/18 16:00 98.2 97 26 116/58 99 Nasal Cannula 2.0 98.2 03/18/18 12:00 103 03/18/18 12:00 98.2 101 22 114/54 100 Nasal Cannula 2.0 98.2 Intake and Output 03/18/18 03/19/18 19:00 07:00 Intake Total 665 ml Output Total 700 ml 450 ml Balance -35 ml -450 ml IV Total 355 ml Tube Feeding 60 ml Blood Product 250 ml Output Urine Total 700 ml 450 ml Height (Feet): 5 Height (Inches): 6.00 Weight (Pounds): 153 General Appearance: no apparent distress, alert EENT: PERRL/EOMI Neck: normal alignment Cardiovascular: normal peripheral pulses Respiratory/Chest: no respiratory distress Abdomen: soft Karan Carrero MD Mar 19, 2018 11:51
[2018-03-19 12:00] VITALS: BP 134/60
--- NOTE | 2018-03-19 13:09 | Nephrology Progress Note ---
Assessment/Plan Problem List: (1) end stage alzheimrers dementia (2) Diabetic nephropathy (3) Anemia (4) Sepsis Assessment Proteinuria likely diabetic Nephropathy Severe Anemia , Etiology? 1) Sepsis (2) Acute encephalopathy (3) Diabetes (4) Feeding by G-tube (5) end stage alzheimers dementia Plan Anemia CORREA ? Transfuse? Pepcid IV Monitor lytes and Renal parameters per orders favor comfort care and hospice no labs today Subjective ROS Limited/Unobtainable: No Constitutional: Reports: malaise, weakness Objective Objective Last 24 Hour Vital Signs Date Time Temp Pulse Resp B/P (MAP) Pulse Ox O2 Delivery O2 Flow Rate FiO2 03/19/18 12:00 97.8 96 20 134/60 (84) 95 97.8 03/19/18 08:14 98 Nasal Cannula 2.0 28 03/19/18 08:14 Nasal Cannula 2.0 28 03/19/18 08:13 72 20 Nasal Cannula 2.0 28 03/19/18 08:00 99.0 96 20 149/62 100 99.0 03/19/18 04:00 98.0 99 26 100/63 100 Nasal Cannula 2.0 98.0 03/19/18 00:00 98.3 104 24 140/67 100 Nasal Cannula 2.0 98.3 03/18/18 21:03 Nasal Cannula 2.0 28 03/18/18 21:02 99 Nasal Cannula 2.0 28 03/18/18 21:02 99 20 Nasal Cannula 2.0 28 03/18/18 20:00 99.0 101 24 140/72 100 Nasal Cannula 2.0 99.0 03/18/18 16:00 97 03/18/18 16:00 98.2 97 26 116/58 99 Nasal Cannula 2.0 98.2 Intake and Output 03/18/18 03/19/18 19:00 07:00 Intake Total 665 ml Output Total 700 ml 450 ml Balance -35 ml -450 ml IV Total 355 ml Tube Feeding 60 ml Blood Product 250 ml Output Urine Total 700 ml 450 ml Height (Feet): 5 Height (Inches): 6.00 Weight (Pounds): 153 General Appearance: no apparent distress Objective no change ROSA REED Mar 19, 2018 13:09
--- NOTE | 2018-03-19 13:40 | General Surgery Progress Note ---
General Surgery-Progress Note Subjective Additional Comments no acute events. stable. cultures reviewed. Objective Last 24 Hour Vital Signs Date Time Temp Pulse Resp B/P (MAP) Pulse Ox O2 Delivery O2 Flow Rate FiO2 03/19/18 12:00 97.8 96 20 134/60 (84) 95 97.8 03/19/18 08:14 98 Nasal Cannula 2.0 28 03/19/18 08:14 Nasal Cannula 2.0 28 03/19/18 08:13 72 20 Nasal Cannula 2.0 28 03/19/18 08:00 99.0 96 20 149/62 100 99.0 03/19/18 04:00 98.0 99 26 100/63 100 Nasal Cannula 2.0 98.0 03/19/18 00:00 98.3 104 24 140/67 100 Nasal Cannula 2.0 98.3 03/18/18 21:03 Nasal Cannula 2.0 28 03/18/18 21:02 99 Nasal Cannula 2.0 28 03/18/18 21:02 99 20 Nasal Cannula 2.0 28 03/18/18 20:00 99.0 101 24 140/72 100 Nasal Cannula 2.0 99.0 03/18/18 16:00 97 03/18/18 16:00 98.2 97 26 116/58 99 Nasal Cannula 2.0 98.2 I&O Intake and Output 03/18/18 03/19/18 19:00 07:00 Intake Total 665 ml Output Total 700 ml 450 ml Balance -35 ml -450 ml IV Total 355 ml Tube Feeding 60 ml Blood Product 250 ml Output Urine Total 700 ml 450 ml Dressing: saturated Wound: clean Drains: none Cardiovascular: RSR Respiratory: clear Abdomen: soft, flat, non-tender, present bowel sounds Extremities: no cyanosis Plan Problems: (1) Sepsis Assessment & Plan: 87F with sepsis. possible pna vs uti vs intraabdominal etiology. currently afebrile, HD stable, leukocytosis improving. exam benign. abd soft, nt/nd, bs+ CT scan w/ IMPRESSION: 1. Mild ventral subcutaneous stranding which may be postop versus infection/ inflammation. No discrete abscess collection. 2. Colonic diverticulosis, no diverticulitis. No bowel obstruction. 3. Right basilar mild atelectasis/infiltrates. likely pneumonia vs uti. unlikely intraabdominal etiology -diet as tolerated. feeds and meds -cont IV Abx as per ID -no acute surgical intervention planned. -wound orders placed. thank you for this consultation. will follow with recs. Miguel Freeman Mar 19, 2018 13:40
--- NOTE | 2018-03-19 14:25 | Cardiology Report ---
APPROVED REPORT EKG Measurement Heart [id number] PA [id number] Sinus tachycardia Low voltage QRS Borderline ECG
[2018-03-19 16:01] VITALS: BP 128/69
--- NOTE | 2018-03-19 16:03 | Pulmonology Progress Note ---
Assessment/Plan Problems: (1) Sepsis (2) Acute encephalopathy (3) Diabetes (4) Feeding by G-tube (5) end stage alzheimrers dementia Assessment/Plan pending discharge comfort care symptomatic treatment wound care dc sliding scale Subjective ROS Limited/Unobtainable: No Constitutional: Reports: no symptoms HEENT: Repors: no symptoms Respiratory: Reports: no symptoms Allergies: Coded Allergies: ESTROGENS (Verified Allergy, Unknown, 11/27/14) Uncoded Allergies: "estrogen" (Allergy, Unknown, 02/20/14) Objective Last 24 Hour Vital Signs Date Time Temp Pulse Resp B/P (MAP) Pulse Ox O2 Delivery O2 Flow Rate FiO2 03/19/18 16:01 98.0 92 20 128/69 (88) 99 98.0 03/19/18 12:00 97.8 96 20 134/60 (84) 95 97.8 03/19/18 08:14 98 Nasal Cannula 2.0 28 03/19/18 08:14 Nasal Cannula 2.0 28 03/19/18 08:13 72 20 Nasal Cannula 2.0 28 03/19/18 08:00 99.0 96 20 149/62 100 99.0 03/19/18 04:00 98.0 99 26 100/63 100 Nasal Cannula 2.0 98.0 03/19/18 00:00 98.3 104 24 140/67 100 Nasal Cannula 2.0 98.3 03/18/18 21:03 Nasal Cannula 2.0 28 03/18/18 21:02 99 Nasal Cannula 2.0 28 03/18/18 21:02 99 20 Nasal Cannula 2.0 28 03/18/18 20:00 99.0 101 24 140/72 100 Nasal Cannula 2.0 99.0 Intake and Output 03/18/18 03/19/18 19:00 07:00 Intake Total 665 ml Output Total 700 ml 450 ml Balance -35 ml -450 ml IV Total 355 ml Tube Feeding 60 ml Blood Product 250 ml Output Urine Total 700 ml 450 ml General Appearance: WD/WN HEENT: normocephalic Respiratory/Chest: chest wall non-tender, lungs clear Cardiovascular: normal peripheral pulses, normal rate Abdomen: normal bowel sounds, soft, non tender Extremities: no clubbing Neurologic/Psychiatric: cnc grinder II-XII grossly normal Microbiology Date/Time Source Procedure Growth Status 03/16/18 21:00 Blood Blood Culture - Preliminary Staphylococcus Species Resulted 03/16/18 20:45 Blood Blood Culture - Preliminary Staphylococcus Species Resulted 03/17/18 18:00 Buttock Right Gram Stain - Final Resulted 03/17/18 18:00 Wound Culture - Preliminary Gram Negative Bacillus 1 Gram Negative Bacillus 2 Staphylococcus Sp Coag Neg Staphylococcus Aureus Resulted Current Medications Medications (Trade) Dose Ordered Sig/Jus Route PRN Reason Start Time Stop Time Status Last Admin Dose Admin Acetaminophen (Tylenol) 650 mg Q4H PRN ORAL T>100.5 03/18/18 22:00 04/15/18 21:59 Albuterol/ Ipratropium (Albuterol/ Ipratropium) 3 ml Q4H PRN HHN Shortness of Breath 03/18/18 22:00 03/23/18 21:59 Dextrose (Dextrose 50%) 25 ml PRN IV Hypoglycemia 03/18/18 22:00 04/17/18 21:59 Dextrose (Dextrose 50%) 50 ml PRN IV hypoglycemia 03/18/18 22:00 04/17/18 21:59 Lorazepam (Ativan 2mg/ml 1ml) 2 mg Q2H PRN IV For Anxiety 03/18/18 22:00 03/25/18 21:59 Morphine Sulfate (Morphine Sulfate) 4 mg Q4H PRN IVP Severe Pain (Pain Scale 7-10) 03/18/18 22:00 03/25/18 21:59 Ondansetron HCl (Zofran) 4 mg Q6H PRN IVP Nausea & Vomiting 03/18/18 22:00 04/17/18 21:59 Polyethylene Glycol (Miralax) 17 gm DAILYPRN PRN ORAL Constipation 03/18/18 22:00 04/17/18 21:59 Quetiapine Fumarate (SEROquel) 25 mg Q6H PRN ORAL agitation 03/18/18 22:00 04/17/18 21:59 Tiago Cason MD Mar 19, 2018 16:03
--- NOTE | 2018-03-22 08:46 | Discharge Summary ---
Discharge Summary Discharge Summary _ DATE OF ADMISSION: 03/16/2018 DATE OF DISCHARGE: 03/19/2018 REASON FOR ADMISSION: 87 years old female with past medical history of CVA ,dysphagia ,G-tube, end- stage Alzheimer dementia, hypertension, diabetes, [facility] for [facility], vomiting and tachycardic. IV fluids were started by paramedics. Upon evaluation in emergency room patient was febrile, tachycardiac, blood pressure -84/43 Laboratory workup revealed leukocytosis, WBC 18.8; hemoglobin 7.7 ,hematocrit 23.5. ABG was stable on 2 L of oxygen via nasal cannula. Urinalysis revealed no evidence of urinary tract infection Chest x-ray showed mild pulmonary congestion. CT of the abdomen and pelvis revealed no evidence of bowel obstruction , no evidence of discrete abscess , right lung base with atelectasis versus infiltrate. Patient admitted with diagnosis of sepsis ,possible pneumonia ,acute encephalopathy, dysphagia, G-tube ,anemia, diabetes. CONSULTANTS: ambulance assistant dr. Gu ID specialist Dr. Landry wrapper off Dr. Grewal graphotype operator/oncologist Dr. Carrero [facility] COURSE: Patient admitted. Patient initially was full code. Patient kept nothing by mouth, started on the IV fluids, pancultured and started on empiric antibiotics. Blood culture revealed Staph epidermidis. CT of the abdomen revealed mild ventral subcutaneous stranding which may be postop versus infection/inflammation. No discrete abscess collection. Colonic diverticulosis, no diverticulitis. No bowel obstruction. Right basilar mild atelectasis/infiltrates. Infectious disease doctor closely followed. Per infectious disease doctor, sepsis was likely due to intra-abdominal process versus pneumonia. Patient was on the IV antibiotics as per ID recommendations. Strict aspiration precautions were maintained. Patient was kept nothing by mouth. Peach Grower /oncologist closely followed. Patient with a low-grade papillary neoplasm of small bowel , low-grade. Per oncologist patient did not require chemotherapy ; he recommended repeat CAT scan in September 2018. Anemia workup revealed evidence of anemia of chronic disease. Patient received 1 unit of packed red blood cells. Per hematology's recommendations, goal to keep hemoglobin above 7. Senior Back End Java Developer closely follow. Renal parameters and electrolytes were closely monitored. Electrolytes were corrected as needed. Nephrotoxics were avoided. Senior Relationship Manager closely followed. Troponin trending down, no ischemic changes on EKG. Per ambulance assistant, no indication for catheterization at this time, no chest pain or vital instability, he recommended to hold anticoagulation Elevated troponin likely due to demand due to severe sepsis. Surgeon closely follow. Patient was followed with serial abdominal exams , which were benign. Surgeon doubted intra-abdominal etiology of sepsis and stated that sepsis was likely secondary to pneumonia. Leukocytosis trending down , fever resolved. Wound care provided as per surgeon's recommendation. Per surgeon no surgical intervention was necessary at this time. Blood sugar was managed with sliding scale insulin GI prophylaxis provided. Bowel regimen instituted. Pain management was addressed. Code status was changed on March 18 to DNR/DNI. Antibiotics were stopped, continue essential medications only. Supportive e care, continued with symptomatic treatment. Hospice evaluation was completed. [facility] FINAL DIAGNOSES: Sepsis Possible pneumonia Acute encephalopathy on chronic end-stage Alzheimer dementia Elevated troponin Anemia of chronic disease Low-grade papillary neoplasm small bowel, low-grade Diabetic nephropathy Diabetes mellitus Anemia of chronic disease Sacral decub present on admission DISCHARGE INSTRUCTIONS: [facility] to [facility] under [facility] services I have been assigned to dictate discharge summary for this account. I was not involved in the patient's management. Tonja Gonzales NP Mar 22, 2018 08:46
== END 2018-03-19 16:50 | disposition hospice, home (50) | DRG 871 ==
LOC: EDBD 20:29 → EMR 21:04 → 2W 21:07 → EDBEDREQ 21:37 → EDBEDREQSVC 21:37 → EDBEDREQ 22:15 → 4W 03-18 20:30
PROC: 30233N1 Transfusion of Nonautologous Red Blood Cells into Peripheral Vein, Percutaneous Approach (ICD-10-PCS; principal; 2018-03-18)
DX: A41.9 Sepsis, unspecified organism (principal); G93.40 Encephalopathy, unspecified; J18.9 Pneumonia, unspecified organism; Z43.1 Encounter for attention to gastrostomy; Z88.8 Allergy status to other drugs, medicaments and biological substances; G30.9 Alzheimer's disease, unspecified; F02.80 Dementia in other diseases classified elsewhere, unspecified severity, without behavioral disturbance, psychotic disturbance, mood disturbance, and anxiety; E11.21 Type 2 diabetes mellitus with diabetic nephropathy; R13.10 Dysphagia, unspecified; R74.8 Abnormal levels of other serum enzymes; D63.8 Anemia in other chronic diseases classified elsewhere; D13.30 Benign neoplasm of unspecified part of small intestine; L89.159 Pressure ulcer of sacral region, unspecified stage; F32.9 Major depressive disorder, single episode, unspecified; Z79.4 Long term (current) use of insulin; Z66 Do not resuscitate
CPT/HCPCS: 36415; 36600; 71045; 74177; 80053; 80061; 80069; 81003; 82550; 82553; 82607; 82728; 82746; 82803; 82962; 82977; 83540; 83550; 83605; 83690; 83735; 83880; 84100; 84443; 84484; 84550; 85007; 85025; 85610; 85730; 86140; 86850; 86900; 86901; 86920; 87040; 87070; 87181; 87205; 93005; 94640; 94664; 94760; 99285; J1815; J7620

== ENCOUNTER 2018-03-19 22:05 | Emergency (ER) | payer MEDICARE, BC ==
[~2018-03-19] VITALS: Ht 167.6 cm; Wt 90.7 kg
[~2018-03-19 22:05] MED LIST changes: +ERYTHROMYCIN1 G1 OP; +MORPHINE S10 MG/5 ML GT
[2018-03-19 22:15] VITALS: BP 134/46
[2018-03-19] MEDS ORDERED: cloNIDine 0.2mg Tab ORAL ONE (22:30)
--- NOTE | 2018-03-19 23:10 | Emergency Room Report ---
History of Present Illness General Chief Complaint: Malfunctioning Gastric Tube Source: Medical Record Present Illness HPI Is an 87-year-old female with a history of end-stage dementia. She was just discharged from the [facility]. She presents with chief complaint of feeding tube removal. Per [facility], they are unable to have patient with feeding tube because they're not certify for it. Patient is for comfort care and hospice only. So she was sent here for feeding tube removal. Unable to get any history because the patient condition. Allergies: Coded Allergies: ESTROGENS (Verified Allergy, Unknown, 11/27/14) Uncoded Allergies: "estrogen" (Allergy, Unknown, 02/20/14) Patient History Past Medical History: see triage record, old chart reviewed Past Surgical History: other Pertinent Family History: none Social History: Denies: smoking Now: No Immunizations: other Reviewed Nursing Documentation: PMH: Agreed; PSxH: Agreed Nursing Documentation-PMH Hx Cardiac Problems: Yes - sepsis Hx Hypertension: Yes Hx Diabetes: Yes - DM II Hx Cancer: No Hx Gastrointestinal Problems: Yes - constipation, vomiting, gastrostomy, intestinal obstruction Hx Dementia: Yes Hx Alzheimer's Disease: Yes Hx Dysphasia: Yes Hx Weakness: Yes Hx Fatigue: Yes Review of Systems Eye: Denies: eye pain, blurred vision ENT: Denies: ear pain, nose congestion, throat swelling Respiratory: Denies: cough, shortness of breath Cardiovascular: Denies: chest pain, palpitations Gastrointestinal: Denies: abdominal pain, diarrhea, nausea, vomiting Musculoskeletal: Denies: back pain, joint pain Skin: Denies: rash Neurological: Denies: headache, numbness Endocrine: Denies: increased thirst, increased urine Hematologic/Lymphatic: Denies: easy bruising All Other Systems: negative except mentioned in HPI Physical Exam Vital Signs Date Time Temp Pulse Resp B/P (MAP) Pulse Ox O2 Delivery O2 Flow Rate FiO2 03/19/18 22:09 98.0 103 14 195/72 99 Nasal Cannula 3.0 98.1 vitals with high blood pressure Sp02 EP Interpretation: reviewed, normal General Appearance: Chronically Ill Head: normocephalic, atraumatic Eyes: bilateral eye PERRL, bilateral eye EOMI ENT: hearing grossly normal, normal pharynx Neck: full range of motion, supple, no meningismus Respiratory: chest non-tender, lungs clear, normal breath sounds Cardiovascular #1: regular rate, rhythm, no murmur Gastrointestinal: normal bowel sounds, non tender, no mass, no organomegaly, no bruit, non-distended Musculoskeletal: back normal, other - Contracted Neurologic: alert Skin: warm/dry Procedures Additional Procedure Procedure Narrative Procedure: Removal of feeding tube Indication: Hospice/comfort care Description: With gentle traction, I remove the tube without any difficulty. Patient tolerated procedure without a problem. Medical Decision Making Diagnostic Impression: Primary Impression: Encounter for care related to feeding tube Additional Impression: Hypertension Qualified Codes: I10 - Essential (primary) hypertension ER Course Patient here to have her feeding tube removed. I removed without any complication. She is in Comfort Care only. I discussed the case with Dr. Cason who is in agreement. Last Vital Signs Date Time Temp Pulse Resp B/P (MAP) Pulse Ox O2 Delivery O2 Flow Rate FiO2 03/19/18 22:38 191/86 03/19/18 22:09 98.0 103 14 99 Nasal Cannula 3.0 98.1 Status: improved Disposition: XFER SNF Condition: Stable Referrals: NOT CHOSEN IPA/MD,REFERRING (PCP) Patient Instructions: Gastrostomy Tube Home Guide, Adult Additional Instructions: Follow-up with your doctor as needed. Return if worse. PINA CARTAGENA M.D. Mar 19, 2018 23:10
[2018-03-19 23:20] VITALS: BP 136/46
== END 2018-03-19 23:20 ==
LOC: EDBD 22:05 → EDUNIT# 22:05 → EMR 22:19
DX: Z43.1 Encounter for attention to gastrostomy (principal); I10 Essential (primary) hypertension; E11.9 Type 2 diabetes mellitus without complications; G30.9 Alzheimer's disease, unspecified; F02.80 Dementia in other diseases classified elsewhere, unspecified severity, without behavioral disturbance, psychotic disturbance, mood disturbance, and anxiety; Z51.5 Encounter for palliative care
CPT/HCPCS: 99283